=== PATIENT | female | born 1935 | race Caucasian/White ===

== ENCOUNTER 2023-05-08 11:46 | Outpatient (OUT) | payer MEDICARE, SELFPAY ==
[2023-05-08 11:59] LABS: Basophils Absolute Auto 0.1 10^3/uL (0.0-0.1); Basophils Percent Auto 0.9 % (0.2-2.0); Eosinophils Absolute Auto 0.1 10^3/uL (0.0-0.7); Eosinophils Percent Auto 1.2 % (0.9-7.0); Hematocrit 40.6 % (36.0-48.0); Hemoglobin 12.6 g/dL (12.0-16.0); Immature Granulocytes Abs Auto 0.03 10^3/uL (0.00-0.03); Immature Granulocytes Pct Auto 0.5 % (0.0-0.5); Lymphocytes Absolute Auto 2.1 10^3/uL (1.2-3.8); Mean Corpuscular Hemoglobin 29.9 pg (26.7-34.0); Mean Corpuscular Volume 96.2 fL (81.0-99.0); Mean Platelet Volume 11.1 fL (9.5-13.5); Monocytes Absolute Auto 0.7 10^3/uL (0.3-0.8); Monocytes Percent Auto 10.1 % (1.7-12.0); Neutrophils Absolute Auto 3.7 10^3/uL (1.4-6.5); Neutrophils Percent Auto 55.3 % (43.0-75.0); Platelet Count 192 10^3/uL (150-450); Red Blood Count 4.22 10^6/uL (4.20-5.40); White Blood Count 6.7 10^3/uL (4.0-11.0)
[2023-05-08 12:15] LABS: Erythrocyte Sedimentation Rate 17 mm/hr (<=30)
[2023-05-08 12:48] LABS: Alanine Aminotransferase 26 U/L (14-59); Albumin Level 3.6 g/dL (3.4-5.0); Alkaline Phosphatase 97 U/L (46-116); Anion Gap 7.5; Aspartate Amino Transferase 19 U/L (15-37); BUN Creatinine Ratio 15.6; Bilirubin Total 0.6 mg/dL (0.2-1.0); Calcium 9.7 mg/dL (8.5-10.1); Carbon Dioxide 33.4 mmol/L (21.0-32.0); Chloride 104 mmol/L (98-107); Estimated GFR (African America >60 (>=60); Estimated GFR (Non-African Ame >60 (>=60); Globulin 3.5 g/dL; Glucose 102 mg/dL (74-106); Potassium 3.9 mmol/L (3.5-5.1); Sodium 141 mmol/L (136-145); Thyroid Stimulating Hormone 2.893 uIU/mL (0.358-3.740); Total Protein 7.1 g/dL (6.4-8.2)
== END 2023-05-08 11:47 | disposition home or self-care (01) ==
LOC: LAB 11:47
PROVIDERS: PCP Internal Medicine; Visit Provider Internal Medicine
DX: M06.4 Inflammatory polyarthropathy (principal); R03.0 Elevated blood-pressure reading, without diagnosis of hypertension; I87.2 Venous insufficiency (chronic) (peripheral); R53.82 Chronic fatigue, unspecified; E55.9 Vitamin D deficiency, unspecified
CPT/HCPCS: 36415; 80053; 82306; 84443; 85025; 85652

== ENCOUNTER 2023-07-23 10:15 | Outpatient (OUT) | payer MEDICARE, OTHER, SELFPAY ==
--- NOTE | 2023-07-23 10:20 | MM_ITS ---
Patient: JAYLON CASH Exam Date: 07/23/2023 : 1935 Gender:F Ordering : DR Melvin Pereira D.O. Admission #: [id number] Family : Order #: [id number] CLICK HERE TO VIEW EXAM RADIOLOGY REPORT PROCEDURE: MM TOMOSYNTHESIS SCREENING BI COMPARISON: MG MAMM RT DIAG FU, 07/16/2022. MG MAMM SCREEN 3D KATERINA CAD, 07/04/2022. MG MAMM SCREEN 3D [place] CAD, 06/06/2021. MG MAMM KATERINA SCRN W CAD DIG, 09/06/2013. INDICATIONS: Screening Calculator Name NCI Breast Cancer Risk Assessment Tool 5 Year Breast Cancer Risk Not Applicable. Lifetime Breast Cancer Risk Not Applicable. Personal Breast Cancer No Personal Ovarian Cancer No Treatments None Family Cancers Aunt-maternal with breast cancer at age 60; Sister with bladder cancer at age 78. LOCATION: [facility] BREAST COMPOSITION: Heterogeneously dense,which may obscure small masses. FINDINGS: DIAGNOSTIC CATEGORY 2--BENIGN FINDING: RIGHT BREAST: No significant suspicious finding. Scattered benign-appearing calcifications are present. Stable chronic nodule within lower-outer quadrant. No significant change has occurred. LEFT BREAST: No significant suspicious finding. RECOMMENDATIONS: ROUTINE MAMMOGRAM AND CLINICAL EVALUATION IN 12 MONTHS. PLEASE NOTE: A NORMAL MAMMOGRAM DOES NOT EXCLUDE THE POSSIBILITY OF BREAST CANCER. A CLINICALLY SUSPICIOUS PALPABLE LUMP SHOULD BE BIOPSIED. Dictated by: Jamie Owen M.D. on 07/24/2023 at 11:10 Approved by: Jamie Owen M.D. on 07/24/2023 at 11:16
--- NOTE | 2023-07-23 10:20 | XR_ITS ---
[address] [address] Patient Name: JAYLON CASH MRN: [id number] date: 1935 Sex: F Assigned Patient Location: MAMMO Current Patient Location: LAB Accession/Order Number: [id number] Exam Date: 07/23/2023 10:56 Report Date: 07/23/2023 11:28 At the request of: DOLLY TORRES Procedure: XR DEXA axial skeleton EXAMINATION: XR DEXA axial skeleton HISTORY: Menopause Z78.0 COMPARISON: DEXA bone densitometry 06/10/2021 TECHNIQUE: Dual-energy X-ray absorptiometry (DXA) was performed. FINDINGS: SPINE ANALYSIS: Average bone mineral density is 1.208 g/cm2. T-score (standard deviation relative to young adult mean): 0.2 . -1.0% change since prior study. HIP ANALYSIS: Lowest bone mineral density is within the left femoral neck, 0.771 g/cm2. T-score (standard deviation relative to young adult mean): -1.9 . -0.2% change since prior study. XR/XR DEXA axial skeleton IMPRESSION: [employer] Classification: Osteopenia - Moderate Fracture Risk Electronically authenticated by: KEON ROBERTSON Date: 07/23/2023 11:28
== END 2023-07-23 10:16 | disposition home or self-care (01) ==
LOC: MAMMO 10:15
PROVIDERS: PCP Internal Medicine; Visit Provider Internal Medicine
DX: Z12.31 Encounter for screening mammogram for malignant neoplasm of breast (principal); Z78.0 Asymptomatic menopausal state; Z80.3 Family history of malignant neoplasm of breast; Z80.52 Family history of malignant neoplasm of bladder; M85.89 Other specified disorders of bone density and structure, multiple sites
CPT/HCPCS: 77063; 77067; 77080

== ENCOUNTER 2023-07-23 11:08 | Outpatient (OUT) | payer MEDICARE, OTHER, SELFPAY ==
[2023-07-23 11:44] LABS: Basophils Absolute Auto 0.1 10^3/uL (0.0-0.1); Basophils Percent Auto 0.9 % (0.2-2.0); Eosinophils Percent Auto 0.4 % (0.9-7.0); Hematocrit 41.8 % (36.0-48.0); Hemoglobin 12.8 g/dL (12.0-16.0); Immature Granulocytes Abs Auto 0.03 10^3/uL (0.00-0.03); Immature Granulocytes Pct Auto 0.4 % (0.0-0.5); Lymphocytes Absolute Auto 2.3 10^3/uL (1.2-3.8); Lymphocytes Percent Auto 33.8 % (20.5-60.0); Mean Corpuscular HGB Conc 30.6 g/dL (29.9-35.2); Mean Corpuscular Hemoglobin 30.1 pg (26.7-34.0); Mean Corpuscular Volume 98.4 fL (81.0-99.0); Mean Platelet Volume 11.7 fL (9.5-13.5); Monocytes Absolute Auto 0.6 10^3/uL (0.3-0.8); Monocytes Percent Auto 9.3 % (1.7-12.0); Neutrophils Absolute Auto 3.7 10^3/uL (1.4-6.5); Neutrophils Percent Auto 55.2 % (43.0-75.0); Platelet Count 214 10^3/uL (150-450); Red Blood Count 4.25 10^6/uL (4.20-5.40); Red Cell Distribution Width 15.1 % (11.0-15.0); White Blood Count 6.7 10^3/uL (4.0-11.0)
[2023-07-23 12:19] LABS: Erythrocyte Sedimentation Rate 26 mm/hr (<=30)
[2023-07-23 12:35] LABS: Alanine Aminotransferase 31 U/L (14-59); Albumin Globulin Ratio 1.1; Albumin Level 3.7 g/dL (3.4-5.0); Alkaline Phosphatase 97 U/L (46-116); Anion Gap 10.4; Aspartate Amino Transferase 22 U/L (15-37); BUN Creatinine Ratio 15.8; Bilirubin Total 0.5 mg/dL (0.2-1.0); Calcium 9.6 mg/dL (8.5-10.1); Carbon Dioxide 31.7 mmol/L (21.0-32.0); Chloride 104 mmol/L (98-107); Estimated GFR (African America >60 (>=60); Estimated GFR (Non-African Ame >60 (>=60); Globulin 3.5 g/dL; Glucose 92 mg/dL (74-106); Potassium 4.1 mmol/L (3.5-5.1); Sodium 142 mmol/L (136-145); Total Protein 7.2 g/dL (6.4-8.2)
== END 2023-07-23 11:09 | disposition home or self-care (01) ==
LOC: LAB 11:11
PROVIDERS: PCP Internal Medicine; Visit Provider Internal Medicine Rheumatology
DX: M05.79 Rheumatoid arthritis with rheumatoid factor of multiple sites without organ or systems involvement (principal); Z79.899 Other long term (current) drug therapy
CPT/HCPCS: 36415; 80053; 85025; 85652

== ENCOUNTER 2023-08-07 14:08 | Emergency (ER) | payer MEDICARE, OTHER, SELFPAY ==
[2023-08-07] VITALS (14 sets, daily range): BP systolic 135–161; BP diastolic 50–61; PULSE 79–101; RESP 15–33; TEMP 37.2; O2SAT 87–94; BMI 24.0
--- NOTE | 2023-08-07 14:15 | ECG_ITS ---
The [facility] Test Date: 2023-08-07 Pat Name: JAYLON CASH Department: Room: - Gender: Female Pediatric Urologist: : 1935 Requested By: Melvin Torres Order Number: [id number] Reading MD: MELVIN TORRES Measurements Intervals [place] Rate: 88 P: 4 AL: 156 QRS: 27 QRSD: 86 T: 15 QT: 314 QTc: 359 Interpretive Statements 1100 Sinus rhythm 1570 with occasional ventricular premature complexes 7300 Indeterminate axis 8305 Short QTc interval 9150 abnormal ECG No previous ECG available for comparison Electronically Signed On 08-09-2023 18:19:06 EDT by MELVIN TORRES
--- NOTE | 2023-08-07 14:15 | CT_ITS ---
The [address] [address] Patient Name: JAYLON CASH MRN: [id number] date: 1935 Sex: F Assigned Patient Location: ER Current Patient Location: ER Accession/Order Number: [id number] Exam Date: 08/07/2023 14:46 Report Date: 08/07/2023 15:13 At the request of: SHERRY SABILLON Procedure: CT head/brain wo con EXAM: CT head/brain wo con HISTORY: head injury history of fall COMPARISON: CT head 11/05/2021. TECHNIQUE: Axial soft tissue and bone windows through the calvarium with coronal and sagittal reformats. CT dose reduction technique was used including Automated Exposure Control. Findings: No depressed or calvarial fracture. The paranasal sinuses and mastoid air cells are well aerated. No air-fluid levels. No extra-axial fluid collection. No intra-axial or extra-axial bleed. No mass effect or midline shift. The frank-white matter differentiation is preserved. There are white matter low attenuation lesions which are nonspecific but commonly attributed to chronic small vessel ischemic disease. The brain parenchymal volume is reduced and there is mild ex vacuo dilatation of the ventricles. The basal cisterns are patent. The craniovertebral junction is unremarkable. CT/CT head/brain wo con IMPRESSION: 1. No depressed or calvarial fracture. 2. No acute intracranial bleed. 3. Senescent changes. No Electronically authenticated by: MANDY JANE Date: 08/07/2023 15:13
--- NOTE | 2023-08-07 14:17 | ED.GENADUL1 ---
HPI - General Adult General Chief complaint: Fall Stated complaint: FALL Time Seen by Provider: 08/07/23 14:10 Source: patient Mode of arrival: ambulance History of Present Illness HPI narrative: patient got dizzy while standing in the kitchen and making herself breakfast this morning. She said that she became nauseous and vomited. She then fell to the floor and hit her head but did not lose consciousness. She vomited again. She was unable to get herself up. A neighbor finally found her about 4 hours after the episode and called 911. She was brought to us by EMS. Her only complaint at this time is dizziness. She denies headache, neck pain, back pain, chest or torso pain. No hip or pelvis pain. No extremity injuries. She denied any recent illness and has been taking her meds as prescribed. She previously had episodes of vertigo/dizziness but it has been years and she had no meds to take at home for this. Related Data Previous Rx's Medication Instructions Recorded meclizine 25 mg tablet 25 mg PO TID PRN dizziness #30 tabs 08/07/23 ondansetron 4 mg disintegrating 4 mg PO Q6H PRN nausea and 08/07/23 tablet vomiting #20 tabs Allergies Allergy/AdvReac Type Severity Reaction Status Date / Time No Known Drug Allergies Allergy Verified 08/07/23 14:09 Exam Narrative Exam Narrative: Nurses note and vital signs reviewed and patient is not hypoxic. afebrile General: The patient appears well and in no apparent distress. Patient is resting comfortably on cart. GCS = 15. Skin: Warm, dry, no pallor noted. Head: Normocephalic, atraumatic Neck: Supple, trachea mid-line. Full ROM and no cervical spinal tenderness. Eyes: PERRLA, EOMI ENT: TMs clear, no hemotympanum detected, no blood in posterior oropharynx Cardiovascular: Regular Rate and Rhythm Respiratory: Patient is in no distress, no accessory muscle use, lungs are clear to auscultation, no wheezing, rales or rhonchi Chest Wall: no tenderness, no flail chest, contusion, abrasion, or signs of trauma. Back: No thoracic or lumbar tenderness to palpation. Negative straight leg raise bilaterally. Musculoskeletal: no sign of long bone fracture, no tenderness, no swelling. Pulses at femoral, DP, PT, and popliteal were 2+ bilaterally. Moves all four extremities in all modalities with 5/5 strength. GI: Normal bowel sounds, no tenderness to palpation, no masses appreciated. No rebound, guarding, or rigidity noted. 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 No truncal ataxia. No increase in dizziness when sitting up or moving her head. Psychiatric: Cooperative Constitutional Vital Signs, click to edit/add: Last Vital Signs Temp 98.9 F 08/07/23 14:09 Pulse 85 08/07/23 15:40 Resp 18 08/07/23 15:40 BP 135/50 08/07/23 15:30 Pulse Ox 94 L 08/07/23 14:18 O2 Del Method Room Air 08/07/23 14:09 Course Vital Signs Vital signs: Vital Signs Temperature 98.9 F 08/07/23 14:09 Pulse Rate 88 08/07/23 14:09 Respiratory Rate 18 08/07/23 14:09 Blood Pressure 161/61 H 08/07/23 14:09 Pulse Oximetry 94 L 08/07/23 14:09 Oxygen Delivery Method Room Air 08/07/23 14:09 Temperature 98.9 F 08/07/23 14:09 Pulse Rate 85 08/07/23 15:40 Respiratory Rate 18 08/07/23 15:40 Blood Pressure 135/50 08/07/23 15:30 Pulse Oximetry 94 L 08/07/23 14:18 Oxygen Delivery Method Room Air 08/07/23 14:09 Medical Decision Making MDM Narrative Medical decision making narrative: Patient was placed on metallurgical tester and EKG obtained. Blood drawn and sent for evaluation. Urine was sent for testing. She was given a liter of NS IVF, IV Zofran and oral Meclizine. Orthostatics were obtained and were negative. She was sent for head CT without contrast and no acute pathology was identified by the radiologist. UA negative for UTI. Blood testing was unremarkable. Daughter arrived and, although the patient denied any of these symptoms when I directly asked her, the daughter told the ED nurse that the patient had complained of sore throat and therefore requested a Covid swab. Covid was positive and this results was discussed with the patient and family On recheck at 1620 she was feeling less dizziness and nausea had subsided. ED nurse reported that the patient was able to stand and ambulate to the bathroom. The patient was discharged home with prescriptions for Meclizine and Zofran. Patient advised to rest, stay at home, practice social distancing, take Motrin and Tylenol for pain and fever if not allergic, stay well hydrated with Gatorade or similar drinks if vomiting or eat as tolerated if not and take any meds as prescribed. Reviewed reasons to return including rapid increase in respiratory rate, shortness of breath, confusion, inability to keep down sips of swallowed liquids for more than 24 hours. Asked patient to encourage any ill contacts to stay home and practice similar advice. Lab Data Lab results reviewed: Yes I reviewed the patient's lab results Labs: Lab Results 08/07/23 08/07/23 08/07/23 Range/Units 14:15 14:48 15:52 WBC 7.8 (4.0-11.0) 10^3/uL RBC 4.01 L (4.20-5.40) 10^6/uL Hgb 12.1 (12.0-16.0) g/dL Hct 38.2 (36.0-48.0) % MCV 95.3 (81.0-99.0) fL MCH 30.2 (26.7-34.0) pg MCHC 31.7 (29.9-35.2) g/dL RDW 15.1 H (11.0-15.0) % Plt Count 166 (150-450) 10^3/uL MPV 12.1 (9.5-13.5) fL Neut % (Auto) 81.3 H (43.0-75.0) % Lymph % (Auto) 7.3 L (20.5-60.0) % [place] % (Auto) 10.1 (1.7-12.0) % Eos % (Auto) 0.0 L (0.9-7.0) % Baso % (Auto) 0.5 (0.2-2.0) % Neut # (Auto) 6.4 (1.4-6.5) 10^3/uL Lymph # (Auto) 0.6 L (1.2-3.8) 10^3/uL [place] # (Auto) 0.8 (0.3-0.8) 10^3/uL Eos # (Auto) 0.0 (0.0-0.7) 10^3/uL Baso # (Auto) 0.0 (0.0-0.1) 10^3/uL Abs Immat Gran (auto) 0.06 H (0.00-0.03) 10^3/uL Imm/Tot Granulo (auto) 0.8 H (0.0-0.5) % Sodium 135 L (136-145) mmol/L Potassium 3.6 (3.5-5.1) mmol/L Chloride 101 (98-107) mmol/L Carbon Dioxide 31.4 (21.0-32.0) mmol/L Anion Gap 6.2 BUN 13.0 (7.0-18.0) mg/dL Creatinine 0.84 (0.55-1.02) mg/dL Est GFR ( Amer) >60 (>=60) Est GFR (Non-Af Amer) >60 (>=60) BUN/Creatinine Ratio 15.5 Glucose 129 H (74-106) mg/dL Calcium 9.2 (8.5-10.1) mg/dL Total Bilirubin 0.6 (0.2-1.0) mg/dL AST 24 (15-37) U/L ALT 12 L (14-59) U/L Alkaline Phosphatase 93 (46-116) U/L Troponin I High Sens 9.2 (4.0-51.3) pg/mL Total Protein 7.2 (6.4-8.2) g/dL Albumin 3.6 (3.4-5.0) g/dL Globulin 3.6 g/dL Albumin/Globulin Ratio 1.0 Urine Color Yellow (YELLOW) Urine Clarity Clear (CLEAR) Urine pH 7.0 (5.0-9.0) Ur Specific [place] 1.015 (1.005-1.025) Urine Protein 30 A (NEG/TRACE) mg/dL Urine Glucose (UA) Negative (NEGATIVE) mg/dL Urine Ketones Trace A (NEGATIVE) mg/dL Urine Occult Blood Negative (NEGATIVE) Urine Nitrite Negative (NEGATIVE) Urine Bilirubin Negative (NEGATIVE) Urine Urobilinogen 1.0 (0.2-1.0) EU/dL Ur Leukocyte Esterase Negative (NEGATIVE) Urine RBC 0-2 (0-2) #/HPF Urine WBC 0-2 A (NONE SEEN) #/HPF Ur Squamous Epith Cells Rare (NONE/RARE) #/LPF Urine Crystals None seen (None Seen) #/HPF Urine Bacteria None seen (NONE SEEN) #/HPF Urine Casts Seen A (NONE SEEN) #/LPF Hyaline Casts Few Urine Mucus Small A (NONE SEEN) Ur Culture Indicated? No SARS-CoV-2 (PCR) Positive A (NEGATIVE) Imaging Data CT scan - head: Radiologist's impression: Patient: JAYLON CASH MR#: [id number] : 1935 Acct:[id number] Age/Sex: 88 / F ADM Date: 08/07/23 Loc: ER Attending Dr: Ordering Physician: Sherry Sabillon D.O. Date of Service: 08/07/23 Procedure(s): CT head/brain wo con Accession Number(s): [id number] cc: Melvin Pereira D.O.~ [facility] [place] [id number] Patient Name: JAYLON CASH MRN: [id number] date: 1935 Sex: F Assigned Patient Location: ER Current Patient Location: ER Accession/Order Number: [id number] Exam Date: 08/07/2023 14:46 Report Date: 08/07/2023 15:13 At the request of: SHERRY SABILLON Procedure: CT head/brain wo con EXAM: CT head/brain wo con HISTORY: head injury history of fall COMPARISON: CT head 11/05/2021. TECHNIQUE: Axial soft tissue and bone windows through the calvarium with coronal and sagittal reformats. CT dose reduction technique was used including Automated Exposure Control. Findings: No depressed or calvarial fracture. The paranasal sinuses and mastoid air cells are well aerated. No air-fluid levels. No extra-axial fluid collection. No intra-axial or extra-axial bleed. No mass effect or midline shift. The frank-white matter differentiation is preserved. There are white matter low attenuation lesions which are nonspecific but commonly attributed to chronic small vessel ischemic disease. The brain parenchymal volume is reduced and there is mild ex vacuo dilatation of the ventricles. The basal cisterns are patent. The craniovertebral junction is unremarkable. CT/CT head/brain wo con IMPRESSION: 1. No depressed or calvarial fracture. 2. No acute intracranial bleed. 3. Senescent changes. No Electronically authenticated by: MANDY JANE Date: 08/07/2023 15:13 ECG Data Interpretation: EKG interpretation: Emergency Department physician interpretation. Normal sinus rhythm at 88bpm. Indeterminate axis, short QTc interval. No ST segment elevation or depression. Discharge Plan Discharge Chief Complaint: Fall Clinical Impression: COVID, Dizziness Patient Disposition: Home, Self-Care Time of Disposition Decision: 16:34 Prescriptions / Home Meds: New ondansetron 4 mg tablet,disintegrating 4 mg PO Q6H PRN (Reason: nausea and vomiting) Qty: 20 0RF meclizine 25 mg tablet 25 mg PO TID PRN (Reason: dizziness) Qty: 30 0RF Instructions: Dizziness (ED), COVID-19 (Coronavirus Disease 2019) (ED) Stand Alone Forms: Portal Instructions Referrals: Melvin Pereira DO [Primary Care Provider] - 1 week
[2023-08-07 14:29] LABS: Basophils Percent Auto 0.5 % (0.2-2.0); Hematocrit 38.2 % (36.0-48.0); Hemoglobin 12.1 g/dL (12.0-16.0); Immature Granulocytes Abs Auto 0.06 10^3/uL (0.00-0.03); Immature Granulocytes Pct Auto 0.8 % (0.0-0.5); Lymphocytes Absolute Auto 0.6 10^3/uL (1.2-3.8); Lymphocytes Percent Auto 7.3 % (20.5-60.0); Mean Corpuscular HGB Conc 31.7 g/dL (29.9-35.2); Mean Corpuscular Hemoglobin 30.2 pg (26.7-34.0); Mean Corpuscular Volume 95.3 fL (81.0-99.0); Mean Platelet Volume 12.1 fL (9.5-13.5); Monocytes Absolute Auto 0.8 10^3/uL (0.3-0.8); Monocytes Percent Auto 10.1 % (1.7-12.0); Neutrophils Absolute Auto 6.4 10^3/uL (1.4-6.5); Neutrophils Percent Auto 81.3 % (43.0-75.0); Platelet Count 166 10^3/uL (150-450); Red Blood Count 4.01 10^6/uL (4.20-5.40); Red Cell Distribution Width 15.1 % (11.0-15.0); White Blood Count 7.8 10^3/uL (4.0-11.0)
[2023-08-07] MEDS: 0.9 % SODIUM CHLORIDE 1,000 ML 999 ML IV (14:36)
[2023-08-07] MEDS: ONDANSETRON PF 4 MG/2 ML VIAL IV (14:36)
[2023-08-07] MEDS: MECLIZINE HCL 12.5 MG TABLET 25 MG PO (14:36)
[2023-08-07 14:51] LABS: Alanine Aminotransferase 12 U/L (14-59); Albumin Level 3.6 g/dL (3.4-5.0); Alkaline Phosphatase 93 U/L (46-116); Anion Gap 6.2; Aspartate Amino Transferase 24 U/L (15-37); BUN Creatinine Ratio 15.5; Bilirubin Total 0.6 mg/dL (0.2-1.0); Calcium 9.2 mg/dL (8.5-10.1); Carbon Dioxide 31.4 mmol/L (21.0-32.0); Chloride 101 mmol/L (98-107); Estimated GFR (African America >60 (>=60); Estimated GFR (Non-African Ame >60 (>=60); Globulin 3.6 g/dL; Glucose 129 mg/dL (74-106); Potassium 3.6 mmol/L (3.5-5.1); Sodium 135 mmol/L (136-145); Total Protein 7.2 g/dL (6.4-8.2); Troponin I High Sensitivity 9.2 pg/mL (4.0-51.3)
[2023-08-07 14:54] LABS: Bilirubin Urine NEGATIVE (NEGATIVE); Blood Urine NEGATIVE (NEGATIVE); Clarity Urine CLEAR (CLEAR); Color Urine YELLOW (YELLOW); Glucose Urine UA NEGATIVE (NEGATIVE); Ketones Urine TRACE mg/dL (NEGATIVE); Leukocyte Esterase Urine NEGATIVE (NEGATIVE); Nitrite Urine NEGATIVE (NEGATIVE); Protein Urine 30 mg/dL (NEG/TRACE); Specific Gravity Urine 1.015 (1.005-1.025)
[2023-08-07 14:56] LABS: Urine Microscopic Indicated YES
[2023-08-07 15:02] LABS: Bacteria Urine NONE SEEN #/HPF (NONE SEEN); Mucus Urine SMALL (NONE SEEN); RBC Urine 0-2 #/HPF (0-2); Squamous Epithelial Cell Urine RARE #/LPF (NONE/RARE); WBC Urine 0-2 #/HPF (NONE SEEN)
[2023-08-07 15:03] LABS: Cast Seen? SEEN #/LPF (NONE SEEN); Crystals Seen? None Seen #/HPF (None Seen); Hyaline Casts Urine FEW; Urine Culture Indicated NO
[2023-08-07 16:10] LABS: SARS-CoV-2 Ag POSITIVE (NEGATIVE)
== END 2023-08-07 17:01 | disposition home or self-care (01) ==
PROVIDERS: Emergency Provider Emergency Medicine; PCP Internal Medicine
DX: U07.1 COVID-19 (principal); R42 Dizziness and giddiness
CPT/HCPCS: 36415; 70450; 80053; 81001; 84484; 85025; 87811; 93005; 96361; 96374; 99285

== ENCOUNTER 2023-12-16 14:24 | Outpatient (OUT) | payer MEDICARE, OTHER, SELFPAY ==
[2023-12-16 15:23] LABS: Basophils Absolute Auto 0.1 10^3/uL (0.0-0.1); Basophils Percent Auto 0.9 % (0.2-2.0); Eosinophils Absolute Auto 0.1 10^3/uL (0.0-0.7); Hematocrit 39.1 % (36.0-48.0); Hemoglobin 11.9 g/dL (12.0-16.0); Immature Granulocytes Abs Auto 0.01 10^3/uL (0.00-0.03); Immature Granulocytes Pct Auto 0.1 % (0.0-0.5); Lymphocytes Absolute Auto 2.5 10^3/uL (1.2-3.8); Lymphocytes Percent Auto 35.6 % (20.5-60.0); Mean Corpuscular HGB Conc 30.4 g/dL (29.9-35.2); Mean Corpuscular Hemoglobin 29.5 pg (26.7-34.0); Mean Corpuscular Volume 96.8 fL (81.0-99.0); Mean Platelet Volume 11.6 fL (9.5-13.5); Monocytes Absolute Auto 0.6 10^3/uL (0.3-0.8); Neutrophils Absolute Auto 3.8 10^3/uL (1.4-6.5); Neutrophils Percent Auto 54.4 % (43.0-75.0); Platelet Count 212 10^3/uL (150-450); Red Blood Count 4.04 10^6/uL (4.20-5.40); Red Cell Distribution Width 14.8 % (11.0-15.0); White Blood Count 6.9 10^3/uL (4.0-11.0)
[2023-12-16 15:55] LABS: Alanine Aminotransferase 30 U/L (14-59); Albumin Globulin Ratio 0.9; Albumin Level 3.2 g/dL (3.4-5.0); Alkaline Phosphatase 91 U/L (46-116); Anion Gap 8.5; Aspartate Amino Transferase 22 U/L (15-37); BUN Creatinine Ratio 16.7; Bilirubin Total 0.5 mg/dL (0.2-1.0); Calcium 9.2 mg/dL (8.5-10.1); Carbon Dioxide 33.3 mmol/L (21.0-32.0); Chloride 104 mmol/L (98-107); Estimated GFR (African America >60 (>=60); Estimated GFR (Non-African Ame >60 (>=60); Globulin 3.4 g/dL; Glucose 141 mg/dL (74-106); Potassium 3.8 mmol/L (3.5-5.1); Sodium 142 mmol/L (136-145); Total Protein 6.6 g/dL (6.4-8.2)
[2023-12-16 16:00] LABS: Erythrocyte Sedimentation Rate 22 mm/hr (<=30)
== END 2023-12-16 14:25 | disposition home or self-care (01) ==
PROVIDERS: PCP Internal Medicine; Visit Provider Internal Medicine Rheumatology
DX: M05.79 Rheumatoid arthritis with rheumatoid factor of multiple sites without organ or systems involvement (principal); Z79.899 Other long term (current) drug therapy
CPT/HCPCS: 36415; 80053; 85025; 85652

== ENCOUNTER 2024-02-04 17:53 | Emergency (ER) | payer MEDICARE, OTHER, SELFPAY ==
[2024-02-04] VITALS (21 sets, daily range): BP systolic 151–196; BP diastolic 62–103; PULSE 66–100; TEMP 36.4; O2SAT 78–100; BMI 21.9
--- NOTE | 2024-02-04 18:06 | ED_ITS ---
HPI HPI - General Adult General Chief complaint: Weakness Stated complaint: weakness, vision changes Time Seen by Provider: 02/04/24 18:06 Source: patient Mode of arrival: ambulance History of Present Illness HPI narrative: Chief plaint here today is weakness. She says she does not have any energy and did not feel like doing anything today and that is not like her. She actually saw her primary care doctor today and felt fine but then she went home and started feeling bad. She called an ambulance. She lives by herself. She said that on Thursday she had a problem with her speech she said that words were coming out of her mouth that did not make any sense and that she was not intending to speak. She was not having slurring of her speech at that time. At that time she was with her daughter who noticed that as well. Her daughter took her home and stayed with her for a while and the symptoms passed. Today she is not having any shortness of breath, trouble breathing or chest discomfort. She does not have a headache. She said that she had been on blood pressure medicines previously but they were stopped because the pressure went low but now when she saw her doctor today, they want start her back on the blood pressure medicine because it was high again. She still is on methotrexate for arthritis and cyclosporine eyedrops. She does not have any change in urinary symptoms, no frequency urgency dysuria or odor to the urine. She says she always has a little bit of stress incontinence. She said that is not new. She does not have any skin lesions or sores that she is aware of. She has not had cough runny nose sore throat cold symptoms are all negative. No aches and pains or influenza type symptoms. Related Data Home Medications ?Medication ?Instructions ?Recorded ?Confirmed cyclosporine 0.05 % eye drops in a 1 drp ophthalmic (eye) Q12H 02/04/24 02/04/24 dropperette (Restasis) loteprednol etabonate 0.5 % eye 1 drp ophthalmic (eye) BID 02/04/24 02/04/24 drops,suspension methotrexate sodium 2.5 mg tablet 2.5 mg PO .weekly 02/04/24 02/04/24 olmesartan 5 mg tablet 5 mg PO DAILY 02/04/24 02/04/24 Allergies Allergy/AdvReac Type Severity Reaction Status Date / Time No Known Drug Allergies Allergy Verified 08/07/23 14:09 Opioid HPI Opioid Management Most Recent Opioid Data: No Data to Display Exam Narrative Exam Narrative: Awake alert [place] x 3 pretty good historian. Vital signs are stable and as noted. Pulse oximetry 98% on room air there is no respiratory distress. Skin integument showed no clamminess no diaphoresis no pallor. HEENT shows no focus of infection there is no scleral icterus or evidence of jaundice or anemia. Voice is normal. There is no slurring of her words content is appropriate. There is no nasal stuffiness or congestion there is no nuchal rigidity or neck pain. Her lungs are completely clear with no wheeze rales or rhonchi. Heart sounds are equally normal with no rub gallop or murmur. Examination her abdomen is soft and supple she has no pain with palpation and she has no abdominal symptomatology today. Her extremities do not show any evidence of edema swelling or phlebitis. She does have arthritic changes throughout her extremities. Neurologically there is no focal neurological findings or symptoms. Cognition is adequate for 89-year-old. She does not seem confused. She had total awareness of the event on the previous Thursday where she had problems with her speech. She has spontaneous movement of all the extremities with no weakness. Her cranial nerves are intact today. Constitutional Vital Signs, click to edit/add: Last Vital Signs Temp 97.6 F 02/04/24 17:57 Pulse 80 02/04/24 17:57 Resp 16 02/04/24 17:57 BP 196/103 H 02/04/24 18:01 Pulse Ox 98 02/04/24 17:57 O2 Del Method Room Air 02/04/24 17:57 Course Vital Signs Vital signs: Vital Signs Temperature 97.6 F 02/04/24 17:57 Pulse Rate 80 02/04/24 17:57 Respiratory Rate 16 02/04/24 17:57 Pulse Oximetry 98 02/04/24 17:57 Oxygen Delivery Method Room Air 02/04/24 17:57 Temperature 97.6 F 02/04/24 17:57 Pulse Rate 80 02/04/24 17:57 Respiratory Rate 16 02/04/24 17:57 Blood Pressure 196/103 H 02/04/24 18:01 Pulse Oximetry 98 02/04/24 17:57 Oxygen Delivery Method Room Air 02/04/24 17:57 Discharge Plan Discharge Chief Complaint: Weakness Clinical Impression: Acute weakness Prescriptions / Home Meds: No Action methotrexate sodium 2.5 mg tablet 2.5 mg PO .weekly loteprednol etabonate 0.5 % drops,suspension 1 drp OPHTHALMIC (EYE) BID olmesartan 5 mg tablet 5 mg PO DAILY cyclosporine [Restasis] 0.05 % dropperette 1 drp OPHTHALMIC (EYE) Q12H Print Language: Latvian Referrals: Melvin Pereira DO [Primary Care Provider] - 1 week
--- NOTE | 2024-02-04 18:10 | XR_ITS ---
The [address] [address] Patient Name: JAYLON CASH MRN: [id number] date: 1935 Sex: F Assigned Patient Location: ER Current Patient Location: ER Accession/Order Number: [id number] Exam Date: 02/04/2024 18:45 Report Date: 02/04/2024 19:10 At the request of: LETTY CORADO Procedure: XR chest 1V EXAM: XR chest 1V at 1850 hours HISTORY: Weakness COMPARISON: 11/05/2021 TECHNIQUE: AP upright portable chest x-ray FINDINGS: The heart is not enlarged and the vasculature is not distended. No acute infiltrate, effusion or pneumothorax is identified. The osseous structures are grossly intact. XR/XR chest 1V IMPRESSION: No acute infiltrate or evidence of cardiac decompensation. The overall appearance of the chest is essentially unchanged. Electronically authenticated by: BUSTER NUNES Date: 02/04/2024 19:10
--- NOTE | 2024-02-04 18:10 | ECG_ITS ---
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
--- NOTE | 2024-02-04 18:11 | CT_ITS ---
The [address] [address] Patient Name: JAYLON CASH MRN: [id number] date: 1935 Sex: F Assigned Patient Location: ER Current Patient Location: ED.MAIN Accession/Order Number: [id number] Exam Date: 02/04/2024 18:55 Report Date: 02/04/2024 19:23 At the request of: LETTY CORADO Procedure: CT head/brain wo con EXAM: CT scan of the head without contrast. Dose reduction technique used: Automated exposure control and/or adjustment of the mA and/or kV according to patient size and/or use of iterative reconstruction technique. REASON FOR EXAM: Speech problem COMPARISON: CT scan dated 08/07/2023 FINDINGS: No intracranial hemorrhage, mass effect, midline shift, fractures or evidence of acute ischemic infarct. No hydrocephalus. Moderate generalized cerebral and cerebellar volume loss. Moderate small vessel gliosis. Paranasal sinuses and mastoid air cells are clear. Remainder unremarkable. CT/CT head/brain wo con IMPRESSION: No acute intracranial abnormalities. Electronically authenticated by: ANNIE ROUSE Date: 02/04/2024 19:23
--- OUTSIDE RECORDS SUMMARY | 2024-02-04 18:15 | XMS_ITS | CCD ---
Author Organization [facility] Care Team Providers Care Medical Assistant Ob Gyn Name Role Phone TR, DR SANTACRUZ Admitting Unavailable ARMANDO, DR SANTACRUZ Attending Unavailable ARMANDO, DR SANTACRUZ Consulting Unavailable BALL, DR ALBERTO Primary Care Unavailable PRISCILLA, CARITO Attending Unavailable PRISCILLA, CARITO Admitting Unavailable ZIEBMARCO, DR JAMIE Cruz Consulting Unavailable BALL, DR ALBERTO Primary Care Unavailable PRISCILLA, CARITO Consulting Unavailable ARMANDO, DR SANTACRUZ Admitting Unavailable ARMANDO, DR SANTACRUZ Attending Unavailable ARMANDO, DR SANTACRUZ Consulting Unavailable BALL, DR ALBERTO Primary Care Unavailable BALL, DR ALBERTO Attending Unavailable BALL, DR ALBERTO Consulting Unavailable BALL, DR ALBERTO Primary Care Unavailable BALL, DR ALBERTO Admitting Unavailable WEST, DR MARIA E Briceno Consulting Unavailable BALL, DR ALBERTO Admitting Unavailable BALL, DR ALBERTO Attending Unavailable BALL, DR ALBERTO Consulting Unavailable BALL, DR ALBERTO Primary Care Unavailable AILYN, DR JAMIE Cruz Consulting Unavailable Randall, Melvin Unavailable DELROY TENA Attending Unavailable DELROY TENA Attending Unavailable Allergies Allergy Classification Reported Allergen(s) Allergy Type Date of Onset Reaction(s) Facility (20 sources) traMADol Drug Allergy Unknown Nimbus Data Other (1 source) patient allergy list reviewed by nurse or physicia Propensity to adverse reactions Comment:Done Nimbus Data Other Medications Current Medications Medication Drug Class(es) Dates Sig (Normalized) Sig (Original) ascorbic acid 113 mg / beta carotene 7160 mg / cuprous oxide 0.4 mg / dl-alpha tocopheryl acetate 100 unt / zinc oxide 17.4 mg oral tablet (2 sources) Vitamin C Start: 02-03-2024 Vitamins A,C,A-Jwnb-Zmrvxu (Preservision Areds) 2,148 mcg-113 mg-45 mg-17.4mg tablet Active TAB PO As Directed February 03, 2024 12:00am Preservision PreserVision ARE DS - as directed Orally Active calcium carbonate 1500 mg / cholecalciferol 800 unt chewable tablet (1 source) Vitamin D Start: 02-03-2024 Calcium Carbonate-Vitamin D3 (Calcium 600 With Vitamin D3) 600 mg-10 mcg (400 unit) tablet,chewable Active TAB PO February 03, 2024 12:00am calcium phosphate 200 mg / cholecalciferol 200 unt chewable tablet (1 source) Vitamin D Calcium/Vitamin D3 Gummies 200-5 MG-MCG as directed Orally Active Calcium/Vitamin D3 Gummies 200-5 MG-MCG (20 sources) Calcium/Vitamin D3 Gummies 200-5 MG-MCG as directed Orally Active cycloSPORINE 0.5 mg/ml ophthalmic suspension (20 sources) Calcineurin Inhibitor Immunosuppressant take 1 drop(s) into the eye(s) twice daily Restasis 0.05 % 1 drop into affected eye Ophthalmic Twice a day Active Cyclosporine (Restasis) 0.05 % dropperette (1 source) Start: 02-03-2024 take 1 drop(s) into the eye(s) every twelve hours Cyclosporine (Restasis) 0.05 % dropperette Active 1 DROPS EYE-BOTH Every 12 hours February 03, 2024 12:00am Dextran 70 / Glycerin / hypromellose (1 source) Plasma Volume Digital Operations Analyst, Non-Standardized Chemical Allergen GenTeal Tears 0.1-0.3 % as directed Ophthalmic Active dextran 70 1 mg/ml / hypromellose 3 mg/ml ophthalmic solution (1 source) Plasma Volume Digital Operations Analyst Start: 02-03-2024 take 0.1-0.3 drop(s) into the eye(s) once daily at bedtime Dextran 70-Hypromellose (Genteal Tears Mild) 0.1-0.3 % drops Active 1 DROPS EYE-BOTH Daily at bedtime February 03, 2024 12:00am folic acid 1 mg oral tablet (20 sources) Start: 02-03-2024 take 1 mg by mouth once daily Folic Acid Active 1 MG PO Daily February 03, 2024 12:00am take 1 tablet by fernanda th every twenty-four hours Folic Acid 1 MG 1 tablet Orally Once a day Active methotrexate 2.5 mg oral tablet (20 sources) Folate Analog Metabolic Inhibitor Start: 02-03-2024 take 6 tablets by mouth every week Methotrexate Sodium Active 0 PO every week February 03, 2024 12:00am 6 Tablets orally every week; Methotrexate 2.5 MG as directed Orally 6 weekly Active Multivitamin preparation (2 sources) Start: 02-03-2024 take 1 tablet by mouth once daily Multivitamin Active 1 TAB PO Daily February 03, 2024 12:00am take 1 tablet by mouth once joanie y Multivitamin - 1 tablet Orally Once a day Active olmesartan medoxomil 5 mg oral tablet (11 sources) Angiotensin 2 Receptor Norm Start: 02-04-2024 take 10 mg by mouth once daily Olmesartan Active 10 MG PO Daily 60 30 February 04, 2024 9:56am Start: 02-01-2024 End: 02-04-2024 take 5 mg by mouth once daily Olmesartan Discontinued 5 MG PO Daily 30 February 01, 2024 1:24pm February 04, 2024 9:57am Start: 07-17-2023 take 1 tablet by fernanda th every twenty-four hours Olmesartan Medoxomil 5 MG 1 tablet Orally Once a day for 30 days Jul, Active polyvinyl alcohol 0.014 ml/ml / povidone 6 mg/ml ophthalmic solution (20 sources) Start: 02-03-2024 Polyvinyl Alco hol-Povidon(Pf) Active 1 DROPS OPHTHALMIC As Directed February 03, 2024 12:00am Refresh 1.4-0.6 % as directed Ophthalmic Active {20 (nirmatrelvir 150 MG Oral Tablet) / 10 (ritonavir 100 MG Oral Tablet) } Pack [Paxlovid 5-Day] (4 sources) Start: 08-10-2023 take 3 tablets by mouth every twelve hours Paxlovid (300/100) 20 x 150 MG & 10 x 100MG 3 tablets Orally Twice a day for 5 days Aug, Active Completed/Discontinued Medications Medication Drug Class(es) Dates Sig (Normalized) Sig (Original) amLODIPine 5 mg oral tablet (10 sources) Dihydropyridine Calcium Channel Norm Start: 02-03-2024 End: 02-04-2024 take 5 mg by mouth once daily Amlodipine Discontinued 5 MG PO Daily February 03, 2024 12:00am February 04, 2024 9:56am Start: 05-08-2023 take 1 tablet by fernanda th every twenty-four hours amLODIPine Besylate 5 MG 1 tablet Orally Once a day for 30 days May, Active diclofenac sodium 75 mg delayed release oral tablet (20 sources) Nonsteroidal Anti-inflammatory Drug take 1 tablet by mouth every twelve hours Diclofenac Sodium 75 MG 1 tablet as needed Orally Twice a day Not-Taking/PRN paxlovid (300/100) 20 x 150 mg & 10 x 100mg tablet therapy pack (1 source) Start: 023 take 3 tablets by mouth every twelve hours Paxlovid (300/100) 20 x 150 MG & 10 x 100MG 3 tablets Orally Twice a day for 5 days Aug, Not-Taking/PRN Problems Active Problems Problem Classification Problem Date Documented Da te Episodic/Chronic Anxiety disorders (20 sources) Panic disorder; Translations: [Panic disorder [episodic paroxysmal anxiety]] 02-03-2024 Chronic Calculus of urinary tract (16 sources) H/O: urinary stone; Translations: [Personal history of urinary calculi] Episodic Esophageal disorders (13 sources) Gastro-esophageal reflux disease with esophagitis; Translations: [Gastro-esophageal reflux disease with esophagitis, without bleeding] 02-03-2024 Chronic Esophageal disorders (20 sources) Esophageal disorders; Translations: [Gastroesophageal reflux disease with esophagitis without hemorrhage] Essential hypertension (20 sources) Essential hypertension; Translations: [Essential (primary) hypertension] Chronic Immunizations and screening for infectious disease (16 sources) Vaccination given; Translations: [Encounter for immunization] Episodic Malaise and fatigue (20 sources) Fatigue; Translations: [Chronic fatigue, unspecified] Chronic Nonmalignant breast conditions (1 source) Unspecified lump in the right breast, upper outer quadrant; Translations: [UNS LUMP IN RT BREAST UP OUTR QUAD] Onset: 07-08-2022 Episodic Nutritional deficiencies (20 sources) Vitamin D deficiency, unspecified; Translations: [Vitamin D deficiency] Onset: 11-05-2021 Resolved: 03-16-2020 Chronic Open wounds of extremities (16 sources) Laceration of lower leg; Translations: [Laceration without foreign body, left lower leg, subsequent encounter] Episodic Osteoarthritis (6 sources) Unspecified osteoarthritis, unspecified site; Translations: [Osteoarthritis of right knee joint] Onset: 10-29-2021 Chronic Other bone disease and musculoskeletal deformities (20 sources) Other specified disorders of bone density and structure, other site; 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] Episodic Other bone disease and musculoskeletal deformities (16 sources) Disorder of bone; Translations: [Other specified disorders of bone density and structure, other site] Episodic Other bone disease and musculoskeletal deformities (1 source) Osteopenia; Translations: [Other specified disorders of bone density and structure, unspecified site] 02-03-2024 Episodic Other bone disease and musculoskeletal deformities (1 source) Other specified disorders of bone density and structure, unspecified site; Translations: [Disorder of bone and cartilage, unspecified] 02-04-2024 Episodic Other circulatory disease (20 sources) Elevated blood-pressure reading without diagnosis of hypertension; Translations: [Elevated blood-pressure reading, without diagnosis of hypertension] Episodic Other circulatory disease (1 source) Elevated blood-pressure reading, without diagnosis of hypertension Episodic Other congenital anomalies (1 source) Congenital spondylolysis of lumbosacral region; Translations: [Congenital spondylolysis, lumbosacral region] Onset: 01-28-2019 Chronic Other diseases of veins and lymphatics (20 sources) Peripheral venous insufficiency; Translations: [Venous insufficiency (chronic) (peripheral)] Episodic Other diseases of veins and lymphatics (4 sources) Venous insufficiency (chronic) (peripheral); Translations: [Venous (peripheral) insufficiency, unspecified] Episodic Other diseases of veins and lymphatics (1 source) Venous insufficiency of leg; Translations: [Venous insufficiency (chronic) (peripheral)] 02-03-2024 Episodic Other gastrointestinal disorders (2 sources) Slow transit constipation; Translations: [Slow transit constipation] 02-03-2024 Episodic Other gastrointestinal disorders (1 source) Slow transit constipation Episodic Other injuries and conditions due to external causes (16 sources) History of fall; Translations: [History of falling] Episodic Other nervous system disorders (16 sources) Carpal tunnel syndrome; Translations: [Carpal tunnel syndrome, right upper limb] Chronic Other nervous system disorders (1 source) Aphasia; Translations: [Aphasia] 02-04-2024 Chronic Other nutritional; endocrine; and metabolic disorders (1 source) Abnormal weight loss Episodic Other screening for suspected conditions (not mental disorders or infectious disease) (20 sources) Other abnormal and inconclusive findings on diagnostic imaging of breast; Translations: [Encounter for screening mammogram for malignant neoplasm of breast] Onset: 08-10-2017 Resolved: 03-16-2020 Episodic Other upper respiratory disease (16 sources) Unspecified voice and resonance disorder; Translations: [Unspecified voice and resonance disorder] Episodic Residual codes; unclassified (1 source) Family history of malignant neoplasm of breast; Translations: [FAMILY HX MALIG NEOPLASM OF BREAST] Onset: 07-08-2022 Episodic Residual codes; unclassified (1 source) Family history of malignant neoplasm of bladder; Translations: [FAM HX MALIGNANT NEOPLASM BLADDER] Onset: 07-08-2022 Episodic Residual codes; unclassified (2 sources) Asymptomatic menopausal state Episodic Rheumatoid arthritis and related disease (20 sources) Rheumatoid arthritis with rheumatoid factor of multiple sites without organ or systems involvement; Translations: [Rheumatoid arthritis] Onset: 03-14-2022 Chronic Skin and subcutaneous tissue infections (20 sources) Cellulitis of left lower limb; Translations: [Cellulitis of left lower limb] Episodic Spondylosis; intervertebral disc disorders; other back problems (20 sources) Spondylosis without myelopathy or radiculopathy, lumbar region; Translations: [Lumbar spondylosis] Onset: 07-08-2022 02-03-2024 Chronic Spondylosis; intervertebral disc disorders; other back problems (16 sources) Low back pain; Translations: [Low back pain, unspecified] Episodic Transient cerebral ischemia (1 source) Transient cerebral ischemia; Translations: [Transient cerebral ischemic attack, unspecified] 02-04-2024 Chronic Unclassified (1 source) CONTACT W/AND (SUSP) EXPOS COVID-19; Translations: [CONTACT W/AND (SUSP) EXPOS COVID-19] Onset: 11-09-2021 Past or Other Problems Problem Classification Problem Date Documented Da te Episodic/Chronic Conditions associated with dizziness or vertigo (4 sources) Dizziness and giddiness; Translations: [DIZZINESS AND GIDDINESS] Onset: 11-05-2021 Episodic Deficiency and other anemia (16 sources) Anemia; Translations: [Anemia, unspecified] Resolved: 06-03-2021 Episodic Malaise and fatigue (1 source) Malaise and fatigue; Translations: [Other malaise and fatigue] Onset: 08-10-2017 Episodic Other aftercare (1 source) Other intermediate accountant (current) drug therapy; Translations: [OTH ALF CURRENT DRUG THERAPY] Onset: 03-19-2022 Episodic Other aftercare (1 source) superintendent container terminal (current) use of aspirin; Translations: [LAUNDRY MACHINE TENDER CURRENT USE OF ASPIRIN] Onset: 11-09-2021 Episodic Other bone disease and musculoskeletal deformities (16 sources) Bone density finding; Translations: [Other specified disorders of bone density and structure, unspecified site] Onset: 08-10-2017 Episodic Other connective tissue disease (16 sources) Pain in left lower limb; Translations: [Pain in left leg] Onset: 01-28-2019 Episodic Other connective tissue disease (1 source) Swelling of limb; Translations: [Swelling of limb] Onset: 02-03-2017 Episodic Other injuries and conditions due to external causes (16 sources) Food in respiratory tract, part unspecified causing other injury, subsequent encounter; Translations: [Food in respiratory tract, part unspecified causing other injury, subsequent encounter] Resolved: 03-16-2020 Episodic Other injuries and conditions due to external causes (16 sources) Traumatic AND/OR non-traumatic injury; Translations: [Other injury of unspecified body region, initial encounter] Resolved: 06-03-2021 Episodic Other lower respiratory disease (16 sources) Pleuritic pain; Translations: [Pleurodynia] Resolved: 03-16-2020 Episodic Other non-traumatic joint disorders (1 source) Arthralgia of the pelvic region and thigh; Translations: [Pain in joint, pelvic region and thigh] Onset: 01-28-2019 Episodic Other skin disorders (16 sources) Localized swelling, mass and lump, left lower limb; Translations: [Localized swelling, mass and lump, left lower limb] Resolved: 05-15-2020 Episodic Other upper respiratory disease (16 sources) Dysphonia; Translations: [Dysphonia] Onset: 02-03-2017 Episodic Other upper respiratory infections (20 sources) Acute sinusitis; Translations: [Acute sinusitis, unspecified] Onset: 05-09-2014 Episodic Residual codes; unclassified (1 source) Acquired absence of other specified parts of digestive tract; Translations: [ACQ ABSENCE OTH PART DIGESTV TRACT] Onset: 11-09-2021 Episodic Residual codes; unclassified (16 sources) Localized edema; Translations: [Localized edema] Resolved: 03-16-2020 Episodic Residual codes; unclassified (1 source) Requires influenza virus vaccination; Translations: [Need for prophylactic vaccination and inoculation, Influenza] Onset: 07-21-2017 Episodic Sprains and strains (16 sources) Strain of other muscle(s) and tendon(s) at lower leg level, left leg, initial encounter; Translations: [Strain of other muscle(s) and tendon(s) at lower leg level, left leg, initial encounter] Resolved: 05-15-2020 Episodic Superficial injury; contusion (16 sources) Contusion of hip; Translations: [Contusion of left hip, initial encounter] Onset: 01-28-2019 Episodic Viral infection (1 source) COVID-19 Results Test Name Value Interpretation Reference Range Facility Basophils Auto (Bld) [#/Vol] on 12-16-2023 Basophils (Bld) [#/Vol] 0.1 10 3/uL 0.0-0.1 [facility] Basophils/100 WBC Auto (Bld) on 12-16-2023 Basophils/100 WBC (Bld) 0.9 % 0.2-2.0 [facility] Eosinophils/100 WBC Auto (Bl d)on 12-16-2023 Eosinophils/100 WBC (Bld) 1.0 % 0.9-7.0 [facility] Erythrocyte distribution wid th Auto (RBC) [Ratio]on 12-16-2023 Erythrocyte distribution width (RBC) [Ratio] 14.8 % 11.0-15.0 [facility] Estimated glomerular filtrat ion rate (GFR) non- Americanon 12-16-2023 GFR/1.73 sq M.predicted among non-blacks MDRD (S/P/Bld) [Vol rate/Area] mL/min/{1.73_m2} >=60 [facility] Globulin Calc (S) [Mass/Vol] on 12-16-2023 Globulin (S) [Mass/Vol] 3.4 g/dL [facility] Hematocrit Auto (Bld) [Volum e fraction]on 12-16-2023 Hematocrit (Bld) [Volume fraction] 39.1 % 36.0-48.0 [facility] Hemoglobin [Mass/volume] in Bloodon 12-16-2023 Hemoglobin (Bld) [Mass/Vol] 11.9 g/dL 12.0-16.0 [facility] Laboratory - Chemistry and C hemistry - challengeon 12-16-2023 Albumin [Mass/Vol] 3.2 g/dL 3.4-5.0 [facility] ALP [Catalytic activity/Vol] 91 U/L 46-116 [facility] ALT [Catalytic activity/Vol] 30 U/L 14-59 [facility] AST [Catalytic activity/Vol] 22 U/L 15-37 [facility] Bilirubin [Mass/Vol] 0.5 mg/dL 0.2-1.0 [facility] Calcium [Mass/Vol] 9.2 mg/dL 8.5-10.1 [facility] Chloride [Moles/Vol] 104 mmol/L 98-107 [facility] CO2 [Moles/Vol] 33.3 mmol/L 21.0-32.0 [facility] Creatinine [Mass/Vol] 0.66 mg/dL 0.55-1.02 [facility] GFR/1.73 sq M.predicted MDRD (S/P/Bld) [Vol rate/Area] mL/min/{1.73_m2} >=60 [facility] Glucose [Mass/Vol] 141 mg/dL 74-106 [facility] Potassium [Moles/Vol] 3.8 mmol/L 3.5-5.1 [facility] Protein [Mass/Vol] 6.6 g/dL 6.4-8.2 [facility] Sodium [Moles/Vol] 142 mmol/L 136-145 [facility] Urea nitrogen [Mass/Vol] 11.0 mg/dL 7.0-18.0 [facility] Urea nitrogen/Creatinine [Mass ratio] 16.7 mg/mg [facility] Laboratory - Hematology and Cell countson 12-16-2023 ESR (Bld) [Velocity] 22 mm/h <=30 [facility] Immature granulocytes/100 WBC (Bld) 0.1 % 0.0-0.5 [facility] Leukocytes [#/volume] correc shahid for nucleated erythrocytes in Blood by Automated counon 12-16-2023 WBC corrected for nucl RBC Auto (Bld) [#/Vol] 6.9 10 3/uL 4.0-11.0 [facility] Lymphocytes Auto (Bld) [#/Vo l]on 12-16-2023 Lymphocytes (Bld) [#/Vol] 2.5 10 3/uL 1.2-3.8 [facility] Lymphocytes/100 WBC Auto (Bl d)on 12-16-2023 Lymphocytes/100 WBC (Bld) 35.6 % 20.5-60.0 [facility] MCH Auto (RBC) [Entitic mass ]on 12-16-2023 MCH (RBC) [Entitic mass] 29.5 pg 26.7-34.0 [facility] MCHC Auto (RBC) [Mass/Vol]on 12-16-2023 MCHC (RBC) [Mass/Vol] 30.4 g/dL 29.9-35.2 [facility] MCV Auto (RBC) [Entitic vol] on 12-16-2023 MCV (RBC) [Entitic vol] 96.8 fL 81.0-99.0 [facility] Monocytes Auto (Bld) [#/Vol] on 12-16-2023 Monocytes (Bld) [#/Vol] 0.6 10 3/uL 0.3-0.8 [facility] Monocytes/100 WBC Auto (Bld) on 12-16-2023 Monocytes/100 WBC (Bld) 8.0 % 1.7-12.0 [facility] Neutrophils Auto (Bld) [#/Vo l]on 12-16-2023 Neutrophils (Bld) [#/Vol] 3.8 10 3/uL 1.4-6.5 [facility] Neutrophils/100 WBC Auto (Bl d)on 12-16-2023 Neutrophils/100 WBC (Bld) 54.4 % 43.0-75.0 [facility] No Panel Informationon 12-16 Eosinophils # (Auto) 0.1 10 3/uL 0.0-0.7 [facility] Immature Granulocyte # (Auto) 0.01 10 3/uL 0.00-0.03 [facility] Platelet mean volume Auto (B ld) [Entitic vol]on 12-16-2023 Platelet mean volume (Bld) [Entitic vol] 11.6 fL 9.5-13.5 [facility] Platelets Auto (Bld) [#/Vol] on 12-16-2023 Platelets (Bld) [#/Vol] 212 10 3/uL 150-450 [facility] RBC Auto (Bld) [#/Vol]on RBC (Bld) [#/Vol] 4.04 10 6/uL 4.20-5.40 [facility] Serum or plasma albumin/glob ulin mass ratioon 12-16-2023 Albumin/Globulin [Mass ratio] 0.9 {ratio} [facility] Serum or plasma anion gap de terminationon 12-16-2023 Anion gap [Moles/Vol] 8.5 mmol/L [facility] MG MAMM RT DIAG FUon 022 MG MAMM RT DIAG FU Patient: RUBIA CASH Exam Date: 07/16/2022 : 1935 Gender:F Ordering : DR MELVIN PEREIRA D.O. Admission #: [id number] Family : Order #: [id number] CLICK HERE TO VIEW EXAM RADIOLOGY REPORT PROCEDURE: MAMMOGRAM RIGHT DIAGNOSTIC DIGITAL FOLLOW UP, 07/16/2022, 12:49 ULTRASOUND BREAST RIGHT LIMITED, 07/16/2022, 13:16 COMPARISON: MG MAMM SCREEN 3D KATERINA CAD, 07/04/2022. INDICATIONS: Abnormal findings on diagnostic imaging of breast Calculator Name NCI Breast Cancer Risk Assessment Tool 5 Year Breast Cancer Risk Not Applicable. Lifetime Breast Cancer Risk Not Applicable. Personal Breast Cancer No Personal Ovarian Cancer No Treatments None Family Cancers Aunt-maternal with breast cancer at age 60; Sister with bladder cancer at age 78. LOCATION: [facility] BREAST COMPOSITION: Heterogeneously dense,which may obscure small masses. FINDINGS: DIAGNOSTIC CATEGORY 2--BENIGN FINDING: RIGHT BREAST: Spot magnification views demonstrate persistence of a 7 x 6 mm partially circumscribed mass within the lower-outer quadrant suggestive of a lymph node. Ultrasound evaluation demonstrates a benign appearing lymph node at the 9 o'clock position corresponding to the mammographic findings. RECOMMENDATIONS: ROUTINE MAMMOGRAM AND CLINICAL EVALUATION IN 12 MONTHS. PLEASE NOTE: A NORMAL MAMMOGRAM DOES NOT EXCLUDE THE POSSIBILITY OF BREAST CANCER. A CLINICALLY SUSPICIOUS PALPABLE LUMP SHOULD BE BIOPSIED. Dictated by: Jamie Owen M.D. on 07/16/2022 at 13:43 Approved by: Jamie Owen M.D. on 07/16/2022 at 13:45 [facility] US BREAST RIGHT LIMITEDon US BREAST RIGHT LIMITED Patient: RUBIA CASH Exam Date: 07/16/2022 : 1935 Gender:F Ordering : DR MELVIN PEREIRA D.O. Admission #: [id number] Family : Order #: [id number] CLICK HERE TO VIEW EXAM RADIOLOGY REPORT PROCEDURE: MAMMOGRAM RIGHT DIAGNOSTIC DIGITAL FOLLOW UP, 07/16/2022, 12:49 ULTRASOUND BREAST RIGHT LIMITED, 07/16/2022, 13:16 COMPARISON: MG MAMM SCREEN 3D KATERINA CAD, 07/04/2022. INDICATIONS: Abnormal findings on diagnostic imaging of breast Calculator Name NCI Breast Cancer Risk Assessment Tool 5 Year Breast Cancer Risk Not Applicable. Lifetime Breast Cancer Risk Not Applicable. Personal Breast Cancer No Personal Ovarian Cancer No Treatments None Family Cancers Aunt-maternal with breast cancer at age 60; Sister with bladder cancer at age 78. LOCATION: [facility] BREAST COMPOSITION: Heterogeneously dense,which may obscure small masses. FINDINGS: DIAGNOSTIC CATEGORY 2--BENIGN FINDING: RIGHT BREAST: Spot magnification views demonstrate persistence of a 7 x 6 mm partially circumscribed mass within the lower-outer quadrant suggestive of a lymph node. Ultrasound evaluation demonstrates a benign appearing lymph node at the 9 o'clock position corresponding to the mammographic findings. RECOMMENDATIONS: ROUTINE MAMMOGRAM AND CLINICAL EVALUATION IN 12 MONTHS. PLEASE NOTE: A NORMAL MAMMOGRAM DOES NOT EXCLUDE THE POSSIBILITY OF BREAST CANCER. A CLINICALLY SUSPICIOUS PALPABLE LUMP SHOULD BE BIOPSIED. Dictated by: Jamie wOen M.D. on 07/16/2022 at 13:43 Approved by: Jamie Owen M.D. on 07/16/2022 at 13:45 [facility] MG MAMM SCREEN 3D KATERINA CADon 07-04-2022 MG MAMM SCREEN 3D KATERINA CAD Patient: RUBIA CASH Exam Date: 07/04/2022 : 1935 Gender:F Ordering : DR MELVIN PEREIRA D.O. Admission #: [id number] Family : Order #: [id number] CLICK HERE TO VIEW EXAM RADIOLOGY REPORT PROCEDURE: MAMMOGRAM SCREENING 3D BILATERAL CAD COMPARISON: MG MAMM SCREEN 3D KATERINA CAD, 06/06/2021. MG MAMM SCREEN KATERINA W CAD, 05/31/2020. INDICATIONS: Spondylosis without myelopathy Calculator Name NCI Breast Cancer Risk Assessment Tool 5 Year Breast Cancer Risk Not Applicable. Lifetime Breast Cancer Risk Not Applicable. Personal Breast Cancer No Personal Ovarian Cancer No Treatments None Family Cancers Aunt-maternal with breast cancer at age 60; Sister with bladder cancer at age 78. LOCATION: [facility] BREAST COMPOSITION: Heterogeneously dense,which may obscure small masses. FINDINGS: DIAGNOSTIC CATEGORY 0--INCOMPLETE: NEED ADDITIONAL IMAGING EVALUATION. Scattered benign-appearing calcifications are present. Scattered benign-appearing lymph nodes are present. RIGHT BREAST: New well-circumscribed 6.9 x 5.9 mm nodule identified in the upper-outer quadrant, mid breast. Spot imaging and ultrasound follow-up is recommended for further evaluation. LEFT BREAST: No significant suspicious finding. RECOMMENDATIONS: ADDITIONAL MAMMOGRAPHIC VIEWS REQUIRED: RIGHT BREAST - spot compression ULTRASOUND: RIGHT BREAST PLEASE NOTE: A NORMAL MAMMOGRAM DOES NOT EXCLUDE THE POSSIBILITY OF BREAST CANCER. A CLINICALLY SUSPICIOUS PALPABLE LUMP SHOULD BE BIOPSIED. 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 No paraspinous abnormality is seen. OTHER: Vascular calcifications. Right upper quadrant surgical clips. IMPRESSION: Moderate degenerative changes Electronically authenticated by: MARIA E CANTU Date: 2022-07-04 17:35 Normal [facility] CBC AUTO DIFFon 03-14-2022 BASO # 0.1 103/ul Normal 0.0-0.1 [facility] Comment on above: Performed By: #### H STROPN #### [facility] [address] [place] [address] Dr. Rigoberto Ivy Basophils/100 WBC (Bld) 1.1 % Normal 0.2-2.0 [facility] Comment on above: Performed By: #### H STROPN #### [facility] [address] [place] [address] Dr. Rigoberto Ivy EO # 0.1 103/ul Normal 0.0-0.7 [facility] Comment on above: Performed By: #### H STROPN #### [facility] [address] [place] [address] Dr. Rigoberto Ivy Eosinophils/100 WBC (Bld) 1.7 % Normal 0.9-7.0 [facility] Comment on above: Performed By: #### H STROPN #### [facility] [address] [place] [address] Dr. Rigoberto Ivy Erythrocyte distribution width (RBC) [Ratio] 15.8 % Critically high 11.0-15.0 [facility] Comment on above: Performed By: #### H STROPN #### [facility] [address] [place] [address] Dr. Rigoberto Ivy Hematocrit (Bld) [Volume fraction] 39.7 % Normal 36.0-48.0 [facility] Comment on above: Performed By: #### H STROPN #### [facility] [address] [place] [address] Dr. Rigoberto Ivy Hemoglobin (Bld) [Mass/Vol] 12.3 g/dL Normal 12.0-16.0 [facility] Comment on above: Performed By: #### H STROPN #### [facility] [address] [place] [address] Dr. Rigoberto Ivy IG # 0.03 10e3/ul Normal 0.00-0.03 [facility] Comment on above: Performed By: #### H STROPN #### [facility] [address] [place] [address] Dr. Rigoberto Ivy IG % 0.4 % Normal 0.0-0.5 [facility] Comment on above: Performed By: #### H STROPN #### [facility] [address] [place] [address] Dr. Rigoberto Ivy LYMPH # 2.5 103/ul Normal 1.2-3.8 [facility] Comment on above: Performed By: #### H STROPN #### [facility] [address] [place] [address] Dr. Rigoberto Ivy Lymphocytes/100 WBC (Bld) 35.0 % Normal 20.5-60.0 [facility] Comment on above: Performed By: #### H STROPN #### [facility] [address] [place] [address] Dr. Rigoberto Ivy MANUAL DIFF REQ NO Normal [facility] Comment on above: Performed By: #### H STROPN #### [facility] [address] [place] [address] Dr. Rigoberto Ivy MCH (RBC) [Entitic mass] 29.9 pg Normal 26.7-34.0 [facility] Comment on above: Performed By: #### H STROPN #### [facility] [address] [place] [address] Dr. Rigoberto vIy MCHC (RBC) [Mass/Vol] 31.0 g/dL Normal 29.9-35.2 [facility] Comment on above: Performed By: #### H STROPN #### [facility] [address] [place] [address] Dr. Rigoberto Ivy MCV (RBC) [Entitic vol] 96.6 fL Normal 81.0-99.0 [facility] Comment on above: Performed By: #### H STROPN #### [facility] [address] [place] [address] Dr. Rigoberto Ivy MONO # 0.7 103/ul Normal 0.3-0.8 [facility] Comment on above: Performed By: #### H STROPN #### [facility] [address] [place] [address] Dr. Rigoberto Ivy Monocytes/100 WBC (Bld) 9.4 % Normal 1.7-12.0 [facility] Comment on above: Performed By: #### H STROPN #### [facility] [address] [place] [address] Dr. Rigoberto Ivy NEUT # 3.8 103/ul Normal 1.4-6.5 [facility] Comment on above: Performed By: #### H STROPN #### [facility] [address] [address] [address] Rigoberto Ivy Neutrophils/100 WBC (Bld) 52.4 % Normal 43.0-75.0 [facility] Comment on above: Performed By: #### H STROPN #### [facility] [address] [place] [address] Dr. Rigoberto Ivy Platelet mean volume (Bld) [Entitic vol] 10.9 fL Normal 9.5-13.5 [facility] Comment on above: Performed By: #### H STROPN #### [facility] [address] [place] [address] Dr. Rigoberto Ivy PLT 225 103/ul Normal 150-450 [facility] Comment on above: Performed By: #### H STROPN #### [facility] [address] [place] [address] Dr. Rigoberto Ivy RBC 4.11 106/ul Critically low 4.20-5.40 [facility] Comment on above: Performed By: #### H STROPN #### [facility] [address] [place] [address] Dr. Rigoberto Ivy WBC 7.2 103/ul Normal 4.0-11.0 [facility] Comment on above: Performed By: #### H STROPN #### [facility] [address] [place] [address] Dr. Rigoberto Ivy PROF 14(COMP METB)on 022 Albumin [Mass/Vol] 3.6 g/dL Normal 3.4-5.0 [facility] Comment on above: Performed By: #### H STROPN #### [facility] [address] [place] [address] Dr. Rigoberto Ivy Albumin/Globulin [Mass ratio] 1.0 {ratio} Normal [facility] Comment on above: Performed By: #### H STROPN #### [facility] [address] [place] [address] Dr. Rigoberto Ivy ALP [Catalytic activity/Vol] 89 U/L Normal 46-116 [facility] Comment on above: Performed By: #### H STROPN #### [facility] [address] [place] [address] Dr. Rigoberto Ivy ALT [Catalytic activity/Vol] 29 U/L Normal 14-59 [facility] Comment on above: Performed By: #### H STROPN #### [facility] [address] [address] [address] Rigoberto Ivy Anion gap [Moles/Vol] 7.7 mmol/L Normal [facility] Comment on above: Performed By: #### H STROPN #### [facility] [address] [address] [address] Rigoberto Ivy AST [Catalytic activity/Vol] 22 U/L Normal 15-37 [facility] Comment on above: Performed By: #### H STROPN #### [facility] [address] [place] [address] Dr. Rigoberto Ivy Bilirubin [Mass/Vol] 0.5 mg/dL Normal 0.2-1.0 [facility] Comment on above: Performed By: #### H STROPN #### [facility] [address] [address] [address] Rigoberto Ivy Calcium [Mass/Vol] 9.5 mg/dL Normal 8.5-10.1 [facility] Comment on above: Performed By: #### H STROPN #### [facility] [address] [address] [address] Rigoberto Ivy Chloride [Moles/Vol] 103 mmol/L Normal 98-107 [facility] Comment on above: Performed By: #### H STROPN #### [facility] [address] [address] [address] Riogberto Ivy CO2 [Moles/Vol] 33.5 mmol/L Critically high 21.0-32.0 [facility] Comment on above: Performed By: #### H STROPN #### [facility] [address] [address] [address] Rigoberto Ivy Creatinine [Mass/Vol] 0.60 mg/dL Normal 0.55-1.02 [facility] Comment on above: Performed By: #### H STROPN #### [facility] [address] [address] [address] Rigoberto Ivy EGFR-AF MALAWIAN >60 Normal >=60 [facility] Comment on above: Performed By: #### H STROPN #### [facility] [address] [address] [address] Rigoberto Ivy EGFR-NON AF MALAWIAN >60 Normal >=60 [facility] Comment on above: Performed By: #### H STROPN #### [facility] [address] [address] [address] Rigoberto Ivy Globulin (S) [Mass/Vol] 3.5 g/dL Normal [facility] Comment on above: Performed By: #### H STROPN #### [facility] [address] [place] [address] Dr. Rigoberto Ivy Glucose [Mass/Vol] 90 mg/dL Normal 74-106 [facility] Comment on above: Performed By: #### H STROPN #### [facility] [address] [address] [address] Rigoberto Ivy Potassium [Moles/Vol] 4.2 mmol/L Normal 3.5-5.1 [facility] Comment on above: Performed By: #### H STROPN #### [facility] [address] [address] [address] Rigoberto Ivy Protein [Mass/Vol] 7.1 g/dL Normal 6.4-8.2 [facility] Comment on above: Performed By: #### H STROPN #### [facility] [address] [address] [address] Rigoberto Ivy Sodium [Moles/Vol] 140 mmol/L Normal 136-145 [facility] Comment on above: Performed By: #### H STROPN #### [facility] [address] [address] [address] Rigoberto Ivy Urea nitrogen [Mass/Vol] 11.0 mg/dL Normal 7.0-18.0 [facility] Comment on above: Performed By: #### H STROPN #### [facility] [address] [place] [address] Dr. Rigoberto Ivy Urea nitrogen/Creatinine [Mass ratio] 18.3 mg/mg Normal [facility] Comment on above: Performed By: #### H STROPN #### [facility] [address] [place] [address] Dr. Rigoberto Ivy SED RATE WESTERGRENon 2021 SED RATE 10 mm/hr Normal <=30 [facility] Comment on above: Performed By: #### S EDR #### [facility] [address] [place] [address] Dr. Rigoberto Ivy CULTURE URINEon 11-07-2021 CULTURE URINE Culture Observations : GREATER THAN TWO ORGANISMS PRESENT. PLEASE RESUBMIT CLEAN CATCH MID-STREAM URINE IF CLINICALLY INDICATED. Normal [facility] Comment on above: Performed By: #### H STROPN #### [facility] [address] [place] [address] Dr. Rigoberto Ivy BNPon 11-05-2021 Natriuretic peptide B (Bld) [Mass/Vol] 273.0 pg/mL Normal <=1,800.0 [facility] Comment on above: Performed By: #### C MP, BNP, HSTROPN #### [facility] [address] [place] [address] Dr. Rigoberto Ivy CBC AUTO DIFFon 11-05-2021 BASO # 0.1 103/ul Normal 0.0-0.1 [facility] Comment on above: Performed By: #### C BC #### [facility] [address] [place] [address] Dr. Rigoberto Ivy Basophils/100 WBC (Bld) 0.8 % Normal 0.2-2.0 [facility] Comment on above: Performed By: #### C BC #### [facility] [address] [place] [address] Dr. Rigoberto Ivy EO # 0.1 103/ul Normal 0.0-0.7 [facility] Comment on above: Performed By: #### C BC #### [facility] [address] [place] [address] Dr. Rigoberto Ivy Eosinophils/100 WBC (Bld) 0.7 % Critically low 0.9-7.0 [facility] Comment on above: Performed By: #### C BC #### [facility] [address] [place] [address] Dr. Rigoberto Ivy Erythrocyte distribution width (RBC) [Ratio] 15.5 % Critically high 11.0-15.0 [facility] Comment on above: Performed By: #### C BC #### [facility] [address] [place] [address] Dr. Rigoberto Ivy Hematocrit (Bld) [Volume fraction] 41.5 % Normal 36.0-48.0 [facility] Comment on above: Performed By: #### C BC #### [facility] [address] [place] [address] Dr. Rigoberto Ivy Hemoglobin (Bld) [Mass/Vol] 12.8 g/dL Normal 12.0-16.0 [facility] Comment on above: Performed By: #### C BC #### [facility] [address] [place] [address] Dr. Rigoberto Ivy IG # 0.03 10e3/ul Normal 0.00-0.03 [facility] Comment on above: Performed By: #### C BC #### [facility] [address] [place] [address] Dr. Rigoberto Ivy IG % 0.4 % Normal 0.0-0.5 [facility] Comment on above: Performed By: #### C BC #### [facility] [address] [place] [address] Dr. Rigoberto Ivy LYMPH # 2.6 103/ul Normal 1.2-3.8 [facility] Comment on above: Performed By: #### C BC #### [facility] [address] [place] [address] Dr. Rigoberto Ivy Lymphocytes/100 WBC (Bld) 34.6 % Normal 20.5-60.0 [facility] Comment on above: Performed By: #### C BC #### [facility] [address] [place] [address] Dr. Rigoberto Ivy MANUAL DIFF REQ NO Normal [facility] Comment on above: Performed By: #### C BC #### [facility] [address] [place] [address] Dr. Rigoberto Ivy MCH (RBC) [Entitic mass] 29.8 pg Normal 26.7-34.0 [facility] Comment on above: Performed By: #### C BC #### [facility] [address] [place] [address] Dr. Rigoberto Ivy MCHC (RBC) [Mass/Vol] 30.8 g/dL Normal 29.9-35.2 [facility] Comment on above: Performed By: #### C BC #### [facility] [address] [place] [address] Dr. Rigoberto Ivy MCV (RBC) [Entitic vol] 96.7 fL Normal 81.0-99.0 [facility] Comment on above: Performed By: #### C BC #### [facility] [address] [place] [address] Dr. Rigoberto Ivy MONO # 0.7 103/ul Normal 0.3-0.8 [facility] Comment on above: Performed By: #### C BC #### [facility] [address] [place] [address] Dr. Rigoberto Ivy Monocytes/100 WBC (Bld) 8.5 % Normal 1.7-12.0 [facility] Comment on above: Performed By: #### C BC #### [facility] [address] [place] [address] Dr. Rigoberto Ivy NEUT # 4.2 103/ul Normal 1.4-6.5 [facility] Comment on above: Performed By: #### C BC #### [facility] [address] [place] [address] Dr. Rigoberto Ivy Neutrophils/100 WBC (Bld) 55.0 % Normal 43.0-75.0 [facility] Comment on above: Performed By: #### C BC #### [facility] [address] [place] [address] Dr. Rigoberto Ivy Platelet mean volume (Bld) [Entitic vol] 10.6 fL Normal 9.5-13.5 [facility] Comment on above: Performed By: #### C BC #### [facility] [address] [place] [address] Dr. Rigoberto Ivy PLT 234 103/ul Normal 150-450 [facility] Comment on above: Performed By: #### C BC #### [facility] [address] [place] [address] Dr. Rigoberto Ivy RBC 4.29 106/ul Normal 4.20-5.40 [facility] Comment on above: Performed By: #### C BC #### [facility] [address] [place] [address] Dr. Rigoberto Ivy WBC 7.6 103/ul Normal 4.0-11.0 [facility] Comment on above: Performed By: #### C BC #### [facility] [address] [place] [address] HEAD WO CONon 11-05-2021 CT HEAD WO CON EXAMINATION: CT HEAD WO CON, 11/05/2021 12:00 PM EST HISTORY: Dizziness , tingling in hands, anxious COMPARISON: CT head 03/26/2019 TECHNIQUE: CT scan of the head was performed without IV contrast. CT dose reduction technique was used, including Automated Exposure Control. FINDINGS: BRAIN: No edema, hemorrhage, mass, acute infarction, or inappropriate atrophy. CSF SPACES: No hydrocephalus, subarachnoid hemorrhage, or mass. Appropriate for age. SKULL: No fracture, mass, or other significant visible lesion. SINUSES: No significant mucosal thickening or fluid on the limited views. ORBITS: No appreciable abnormality on the limited views. OTHER: Negative IMPRESSION: 1. No intracranial hemorrhage or appreciable acute abnormality. 2. Age consistent atrophy and chronic small vessel ischemic changes; grossly stable. Electronically authenticated by: JAMIE OWEN Date: 2021-11-05 13:08 Normal [facility] Covid-19 PCR (CVDTB)on SARS-CoV-2 (COVID-19) RNA LATHA+probe Ql (Unsp spec) Not detected Normal NOT DETECTED [facility] Comment on above: Result Comment: When diagnostic testing is negative, the possibility of a false negative should be considered in the context of a patient's recent exposures and the presence of clinical signs and symptoms consistent with SARS-CoV-2. This test is not yet approved or cleared by the [place] FDA. When there are no FDA-approved or cleared tests available, and other criteria are met, FDA can make tests available under an emergency access mechanism called an Emergency Use Authorization (EUA). The EUA for this test is supported by the [place] of Health and Human Service's declaration that circumstances exist to justify the emergency use of in vitro diagnostics for the detection and/or diagnosis of the virus that causes COVID-19. This EUA will remain in effect for the duration of the COVID-19 declaration justifying emergency of IVDs, unless it is terminated or revoked by the FDA (after which the test may no longer be used). Performed By: #### C RP, CMP #### [facility] [address] [place] [address] Dr. Rigoberto Ivy ER URINE PROFILEon 2 Bilirubin Ql (U) Negative Normal NEGATIVE [facility] Comment on above: Performed By: #### H STROPN #### [facility] [address] [place] [address] Dr. Rigoberto Ivy Clarity (U) CLEAR Normal CLEAR [facility] Comment on above: Performed By: #### H STROPN #### [facility] [address] [place] [address] Dr. Rigoberto Ivy Color (U) LT. YELLOW Normal YELLOW [facility] Comment on above: Performed By: #### H STROPN #### [facility] [address] [place] [address] Dr. Rigoberto Ivy ERUAHD A micrscopic examination will be performed if indicated. Normal [facility] Comment on above: Performed By: #### H STROPN #### [facility] [address] [place] [address] Dr. Rigoberto Ivy Glucose Ql (U) Negative Normal NEGATIVE [facility] Comment on above: Performed By: #### H STROPN #### [facility] [address] [place] [address] Dr. Rigoberto Ivy Hemoglobin Ql (U) Negative Normal NEGATIVE [facility] Comment on above: Performed By: #### H STROPN #### [facility] [address] [place] [address] Dr. Rigoberto Iyv Ketones Ql (U) Negative Normal NEGATIVE [facility] Comment on above: Performed By: #### H STROPN #### [facility] [address] [place] [address] Dr. Rigoberto Ivy LEUKOCYTES TRACE Abnormal NEGATIVE [facility] Comment on above: Performed By: #### H STROPN #### [facility] [address] [place] [address] Dr. Rigoberto Ivy Nitrite Ql (U) Negative Normal NEGATIVE [facility] Comment on above: Performed By: #### H STROPN #### [facility] [address] [place] [address] Dr. Rigoberto Ivy pH (U) 7.0 [pH] Normal 5-9 [facility] Comment on above: Performed By: #### H STROPN #### [facility] [address] [place] [address] Dr. Rigoberto Ivy SPEC GRAVITY 1.015 Normal 1.005-<=1.025 [facility] Comment on above: Performed By: #### H STROPN #### [facility] [address] [place] [address] Dr. Rigoberto Ivy UA PROTEIN Negative Normal NEGATIVE/ TRACE [facility] Comment on above: Performed By: #### H STROPN #### [facility] [address] [place] [address] Dr. Rigoberto Ivy UR MICRO IND INDICATED Normal [facility] Comment on above: Performed By: #### H STROPN #### [facility] [address] [place] [address] Dr. Rigoberto Ivy Urobilinogen Qn (U) 0.2 {Gideon'U}/dL Normal 0.2 - 1. 0 [facility] Comment on above: Performed By: #### H STROPN #### [facility] [address] [place] [address] Dr. Rigoberto Ivy LAB TESTINGon 11-05-2021 RECV HEADER SEE SCANNED REPORT I N HPF Normal [facility] Comment on above: Performed By: #### M ISC #### [facility] [address] [place] [address] Dr. Rigoberto Ivy REV FROM REF LAB 11/05/2021 [facility] Comment on above: Performed By: #### M ISC #### [facility] [address] [place] [address] Dr. Rigoberto Ivy SENT TO REF LAB 11/05/2020 [facility] Comment on above: Performed By: #### M ISC #### [facility] [address] [place] [address] Dr. Rigoberto Ivy LACTATE/LACTIC ACIDon 2021 Lactate [Moles/Vol] 0.8 mmol/L Normal 0.7-2.0 [facility] Comment on above: Performed By: #### H STROPN #### [facility] [address] [place] [address] Dr. Rigoberto Ivy PROF 14(COMP METB)on 022 Albumin [Mass/Vol] 3.7 g/dL Normal 3.5-5.0 [facility] Comment on above: Performed By: #### C MP, BNP, HSTROPN #### [facility] [address] [place] [address] Dr. Rigoberto Ivy Albumin/Globulin [Mass ratio] 0.9 {ratio} [facility] Comment on above: Performed By: #### C MP, BNP, HSTROPN #### [facility] [address] [place] [address] Dr. Rigoberto Ivy ALP [Catalytic activity/Vol] 105 U/L Normal 38-126 [facility] Comment on above: Performed By: #### C MP, BNP, HSTROPN #### [facility] [address] [place] [address] Dr. Rigoberto Ivy ALT [Catalytic activity/Vol] 51 U/L Normal 9-52 [facility] Comment on above: Performed By: #### C MP, BNP, HSTROPN #### [facility] [address] [place] [address] Dr. Rigoberto Ivy Anion gap [Moles/Vol] 11.4 mmol/L Normal [facility] Comment on above: Performed By: #### C MP, BNP, HSTROPN #### [facility] [address] [place] [address] Dr. Rigoberto Ivy AST [Catalytic activity/Vol] 33 U/L Normal 14-36 [facility] Comment on above: Performed By: #### C MP, BNP, HSTROPN #### [facility] [address] [place] [address] Dr. Rigoberto Ivy Bilirubin [Mass/Vol] 0.7 mg/dL Normal 0.2-1.3 [facility] Comment on above: Performed By: #### C MP, BNP, HSTROPN #### [facility] [address] [place] [address] Dr. Rigoberto Ivy Calcium [Mass/Vol] 9.6 mg/dL Normal 8.4-10.2 [facility] Comment on above: Performed By: #### C MP, BNP, HSTROPN #### [facility] [address] [place] [address] Dr. Rigoberto Ivy Chloride [Moles/Vol] 107 mmol/L Normal 98-107 [facility] Comment on above: Performed By: #### C MP, BNP, HSTROPN #### [facility] [address] [place] [address] Dr. Rigoberto Ivy CO2 [Moles/Vol] 30.8 mmol/L Critically high 22.0-30.0 [facility] Comment on above: Performed By: #### C MP, BNP, HSTROPN #### [facility] [address] [place] [address] Dr. Rigoberto Ivy Creatinine [Mass/Vol] 0.65 mg/dL Normal 0.52-1.04 [facility] Comment on above: Performed By: #### C MP, BNP, HSTROPN #### [facility] [address] [place] [address] Dr. Rigoberto Ivy EGFR-AF MALAWIAN >60 Normal >=60 [facility] Comment on above: Performed By: #### C MP, BNP, HSTROPN #### [facility] [address] [place] [address] Dr. Rigoberto Ivy EGFR-NON AF MALAWIAN >60 Normal >=60 [facility] Comment on above: Performed By: #### C MP, BNP, HSTROPN #### [facility] [address] [address] [address] Rigoberto Ivy Globulin (S) [Mass/Vol] 3.9 g/dL Normal [facility] Comment on above: Performed By: #### C MP, BNP, HSTROPN #### [facility] [address] [place] [address] Dr. Rigoberto Ivy Glucose [Mass/Vol] 98 mg/dL Normal 74-106 [facility] Comment on above: Performed By: #### C MP, BNP, HSTROPN #### [facility] [address] [place] [address] Dr. Rigoberto Ivy Potassium [Moles/Vol] 4.2 mmol/L Normal 3.4-5.0 [facility] Comment on above: Performed By: #### C MP, BNP, HSTROPN #### [facility] [address] [place] [address] Dr. Rigoberto Ivy Protein [Mass/Vol] 7.6 g/dL Normal 6.1-8.2 [facility] Comment on above: Performed By: #### C MP, BNP, HSTROPN #### [facility] [address] [place] [address] Dr. Rigoberto Ivy Sodium [Moles/Vol] 145 mmol/L Normal 137-145 [facility] Comment on above: Performed By: #### C MP, BNP, HSTROPN #### [facility] [address] [place] [address] Dr. Rigoberto Ivy Urea nitrogen [Mass/Vol] 12.0 mg/dL Normal 7.0-17.0 [facility] Comment on above: Performed By: #### C MP, BNP, HSTROPN #### [facility] [address] [place], [place] [address] Dr. Rigoberto Ivy Urea nitrogen/Creatinine [Mass ratio] 18.5 mg/mg Normal [facility] Comment on above: Performed By: #### C MP, BNP, HSTROPN #### [facility] [address] [place], [place] [address] Dr. Rigoberto Ivy Partial Thromboplastin Timeo n 11-05-2021 aPTT Coag (Bld) [Time] 32.9 s Normal 25.1-36.5 [facility] Comment on above: Order Comment: Sampl e recieved as a pour off from [facility]. Unable to verify patient's HCT to correct for HCT > 55%. Results may be falsely increased if the HCT is greater than 55%. Result Comment: PERF ORMED BY: [place] [address] PATHOLOGIST [employer] GARRETT SELLERS M.D. Performed By: #### P T, PTT #### [facility] [id number] [facility] Prothrombin Time INRon 11-05 INR Coag (PPP) [Relative time] 1.0 {INR} Normal [facility] Comment on above: Order Comment: Sampl e recieved as a pour off from [facility]. Unable to verify patient's HCT to correct for HCT > 55%. Results may be falsely increased if the HCT is greater than 55%. Result Comment: INR Therapeutic Range A) Pre- and Peroperative OAT started two weeks before surgery. NOT HIP SURGERY: 1.5 - 2.5 HIP SURGERY: 2 - 3 B) Primary and secondary prevention of venous THROMBOSIS: 2 - 3 C) Active venous thrombosis, pulmonary embolism and prevention of recurrent venous thrombosis: 2 - 3 D) Prevention of arterial thromboembolism including patients with mechanical heart valves: 3 - 4.5 Performed By: #### P T, PTT #### [facility] [address] [id number] [facility] PT Coag (PPP) [Time] 11.1 s Normal 9.0-12.9 [facility] Comment on above: Order Comment: Sampl e recieved as a pour off from [facility]. Unable to verify patient's HCT to correct for HCT > 55%. Results may be falsely increased if the HCT is greater than 55%. Performed By: #### P T, PTT #### [facility] [address] TROPONIN, HIGH SENSITIVITYon 11-05-2021 HSTROP 14.1 pg/mL Normal 4.0-35.5 [facility] Comment on above: Result Comment: CUT- OFF POINTS HAVE BEEN ESTABLISHED BASED ON THE FOURTH UNIVERSAL DEFINITIONS OF MYOCARDIAL INFARCTION. THE UPPER REFERENCE LIMIT (URL) OF TROPONIN, DEFINED THE 99TH PERCENTILE OF cTnI DISTRIBUTION IN A REFERENCE POPULATION, HAS BEEN CONFIRMED THE DECISION THRESHOLD FOR [place] DIAGNOSIS. Performed By: #### H STROPN #### [facility] [address] [place] [address] Dr. Rigoberto Ivy HSTROP 10.3 pg/mL Normal 4.0-35.5 [facility] Comment on above: Result Comment: CUT- OFF POINTS HAVE BEEN ESTABLISHED BASED ON THE FOURTH UNIVERSAL DEFINITIONS OF MYOCARDIAL INFARCTION. THE UPPER REFERENCE LIMIT (URL) OF TROPONIN, DEFINED THE 99TH PERCENTILE OF cTnI DISTRIBUTION IN A REFERENCE POPULATION, HAS BEEN CONFIRMED THE DECISION THRESHOLD FOR [place] DIAGNOSIS. Performed By: #### C MP, BNP, HSTROPN #### [facility] [address] [place] [address] Dr. Rigoberto Ivy URINE MICROSCOPIC ONLYon BACTERIA TRACE Abnormal NONE SEEN [facility] Comment on above: Performed By: #### H STROPN #### [facility] [address] [address] [address] Rigoberto Ivy Bacteria identified Cx Nom (U) INDICATED Normal [facility] Comment on above: Performed By: #### H STROPN #### [facility] [address] [place] [address] Dr. Rigoberto Ivy CAST NONE SEEN Normal NONE SEEN [facility] Comment on above: Performed By: #### H STROPN #### [facility] [address] [address] [address] Rigoberto Ivy Crystals LM Nom (Urine sed) NONE SEEN Normal NONE SEEN [facility] Comment on above: Performed By: #### H STROPN #### [facility] [address] [address] [address] Rigoberto Ivy Epithelial cells LM Ql (Urine sed) RARE Normal NONE SEEN /RARE [facility] Comment on above: Performed By: #### H STROPN #### [facility] [address] [address] [address] Rigoberto Ivy MUCOUS TRACE Abnormal NONE SEEN [facility] Comment on above: Performed By: #### H STROPN #### [facility] [address] [address] [address] Rigoberto Ivy RBC NONE SEEN Abnormal 0-2 [facility] Comment on above: Performed By: #### H STROPN #### [facility] [address] [place] [address] Dr. Rigoberto Ivy WBC 0-2 Abnormal NONE SEEN [facility] Comment on above: Performed By: #### H STROPN #### [facility] [address] [place] [address] Dr. Rigoberto Ivy XR CHEST 1 Von 11-05-2021 XR CHEST 1 V EXAMINATION: XR CHES T 1 V HISTORY: Dizziness , tingling in hands, anxious COMPARISON: XR chest 07/02/2020 FINDINGS: LUNGS: No significant pulmonary parenchymal abnormalities. VASCULATURE: No increased pulmonary vasculature. PLEURA: No pneumothorax, effusion, or pleural thickening. CARDIAC: No cardiomegaly or cardiac silhouette abnormality. MEDIASTINUM: No visible mass or adenopathy. BONES: No fracture or visible bone lesion. OTHER: Negative. IMPRESSION: 1. No acute cardiopulmonary process. Electronically authenticated by: JAMIE OWEN Date: 2021-11-05 13:01 Normal [facility] VIT D 25-OH [facility] 2020 Vitamin D, 25-Hydroxy 44.1 ng/mL Normal 30.0-100.0 [facility] Comment on above: Result Comment: Shabnam min D deficiency has been defined by the [place] [employer] and an Endocrine Society practice guideline as a level of serum 25-OH vitamin D less than 20 ng/mL (1,2). The Endocrine Society went on to further define vitamin D insufficiency as a level between 21 and 29 ng/mL (2). 1. IOM ([place] [employer]). 2010. Dietary reference intakes for calcium and D. [place]: The National Academies Press. 2. Chiara MF, Cesilia COLLADO, Evans CALLAHAN, et al. Evaluation, treatment, and prevention of vitamin D deficiency: an Endocrine Society clinical practice guideline. JCEM. 2010; 96(7):1911-30. Performed By: #### C RP, CMP #### [facility] [address] [place] [address] Dr. Rigoberto Ivy CBC AUTO DIFFon 10-29-2021 BASO # 0.1 103/ul Normal 0.0-0.1 [facility] Comment on above: Performed By: #### C BC #### [facility] [address] [place] [address] Dr. Rigoberto Ivy Basophils/100 WBC (Bld) 0.8 % Normal 0.2-2.0 [facility] Comment on above: Performed By: #### C BC #### [facility] [address] [address] [address] Rigoberto Ivy EO # 0.1 103/ul Normal 0.0-0.7 [facility] Comment on above: Performed By: #### C BC #### [facility] [address] [place] [address] Dr. Rigoberto Ivy Eosinophils/100 WBC (Bld) 1.2 % Normal 0.9-7.0 [facility] Comment on above: Performed By: #### C BC #### [facility] [address] [place] [address] Dr. Rigoberto Ivy Erythrocyte distribution width (RBC) [Ratio] 15.2 % Critically high 11.0-15.0 [facility] Comment on above: Performed By: #### C BC #### [facility] [address] [place] [address] Dr. Rigoberto Ivy Hematocrit (Bld) [Volume fraction] 39.1 % Normal 36.0-48.0 [facility] Comment on above: Performed By: #### C BC #### [facility] [address] [place] [address] Dr. Rigoberto Ivy Hemoglobin (Bld) [Mass/Vol] 12.1 g/dL Normal 12.0-16.0 [facility] Comment on above: Performed By: #### C BC #### [facility] [address] [place] [address] Dr. Rigoberto Ivy IG # 0.03 10e3/ul Normal 0.00-0.03 [facility] Comment on above: Performed By: #### C BC #### [facility] [address] [place] [address] Dr. Rigoberto Ivy IG % 0.4 % Normal 0.0-0.5 [facility] Comment on above: Performed By: #### C BC #### [facility] [address] [place] [address] Dr. Rigoberto Ivy LYMPH # 2.7 103/ul Normal 1.2-3.8 [facility] Comment on above: Performed By: #### C BC #### [facility] [address] [place] [address] Dr. Rigoberto Ivy Lymphocytes/100 WBC (Bld) 35.1 % Normal 20.5-60.0 [facility] Comment on above: Performed By: #### C BC #### [facility] [address] [place] [address] Dr. Rigoberto Ivy MANUAL DIFF REQ NO Normal [facility] Comment on above: Performed By: #### C BC #### [facility] [address] [place] [address] Dr. Rigoberto Ivy MCH (RBC) [Entitic mass] 30.0 pg Normal 26.7-34.0 [facility] Comment on above: Performed By: #### C BC #### [facility] [address] [place] [address] Dr. Rigoberto Ivy MCHC (RBC) [Mass/Vol] 30.9 g/dL Normal 29.9-35.2 [facility] Comment on above: Performed By: #### C BC #### [facility] [address] [place] [address] Dr. Rigoberto Ivy MCV (RBC) [Entitic vol] 96.8 fL Normal 81.0-99.0 [facility] Comment on above: Performed By: #### C BC #### [facility] [address] [place] [address] Dr. Rigoberto Ivy MONO # 0.7 103/ul Normal 0.3-0.8 [facility] Comment on above: Performed By: #### C BC #### [facility] [address] [place] [address] Dr. Rigoberto Ivy Monocytes/100 WBC (Bld) 9.8 % Normal 1.7-12.0 [facility] Comment on above: Performed By: #### C BC #### [facility] [address] [place] [address] Dr. Rigoberto Ivy NEUT # 4.0 103/ul Normal 1.4-6.5 [facility] Comment on above: Performed By: #### C BC #### [facility] [address] [place] [address] Dr. Rigoberto Ivy Neutrophils/100 WBC (Bld) 52.7 % Normal 43.0-75.0 [facility] Comment on above: Performed By: #### C BC #### [facility] [address] [place] [address] Dr. Rigoberto Ivy Platelet mean volume (Bld) [Entitic vol] 11.1 fL Normal 9.5-13.5 [facility] Comment on above: Performed By: #### C BC #### [facility] [address] [place] [address] Dr. Rigoberto Ivy PLT 217 103/ul Normal 150-450 [facility] Comment on above: Performed By: #### C BC #### [facility] [address] [place] [address] Dr. Rigoberto Ivy RBC 4.04 106/ul Critically low 4.20-5.40 [facility] Comment on above: Performed By: #### C BC #### [facility] [address] [place] [address] Dr. Rigoberto Ivy WBC 7.6 103/ul Normal 4.0-11.0 [facility] Comment on above: Performed By: #### C BC #### [facility] [address] [place] [address] Dr. Rigoberto Ivy CRPon 10-29-2021 CRP [Mass/Vol] mg/L Normal <=1.0 [facility] Comment on above: Performed By: #### C RP, CMP #### [facility] [address] [place] [address] Dr. Rigoberto Ivy PROF 14(COMP METB)on 021 Albumin [Mass/Vol] 3.3 g/dL Critically low 3.5-5.0 [facility] Comment on above: Performed By: #### C RP, CMP #### [facility] [address] [place] [address] Dr. Rigoberto Ivy Albumin/Globulin [Mass ratio] 1.0 {ratio} Normal [facility] Comment on above: Performed By: #### C RP, CMP #### [facility] [address] [place] [address] Dr. Rigoberto Ivy ALP [Catalytic activity/Vol] 95 U/L Normal 38-126 [facility] Comment on above: Performed By: #### C RP, CMP #### [facility] [address] [place] [address] Dr. Rigoberto Ivy ALT [Catalytic activity/Vol] 31 U/L Normal 9-52 [facility] Comment on above: Performed By: #### C RP, CMP #### [facility] [address] [place] [address] Dr. Rigoberto Ivy Anion gap [Moles/Vol] 8.7 mmol/L Normal [facility] Comment on above: Performed By: #### C RP, CMP #### [facility] [address] [place] [address] Dr. Rigoberto Ivy AST [Catalytic activity/Vol] 23 U/L Normal 14-36 [facility] Comment on above: Performed By: #### C RP, CMP #### [facility] [address] [place] [address] Dr. Rigoberto Ivy Bilirubin [Mass/Vol] 0.5 mg/dL Normal 0.2-1.3 [facility] Comment on above: Performed By: #### C RP, CMP #### [facility] [address] [place] [address] Dr. Rigoberto Ivy Calcium [Mass/Vol] 9.5 mg/dL Normal 8.4-10.2 [facility] Comment on above: Performed By: #### C RP, CMP #### [facility] [address] [place] [address] Dr. Rigoberto Ivy Chloride [Moles/Vol] 103 mmol/L Normal 98-107 [facility] Comment on above: Performed By: #### C RP, CMP #### [facility] [address] [place] [address] Dr. Rigoberto Ivy CO2 [Moles/Vol] 33.6 mmol/L Critically high 22.0-30.0 [facility] Comment on above: Performed By: #### C RP, CMP #### [facility] [address] [place] [address] Dr. Rigoberto Ivy Creatinine [Mass/Vol] 0.58 mg/dL Normal 0.52-1.04 [facility] Comment on above: Performed By: #### C RP, CMP #### [facility] [address] [place] [address] Dr. Rigoberto Ivy EGFR-AF MALAWIAN >60 Normal >=60 [facility] Comment on above: Performed By: #### C RP, CMP #### [facility] [address] [place] [address] Dr. Rigoberto Ivy EGFR-NON AF MALAWIAN >60 Normal >=60 [facility] Comment on above: Performed By: #### C RP, CMP #### [facility] [address] [place] [address] Dr. Rigoberto Ivy Globulin (S) [Mass/Vol] 3.3 g/dL Normal [facility] Comment on above: Performed By: #### C RP, CMP #### [facility] [address] [place] [address] Dr. Rigoberto Ivy Glucose [Mass/Vol] 98 mg/dL Normal 74-106 [facility] Comment on above: Performed By: #### C RP, CMP #### [facility] [address] [address] [address] Rigoberto Ivy Potassium [Moles/Vol] 4.3 mmol/L Normal 3.4-5.0 [facility] Comment on above: Performed By: #### C RP, CMP #### [facility] [address] [address] [address] Rigoberto Ivy Protein [Mass/Vol] 6.6 g/dL Normal 6.1-8.2 [facility] Comment on above: Performed By: #### C RP, CMP #### [facility] [address] [place] [address] Dr. Rigoberto Ivy Sodium [Moles/Vol] 141 mmol/L Normal 137-145 [facility] Comment on above: Performed By: #### C RP, CMP #### [facility] [address] [address] [address] Rigoberto Ivy Urea nitrogen [Mass/Vol] 10.0 mg/dL Normal 7.0-17.0 [facility] Comment on above: Performed By: #### C RP, CMP #### [facility] [address] [place] [address] Dr. Rigoberto Ivy Urea nitrogen/Creatinine [Mass ratio] 17.2 mg/mg Normal [facility] Comment on above: Performed By: #### C RP, CMP #### [facility] [address] [place] [address] Dr. Rigoberto Ivy SED RATE [facility] 2020 SED RATE 27 mm/hr Normal <=30 [facility] Comment on above: Performed By: #### H STROPN #### [facility] [address] [place] [address] Dr. Rigoberto Ivy Coding Summary.on 04-21-2019 Coding Summary. CODING DATE: 04/21/2019 [facility] STATUS: Home (Routine DC) PAYOR: Medicare ADMIT DX: REASON FOR VISIT DX: N60.11 Diffuse cystic mastopathy of right breast FINAL DX: PRINCIPAL: N60.11 Diffuse cystic mastopathy of right breast SECONDARY: PROCEDURES DOCTOR NAME DATE NOTE: The code number assigned matches the documented diagnosis and / or procedure in the patient's chart. However, the narrative phrase printed from the coding software may appear abbreviated, or result in slightly different terminology. Coded By: Anastasiya Ramírez CphT Date Saved: 04/21/2019 12:54 pm Normal [facility] [place] Mamm Diag w/CAD if perf a nd 3D [place] 04-18-2019 Bilirubin.direct mass conc Exam Date/Time: 04/18/2019 13:03 EDT Reason for Exam: N60.11 Diffuse cystic mastopathy of right breast Report IMPRESSION: BIRADS 1 NEGATIVE, NORMAL INTERVAL FOLLOW-UP.12 MONTH RECALL. CLINICAL HISTORY: N60.11 Diffuse cystic mastopathy of right breast. COMPARISON: 10/08/2018 and 04/05/2018. COMMENT: Routine views and tomosynthesis views of both breasts were obtained. There are scattered areas of fibroglandular density. There is some asymmetry in fibroglandular tissue in the upper-outer quadrants of the breasts, stable in appearance. There are a few benign calcifications. No dominant breast mass nor neoplastic calcifications are identified in either breast. There has been no significant change from the previous exams. The examination was reviewed with Computer Aided Detection. Breast Density: No Mammography is very important to your health. The current [employer] and National Comprehensive Cancer Network guidelines recommends annual mammography beginning at age 40. This facility utilizes a reminder system to ensure all patients receive reminder notifications at the appropriate time based on the recommendations of this exam. Board Certified Radiologists. Accredited by the ACR and FDA. FINAL REPORT Dictated: 04/18/2019 2:14 pm Dale Wellington M.D. Signed (Electronic Signature): 04/18/2019 2:14 pm Signed by: Dale Wellington M.D. Transcribed by: SKYLAR Technologist: JENIFFER Assessment: BI-RADS Category 1-Negative Recommendation: Normal interval follow-up Normal [facility] Coding Summary.on 10-11-2018 Coding Summary. CODING DATE: 10/11/[address] [facility] STATUS: Home (Routine DC) PAYOR: Medicare ADMIT DX: REASON FOR VISIT DX: R92.8 Other abnormal and inconclusive findings on diagnostic imaging of breast FINAL DX: PRINCIPAL: R92.8 Other abnormal and inconclusive findings on diagnostic imaging of breast SECONDARY: N63.11 Unspecified lump in the right breast, upper outer quadrant PROCEDURES DOCTOR NAME DATE NOTE: The code number assigned matches the documented diagnosis and / or procedure in the patient's chart. However, the narrative phrase printed from the coding software may appear abbreviated, or result in slightly different terminology. Coded By: Anastasiya Ramírez CphT Date Saved: 10/11/2018 10:33 am [facility] Vital Signs Date Time Vital Sign Value Performing Clinician Facility 02-04-2024 09:39-0400 Body height 162.56 cm [facility] 02-04-2024 09:39-0400 Body mass index (BMI) [Ratio] 20.7 kg/m2 [facility] 02-04-2024 09:39-0400 Body weight 54.88 kg [facility] 02-04-2024 09:39-0400 Diastolic blood pressure 65 mm[Hg] [facility] 02-04-2024 09:39-0400 Heart rate 73 /min [facility] 02-04-2024 09:39-0400 Respiratory rate 12 /min [facility] 02-04-2024 09:39-0400 Systolic blood pressure 153 mm[Hg] [facility] 10-13-2023 10:30-0500 Body height 162.56 cm Melvin Ball Other [facility] [employer] Other 10-13-2023 10:30-0500 Body mass index (BMI) [Ratio] 21.45 kg/m2 Melvin Ball Other [employer] [facility] [employer] Other 10-13-2023 10:30-0500 Body weight 56.7 kg Melvin Ball Other [employer] Other 10-13-2023 10:30-0500 Diastolic blood pressure 80 mm[Hg] Melvin Ball Other [employer] [facility] [employer] Other 10-13-2023 10:30-0500 Respiratory rate 12 /min Melvin Ball Other [employer] Other 10-13-2023 10:30-0500 Systolic blood pressure 133 mm[Hg] Melvin Ball Other [employer] Other 08-27-2023 13:40-0400 Body height 162.56 cm Melvin Ball Other [employer] Other 08-27-2023 13:40-0400 Diastolic blood pressure 66 mm[Hg] Melvin Ball Other [employer] Other 08-27-2023 13:40-0400 Systolic blood pressure 147 mm[Hg] Melvin Ball Other [employer] Other 06-18-2023 16:20-0400 Diastolic blood pressure 57 mm[Hg] Melvin Ball Other [employer] Other 06-18-2023 16:20-0400 Systolic blood pressure 123 mm[Hg] Melvin Ball Other [employer] Other 06-16-2023 14:24-0400 Diastolic blood pressure 54 mm[Hg] Melvin Ball Other [employer] Other 06-16-2023 14:24-0400 Systolic blood pressure 147 mm[Hg] Melvin Ball Other [employer] Other 06-11-2023 14:25-0400 Diastolic blood pressure 62 mm[Hg] Melvin Ball Other [employer] Other 06-11-2023 14:25-0400 Systolic blood pressure 130 mm[Hg] Melvin Ball Other [employer] Other 06-11-2023 14:20-0400 Diastolic blood pressure 62 mm[Hg] Melvin Ball Other [employer] Other 06-11-2023 14:20-0400 Systolic blood pressure 125 mm[Hg] Melvin Ball Other [employer] Other 06-08-2023 11:30-0400 Body height 162.56 cm Melvin Ball Other [employer] Other 06-08-2023 11:30-0400 Body mass index (BMI) [Ratio] 22.76 kg/m2 Melvin Ball Other [employer] Other 06-08-2023 11:30-0400 Body weight 60.15 kg Melvin Ball Other [employer] Other 06-08-2023 11:30-0400 Diastolic blood pressure 67 mm[Hg] Melvin Ball Other [employer] Other 06-08-2023 11:30-0400 Respiratory rate 12 /min Melvin Ball Other [employer] Other 06-08-2023 11:30-0400 Systolic blood pressure 155 mm[Hg] Melvin Ball Other [employer] Other 05-06-2023 10:45-0400 Body height 162.56 cm Melvin Ball Other [employer] Other 05-06-2023 10:45-0400 Body mass index (BMI) [Ratio] 22.76 kg/m2 Melvin Ball Other [employer] Other 05-06-2023 10:45-0400 Body weight 60.15 kg Melvin Ball Other [employer] Other 05-06-2023 10:45-0400 Diastolic blood pressure 76 mm[Hg] Melvin Pereira Other [employer] Other 05-06-2023 10:45-0400 Respiratory rate 12 /min Melvin Pereira Other [employer] Other 05-06-2023 10:45-0400 Systolic blood pressure 160 mm[Hg] Melvin Pereira Other [employer] Other Encounters Encounter Date Encounter Type Care Provider Facility Start: 02-04-2024 End: 02-04-2024 ambulatory [facility] Work Phone: Start: 02-04-2024 End: 02-04-2024 Patient encounter procedure Formerly [facility], Later [facility] Work Phone: Start: 12-16-2023 Non-patient / Non-visit [facility] Work Phone: Start: 11-16-2023 End: 11-16-2023 ambulatory DELROY TENA Not Available Start: 10-13-2023 End: 10-13-2023 ambulatory Melvin Pereira Other [employer] Other Start: 10-13-2023 Office outpatient vi sit 25 minutes Melvin Ball [facility] Start: 09-29-2023 End: 09-29-2023 ambulatory DELROY TENA Not Available Start: 08-27-2023 End: 08-27-2023 ambulatory Melvin Ball Other [employer] Other Start: 08-27-2023 Telephone encounter Melvin Ball [facility] Start: 08-21-2023 End: 08-21-2023 ambulatory Melvin Ball Other [employer] Other Start: 08-21-2023 Telephone encounter Melvin Ball [facility] Start: 08-14-2023 End: 08-14-2023 ambulatory Melvin Pereira Other [employer] Other Start: 08-14-2023 Telephone encounter Melvin Pereira [facility] Start: 08-10-2023 End: 08-10-2023 ambulatory Melvin Ball Other [employer] Other Start: 08-10-2023 Telephone encounter Melvin Ball [facility] Start: 07-24-2023 End: 07-24-2023 ambulatory Melvin Ball Other [employer] Other Start: 07-24-2023 Telephone encounter Melvin Pereira [facility] Start: 07-23-2023 End: 07-23-2023 ambulatory Melvin Ball Other [employer] Other Start: 07-23-2023 Nursing evaluation o f patient and report Melvin Pereira [facility] Start: 07-17-2023 End: 07-17-2023 ambulatory Melvin Pereira Other [employer] Other Start: 07-17-2023 Telephone encounter Melvin Pereira [facility] Start: 06-29-2023 End: 06-29-2023 ambulatory Melvin Ball Other [employer] Other Start: 06-29-2023 Telephone encounter Melvin Ball [facility] Start: 06-18-2023 End: 06-18-2023 ambulatory Melvin Ball Other [employer] Other Start: 06-18-2023 Telephone encounter Melvin Ball [facility] Start: 06-16-2023 End: 06-16-2023 ambulatory Melvin Ball Other [employer] Other Start: 06-16-2023 Telephone encounter Melvin Ball [facility] Start: 06-11-2023 End: 06-11-2023 ambulatory Melvin Ball Other [employer] Other Start: 06-11-2023 Telephone encounter Melvin Ball [facility] Start: 06-08-2023 End: 06-08-2023 ambulatory Melvin Ball Other [employer] Other Start: 06-08-2023 Patient encounter procedure Melvin Randall [facility] Start: 06-05-2023 End: 06-05-2023 ambulatory Melvin Ball Other [employer] Other Start: 06-05-2023 Telephone encounter Melvin Ball [facility] Start: 05-29-2023 End: 05-29-2023 ambulatory Melvin Pereira Other [employer] Other Start: 05-29-2023 Telephone encounter Melvin Ball [facility] Start: 05-18-2023 End: 05-18-2023 ambulatory Melvin Randall Other [employer] Other Start: 05-18-2023 Telephone encounter Melvin Ball [facility] Start: 05-14-2023 End: 05-14-2023 ambulatory Melvin Pereira Other [employer] Other Start: 05-14-2023 Telephone encounter Melvin Ball [facility] Start: 05-11-2023 End: 05-11-2023 ambulatory Melvin Ball Other [employer] Other Start: 05-11-2023 Telephone encounter Melvin Ball [facility] Start: 05-08-2023 End: 05-08-2023 ambulatory Melvin Ball Other [employer] Other Start: 05-08-2023 Telephone encounter Melvin Ball [facility] Start: 05-06-2023 End: 05-06-2023 ambulatory Melvin Ball Other [employer] Other Start: 05-06-2023 Office outpatient vi sit 25 minutes Melvin [facility] Start: 07-16-2022 End: 07-17-[address] MELVIN PEREIRA Facility:[facility] Start: 07-04-2022 End: 07-05-[address] MELVIN PEREIRA Facility:[facility] Start: 06-30-2022 Adult health examination Melvin Randall Other [employer] Other Start: 03-14-2022 End: 03-15-[address] NOAM ARMANDO Facility:[facility] Start: 11-05-2021 End: 11-05-2021 ambulatory CARITO WELLS Facility:[facility] Start: 10-29-2021 End: 10-30-[address] NOAM ARMANDO Facility:[facility] Procedures Date Procedure Procedure Detail Performing Clinician Start: 08-10-2017 Diabetes mellitus screening Melvin Pereira Other Start: 09-07-2015 Screening for malign ant neoplasm of colon Melvin Pereira Other Depression screening Valreie Pereira Other Screening for malign ant neoplasm of breast Melvin Pereira Other Immunizations Immunization Date Immunization Notes Care Provider Fa david 07-23-2023 influenza virus vaccine, unspecified formulation [facility] 07-23-2023 influenza, high dose seasonal, preservative-free Melvin Pereira Other [employer] Other 07-18-2022 influenza virus vaccine, split virus (incl. purified surface antigen) Melvin Pereira Other [employer] Other 07-18-2022 influenza virus vaccine, unspecified formulation [facility] 07-18-2022 influenza, high dose seasonal, preservative-free Melvin Pereira Other [employer] Other 07-18-2021 influenza virus vaccine, split virus (incl. purified surface antigen) Melvin Pereira Other [employer] Other 07-18-2021 influenza virus vaccine, unspecified formulation [facility] 04-08-2021 diphtheria, tetanus toxoids and acellular pertussis vaccine, unspecified formulation Melvin Pereira Other [facility] 07-27-2020 influenza virus vaccine, split virus (incl. purified surface antigen) Melivn Randall Other [employer] Other 07-27-2020 influenza virus vaccine, unspecified formulation [facility] 07-26-2019 influenza virus vaccine, split virus (incl. purified surface antigen) Melvin Randall Other [employer] Other 07-26-2019 influenza virus vaccine, unspecified formulation [facility] 09-07-2018 pneumococcal polysaccharide vaccine, 23 valent Melvin Pereira Other [facility] 08-16-2018 influenza virus vaccine, split virus (incl. purified surface antigen) Melvin Randall Other [employer] [facility] [employer] Other 08-16-2018 influenza virus vaccine, unspecified formulation [facility] 08-10-2017 pneumococcal conjuga te vaccine, 13 valent Melvin Pereira Other [facility] 07-21-2017 influenza virus vaccine, split virus (incl. purified surface antigen) Melvin Randall Other [employer] Other 07-21-2017 influenza virus vaccine, unspecified formulation [facility] Payers Date Payer Category Payer Medicare [id number] 1959 Unknown [id number] 1935 Unknown [id number] 2.16.84 [id number] 1935 Unknown [id number] 2.16.84 [id number] 1935 Unknown [id number] 2.16.84 [id number] 1935 Unknown [id number] 2.16.84 [id number] 1935 Unknown [id number] 2.16.84 [id number] 1935 Unknown [id number] 2.16.84 [id number] 1935 Unknown [id number] Self-pay Self Pay [id number] Unknown Other1 (STD) [id number] Social History Date Type Detail Facility Sex Assigned At [employer] Other Start: 1935 Sex Assigned At Female F [facility] Evaluation note 10-13-2023 Note Date & Type Note Facility 10-13-2023 Evaluation note Encounter Date Diagnosis Assessment Notes Oct, Primary hypertension (ICD-10 - I10) This patient is instructed to consume a healthy, low-fat, low-salt diet. They are also encouraged to continue exercise to achieve/mainta in a normal BMI. Patient is instructed on home BP measurements: - rest for 5 minutes w/o talking- positioned w/ feet on floor and arm supported- average best 2/3 readings w/ goal < 135/85 Oct, Chronic venous insufficiency (ICD-10 - I87.2) Avoid salt and elevate lower extremities, support stockings, inspect legs and feet daily for blisters and ulcerations. 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 ROM intact and she remains functional. Continue MTX and instructed to continue on FA. She has called for f/u appt w/ Rheumatology Oct, Primary osteoarthritis of right knee (ICD-10 - M17.11) Full ROM w/ mild crepitus. No obvious swelling, erythema or warmth. Instructed on quad exercises, ice/heat and Tylenol. Fall precautions Oct, Weight loss, unintentional (ICD-10 - R63.4) She has cut out sweets and ice cream. She is instructed to follow a healthy diet, may require Ensure supplements if continues to lose weight. She maintains good appetite w/o abdominal pain, N/V, heartburn, dysphagia, melena or hematochezia Some constipation: instructed on fluids and fiber Oct, Slow transit constipation (ICD-10 - K59.01) Instructed on increasing fluids, fiber and use of Metamucil. She is instructed to increase activity and exercise daily. She is to monitor for pain, distention, melena or hematochezia. [employer] Other Evaluation note 08-10-2023 Note Date & Type Note Facility 08-10-2023 Evaluation note Encounter Date Diagnosis Assessment Notes Aug, COVID (ICD-10 - U07.1) [employer] Other Evaluation note 06-11-2023 Note Date & Type Note Facility 06-11-2023 Evaluation note Encounter Date Diagnosis Assessment Notes Jun, Primary hypertension (ICD-10 - I10) [employer] Other Evaluation note 06-08-2023 Note Date & Type Note Facility 06-08-2023 Evaluation note Encounter Date Diagnosis Assessment Notes Jun, Medicare annual wellness visit, subsequent (ICD-10 - Z00.00) Personalized health advice was given to the beneficiary including a written plan for screenings discussed and provided. Advanced care planning reviewed and/or information given as requested. Additional counseling was provided here today in regards to, [ ]. The above visit was performed by [ ], under direct supervision of [ ]. Document reviewed and amended by provider signed below. Healthy diet and exercise. Reviewed age-appropriat e preventive testing recommended. Jun, Primary hypertension (ICD-10 - I10) This patient is instructed to consume a healthy, low-fat, low-salt diet. They are also encouraged to continue exercise to achieve/mainta in a normal BMI. Patient is instructed on home BP measurements: - rest for 5 minutes w/o talking- positioned w/ feet on floor and arm supported- average best 2/3 readings w/ goal < 135-85 Jun, Chronic venous insufficiency (ICD-10 - I87.2) Avoid salt and elevate lower extremities, support stockings, inspect legs and feet daily for blisters and ulcerations. 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 Continue MTX and FA Checked: BMP, CBC, ESR and are normal Jun, Screening mammogram for breast cancer (ICD-10 - Z12.31) Instructed on monthly SBE and yearly mammogram Jun, Menopause (ICD-10 - Z78.0) Calcium and Vit D supplements. Weight bearing exercises [employer] Other Evaluation note 05-08-2023 Note Date & Type Note Facility 05-08-2023 Evaluation note Encounter Date Diagnosis Assessment Notes May, Primary hypertension (ICD-10 - I10) [employer] Other Evaluation note 05-06-2023 Note Date & Type Note Facility 05-06-2023 Evaluation note Encounter Date Diagnosis Assessment Notes May, Elevated BP without diagnosis of hypertension (ICD-10 - R03.0) This patient is instructed to consume a healthy, low-fat, low-salt diet. They are also encouraged to continue exercise to achieve/mainta in a normal BMI. 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 May, Chronic fatigue (ICD-10 - R53.82) r/o metabolic etiology Discussed diabetes, thyroid disease, anemia, CKD and hepatitis Stressed importance of Healthy diet and Exercise May, Vitamin D deficiency (ICD-10 - E55.9) Sun exposure limited. Vitamin D supplement 1000u daily. Stressed importance in maintaining bone strength May, Menopause (ICD-10 - Z78.0) May, Screening mammogram for breast cancer (ICD-10 - Z12.31) [employer] Other Evaluation note Note Date & Type Note Facility Evaluation note No Information [employer] Other Evaluation note Note Date & Type Note Facility Evaluation note Diagnosis Onset Date Chronic venous insufficiency of lower extremity acute GERD (gastroesophageal reflux disease) acute Hypertension acute Lumbar spondylosis acute Osteopenia acute Rheumatoid arthritis acute [facility] Work Phone: History general Narrative - Reported Note Date & Type Note Facility History general Narrative - Reported Type Medical History Lumbar spondylosis Medical History Elevated blood press ure (not hypertension) Medical History Severe anxiety with panic Medical History Cellulitis of left leg Medical History 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 Medical History Rheumatoid arthritis involving left hand with positive rheumatoid factor Medical History Inflammatory polyarthropathy Medical History Osteopenia of lumbar spine Medical History Chronic venous insufficiency Medical History Gastroesophageal ref lux disease with esophagitis without hemorrhage Surgical History CHOLECYSTECTOMY 2002 Surgical History URETHRAL POLYP EXCISED 2003 Hospitalization History SEE SURGICAL HX [employer] Other Summary Purpose Family History Relationship Condition Age at Onset Recorded Date/T kamla father Unknown Not Specified Unknown Advance Directives Advance Directive Response Recorded Date/ Time Advance Directives No June 27, 2020 11:46am Chief Complaint and Reason for Visit Chief Complaint 4 month follow up Reason for Visit Chronic venous insuf ficiency of lower extremity GERD (gastroesophageal reflux disease) Hypertension Lumbar spondylosis Osteopenia Rheumatoid arthritis Additional Source Comments INFORMATION SOURCE (unrecogn ized section and content) DATE CREATED AUTHOR 04/21/2019 [facility] DATE CREATED AUTHOR AUTHOR'S ORGANIZ ATION 12/23/2021 [facility] DATE CREATED AUTHOR AUTHOR'S ORGANIZ ATION 07/30/2022 [facility] DATE CREATED AUTHOR AUTHOR'S ORGANIZ ATION 11/17/[address] [facility] EPIC REASON FOR VISIT (unrecogniz ed section and content) SOBBP ReadingsLab ResultsBP ReadingsBP readingsBP ReadingsBP ReadingsBP/HR ReadingsMWENo InformationBP readingBP readingBP/ HR ReadingsBP readingBP ReadingsBP readingsFLU ShotDEXA resultsCOVID +RefillBP readingsBP check4 month Follow up Care Teams (unrecognized sec tion and content) Team Status: Active Member Role Status Dates Melvin Pereira , DO Primary Care Provider Active Team Status: Active Member Role Status Dates Melvin Pereira , DO Primary Care Provide r, Attending Provider Active Start: December 16, 2023 Team Status: Inactive Member Role Status Dates Melvin Pereira , DO Primary Care Provide r, Attending Provider Active Start: February 04, 2024 End: February 04, 2024 Goals (unrecognized section and content) Goals may be documented in a n alternate section FOR RECORDS PERTAINING TO PATIENTS WHO ARE OR HAVE BEEN ENROLLED IN A CHEMICAL DEPENDENCY/SUBSTANCEABUSE PROGRAM, SOME INFORMATION MAY BE OMITTED. This clinical summary was aggregated from multiple sources. Caution should be exercised in using it in the provision of clinical care. This summary normalizes information from multiple sources, and as a consequence, information in this document may materially change the coding, format and clinical context of patient data. In addition, data may be omitted in some cases. CLINICAL DECISIONS SHOULD BE BASED ON THE PRIMARY CLINICAL RECORDS. [facility] [email or web address] [facility]. provides no warranty or guarantee of the accuracy or completeness of information in this document.
[2024-02-04] MEDS: 0.9 % SODIUM CHLORIDE 1,000 ML 100 ML IV (18:24)
[2024-02-04 18:36] LABS: Basophils Absolute Auto 0.1 10^3/uL (0.0-0.1); Basophils Percent Auto 0.7 % (0.2-2.0); Eosinophils Absolute Auto 0.1 10^3/uL (0.0-0.7); Eosinophils Percent Auto 0.7 % (0.9-7.0); Hematocrit 39.6 % (36.0-48.0); Hemoglobin 12.2 g/dL (12.0-16.0); Immature Granulocytes Abs Auto 0.03 10^3/uL (0.00-0.03); Immature Granulocytes Pct Auto 0.4 % (0.0-0.5); Lymphocytes Absolute Auto 2.9 10^3/uL (1.2-3.8); Lymphocytes Percent Auto 35.7 % (20.5-60.0); Mean Corpuscular HGB Conc 30.8 g/dL (29.9-35.2); Mean Corpuscular Hemoglobin 29.8 pg (26.7-34.0); Mean Corpuscular Volume 96.6 fL (81.0-99.0); Mean Platelet Volume 11.5 fL (9.5-13.5); Monocytes Absolute Auto 0.6 10^3/uL (0.3-0.8); Monocytes Percent Auto 7.2 % (1.7-12.0); Neutrophils Absolute Auto 4.5 10^3/uL (1.4-6.5); Neutrophils Percent Auto 55.3 % (43.0-75.0); PCO2 VBG 55.9 mmHg (40.0-52.0); Platelet Count 202 10^3/uL (150-450); Red Cell Distribution Width 15.4 % (11.0-15.0); White Blood Count 8.2 10^3/uL (4.0-11.0); pH VBG 7.369 (7.330-7.430)
[2024-02-04 18:55] LABS: Lactate/Lactic Acid 0.9 mmol/L (0.4-2.0)
[2024-02-04 19:01] LABS: Alanine Aminotransferase 27 U/L (14-59); Albumin Globulin Ratio 1.1; Albumin Level 3.7 g/dL (3.4-5.0); Alkaline Phosphatase 103 U/L (46-116); Anion Gap 10.4; Aspartate Amino Transferase 24 U/L (15-37); BUN Creatinine Ratio 21.9; Bilirubin Total 0.5 mg/dL (0.2-1.0); Calcium 9.5 mg/dL (8.5-10.1); Carbon Dioxide 30.4 mmol/L (21.0-32.0); Chloride 105 mmol/L (98-107); Estimated GFR (African America >60 (>=60); Estimated GFR (Non-African Ame >60 (>=60); Globulin 3.4 g/dL; Glucose 96 mg/dL (74-106); Potassium 3.8 mmol/L (3.5-5.1); Sodium 142 mmol/L (136-145); Thyroid Stimulating Hormone 4.178 uIU/mL (0.358-3.740); Total Protein 7.1 g/dL (6.4-8.2); Troponin I High Sensitivity 8.1 pg/mL (4.0-51.3)
[2024-02-04] MEDS: LABETALOL HCL 20 MG/4 ML SYRINGE IVP (19:39)
[2024-02-04 19:52] LABS: Bilirubin Urine NEGATIVE (NEGATIVE); Blood Urine NEGATIVE (NEGATIVE); Clarity Urine CLEAR (CLEAR); Color Urine LT. YELLOW (YELLOW); Glucose Urine UA NEGATIVE (NEGATIVE); Ketones Urine NEGATIVE (NEGATIVE); Leukocyte Esterase Urine NEGATIVE (NEGATIVE); Nitrite Urine NEGATIVE (NEGATIVE); Protein Urine NEGATIVE (NEG/TRACE); Specific Gravity Urine <=1.005 (1.005-1.025); Urobilinogen Urine 0.2 EU/dL (0.2-1.0); pH Urine 6.5 (5.0-9.0)
[2024-02-04 19:53] LABS: Urine Microscopic Indicated NO
[2024-02-04 20:07] LABS: Free T4 1.07 ng/dL (0.76-1.46)
[2024-02-04 20:13] LABS: Free T3 2.35 pg/mL (2.18-3.98)
== END 2024-02-04 20:32 | disposition home or self-care (01) ==
PROVIDERS: Emergency Medicine Emergency Medical Services; Emergency Provider Emergency Medicine; PCP Internal Medicine
DX: I10 Essential (primary) hypertension (principal); R53.1 Weakness
CPT/HCPCS: 36415; 70450; 71045; 80053; 81003; 82800; 83605; 83880; 84439; 84443; 84481; 84484; 85025; 93005; 96374; 99285

== ENCOUNTER 2024-02-15 12:42 | Outpatient (OUT) | payer MEDICARE, OTHER, SELFPAY ==
--- NOTE | 2024-02-15 12:51 | MR_ITS ---
The [address] [address] Patient Name: JAYLON CASH MRN: [id number] date: 1935 Sex: F Assigned Patient Location: MRI Current Patient Location: MRI Accession/Order Number: [id number] Exam Date: 02/15/2024 13:00 Report Date: 02/15/2024 16:24 At the request of: DOLLY TORRES Procedure: MR angio head wo con Procedure: MRA brain without contrast. INDICATION: Stroke. FINDINGS: The MCAs are patent and without evidence of thrombus, flow-limiting stenosis or aneurysm. The ACAs are patent and without evidence of thrombus, flow-limiting stenosis or aneurysm. The parcel carrier are patent and without evidence of thrombus or flow-limiting stenosis. The basilar artery is patent and without evidence of thrombus, flow-limiting stenosis or aneurysm. The superior cerebellar arteries are patent. The intradural vertebral arteries are patent without flow-limiting stenosis. The dominant AICAs and PICAs are normal The intracranial ICAs are patent and without flow limiting stenosis or aneurysm. MR/MR angio head wo con IMPRESSION: 1. No evidence of intracranial thrombus (large vessel occlusion), flow-limiting stenosis or aneurysm. Electronically authenticated by: FINESSE WORLEY Date: 02/15/2024 16:24
--- NOTE | 2024-02-15 12:58 | MR_ITS ---
[address] [address] Patient Name: JAYLON CASH MRN: [id number] date: 1935 Sex: F Assigned Patient Location: MRI Current Patient Location: MRI Accession/Order Number: [id number] Exam Date: 02/15/2024 13:00 Report Date: 02/15/2024 19:41 At the request of: DOLLY TORRES Procedure: MR head/brain wo con MR head/brain wo con HISTORY: Transient ischemic attack G45.9, Aphasia R47.01 COMPARISON: None. TECHNIQUE: Multi-planar, multi-sequence brain MRI was performed without IV contrast. FINDINGS: Brain volume: Moderate diffuse cerebral atrophy Sagittal midline structures: Normal. Ventricles: Normal. Acute ischemic changes: None. Chronic ischemic changes: Small area of chronic ischemia in the left temporal lobe. Hemorrhage: None. Masses/edema: None. Zapien-white: Negative. White matter: Severe chronic microangiopathy throughout the subcortical and deep white matter and central [place]. Vessels: Normal. Extra-axial: None. Calvarium/scalp: Negative. Skull base: Negative. Visualized sinuses/orbits: Negative. Visualized upper neck: Negative. MR/MR head/brain wo con IMPRESSION: 1. No acute ischemia. 2. Severe chronic microangiopathy. Electronically authenticated by: FINESSE WORLEY Date: 02/15/2024 19:41
--- NOTE | 2024-02-15 12:58 | US_ITS ---
[address] [address] Patient Name: JAYLON CASH MRN: [id number] date: 1935 Sex: F Assigned Patient Location: MRI Current Patient Location: MRI Accession/Order Number: [id number] Exam Date: 02/15/2024 13:00 Report Date: 02/15/2024 15:20 At the request of: DOLLY TORRES Procedure: US carotid duplex BI EXAMINATION: US carotid duplex BI HISTORY: Transient ischemic attack G45.9, Aphasia R47.01 COMPARISON: No relevant comparison available. TECHNIQUE: Duplex Doppler ultrasound analysis of carotid and vertebral arteries. . Bilateral carotid arterial duplex examination was performed using B-mode, color flow and spectral analysis. Carotid stenosis is reported according to validated velocity parameters, similar to NASCET criteria. FINDINGS: RIGHT CAROTID ARTERY No atherosclerotic plaque Subclavian: PSV: 91.9 cm/s cm/s EDV: 0.0 cm/s cm/s CCA: Prox: PSV: 58.1 cm/s cm/s EDV: 0.0 cm/s cm/s Mid: PSV: 69.1 cm/s cm/s EDV: 0.0 cm/s cm/s Distal: PSV: 35.0 cm/s cm/s EDV: 5.4 cm/s cm/s BULB: PSV: 24.8 cm/s cm/s EDV: 4.9 cm/s cm/s ICA: Prox: PSV: 31.2 cm/s cm/s EDV: 7.8 cm/s cm/s Mid: PSV: 55.4 cm/s cm/s EDV: 12.0 cm/s cm/s Distal: PSV: 63.1 cm/s cm/s EDV: 14.0 cm/s cm/s ECA: PSV: 58.1 cm/s cm/s EDV: 0.0 cm/s cm/s VERTEBRAL: PSV: 38.2 cm/s cm/s EDV: 6.1 cm/s cm/s, antegrade ICA/CCA ratio: PSV: 1.8 EDV: 2.6 LEFT CAROTID ARTERY no atherosclerotic plaque Subclavian: PSV: 149.6 cm/s cm/s EDV: 0.0 cm/s CCA: Prox: PSV: 67.2 cm/s cm/s EDV: 0.0 cm/s Mid: PSV: 52.9 cm/s cm/s EDV: 7.6 cm/s Distal: PSV: 40.6 cm/s cm/s EDV: 0.0 cm/s BULB: PSV: 24.8 cm/s cm/s EDV: 4.2 cm/s ICA: Prox: PSV: 44.1 cm/s cm/s EDV: 10.6 cm/s Mid: PSV: 70.2 cm/s cm/s EDV: 14.2 cm/s Distal: PSV: 46.0 cm/s cm/s EDV: 9.8 cm/s ECA: PSV: 69.1 cm/s cm/s EDV: 0.0 cm/s VERTEBRAL: PSV: 42.7 cm/s cm/s EDV: 0.0 cm/s, antegrade ICA/CCA ratio: PSV: 1.7 EDV: US/US carotid duplex BI IMPRESSION: 0-49% flow stenosis bilateral internal carotid arteries. Spectral Doppler US Thresholds (Reference: Asif EG, et al. Radiology 2000; 214:247-252) Stenosis (%) PSV (cm/sec) VICA/VCCA 0-49 <150 <2.5 50-69 150-225 2.5-4.0 >70 >225 >4.0 Electronically authenticated by: MARIA E CANTU Date: 02/15/2024 15:20
--- OUTSIDE RECORDS SUMMARY | 2024-02-15 13:00 | XMS_ITS | CCD ---
Author Organization [facility] Care Team Providers Care Liquor Inspector Name Role Phone TR, DR SANTACRUZ Admitting [...] Facility (20 sources) [facility] Drug Allergy Unknown [facility] Other (1 source) patient allergy list reviewed by nurse or physicia Propensity to adverse reactions Comment:Done [facility] Other Medications Current Medications Medication Drug Class(es) Dates Sig (Normalized) Sig (Original) ascorbic acid 113 mg / beta carotene 7160 mg / cuprous oxide 0.4 mg / dl-alpha tocopheryl acetate 100 unt / zinc oxide 17.4 mg oral tablet (2 sources) Vitamin C Start: 02-03-2024 Vitamins A,C,M-Eqyy-Rdkjgj (Preservision Areds) 2,148 mcg-113 mg-45 mg-17.4mg tablet [...] Glycerin / hypromellose (1 source) Plasma Volume Cook'S Assistant, Non-Standardized Chemical Allergen GenTeal Tears 0.1-0.3 % as directed Ophthalmic Active dextran 70 1 mg/ml / hypromellose 3 mg/ml ophthalmic solution (1 source) Plasma Volume Cook'S Assistant Start: 02-03-2024 take 0.1-0.3 drop(s) into the [...] 08-10-2017 Episodic Other aftercare (1 source) Other jail (current) drug therapy; Translations: [OTH HUMAN FACTORS ADVISOR LEAD CURRENT DRUG THERAPY] Onset: 03-19-2022 Episodic Other aftercare (1 source) 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; Translations: [HUMAN FACTORS ADVISOR LEAD CURRENT USE OF ASPIRIN] Onset: 11-09-2021 Episodic [...] Basophils (Bld) [#/Vol] 0.1 10 3/uL 0.0-0.1 [facility] Basophils/100 WBC Auto (Bld) on 12-16-2023 Basophils/100 WBC (Bld) 0.9 % 0.2-2.0 [facility] Eosinophils/100 WBC Auto (Bl d)on 12-16-2023 Eosinophils/100 WBC (Bld) 1.0 % 0.9-7.0 [facility] Erythrocyte distribution wid th Auto (RBC) [Ratio]on 12-16-2023 Erythrocyte distribution width (RBC) [Ratio] 14.8 % 11.0-15.0 [facility] Estimated glomerular filtrat ion rate (GFR) non- Americanon 12-16-2023 GFR/1.73 sq M.predicted among non-blacks MDRD (S/P/Bld) [Vol rate/Area] mL/min/{1.73_m2} >=60 [facility] Globulin Calc (S) [Mass/Vol] on 12-16-2023 Globulin (S) [Mass/Vol] 3.4 g/dL [facility] Hematocrit Auto (Bld) [Volum e fraction]on 12-16-2023 Hematocrit (Bld) [Volume fraction] 39.1 % 36.0-48.0 [facility] Hemoglobin [Mass/volume] in Bloodon 12-16-2023 Hemoglobin (Bld) [Mass/Vol] 11.9 g/dL 12.0-16.0 [facility] Laboratory - Chemistry and C hemistry - challengeon 12-16-2023 Albumin [Mass/Vol] 3.2 g/dL 3.4-5.0 [place] ALP [Catalytic activity/Vol] 91 U/L 46-116 [facility] ALT [Catalytic activity/Vol] 30 U/L 14-59 [facility] AST [Catalytic activity/Vol] 22 U/L 15-37 [facility] Bilirubin [Mass/Vol] 0.5 mg/dL 0.2-1.0 [facility] Calcium [Mass/Vol] 9.2 mg/dL 8.5-10.1 [place] Chloride [Moles/Vol] 104 mmol/L 98-107 [facility] CO2 [Moles/Vol] 33.3 mmol/L 21.0-32.0 [facility] Creatinine [Mass/Vol] 0.66 mg/dL 0.55-1.02 [facility] GFR/1.73 sq M.predicted MDRD (S/P/Bld) [Vol rate/Area] mL/min/{1.73_m2} >=60 [facility] Glucose [Mass/Vol] 141 mg/dL 74-106 [place] Potassium [Moles/Vol] 3.8 mmol/L 3.5-5.1 [facility] Protein [Mass/Vol] 6.6 g/dL 6.4-8.2 [place] Sodium [Moles/Vol] 142 mmol/L 136-145 [place] Urea nitrogen [Mass/Vol] 11.0 mg/dL 7.0-18.0 [facility] Urea nitrogen/Creatinine [Mass ratio] 16.7 mg/mg [facility] Laboratory - Hematology and Cell countson 12-16-2023 ESR (Bld) [Velocity] 22 mm/h <=30 [facility] Immature granulocytes/100 WBC (Bld) 0.1 % 0.0-0.5 [facility] Leukocytes [#/volume] correc shahid for nucleated erythrocytes in Blood by Automated counon 12-16-2023 WBC corrected for nucl RBC Auto (Bld) [#/Vol] 6.9 10 3/uL 4.0-11.0 [facility] Lymphocytes Auto (Bld) [#/Vo l]on 12-16-2023 Lymphocytes (Bld) [#/Vol] 2.5 10 3/uL 1.2-3.8 [facility] Lymphocytes/100 WBC Auto (Bl d)on 12-16-2023 Lymphocytes/100 WBC (Bld) 35.6 % 20.5-60.0 [facility] MCH Auto (RBC) [Entitic mass ]on 12-16-2023 MCH (RBC) [Entitic mass] 29.5 pg 26.7-34.0 [facility] MCHC Auto (RBC) [Mass/Vol]on 12-16-2023 MCHC (RBC) [Mass/Vol] 30.4 g/dL 29.9-35.2 [facility] MCV Auto (RBC) [Entitic vol] on 12-16-2023 MCV (RBC) [Entitic vol] 96.8 fL 81.0-99.0 [facility] Monocytes Auto (Bld) [#/Vol] on 12-16-2023 Monocytes (Bld) [#/Vol] 0.6 10 3/uL 0.3-0.8 [facility] Monocytes/100 WBC Auto (Bld) on 12-16-2023 Monocytes/100 WBC (Bld) 8.0 % 1.7-12.0 [facility] Neutrophils Auto (Bld) [#/Vo l]on 12-16-2023 Neutrophils (Bld) [#/Vol] 3.8 10 3/uL 1.4-6.5 [facility] Neutrophils/100 WBC Auto (Bl d)on 12-16-2023 Neutrophils/100 WBC (Bld) 54.4 % 43.0-75.0 [facility] No Panel Informationon 12-16 Eosinophils # (Auto) 0.1 10 3/uL 0.0-0.7 [facility] Immature Granulocyte # (Auto) 0.01 10 3/uL 0.00-0.03 [facility] Platelet mean volume Auto (B ld) [Entitic vol]on 12-16-2023 Platelet mean volume (Bld) [Entitic vol] 11.6 fL 9.5-13.5 [facility] Platelets Auto (Bld) [#/Vol] on 12-16-2023 Platelets (Bld) [#/Vol] 212 10 3/uL 150-450 [facility] RBC Auto (Bld) [#/Vol]on RBC (Bld) [#/Vol] 4.04 10 6/uL 4.20-5.40 [facility] Serum or plasma albumin/glob ulin mass ratioon 12-16-2023 Albumin/Globulin [Mass ratio] 0.9 {ratio} [facility] Serum or plasma anion gap de terminationon 12-16-2023 Anion gap [Moles/Vol] 8.5 mmol/L [facility] MG MAMM RT DIAG FUon 022 MG MAMM RT DIAG FU Patient: RUBIA CASH Exam Date: 07/16/2022 : 1935 Gender:F Ordering : DR MELVIN PEREIRA D.O. Admission #: [id number] Family : Order #: [id number] CLICK HERE TO VIEW EXAM RADIOLOGY REPORT [...] bladder cancer at age 78. LOCATION: [facility] BREAST COMPOSITION: Heterogeneously dense,which may obscure small [...] Owen M.D. on 07/16/2022 at 13:45 Normal [facility] US BREAST RIGHT LIMITEDon US BREAST RIGHT LIMITED Patient: RUBIA CASH Exam Date: 07/16/2022 : 1935 Gender:F Ordering : DR MELVIN PEREIRA D.O. Admission #: [id number] Family : Order #: [id number] CLICK HERE TO VIEW EXAM RADIOLOGY REPORT [...] bladder cancer at age 78. LOCATION: [facility] BREAST COMPOSITION: Heterogeneously dense,which may obscure small [...] Owen M.D. on 07/16/2022 at 13:45 Normal [facility] MG MAMM SCREEN 3D KATERINA CADon 07-04-2022 MG MAMM SCREEN 3D KATERINA CAD Patient: RUIBA CASH Exam Date: 07/04/2022 : 1935 Gender:F Ordering : DR MELVIN PEREIRA D.O. Admission #: [id number] Family : Order #: [id number] CLICK HERE TO VIEW EXAM RADIOLOGY REPORT [...] bladder cancer at age 78. LOCATION: [facility] BREAST COMPOSITION: Heterogeneously dense,which may obscure small [...] 07/04/2022 at 13:46 Approved by: Maria E Cantu MD on 07/04/2022 at 13:49 Normal [facility] XR LSPINE 2_3 VIEWSon 2021 XR LSPINE [...] E CANTU Date: 2022-07-04 17:35 Normal [facility] CBC AUTO DIFFon 03-14-2022 BASO # 0.1 103/ul Normal 0.0-0.1 [facility] Comment on above: Performed By: #### H STROPN #### [facility] [address] [place] [address] Dr. Rigoberto Ivy Basophils/100 WBC (Bld) 1.1 % Normal 0.2-2.0 [facility] Comment on above: Performed By: #### H STROPN #### [facility] [address] [place] [address] Dr. Rigoberto Ivy EO # 0.1 103/ul Normal 0.0-0.7 [facility] Comment on above: Performed By: #### H STROPN #### [facility] [address] [place] [address] Dr. Rigoberto Ivy Eosinophils/100 WBC (Bld) 1.7 % Normal 0.9-7.0 [facility] Comment on above: Performed By: #### H STROPN #### [facility] [address] [place] [address] Dr. Rigoberto Ivy Erythrocyte distribution width (RBC) [Ratio] 15.8 % Critically high 11.0-15.0 [facility] Comment on above: Performed By: #### H STROPN #### [facility] [address] [place] [address] Dr. Rigoberto Ivy Hematocrit (Bld) [Volume fraction] 39.7 % Normal 36.0-48.0 [facility] Comment on above: Performed By: #### H STROPN #### [facility] [address] [place] [address] Dr. Rigoberto Ivy Hemoglobin (Bld) [Mass/Vol] 12.3 g/dL Normal 12.0-16.0 [facility] Comment on above: Performed By: #### H STROPN #### [facility] [address] [place] [address] Dr. Rigoberto Ivy IG # 0.03 10e3/ul Normal 0.00-0.03 [facility] Comment on above: Performed By: #### H STROPN #### [facility] [address] [place] [address] Dr. Rigoberto Ivy IG % 0.4 % Normal 0.0-0.5 [facility] Comment on above: Performed By: #### H STROPN #### [facility] [address] [place] [address] Dr. Rigoberto Ivy LYMPH # 2.5 103/ul Normal 1.2-3.8 [facility] Comment on above: Performed By: #### H STROPN #### [facility] [address] [place] [address] Dr. Rigoberto Ivy Lymphocytes/100 WBC (Bld) 35.0 % Normal 20.5-60.0 [facility] Comment on above: Performed By: #### H STROPN #### [facility] [address] [place] [address] Dr. Rigoberto Ivy MANUAL DIFF REQ NO Normal [facility] Comment on above: Performed By: #### H STROPN #### [facility] [address] [place] [address] Dr. Rigoberto Ivy MCH (RBC) [Entitic mass] 29.9 pg Normal 26.7-34.0 [facility] Comment on above: Performed By: #### H STROPN #### [facility] [address] [place] [address] Dr. Rigoberto Ivy MCHC (RBC) [Mass/Vol] 31.0 g/dL Normal 29.9-35.2 [facility] Comment on above: Performed By: #### H STROPN #### [facility] [address] [place] [address] Dr. Rigoberto Ivy MCV (RBC) [Entitic vol] 96.6 fL Normal 81.0-99.0 [facility] Comment on above: Performed By: #### H STROPN #### [facility] [address] [place] [address] Dr. Rigoberto Ivy MONO # 0.7 103/ul Normal 0.3-0.8 [facility] Comment on above: Performed By: #### H STROPN #### [facility] [address] [place] [address] Dr. Rigoberto Ivy Monocytes/100 WBC (Bld) 9.4 % Normal 1.7-12.0 [facility] Comment on above: Performed By: #### H STROPN #### [facility] [address] [place] [address] Dr. Rigoberto Ivy NEUT # 3.8 103/ul Normal 1.4-6.5 [facility] Comment on above: Performed By: #### H STROPN #### [facility] [address] [address] [address] Rigoberto Ivy Neutrophils/100 WBC (Bld) 52.4 % Normal 43.0-75.0 [facility] Comment on above: Performed By: #### H STROPN #### [facility] [address] [place] [address] Dr. Rigoberto Ivy Platelet mean volume (Bld) [Entitic vol] 10.9 fL Normal 9.5-13.5 [facility] Comment on above: Performed By: #### H STROPN #### [facility] [address] [place] [address] Dr. Rigoberto Ivy PLT 225 103/ul Normal 150-450 [facility] Comment on above: Performed By: #### H STROPN #### [facility] [address] [place] [address] Dr. Rigoberto Ivy RBC 4.11 106/ul Critically low 4.20-5.40 [facility] Comment on above: Performed By: #### H STROPN #### [facility] [address] [place] [address] Dr. Rigoberto Ivy WBC 7.2 103/ul Normal 4.0-11.0 [facility] Comment on above: Performed By: #### H STROPN #### [facility] [address] [place] [address] Dr. Rigoberto Ivy PROF 14(COMP METB)on 022 Albumin [Mass/Vol] 3.6 g/dL Normal 3.4-5.0 [facility] Comment on above: Performed By: #### H STROPN #### [facility] [address] [place] [address] Dr. Rigoberto Ivy Albumin/Globulin [Mass ratio] 1.0 {ratio} Normal [facility] Comment on above: Performed By: #### H STROPN #### [facility] [address] [place] [address] Dr. Rigoberto Ivy ALP [Catalytic activity/Vol] 89 U/L Normal 46-116 [facility] Comment on above: Performed By: #### H STROPN #### [facility] [address] [place] [address] Dr. Rigoberto Ivy ALT [Catalytic activity/Vol] 29 U/L Normal 14-59 [facility] Comment on above: Performed By: #### H STROPN #### [facility] [address] [address] [address] Rigoberto Ivy Anion gap [Moles/Vol] 7.7 mmol/L Normal [facility] Comment on above: Performed By: #### H STROPN #### [facility] [address] [address] [address] Rigoberto Ivy AST [Catalytic activity/Vol] 22 U/L Normal 15-37 [facility] Comment on above: Performed By: #### H STROPN #### [facility] [address] [place] [address] Dr. Rigoberto Ivy Bilirubin [Mass/Vol] 0.5 mg/dL Normal 0.2-1.0 [facility] Comment on above: Performed By: #### H STROPN #### [facility] [address] [address] [address] Rigoberto Ivy Calcium [Mass/Vol] 9.5 mg/dL Normal 8.5-10.1 [facility] Comment on above: Performed By: #### H STROPN #### [facility] [address] [address] [address] Rigoberto Ivy Chloride [Moles/Vol] 103 mmol/L Normal 98-107 [facility] Comment on above: Performed By: #### H STROPN #### [facility] [address] [address] [address] Rigoberto Ivy CO2 [Moles/Vol] 33.5 mmol/L Critically high 21.0-32.0 [facility] Comment on above: Performed By: #### H STROPN #### [facility] [address] [address] [address] Rigoberto Ivy Creatinine [Mass/Vol] 0.60 mg/dL Normal 0.55-1.02 [facility] Comment on above: Performed By: #### H STROPN #### [facility] [address] [address] [address] Rigoberto Ivy EGFR-AF GUINEAN >60 Normal >=60 [facility] Comment on above: Performed By: #### H STROPN #### [facility] [address] [address] [address] Rigoberto Ivy EGFR-NON AF GUINEAN >60 Normal >=60 [facility] Comment on above: Performed By: #### H STROPN #### [facility] [address] [address] [address] Rigoberto Ivy Globulin (S) [Mass/Vol] 3.5 g/dL Normal [facility] Comment on above: Performed By: #### H STROPN #### [facility] [address] [place] [address] Dr. Rigoberto Ivy Glucose [Mass/Vol] 90 mg/dL Normal 74-106 [facility] Comment on above: Performed By: #### H STROPN #### [facility] [address] [address] [address] Rigoberto Ivy Potassium [Moles/Vol] 4.2 mmol/L Normal 3.5-5.1 [facility] Comment on above: Performed By: #### H STROPN #### [facility] [address] [address] [address] Rigoberto Ivy Protein [Mass/Vol] 7.1 g/dL Normal 6.4-8.2 [facility] Comment on above: Performed By: #### H STROPN #### [facility] [address] [address] [address] Rigoberto Ivy Sodium [Moles/Vol] 140 mmol/L Normal 136-145 [facility] Comment on above: Performed By: #### H STROPN #### [facility] [address] [address] [address] Rigoberto Ivy Urea nitrogen [Mass/Vol] 11.0 mg/dL Normal 7.0-18.0 [facility] Comment on above: Performed By: #### H STROPN #### [facility] [address] [place] [address] Dr. Rigoberto Ivy Urea nitrogen/Creatinine [Mass ratio] 18.3 mg/mg Normal [facility] Comment on above: Performed By: #### H STROPN #### [facility] [address] [place] [address] Dr. Rigoberto Ivy SED RATE WESTERGRENon 2021 SED RATE 10 mm/hr Normal <=30 [facility] Comment on above: Performed By: #### S EDR #### [facility] [address] [place] [address] Dr. Rigoberto Ivy CULTURE URINEon 11-07-2021 CULTURE URINE Culture Observations : GREATER THAN TWO ORGANISMS PRESENT. PLEASE RESUBMIT CLEAN CATCH MID-STREAM URINE IF CLINICALLY INDICATED. Normal [facility] Comment on above: Performed By: #### H STROPN #### [facility] [address] [place] [address] Dr. Rigoberto Ivy BNPon 11-05-2021 Natriuretic peptide B (Bld) [Mass/Vol] 273.0 pg/mL Normal <=1,800.0 [facility] Comment on above: Performed By: #### C MP, BNP, HSTROPN #### [facility] [address] [place] [address] Dr. Rigoberto Ivy CBC AUTO DIFFon 11-05-2021 BASO # 0.1 103/ul Normal 0.0-0.1 [facility] Comment on above: Performed By: #### C BC #### [facility] [address] [place] [address] Dr. Rigoberto Ivy Basophils/100 WBC (Bld) 0.8 % Normal 0.2-2.0 [facility] Comment on above: Performed By: #### C BC #### [facility] [address] [place] [address] Dr. Rigoberto Ivy EO # 0.1 103/ul Normal 0.0-0.7 [facility] Comment on above: Performed By: #### C BC #### [facility] [address] [place] [address] Dr. Rigoberto Ivy Eosinophils/100 WBC (Bld) 0.7 % Critically low 0.9-7.0 [facility] Comment on above: Performed By: #### C BC #### [facility] [address] [place] [address] Dr. Rigoberto Ivy Erythrocyte distribution width (RBC) [Ratio] 15.5 % Critically high 11.0-15.0 [facility] Comment on above: Performed By: #### C BC #### [facility] [address] [place] [address] Dr. Rigoberto Ivy Hematocrit (Bld) [Volume fraction] 41.5 % Normal 36.0-48.0 [facility] Comment on above: Performed By: #### C BC #### [facility] [address] [place] [address] Dr. Rigoberto Ivy Hemoglobin (Bld) [Mass/Vol] 12.8 g/dL Normal 12.0-16.0 [facility] Comment on above: Performed By: #### C BC #### [facility] [address] [place] [address] Dr. Rigoberto Ivy IG # 0.03 10e3/ul Normal 0.00-0.03 [facility] Comment on above: Performed By: #### C BC #### [facility] [address] [place] [address] Dr. Rigoberto Ivy IG % 0.4 % Normal 0.0-0.5 [facility] Comment on above: Performed By: #### C BC #### [facility] [address] [place] [address] Dr. Rigoberto Ivy LYMPH # 2.6 103/ul Normal 1.2-3.8 [facility] Comment on above: Performed By: #### C BC #### [facility] [address] [place] [address] Dr. Rigoberto Ivy Lymphocytes/100 WBC (Bld) 34.6 % Normal 20.5-60.0 [facility] Comment on above: Performed By: #### C BC #### [facility] [address] [place] [address] Dr. Rigoberto Ivy MANUAL DIFF REQ NO Normal [facility] Comment on above: Performed By: #### C BC #### [facility] [address] [place] [address] Dr. Rigoberto Ivy MCH (RBC) [Entitic mass] 29.8 pg Normal 26.7-34.0 [facility] Comment on above: Performed By: #### C BC #### [facility] [address] [place] [address] Dr. Rigoberto Ivy MCHC (RBC) [Mass/Vol] 30.8 g/dL Normal 29.9-35.2 [facility] Comment on above: Performed By: #### C BC #### [facility] [address] [place] [address] Dr. Rigoberto Ivy MCV (RBC) [Entitic vol] 96.7 fL Normal 81.0-99.0 [facility] Comment on above: Performed By: #### C BC #### [facility] [address] [place] [address] Dr. Rigoberto Ivy MONO # 0.7 103/ul Normal 0.3-0.8 [facility] Comment on above: Performed By: #### C BC #### [facility] [address] [place] [address] Dr. Rigoberto Ivy Monocytes/100 WBC (Bld) 8.5 % Normal 1.7-12.0 [facility] Comment on above: Performed By: #### C BC #### [facility] [address] [place] [address] Dr. Rigoberto Ivy NEUT # 4.2 103/ul Normal 1.4-6.5 [facility] Comment on above: Performed By: #### C BC #### [facility] [address] [place] [address] Dr. Rigoberto Ivy Neutrophils/100 WBC (Bld) 55.0 % Normal 43.0-75.0 [facility] Comment on above: Performed By: #### C BC #### [facility] [address] [place] [address] Dr. Rigoberto Ivy Platelet mean volume (Bld) [Entitic vol] 10.6 fL Normal 9.5-13.5 [facility] Comment on above: Performed By: #### C BC #### [facility] [address] [place] [address] Dr. Rigoberto Ivy PLT 234 103/ul Normal 150-450 [facility] Comment on above: Performed By: #### C BC #### [facility] [address] [place] [address] Dr. Rigoberto Ivy RBC 4.29 106/ul Normal 4.20-5.40 [facility] Comment on above: Performed By: #### C BC #### [facility] [address] [place] [address] Dr. Rigoberto Ivy WBC 7.6 103/ul Normal 4.0-11.0 [facility] Comment on above: Performed By: #### C BC #### [facility] [address] [place] [address] HEAD WO CONon [...] JAMIE OWEN Date: 2021-11-05 13:08 Normal [facility] Covid-19 PCR (CVDTB)on SARS-CoV-2 (COVID-19) RNA LATHA+probe Ql (Unsp spec) Not detected Normal NOT DETECTED [facility] Comment on above: Result Comment: When diagnostic [...] for this test is supported by the Lining Machine Tender of Health and Human Service's declaration that [...] Performed By: #### C RP, CMP #### [facility] [address] [place] [address] Dr. Rigoberto Ivy ER URINE PROFILEon 2 Bilirubin Ql (U) Negative Normal NEGATIVE [facility] Comment on above: Performed By: #### H STROPN #### [facility] [address] [place] [address] Dr. Rigoberto Ivy Clarity (U) CLEAR Normal CLEAR [facility] Comment on above: Performed By: #### H STROPN #### [facility] [address] [place] [address] Dr. Rigoberto Ivy Color (U) LT. YELLOW Normal YELLOW [facility] Comment on above: Performed By: #### H STROPN #### [facility] [address] [place] [address] Dr. Rigoberto Ivy ERUAHD A micrscopic examination will be performed if indicated. Normal [facility] Comment on above: Performed By: #### H STROPN #### [facility] [address] [place] [address] Dr. Rigoberto Ivy Glucose Ql (U) Negative Normal NEGATIVE [facility] Comment on above: Performed By: #### H STROPN #### [facility] [address] [place] [address] Dr. Rigoberto Ivy Hemoglobin Ql (U) Negative Normal NEGATIVE [facility] Comment on above: Performed By: #### H STROPN #### [facility] [address] [place] [address] Dr. Rigoberto Ivy Ketones Ql (U) Negative Normal NEGATIVE [facility] Comment on above: Performed By: #### H STROPN #### [facility] [address] [place] [address] Dr. Rigoberto Ivy LEUKOCYTES TRACE Abnormal NEGATIVE [facility] Comment on above: Performed By: #### H STROPN #### [facility] [address] [place] [address] Dr. Rigoberto Ivy Nitrite Ql (U) Negative Normal NEGATIVE [facility] Comment on above: Performed By: #### H STROPN #### [facility] [address] [place] [address] Dr. Rigoberto Ivy pH (U) 7.0 [pH] Normal 5-9 [facility] Comment on above: Performed By: #### H STROPN #### [facility] [address] [place] [address] Dr. Rigoberto Ivy SPEC GRAVITY 1.015 Normal 1.005-<=1.025 [facility] Comment on above: Performed By: #### H STROPN #### [facility] [address] [place] [address] Dr. Rigoberto Ivy UA PROTEIN Negative Normal NEGATIVE/ TRACE [facility] Comment on above: Performed By: #### H STROPN #### [facility] [address] [place] [address] Dr. Rigoberto vIy UR MICRO IND INDICATED Normal [facility] Comment on above: Performed By: #### H STROPN #### [facility] [address] [place] [address] Dr. Rigoberto Ivy Urobilinogen Qn (U) 0.2 {Gideon'U}/dL Normal 0.2 - 1. 0 [facility] Comment on above: Performed By: #### H STROPN #### [facility] [address] [place] [address] Dr. Rigoberto Ivy LAB TESTINGon 11-05-2021 RECV HEADER SEE SCANNED REPORT I N HPF Normal [facility] Comment on above: Performed By: #### M ISC #### [facility] [address] [place] [address] Dr. Rigoberto Ivy REV FROM REF LAB 11/05/2021 [facility] Comment on above: Performed By: #### M ISC #### [facility] [address] [place] [address] Dr. Rigoberto Ivy SENT TO REF LAB 11/05/2020 [facility] Comment on above: Performed By: #### M ISC #### [facility] [address] [place] [address] Dr. Rigoberto Ivy LACTATE/LACTIC ACIDon 2021 Lactate [Moles/Vol] 0.8 mmol/L Normal 0.7-2.0 [facility] Comment on above: Performed By: #### H STROPN #### [facility] [address] [place] [address] Dr. Rigoberto Ivy PROF 14(COMP METB)on 022 Albumin [Mass/Vol] 3.7 g/dL Normal 3.5-5.0 [facility] Comment on above: Performed By: #### C MP, BNP, HSTROPN #### [facility] [address] [place] [address] Dr. Rigoberto Ivy Albumin/Globulin [Mass ratio] 0.9 {ratio} [facility] Comment on above: Performed By: #### C MP, BNP, HSTROPN #### [facility] [address] [place] [address] Dr. Rigoberto Ivy ALP [Catalytic activity/Vol] 105 U/L Normal 38-126 [facility] Comment on above: Performed By: #### C MP, BNP, HSTROPN #### [facility] [address] [place] [address] Dr. Rigoberto Ivy ALT [Catalytic activity/Vol] 51 U/L Normal 9-52 [facility] Comment on above: Performed By: #### C MP, BNP, HSTROPN #### [facility] [address] [place] [address] Dr. Rigoberto Ivy Anion gap [Moles/Vol] 11.4 mmol/L Normal [facility] Comment on above: Performed By: #### C MP, BNP, HSTROPN #### [facility] [address] [place] [address] Dr. Rigoberto Ivy AST [Catalytic activity/Vol] 33 U/L Normal 14-36 [facility] Comment on above: Performed By: #### C MP, BNP, HSTROPN #### [facility] [address] [place] [address] Dr. Rigoberto Ivy Bilirubin [Mass/Vol] 0.7 mg/dL Normal 0.2-1.3 [facility] Comment on above: Performed By: #### C MP, BNP, HSTROPN #### [facility] [address] [place] [address] Dr. Rigoberto Ivy Calcium [Mass/Vol] 9.6 mg/dL Normal 8.4-10.2 [facility] Comment on above: Performed By: #### C MP, BNP, HSTROPN #### [facility] [address] [place] [address] Dr. Rigoberto Ivy Chloride [Moles/Vol] 107 mmol/L Normal 98-107 [facility] Comment on above: Performed By: #### C MP, BNP, HSTROPN #### [facility] [address] [place] [address] Dr. Rigoberto Ivy CO2 [Moles/Vol] 30.8 mmol/L Critically high 22.0-30.0 [facility] Comment on above: Performed By: #### C MP, BNP, HSTROPN #### [facility] [address] [place] [address] Dr. Rigoberto Ivy Creatinine [Mass/Vol] 0.65 mg/dL Normal 0.52-1.04 [facility] Comment on above: Performed By: #### C MP, BNP, HSTROPN #### [facility] [address] [place] [address] Dr. Rigoberto Ivy EGFR-AF GUINEAN >60 Normal >=60 [facility] Comment on above: Performed By: #### C MP, BNP, HSTROPN #### [facility] [address] [place] [address] Dr. Rigoberto Ivy EGFR-NON AF GUINEAN >60 Normal >=60 [facility] Comment on above: Performed By: #### C MP, BNP, HSTROPN #### [facility] [address] [address] [address] Rigoberto Ivy Globulin (S) [Mass/Vol] 3.9 g/dL Normal [facility] Comment on above: Performed By: #### C MP, BNP, HSTROPN #### [facility] [address] [place] [address] Dr. Rigoberto Ivy Glucose [Mass/Vol] 98 mg/dL Normal 74-106 [facility] Comment on above: Performed By: #### C MP, BNP, HSTROPN #### [facility] [address] [place] [address] Dr. Rigoberto Ivy Potassium [Moles/Vol] 4.2 mmol/L Normal 3.4-5.0 [facility] Comment on above: Performed By: #### C MP, BNP, HSTROPN #### [facility] [address] [place] [address] Dr. Rigoberto Ivy Protein [Mass/Vol] 7.6 g/dL Normal 6.1-8.2 [facility] Comment on above: Performed By: #### C MP, BNP, HSTROPN #### [facility] [address] [place] [address] Dr. Rigoberto Ivy Sodium [Moles/Vol] 145 mmol/L Normal 137-145 [facility] Comment on above: Performed By: #### C MP, BNP, HSTROPN #### [facility] [address] [place] [address] Dr. Rigoberto Ivy Urea nitrogen [Mass/Vol] 12.0 mg/dL Normal 7.0-17.0 [facility] Comment on above: Performed By: #### C MP, BNP, HSTROPN #### [facility] [address] [place], [place] [address] Dr. Rigoberto Ivy Urea nitrogen/Creatinine [Mass ratio] 18.5 mg/mg Normal [facility] Comment on above: Performed By: #### C MP, BNP, HSTROPN #### [facility] [address] [place], [place] [address] Dr. Rigoberto Ivy Partial Thromboplastin Timeo n 11-05-2021 aPTT Coag (Bld) [Time] 32.9 s Normal 25.1-36.5 [facility] Comment on above: Order Comment: Sampl e recieved as a pour off from The [facility]. Unable to verify patient's HCT to correct for HCT > 55%. Results may be falsely increased if the HCT is greater than 55%. Result Comment: PERF ORMED BY: [place] [address] PATHOLOGIST WRONG ADDRESS CLERK GARRETT SELLERS M.D. Performed By: #### P T, PTT #### [facility] [address] [id number] [facility] Prothrombin Time INRon 11-05 INR Coag (PPP) [Relative time] 1.0 {INR} Normal [facility] Comment on above: Order Comment: Sampl e recieved as a pour off from The [facility]. Unable to verify patient's HCT to correct [...] Performed By: #### P T, PTT #### [facility] [address] [id number] [facility] PT Coag (PPP) [Time] 11.1 s Normal 9.0-12.9 [facility] Comment on above: Order Comment: Sampl e recieved as a pour off from The [facility]. Unable to verify patient's HCT to correct for HCT > 55%. Results may be falsely increased if the HCT is greater than 55%. Performed By: #### P T, PTT #### [facility] [address] TROPONIN, HIGH SENSITIVITYon 11-05-2021 HSTROP 14.1 pg/mL Normal 4.0-35.5 [facility] Comment on above: Result Comment: CUT- OFF POINTS HAVE BEEN ESTABLISHED BASED ON THE FOURTH UNIVERSAL DEFINITIONS OF MYOCARDIAL INFARCTION. THE UPPER REFERENCE LIMIT (URL) OF TROPONIN, DEFINED THE 99TH PERCENTILE OF cTnI DISTRIBUTION IN A REFERENCE POPULATION, HAS BEEN CONFIRMED THE DECISION THRESHOLD FOR ND DIAGNOSIS. Performed By: #### H STROPN #### [facility] [address] [place] [address] Dr. Rigoberto Ivy HSTROP 10.3 pg/mL Normal 4.0-35.5 [facility] Comment on above: Result Comment: CUT- OFF POINTS HAVE BEEN ESTABLISHED BASED ON THE FOURTH UNIVERSAL DEFINITIONS OF MYOCARDIAL INFARCTION. THE UPPER REFERENCE LIMIT (URL) OF TROPONIN, DEFINED THE 99TH PERCENTILE OF cTnI DISTRIBUTION IN A REFERENCE POPULATION, HAS BEEN CONFIRMED THE DECISION THRESHOLD FOR ND DIAGNOSIS. Performed By: #### C MP, BNP, HSTROPN #### [facility] [address] [place] [address] Dr. Rigoberto Ivy URINE MICROSCOPIC ONLYon BACTERIA TRACE Abnormal NONE SEEN [facility] Comment on above: Performed By: #### H STROPN #### [facility] [address] [address] [address] Rigoberto Ivy Bacteria identified Cx Nom (U) INDICATED Normal [facility] Comment on above: Performed By: #### H STROPN #### [facility] [address] [place] [address] Dr. Rigoberto Ivy CAST NONE SEEN Normal NONE SEEN [facility] Comment on above: Performed By: #### H STROPN #### [facility] [address] [address] [address] Rigoberto Ivy Crystals LM Nom (Urine sed) NONE SEEN Normal NONE SEEN [facility] Comment on above: Performed By: #### H STROPN #### [facility] [address] [address] [address] Rigoberto Ivy Epithelial cells LM Ql (Urine sed) RARE Normal NONE SEEN /RARE [facility] Comment on above: Performed By: #### H STROPN #### [facility] [address] [address] [address] Rigoberto Ivy MUCOUS TRACE Abnormal NONE SEEN [facility] Comment on above: Performed By: #### H STROPN #### [facility] [address] [address] [address] Rigoberto Ivy RBC NONE SEEN Abnormal 0-2 [facility] Comment on above: Performed By: #### H STROPN #### [facility] [address] [place] [address] Dr. Rigoberto Ivy WBC 0-2 Abnormal NONE SEEN [facility] Comment on above: Performed By: #### H STROPN #### [facility] [address] [place] [address] Dr. Rigoberto Ivy XR CHEST 1 Von [...] JAMIE OWEN Date: 2021-11-05 13:01 Normal [facility] VIT D 25-OH [facility] 2020 Vitamin D, 25-Hydroxy 44.1 ng/mL Normal 30.0-100.0 [facility] Comment on above: Result Comment: Shabnam min D deficiency has been defined by the [employer] and an Endocrine Society practice guideline as a level of serum 25-OH vitamin D less than 20 ng/mL (1,2). The Endocrine Society went on to further define vitamin D insufficiency as a level between 21 and 29 ng/mL (2). 1. IOM ([place] [employer]). 2010. Dietary reference intakes for calcium and D. [place]: The National Academies Press. 2. Chiara MF, Cesilia COLLADO, Evans CALLAHAN, et al. Evaluation, treatment, and prevention of vitamin D deficiency: an Endocrine Society clinical practice guideline. JCEM. 2010; 96(7):1911-30. Performed By: #### C RP, CMP #### [facility] [address] [place] [address] Dr. Rigoberto Ivy CBC AUTO DIFFon 10-29-2021 BASO # 0.1 103/ul Normal 0.0-0.1 [facility] Comment on above: Performed By: #### C BC #### [facility] [address] [place] [address] Dr. Rigoberto Ivy Basophils/100 WBC (Bld) 0.8 % Normal 0.2-2.0 [facility] Comment on above: Performed By: #### C BC #### [facility] [address] [address] [address] Rigoberto Ivy EO # 0.1 103/ul Normal 0.0-0.7 [facility] Comment on above: Performed By: #### C BC #### [facility] [address] [place] [address] Dr. Rigoberto Ivy Eosinophils/100 WBC (Bld) 1.2 % Normal 0.9-7.0 [facility] Comment on above: Performed By: #### C BC #### [facility] [address] [place] [address] Dr. Rigoberto Ivy Erythrocyte distribution width (RBC) [Ratio] 15.2 % Critically high 11.0-15.0 [facility] Comment on above: Performed By: #### C BC #### [facility] [address] [place] [address] Dr. Rigoberto Ivy Hematocrit (Bld) [Volume fraction] 39.1 % Normal 36.0-48.0 [facility] Comment on above: Performed By: #### C BC #### [facility] [address] [place] [address] Dr. Rigoberto Ivy Hemoglobin (Bld) [Mass/Vol] 12.1 g/dL Normal 12.0-16.0 [facility] Comment on above: Performed By: #### C BC #### [facility] [address] [place] [address] Dr. Rigoberto Ivy IG # 0.03 10e3/ul Normal 0.00-0.03 [facility] Comment on above: Performed By: #### C BC #### [facility] [address] [place] [address] Dr. Rigoberto Ivy IG % 0.4 % Normal 0.0-0.5 [facility] Comment on above: Performed By: #### C BC #### [facility] [address] [place] [address] Dr. Rigoberto Ivy LYMPH # 2.7 103/ul Normal 1.2-3.8 [facility] Comment on above: Performed By: #### C BC #### [facility] [address] [place] [address] Dr. Rigoberto Ivy Lymphocytes/100 WBC (Bld) 35.1 % Normal 20.5-60.0 [facility] Comment on above: Performed By: #### C BC #### [facility] [address] [place] [address] Dr. Rigoberto Ivy MANUAL DIFF REQ NO Normal [facility] Comment on above: Performed By: #### C BC #### [facility] [address] [place] [address] Dr. Rigoberto Ivy MCH (RBC) [Entitic mass] 30.0 pg Normal 26.7-34.0 [facility] Comment on above: Performed By: #### C BC #### [facility] [address] [place] [address] Dr. Rigoberto Ivy MCHC (RBC) [Mass/Vol] 30.9 g/dL Normal 29.9-35.2 [facility] Comment on above: Performed By: #### C BC #### [facility] [address] [place] [address] Dr. Rigoberto Ivy MCV (RBC) [Entitic vol] 96.8 fL Normal 81.0-99.0 [facility] Comment on above: Performed By: #### C BC #### [facility] [address] [place] [address] Dr. Rigoberto Ivy MONO # 0.7 103/ul Normal 0.3-0.8 [facility] Comment on above: Performed By: #### C BC #### [facility] [address] [place] [address] Dr. Rigoberto Ivy Monocytes/100 WBC (Bld) 9.8 % Normal 1.7-12.0 [facility] Comment on above: Performed By: #### C BC #### [facility] [address] [place] [address] Dr. Rigoberto Ivy NEUT # 4.0 103/ul Normal 1.4-6.5 [facility] Comment on above: Performed By: #### C BC #### [facility] [address] [place] [address] Dr. Rigoberto Ivy Neutrophils/100 WBC (Bld) 52.7 % Normal 43.0-75.0 [facility] Comment on above: Performed By: #### C BC #### [facility] [address] [place] [address] Dr. Rigoberto Ivy Platelet mean volume (Bld) [Entitic vol] 11.1 fL Normal 9.5-13.5 [facility] Comment on above: Performed By: #### C BC #### [facility] [address] [place] [address] Dr. Rigoberto Ivy PLT 217 103/ul Normal 150-450 [facility] Comment on above: Performed By: #### C BC #### [facility] [address] [place] [address] Dr. Rigoberto Ivy RBC 4.04 106/ul Critically low 4.20-5.40 [facility] Comment on above: Performed By: #### C BC #### [facility] [address] [place] [address] Dr. Rigoberto Ivy WBC 7.6 103/ul Normal 4.0-11.0 [facility] Comment on above: Performed By: #### C BC #### [facility] [address] [place] [address] Dr. Rigoberto Ivy CRPon 10-29-2021 CRP [Mass/Vol] mg/L Normal <=1.[address] [facility] Comment on above: Performed By: #### C RP, CMP #### [facility] [address] [place] [address] Dr. Rigoberto Ivy PROF 14(COMP METB)on 021 Albumin [Mass/Vol] 3.3 g/dL Critically low 3.5-5.0 [facility] Comment on above: Performed By: #### C RP, CMP #### [facility] [address] [place] [address] Dr. Rigoberto Ivy Albumin/Globulin [Mass ratio] 1.0 {ratio} Normal [facility] Comment on above: Performed By: #### C RP, CMP #### [facility] [address] [place] [address] Dr. Rigoberto Ivy ALP [Catalytic activity/Vol] 95 U/L Normal 38-126 [facility] Comment on above: Performed By: #### C RP, CMP #### [facility] [address] [place] [address] Dr. Rigoberto Ivy ALT [Catalytic activity/Vol] 31 U/L Normal 9-52 [facility] Comment on above: Performed By: #### C RP, CMP #### [facility] [address] [place] [address] Dr. Rigoberto Ivy Anion gap [Moles/Vol] 8.7 mmol/L Normal [facility] Comment on above: Performed By: #### C RP, CMP #### [facility] [address] [place] [address] Dr. Rigoberto Ivy AST [Catalytic activity/Vol] 23 U/L Normal 14-36 [facility] Comment on above: Performed By: #### C RP, CMP #### [facility] [address] [place] [address] Dr. Rigoberto Ivy Bilirubin [Mass/Vol] 0.5 mg/dL Normal 0.2-1.3 [facility] Comment on above: Performed By: #### C RP, CMP #### [facility] [facility] [address] [place] [address] Dr. Rigoberto Ivy Calcium [Mass/Vol] 9.5 mg/dL Normal 8.4-10.2 [facility] Comment on above: Performed By: #### C RP, CMP #### [facility] [address] [place] [address] Dr. Rigoberto Ivy Chloride [Moles/Vol] 103 mmol/L Normal 98-107 [facility] Comment on above: Performed By: #### C RP, CMP #### [facility] [address] [place] [address] Dr. Rigoberto Ivy CO2 [Moles/Vol] 33.6 mmol/L Critically high 22.0-30.0 [facility] Comment on above: Performed By: #### C RP, CMP #### [facility] [address] [place] [address] Dr. Rigoberto Ivy Creatinine [Mass/Vol] 0.58 mg/dL Normal 0.52-1.04 [facility] Comment on above: Performed By: #### C RP, CMP #### [facility] [address] [place] [address] Dr. Rigoberto Ivy EGFR-AF GUINEAN >60 Normal >=60 [facility] Comment on above: Performed By: #### C RP, CMP #### [facility] [address] [place] [address] Dr. Rigoberto Ivy EGFR-NON AF GUINEAN >60 Normal >=60 [facility] Comment on above: Performed By: #### C RP, CMP #### [facility] [address] [place] [address] Dr. Rigoberto Ivy Globulin (S) [Mass/Vol] 3.3 g/dL Normal [facility] Comment on above: Performed By: #### C RP, CMP #### [facility] [address] [place] [address] Dr. Rigoberto Ivy Glucose [Mass/Vol] 98 mg/dL Normal 74-106 [facility] Comment on above: Performed By: #### C RP, CMP #### [facility] [address] [address] [address] Rigoberto Ivy Potassium [Moles/Vol] 4.3 mmol/L Normal 3.4-5.0 [facility] Comment on above: Performed By: #### C RP, CMP #### [facility] [address] [address] [address] Rigoberto Ivy Protein [Mass/Vol] 6.6 g/dL Normal 6.1-8.2 [facility] Comment on above: Performed By: #### C RP, CMP #### [facility] [address] [place] [address] Dr. Rigoberto Ivy Sodium [Moles/Vol] 141 mmol/L Normal 137-145 [facility] Comment on above: Performed By: #### C RP, CMP #### [facility] [address] [address] [address] Rigoberto Ivy Urea nitrogen [Mass/Vol] 10.0 mg/dL Normal 7.0-17.0 [facility] Comment on above: Performed By: #### C RP, CMP #### [facility] [address] [place] [address] Dr. Rigoberto Ivy Urea nitrogen/Creatinine [Mass ratio] 17.2 mg/mg Normal [facility] Comment on above: Performed By: #### C RP, CMP #### [facility] [address] [place] [address] Dr. Rigoberto Ivy SED RATE [facility] 2020 SED RATE 27 mm/hr Normal <=30 [facility] Comment on above: Performed By: #### H STROPN #### [facility] [address] [place] [address] Dr. Rigoberto Ivy Coding Summary.on 04-21-2019 Coding Summary. CODING DATE: 04/21/2019 [facility] STATUS: Home (Routine DC) PAYOR: Medicare ADMIT [...] CphT Date Saved: 04/21/2019 12:54 pm Normal [facility] [place] Mamm Diag w/CAD if perf a [...] very important to your health. The current [employer] and National Comprehensive Cancer [...] Category 1-Negative Recommendation: Normal interval follow-up Normal [facility] Coding Summary.on 10-11-2018 Coding Summary. CODING DATE: 10/11/2018 FINAL [facility] STATUS: Home (Routine DC) PAYOR: Medicare ADMIT [...] Ramírez CphT Date Saved: 10/11/2018 10:33 am [facility] Vital Signs Date Time Vital Sign Value Performing Clinician Facility 02-04-2024 09:39-0400 Body height 162.[address] [facility] 02-04-2024 09:39-0400 Body mass index (BMI) [Ratio] 20.7 kg/m2 [facility] 02-04-2024 09:39-0400 Body weight 54.[address] [facility] 02-04-2024 09:39-0400 Diastolic blood pressure 65 mm[Hg] [facility] 02-04-2024 09:39-0400 Heart rate 73 /min [facility] 02-04-2024 09:39-0400 Respiratory rate 12 /min [facility] 02-04-2024 09:39-0400 Systolic blood pressure 153 mm[Hg] [facility] 10-13-2023 10:30-0500 Body height 162.56 cm Melvin Ball Other [facility] Other 10-13-2023 10:30-0500 Body mass index (BMI) [Ratio] 21.45 kg/m2 Melvin Ball Other [facility] Other 10-13-2023 10:30-0500 Body weight 56.7 kg Melvin Ball Other [facility] Other 10-13-2023 10:30-0500 Diastolic blood pressure 80 mm[Hg] Melvin Ball Other [facility] Other 10-13-2023 10:30-0500 Respiratory rate 12 /min Melvin Ball Other [facility] Other 10-13-2023 10:30-0500 Systolic blood pressure 133 mm[Hg] Melvin Ball Other [facility] Other 08-27-2023 13:40-0400 Body height 162.56 cm Melvin Ball Other [facility] Other 08-27-2023 13:40-0400 Diastolic blood pressure 66 mm[Hg] Melvin Ball Other [facility] Other 08-27-2023 13:40-0400 Systolic blood pressure 147 mm[Hg] Melvin Ball Other [facility] Other 06-18-2023 16:20-0400 Diastolic blood pressure 57 mm[Hg] Melvin Ball Other [facility] Other 06-18-2023 16:20-0400 Systolic blood pressure 123 mm[Hg] Melvin Ball Other [facility] Other 06-16-2023 14:24-0400 Diastolic blood pressure 54 mm[Hg] Melvin Ball Other [facility] Other 06-16-2023 14:24-0400 Systolic blood pressure 147 mm[Hg] Melvin Ball Other [facility] Other 06-11-2023 14:25-0400 Diastolic blood pressure 62 mm[Hg] Melvin Ball Other [facility] Other 06-11-2023 14:25-0400 Systolic blood pressure 130 mm[Hg] Melvin Ball Other [facility] Other 06-11-2023 14:20-0400 Diastolic blood pressure 62 mm[Hg] Melvin Ball Other [facility] Other 06-11-2023 14:20-0400 Systolic blood pressure 125 mm[Hg] Melvin Ball Other [facility] Other 06-08-2023 11:30-0400 Body height 162.56 cm Melvin Ball Other [facility] Other 06-08-2023 11:30-0400 Body mass index (BMI) [Ratio] 22.76 kg/m2 Melvin Ball Other [facility] Other 06-08-2023 11:30-0400 Body weight 60.15 kg Melvin Ball Other [facility] Other 06-08-2023 11:30-0400 Diastolic blood pressure 67 mm[Hg] Melvin Ball Other [facility] Other 06-08-2023 11:30-0400 Respiratory rate 12 /min Melvin Ball Other [facility] Other 06-08-2023 11:30-0400 Systolic blood pressure 155 mm[Hg] Melvin Ball Other [facility] Other 05-06-2023 10:45-0400 Body height 162.56 cm Melvin Ball Other [facility] Other 05-06-2023 10:45-0400 Body mass index (BMI) [Ratio] 22.76 kg/m2 Melvin Ball Other [facility] Other 05-06-2023 10:45-0400 Body weight 60.15 kg Melvin Ball Other [facility] Other 05-06-2023 10:45-0400 Diastolic blood pressure 76 mm[Hg] Melvin Pereira Other [facility] Other 05-06-2023 10:45-0400 Respiratory rate 12 /min Melvin Pereira Other [facility] Other 05-06-2023 10:45-0400 Systolic blood pressure 160 mm[Hg] Melvin Pereira Other [facility] Other Encounters Encounter Date Encounter Type Care Provider Facility Start: 02-04-2024 End: 02-04-2024 ambulatory [facility] Work Phone: Start: 02-04-2024 End: 02-04-2024 Patient encounter procedure [facility] Work Phone: Start: 12-16-2023 Non-patient / Non-visit [facility] Work Phone: Start: 11-16-2023 End: 11-16-2023 ambulatory DELROY TENA Not Available Start: 10-13-2023 End: 10-13-2023 ambulatory Melvin Pereira Other [facility] Other Start: 10-13-2023 Office outpatient vi sit 25 minutes Melvin Ball [facility] Start: 09-29-2023 End: 09-29-2023 ambulatory DELROY TENA Not Available Start: 08-27-2023 End: 08-27-2023 ambulatory Melvin Ball Other [facility] Other Start: 08-27-2023 Telephone encounter Mel[facility] Start: 08-21-2023 End: 08-21-2023 ambulatory Melvin Ball Other [facility] Other Start: 08-21-2023 Telephone encounter Melvin Ball [facility] Start: 08-14-2023 End: 08-14-2023 ambulatory Melvin Pereira Other [facility] Other Start: 08-14-2023 Telephone encounter Melvin Pereira [facility] Start: 08-10-2023 End: 08-10-2023 ambulatory Melvin Ball Other [facility] Other Start: 08-10-2023 Telephone encounter Melvin Ball [facility] Start: 07-24-2023 End: 07-24-2023 ambulatory Melvin Ball Other [facility] Other Start: 07-24-2023 Telephone encounter Melvin Pereira [facility] Start: 07-23-2023 End: 07-23-2023 ambulatory Melvin Ball Other [facility] Other Start: 07-23-2023 Nursing evaluation o f patient and report Melvin Pereira [facility] Start: 07-17-2023 End: 07-17-2023 ambulatory Melvin Pereira Other [facility] Other Start: 07-17-2023 Telephone encounter Melvin Pereira [facility] Start: 06-29-2023 End: 06-29-2023 ambulatory Melvin Ball Other [facility] Other Start: 06-29-2023 Telephone encounter Melvin Ball [facility] Start: 06-18-2023 End: 06-18-2023 ambulatory Melvin Ball Other [facility] Other Start: 06-18-2023 Telephone encounter Melvin Ball [facility] Start: 06-16-2023 End: 06-16-2023 ambulatory Melvin Ball Other [facility] Other Start: 06-16-2023 Telephone encounter Melvin Ball [facility] Start: 06-11-2023 End: 06-11-2023 ambulatory Melvin Ball Other [facility] Other Start: 06-11-2023 Telephone encounter Melvin Ball [facility] Start: 06-08-2023 End: 06-08-2023 ambulatory Melvin Ball Other [facility] Other Start: 06-08-2023 Patient encounter procedure Melvin Randall [facility] Start: 06-05-2023 End: 06-05-2023 ambulatory Melvin Ball Other [facility] Other Start: 06-05-2023 Telephone encounter Melvin Ball [facility] Start: 05-29-2023 End: 05-29-2023 ambulatory Melvin Pereira Other [facility] Other Start: 05-29-2023 Telephone encounter Melvin Ball [facility] Start: 05-18-2023 End: 05-18-2023 ambulatory Melvin Randall Other [facility] Other Start: 05-18-2023 Telephone encounter Melvin Ball [facility] Start: 05-14-2023 End: 05-14-2023 ambulatory Melvin Pereira Other [facility] Other Start: 05-14-2023 Telephone encounter Melvin Ball [facility] Start: 05-11-2023 End: 05-11-2023 ambulatory Melvin Ball Other [facility] Other Start: 05-11-2023 Telephone encounter Melvin Ball [facility] Start: 05-08-2023 End: 05-08-2023 ambulatory Melvin Ball Other [facility] Other Start: 05-08-2023 Telephone encounter Melvin Ball [facility] Start: 05-06-2023 End: 05-06-2023 ambulatory Melvin Ball Other [facility] Other Start: 05-06-2023 Office outpatient vi sit 25 minutes [facility] Start: 07-16-2022 End: 07-17-[address] MELVIN PEREIRA Facility:[facility] Start: 07-04-2022 End: 07-05-[address] MELVIN PEREIRA Facility:[facility] Start: 06-30-2022 Adult health examination Melvin Randall Other [facility] Other Start: 03-14-2022 End: 03-15-[address] NOAM ARMANDO Facility:[facility] Start: 11-05-2021 End: 11-05-2021 ambulatory CARITO WELLS Facility:[facility] Start: 10-29-2021 End: 10-30-[address] NOAM ARMANDO Facility:[facility] Procedures Date Procedure Procedure Detail Performing Clinician Start: 08-10-2017 Diabetes mellitus screening Melvin Pereira Other Start: 09-07-2015 Screening for malign ant neoplasm of colon Melvin Pereira Other Depression screening Valerie Pereira Other Screening for malign ant neoplasm of breast Melvin Pereira Other Immunizations Immunization Date Immunization Notes Care Provider Fa david 07-23-2023 influenza virus vaccine, unspecified formulation [facility] 07-23-2023 influenza, high dose seasonal, preservative-free Melvin Pereira Other [facility] Other 07-18-2022 influenza virus vaccine, split virus (incl. purified surface antigen) Melvin Pereira Other [facility] Other 07-18-2022 influenza virus vaccine, unspecified formulation [facility] 07-18-2022 influenza, high dose seasonal, preservative-free Melvin Pereira Other [facility] Other 07-18-2021 influenza virus vaccine, split virus (incl. purified surface antigen) Melvin Pereira Other [facility] Other 07-18-2021 influenza virus vaccine, unspecified formulation [facility] 04-08-2021 diphtheria, tetanus toxoids and acellular pertussis vaccine, unspecified formulation Melvin Pereira Other [facility] 07-27-2020 influenza virus vaccine, split virus (incl. purified surface antigen) Melvin Randall Other [facility] Other 07-27-2020 influenza virus vaccine, unspecified formulation [facility] 07-26-2019 influenza virus vaccine, split virus (incl. purified surface antigen) Melvin Randall Other [facility] Other 07-26-2019 influenza virus vaccine, unspecified formulation [facility] 09-07-2018 pneumococcal polysaccharide vaccine, 23 valent Melvin Pereira Other [facility] 08-16-2018 influenza virus vaccine, split virus (incl. purified surface antigen) Melvin Randall Other [facility] Other 08-16-2018 influenza virus vaccine, unspecified formulation [facility] 08-10-2017 pneumococcal conjuga te vaccine, 13 valent Melvin Pereira Other [facility] 07-21-2017 influenza virus vaccine, split virus (incl. purified surface antigen) Melvin Randall Other [facility] Other 07-21-2017 influenza virus vaccine, unspecified formulation [facility] Payers Date Payer Category Payer Medicare [id number] 1959 Unknown [id number] 1935 Unknown [id number] 2.16.84 [id number] 1935 Unknown [id number] 2.16.84 [id number] 1935 Unknown [id number] 2.16.84 [id number] 1935 Unknown [id number] 2.16.84 [id number] 1935 Unknown [id number] 2.16.84 [id number] 1935 Unknown [id number] 2.16.84 [id number] 1935 Unknown [id number] Self-pay Self Pay [id number] Unknown [id number] (STD) [id number] Social History Date Type Detail Facility Sex Assigned At [facility] Other Start: 1935 Sex Assigned At Female F [facility] Evaluation note 10-13-2023 Note Date & [...] monitor for pain, distention, melena or hematochezia. [facility] Other Evaluation note 08-10-2023 Note Date & Type Note Facility 08-10-2023 Evaluation note Encounter Date Diagnosis Assessment Notes Aug, COVID (ICD-10 - U07.1) [facility] Other Evaluation note 06-11-2023 Note Date & Type Note Facility 06-11-2023 Evaluation note Encounter Date Diagnosis Assessment Notes Jun, Primary hypertension (ICD-10 - I10) [facility] Other Evaluation note 06-08-2023 Note Date & [...] and Vit D supplements. Weight bearing exercises [facility] Other Evaluation note 05-08-2023 Note Date & Type Note Facility 05-08-2023 Evaluation note Encounter Date Diagnosis Assessment Notes May, Primary hypertension (ICD-10 - I10) [facility] Other Evaluation note 05-06-2023 Note Date & [...] mammogram for breast cancer (ICD-10 - Z12.31) [facility] [employer] [facility] Other Evaluation note Note Date & Type Note Facility Evaluation note No Information [facility] Other Evaluation note Note Date & Type Note Facility Evaluation note Diagnosis Onset Date Chronic venous insufficiency of lower extremity acute GERD (gastroesophageal reflux disease) acute Hypertension acute Lumbar spondylosis acute Osteopenia acute Rheumatoid arthritis acute [facility] Work Phone: History general Narrative - [...] EXCISED 2003 Hospitalization History SEE SURGICAL HX [facility] Other Summary Purpose Family History Relationship Condition [...] section and content) DATE CREATED AUTHOR 04/21/2019 [facility] DATE CREATED AUTHOR AUTHOR'S ORGANIZ ATION 12/23/[address] [facility] DATE CREATED AUTHOR AUTHOR'S ORGANIZ ATION 07/30/2022 [facility] DATE CREATED AUTHOR AUTHOR'S ORGANIZ ATION 11/17/2023 [facility] EPIC REASON FOR VISIT [...] BE BASED ON THE PRIMARY CLINICAL RECORDS. [facility] [employer] [facility]. provides no warranty or guarantee of the accuracy or completeness of information in this document.
== END 2024-02-15 12:43 | disposition home or self-care (01) ==
LOC: MRI 12:43
PROVIDERS: PCP Internal Medicine; Visit Provider Internal Medicine
DX: G45.9 Transient cerebral ischemic attack, unspecified (principal); R47.01 Aphasia; I10 Essential (primary) hypertension; I73.9 Peripheral vascular disease, unspecified
CPT/HCPCS: 70544; 70551; 93880

== ENCOUNTER 2024-02-22 12:35 | Outpatient (OUT) | payer MEDICARE, OTHER, SELFPAY ==
--- NOTE | 2024-02-22 13:00 | CA_ITS ---
Patient Name: JAYLON CASH MR#: [id number] : 1935 Exam Date: 02/22/2024 Ordering Doctor: DR Melvin Pereira D.O. ECHOCARDIOGRAM REPORT PROCEDURE: CA ECHO DOPPLER COMPLETE INDICATIONS: Transient ischemic attack, aphasia, hypertension COMPARISON: None. DESCRIPTION: COMPLETE ECHOCARDIOGRAM Real-time transthoracic echocardiography with 2D, M-mode, spectral and color flow Doppler performed. QUALITY: Technical quality was good. 62 , 125#, BSA 1.57 m2, BP 132/80 LEFT VENTRICLE: Normal chamber size. Normal left ventricular wall thickness. Normal systolic function. LV EF: Normal left ventricular ejection fraction, (55-60%). DIASTOLIC: Grade I diastolic dysfunction. ATRIAL SEPTUM: Visually appears intact. LEFT ATRIUM: Moderate dilatation. RIGHT ATRIUM: Moderate dilatation. RIGHT VENTRICLE: Normal chamber size. Normal right ventricular systolic function. TRICUSPID VALVE: Normal mobility and thickness. No stenosis with mild regurgitation. Doppler studies reveal moderately (45-60) elevated right sided pressures. RVSP 46 mmHg MITRAL VALVE: Mildly thickened with normal mobility. No evidence of mitral valve stenosis. There is no mitral annular calcification. Mild mitral regurgitation. AORTIC VALVE: Normal trileaflet appearance. Thickened aortic valve. Normal leaflet mobility. No evidence of aortic valve stenosis. Mild aortic regurgitation. AORTIC ROOT: Normal diameter and appearance. Ascending aorta is normal size. PULMONIC VALVE: Normal thickness and mobility. No stenosis. Trivial regurgitation. PERICARDIUM: No evidence of pericardial effusion. IVC: Collapses with inspirations. IVC is normal in size. PLEURA: CONCLUSION: 1. Normal left ventricular size and systolic function. LVEF is 55 to 60%. 2. Normal right ventricular size and systolic function. 3. Moderate biatrial dilatation. 4. Mild mitral and aortic regurgitation. 5. Grade 1 diastolic dysfunction. 6. Moderately elevated right-sided pressures. Adult Echocardiography Procedure Report Left Ventricle LVEDD (3.7 - 5.6 cm): 4.35 cm LVESD (2.2 - 4.0 cm): 3.05 cm LVIVS thickness (0.6 - 1.2 cm): 0.98 cm LVPW thickness (0.5 - 1.0 cm): 0.89 cm e': 0.07 m/s E - e': 8.52 LVOT Max Gradient: 2.23 mm[Hg] LVOT Area (cm2): 0.75 m/s Peak Velocity (LVOT): 0.75 m/s Mean Velocity (LVOT): 0.46 m/s LVOT Diameter 2.23 cm Left Atrium LA Volume Index (2D A2C): 38.19 ml/m2 Left Atrium Systolic Dimension: 4.00 cm Mitral Valve MV E to A Ratio: 0.69, 0.66 Right Ventricle Aorta AO Root Diam: 3.22 cm Ascending Ao Diam: 3.37 cm Aortic Valve AoV Area (Peak Bry): 2.26 cm2, 2.26 cm2 AoV Area (VTI): 2.61 cm2, 2.61 cm2 Deceleration Randolph: 2.37 m/s2 Pressure Half-Time: 594.75 ms Peak Velocity(Antegrade Flow): 1.29 m/s Peak Gradient(Antegrade Flow): 6.64 mm[Hg] Mean Velocity(Antegrade Flow): 0.89 m/s Mean Gradient(Antegrade Flow): 3.63 mm[Hg] Velocity Time Integral: 29.07 cm Tricuspid Valve Peak Velocity (Regurgitant Flow): 2.78 m/s, 3.26 m/s Pulmonic Valve Peak Gradient: 1.94 mm[Hg], 2.87 mm[Hg] Right Atrium Right Atrium Systolic Pressure: 42.91 ml, 42.91 ml Dictated by: Davie Fraire M.D. on 02/23/2024 at 16:52 Approved by: Davie Fraire M.D. on 02/23/2024 at 16:56
== END 2024-02-22 12:36 | disposition home or self-care (01) ==
LOC: CARD 12:35
PROVIDERS: PCP Internal Medicine; Visit Provider Internal Medicine
DX: G45.9 Transient cerebral ischemic attack, unspecified (principal); R47.01 Aphasia; I10 Essential (primary) hypertension
CPT/HCPCS: 93306

== ENCOUNTER 2024-03-11 10:04 | Outpatient (OUT) | payer MEDICARE, OTHER, SELFPAY | END 2024-03-11 10:05 | disposition home or self-care (01) | PROVIDERS: PCP Internal Medicine; Visit Provider Internal Medicine | DX: G45.9 Transient cerebral ischemic attack, unspecified (principal); R47.01 Aphasia | CPT/HCPCS: 93246 ==

== ENCOUNTER 2024-04-18 07:39 | Outpatient (OUT) | payer MEDICARE, OTHER, SELFPAY ==
--- OUTSIDE RECORDS SUMMARY | 2024-04-18 07:43 | XMS_ITS | CCD ---
Author Organization [facility] Care Team Providers Care Claims Administrator Name Role Phone TR, DR SANTACRUZ Admitting Unavailable ARMANDO, DR SANTACRUZ Attending Unavailable ARMANDO, DR SANTACRUZ Consulting Unavailable BALL, DR ALBERTO Primary Care Unavailable PRISCILLA, CARITO Attending Unavailable PRISCILLA, CARITO Admitting Unavailable ZILEEANN, DR JAMIE Cruz Consulting Unavailable BALL, DR ALBERTO Primary Care Unavailable PRISCILLA, CARITO Consulting Unavailable TR, DR SANTACRUZ Admitting Unavailable ARMANDO, DR [...] Unavailable BALL, DR ALBERTO Primary Care Unavailable ZIEBER, DR JAMIE Cruz Consulting Unavailable Ball, Melvin Unavailable DELROY TENA Attending Unavailable DELROY TENA Attending Unavailable Allergies Allergy Classification Reported Allergen(s) Allergy Type Date of Onset Reaction(s) Facility (20 sources) [facility] Drug Allergy Unknown [employer] Other (1 source) patient allergy list reviewed by nurse or physicia Propensity to adverse reactions Comment:Done [employer] Other Medications Current Medications Medication Drug Class(es) Dates Sig (Normalized) Sig (Original) ascorbic acid 113 mg / beta carotene 7160 mg / cuprous oxide 0.4 mg / dl-alpha tocopheryl acetate 100 unt / zinc oxide 17.4 mg oral tablet (3 sources) Vitamin C Start: 02-03-2024 Vitamins A,C,D-Idcm-Hwlyso (Preservision Areds) 2,148 mcg-113 mg-45 mg-17.4mg tablet Active TAB PO As Directed February 03, 2024 12:00am Preservision PreserVision ARE DS - as directed Orally Active atorvastatin 80 mg oral tablet (1 source) HMG-CoA Reductase Inhibitor Start: 02-05-2024 take 80 mg by mouth once daily Atorvastatin Active 80 MG PO Daily 30 30 February 05, 2024 12:00am calcium carbonate 1500 mg / cholecalciferol 800 unt chewable tablet (2 sources) Vitamin D Start: 02-03-2024 Calcium Carbonate-Vitami n D3 (Calcium 600 With Vitamin D3) 600 [...] day Active Cyclosporine (Restasis) 0.05 % dropperette (2 sources) Start: 02-03-2024 take 1 drop(s) into the eye(s) every twelve hours Cyclosporine (Restasis) 0.05 % dropperette Active 1 DROPS EYE-BOTH Every 12 hours February 03, 2024 12:00am Dextran 70 / Glycerin / hypromellose (1 source) Plasma Volume [employer], Non-Standardized Chemical Allergen GenTeal Tears 0.1-0.3 % as directed Ophthalmic Active dextran 70 1 mg/ml / hypromellose 3 mg/ml ophthalmic solution (2 sources) Plasma Volume [employer] Start: 02-03-2024 take 0.1-0.3 drop(s) into the [...] directed Orally 6 weekly Active Multivitamin preparation (3 sources) Start: 02-03-2024 take 1 tablet by mouth once daily Multivitamin Active 1 TAB PO Daily February 03, 2024 12:00am take 1 tablet by mouth once joanie y Multivitamin - 1 tablet Orally Once a day Active olmesartan medoxomil 5 mg oral tablet (15 sources) Angiotensin 2 Receptor Norm Start: 04-01-2024 take 5 mg by mouth twice daily Olmesartan Active 5 MG PO Twice daily 60 April 01, 2024 11:57am Start: 02-04-2024 End: 04-01-2024 take 10 mg by mouth once daily Olmesartan Discontinued 10 MG PO Daily 60 February 04, 2024 9:56am April 01, 2024 11:58am Start: 02-01-2024 End: 02-04-2024 take 5 mg [...] Sig (Original) amLODIPine 5 mg oral tablet (11 sources) Dihydropyridine Calcium Channel Norm Start: 02-03-2024 [...] history of urinary calculi] Episodic Esophageal disorders (15 sources) Gastro-esophageal reflux disease with esophagitis; Translations: [...] right knee joint] Onset: 10-29-2021 Chronic Other and ill-defined cerebrovascular disease (1 source) Cerebral atherosclerosis; Translations: [Cerebral atherosclerosis] 03-30-2024 Chronic Other and ill-defined cerebrovascular disease (1 source) Cerebral atherosclerosis; Translations: [Cerebral atherosclerosis] 04-01-2024 Chronic Other bone disease and musculoskeletal deformities (20 sources) Other specified disorders of bone density and structure, other site; 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] Episodic Other bone disease and musculoskeletal deformities (16 sources) Disorder of bone; Translations: [Other specified disorders of bone density and structure, other site] Episodic Other bone disease and musculoskeletal deformities (2 sources) Osteopenia; Translations: [Other specified disorders of bone density and structure, unspecified site] 02-03-2024 Episodic Other bone disease and musculoskeletal deformities (2 sources) Other specified disorders of bone density [...] Episodic Other diseases of veins and lymphatics (6 sources) Venous insufficiency (chronic) (peripheral); Translations: [Venous (peripheral) insufficiency, unspecified] Episodic Other diseases of veins and lymphatics (2 sources) Venous insufficiency of leg; Translations: [Venous insufficiency (chronic) (peripheral)] 02-03-2024 Episodic Other gastrointestinal disorders (3 sources) Slow transit constipation; Translations: [Slow transit constipation] 02-03-2024 Episodic Other gastrointestinal disorders (1 source) Slow transit constipation Episodic Other injuries and conditions due to external causes (16 sources) History of fall; Translations: [History of falling] Episodic Other nervous system disorders (16 sources) Carpal tunnel syndrome; Translations: [Carpal tunnel syndrome, right upper limb] Chronic Other nervous system disorders (2 sources) Aphasia; Translations: [Aphasia] 02-04-2024 Chronic Other nervous system disorders (1 source) [...] back pain, unspecified] Episodic Transient cerebral ischemia (3 sources) Transient cerebral ischemia; Translations: [Transient cerebral ischemic [...] 08-10-2017 Episodic Other aftercare (1 source) Other fdc (current) drug therapy; Translations: [OTH SHELTER CURRENT DRUG THERAPY] Onset: 03-19-2022 Episodic Other aftercare (1 source) snf (current) use of aspirin; Translations: [SHELTER CURRENT USE OF ASPIRIN] Onset: 11-09-2021 Episodic [...] Test Name Value Interpretation Reference Range Facility Automated urine specific gra vity by refractometryon 02-04-2024 Specific gravity Refractometry automated (U) [Rel density] <=1.005 1.005-1.025 [facility] Basophils Auto (Bld) [#/Vol] on 02-04-2024 Basophils (Bld) [#/Vol] 0.1 10 3/uL 0.0-0.1 [facility] Basophils/100 WBC Auto (Bld) on 02-04-2024 Basophils/100 WBC (Bld) 0.7 % 0.2-2.0 [facility] Bilirubin Auto test strip (U ) [Mass/Vol]on 02-04-2024 Bilirubin (U) [Mass/Vol] Negative NEGATIVE [facility] Color Auto (U)on 02-04-2024 Color (U) LT. YELLOW YELLOW [facility] Eosinophils/100 WBC Auto (Bl d)on 02-04-2024 Eosinophils/100 WBC (Bld) 0.7 % 0.9-7.0 [facility] Erythrocyte distribution wid th Auto (RBC) [Ratio]on 02-04-2024 Erythrocyte distribution width (RBC) [Ratio] 15.4 % 11.0-15.0 [facility] Estimated glomerular filtrat ion rate (GFR) non- Americanon 02-04-2024 GFR/1.73 sq M.predicted among non-blacks MDRD (S/P/Bld) [Vol rate/Area] mL/min/{1.73_m2} >=60 [facility] Globulin Calc (S) [Mass/Vol] on 02-04-2024 Globulin (S) [Mass/Vol] 3.4 g/dL [facility] Glucose [Mass/volume] in Uri ne by Test stripon 02-04-2024 Glucose Test strip (U) [Mass/Vol] Negative NEGATIVE [facility] Hematocrit Auto (Bld) [Volum e fraction]on 02-04-2024 Hematocrit (Bld) [Volume fraction] 39.6 % 36.0-48.0 [facility] Hemoglobin [Mass/volume] in Bloodon 02-04-2024 Hemoglobin (Bld) [Mass/Vol] 12.2 g/dL 12.0-16.0 [facility] Ketones Auto test strip (U) [Mass/Vol]on 02-04-2024 Ketones (U) [Mass/Vol] Negative NEGATIVE [facility] Laboratory - Chemistry and C hemistry - challengeon 02-04-2024 Albumin [Mass/Vol] 3.7 g/dL 3.4-5.0 [facility] ALP [Catalytic activity/Vol] 103 U/L 46-116 [facility] ALT [Catalytic activity/Vol] 27 U/L 14-59 [facility] AST [Catalytic activity/Vol] 24 U/L 15-37 [facility] Bilirubin [Mass/Vol] 0.5 mg/dL 0.2-1.0 [facility] Calcium [Mass/Vol] 9.5 mg/dL 8.5-10.1 [facility] Chloride [Moles/Vol] 105 mmol/L 98-107 [facility] CO2 [Moles/Vol] 30.4 mmol/L 21.0-32.0 [facility] Creatinine [Mass/Vol] 0.64 mg/dL 0.55-1.02 [facility] Free T4 [Mass/Vol] 1.07 ng/dL 0.76-1.46 [facility] GFR/1.73 sq M.predicted MDRD (S/P/Bld) [Vol rate/Area] mL/min/{1.73_m2} >=60 [facility] Glucose [Mass/Vol] 96 mg/dL 74-106 [facility] Lactate [Moles/Vol] 0.9 mmol/L 0.4-2.0 [facility] Natriuretic peptide B (Bld) [Mass/Vol] 374.0 pg/mL <=1800.0 [facility] Potassium [Moles/Vol] 3.8 mmol/L 3.5-5.1 [facility] Protein [Mass/Vol] 7.1 g/dL 6.4-8.2 [facility] Sodium [Moles/Vol] 142 mmol/L 136-145 [facility] TSH Qn 4.178 m[IU]/L 0.358-3.740 [facility] Urea nitrogen [Mass/Vol] 14.0 mg/dL 7.0-18.0 [facility] Urea nitrogen/Creatinine [Mass ratio] 21.9 mg/mg [facility] Laboratory - Hematology and Cell countson 02-04-2024 Immature granulocytes/100 WBC (Bld) 0.4 % 0.0-0.5 [facility] Leukocytes [#/volume] correc shaihd for nucleated erythrocytes in Blood by Automated counon 02-04-2024 WBC corrected for nucl RBC Auto (Bld) [#/Vol] 8.2 10 3/uL 4.0-11.0 [facility] Lymphocytes Auto (Bld) [#/Vo l]on 02-04-2024 Lymphocytes (Bld) [#/Vol] 2.9 10 3/uL 1.2-3.8 [facility] Lymphocytes/100 WBC Auto (Bl d)on 02-04-2024 Lymphocytes/100 WBC (Bld) 35.7 % 20.5-60.0 [facility] MCH Auto (RBC) [Entitic mass ]on 02-04-2024 MCH (RBC) [Entitic mass] 29.8 pg 26.7-34.0 [facility] MCHC Auto (RBC) [Mass/Vol]on 02-04-2024 MCHC (RBC) [Mass/Vol] 30.8 g/dL 29.9-35.2 [facility] MCV Auto (RBC) [Entitic vol] on 02-04-2024 MCV (RBC) [Entitic vol] 96.6 fL 81.0-99.0 [facility] Monocytes Auto (Bld) [#/Vol] on 02-04-2024 Monocytes (Bld) [#/Vol] 0.6 10 3/uL 0.3-0.8 [facility] Monocytes/100 WBC Auto (Bld) on 02-04-2024 Monocytes/100 WBC (Bld) 7.2 % 1.7-12.0 [facility] Neutrophils Auto (Bld) [#/Vo l]on 02-04-2024 Neutrophils (Bld) [#/Vol] 4.5 10 3/uL 1.4-6.5 [facility] Neutrophils/100 WBC Auto (Bl d)on 02-04-2024 Neutrophils/100 WBC (Bld) 55.3 % 43.0-75.0 [facility] No Panel Informationon 02-03 Urine Microscopic Review NO [facility] Eosinophils # (Auto) 0.1 10 3/uL 0.0-0.7 [facility] Free Triiodothyronine 2.35 pg/mL 2.18-3.98 [facility] Immature Granulocyte # (Auto) 0.03 10 3/uL 0.00-0.03 [facility] Troponin I High Sensitivity 8.1 pg/mL 4.0-51.3 [facility] Comment on above: CUT-OFF POINTS HAVE BEEN ESTABLISHED BASED ON THE FOURTHUNIVERSAL DEFINITION OF MYOCARDIAL INFARCTION. THE UPPERREFERENCE LIMIT (URL) OF TROPONIN, DEFINED THE 99THPERCENTILE OF cTnI DISTRIBUTION IN A REFERENCE POPULATION,HAS BEEN CONFIRMED THE DECISION THRESHOLD FOR MIDIAGNOSIS.99TH PERCENTILE = 51.4 PG/MLNOTE: HIGH-SENSITIVITY TROPONIN ASSAY IS NOT INTENDED TO BEUSED IN ISOLATION BUT SHOULD BE INTERPRETED IN CONJUNCTIONWITH OTHER DIAGNOSTIC AND CLINICAL INFORMATION. Venous Blood Partial Pressure CO2 55.9 mm[Hg] 40.0-52.0 [facility] Venous Blood pH 7.369 7.330-7.430 [facility] Platelet mean volume Auto (B ld) [Entitic vol]on 02-04-2024 Platelet mean volume (Bld) [Entitic vol] 11.5 fL 9.5-13.5 [facility] Platelets Auto (Bld) [#/Vol] on 02-04-2024 Platelets (Bld) [#/Vol] 202 10 3/uL 150-450 [facility] Protein Auto test strip (U) [Mass/Vol]on 02-04-2024 Protein (U) [Mass/Vol] Negative NEG/TRACE [facility] RBC Auto (Bld) [#/Vol]on RBC (Bld) [#/Vol] 4.10 10 6/uL 4.20-5.40 [facility] Serum or plasma albumin/glob ulin mass ratioon 02-04-2024 Albumin/Globulin [Mass ratio] 1.1 {ratio} [facility] Serum or plasma anion gap de terminationon 02-04-2024 Anion gap [Moles/Vol] 10.4 mmol/L Fi relaCount includes the [facility] Specific gravity Auto test s trip (U) [Rel density]on 02-04-2024 Specific gravity (U) [Rel density] CLEAR CLEAR [facility] Urine hemoglobin detection b y automated test stripon 02-04-2024 Hemoglobin Auto test strip Ql (U) Negative NEGATIVE [facility] Urine nitrite detection by a utomated test stripon 02-04-2024 Nitrite Auto test strip Ql (U) Negative NEGATIVE [facility] Urobilinogen Auto test strip (U) [Mass/Vol]on 02-04-2024 Urobilinogen Qn (U) 0.2 {Gideon'U}/dL 0.2-1.0 [facility] pH Auto test strip (U)on pH (U) 6.5 [pH] 5.0-9.0 [facility] Basophils Auto (Bld) [#/Vol] on 12-16-2023 Basophils (Bld) [#/Vol] 0.1 10 3/uL 0.0-0.1 [facility] Basophils/100 WBC Auto (Bld) on 12-16-2023 Basophils/100 WBC (Bld) 0.9 % 0.2-2.0 [facility] Eosinophils/100 WBC Auto (Bl d)on 12-16-2023 Eosinophils/100 WBC (Bld) 1.0 % 0.9-7.0 [facility] Erythrocyte distribution wid th Auto (RBC) [Ratio]on 12-16-2023 Erythrocyte distribution width (RBC) [Ratio] 14.8 % 11.0-15.0 [facility] Estimated glomerular filtrat ion rate (GFR) non- Americanon 12-16-2023 GFR/1.73 sq M.predicted among non-blacks MDRD (S/P/Bld) [Vol rate/Area] mL/min/{1.73_m2} >=60 [facility] Globulin Calc (S) [Mass/Vol] on 12-16-2023 Globulin (S) [Mass/Vol] 3.4 g/dL [facility] Hematocrit Auto (Bld) [Volum e fraction]on 12-16-2023 Hematocrit (Bld) [Volume fraction] 39.1 % 36.0-48.0 [facility] Hemoglobin [Mass/volume] in Bloodon 12-16-2023 Hemoglobin (Bld) [Mass/Vol] 11.9 g/dL 12.0-16.0 [facility] Laboratory - Chemistry and C hemistry - challengeon 12-16-2023 Albumin [Mass/Vol] 3.2 g/dL 3.4-5.0 [facility] ALP [Catalytic activity/Vol] 91 U/L 46-116 [facility] ALT [Catalytic activity/Vol] 30 U/L 14-59 [facility] AST [Catalytic activity/Vol] 22 U/L 15-37 [facility] Bilirubin [Mass/Vol] 0.5 mg/dL 0.2-1.0 [facility] Calcium [Mass/Vol] 9.2 mg/dL 8.5-10.1 [facility] Chloride [Moles/Vol] 104 mmol/L 98-107 [facility] CO2 [Moles/Vol] 33.3 mmol/L 21.0-32.0 [facility] Creatinine [Mass/Vol] 0.66 mg/dL 0.55-1.02 [facility] GFR/1.73 sq M.predicted MDRD (S/P/Bld) [Vol rate/Area] mL/min/{1.73_m2} >=60 [facility] Glucose [Mass/Vol] 141 mg/dL 74-106 [facility] Potassium [Moles/Vol] 3.8 mmol/L 3.5-5.1 [facility] Protein [Mass/Vol] 6.6 g/dL 6.4-8.2 [facility] Sodium [Moles/Vol] 142 mmol/L 136-145 [facility] Urea nitrogen [Mass/Vol] 11.0 mg/dL 7.0-18.0 [facility] Urea nitrogen/Creatinine [Mass ratio] 16.7 mg/mg [facility] Laboratory - Hematology and Cell countson 12-16-2023 ESR (Bld) [Velocity] 22 mm/h <=30 [facility] Immature granulocytes/100 WBC (Bld) 0.1 % 0.0-0.5 [facility] Leukocytes [#/volume] correc shahid for nucleated erythrocytes in Blood by Automated counon 12-16-2023 WBC corrected for nucl RBC Auto (Bld) [#/Vol] 6.9 10 3/uL 4.0-11.0 [facility] Lymphocytes Auto (Bld) [#/Vo l]on 12-16-2023 Lymphocytes (Bld) [#/Vol] 2.5 10 3/uL 1.2-3.8 [facility] Lymphocytes/100 WBC Auto (Bl d)on 12-16-2023 Lymphocytes/100 WBC (Bld) 35.6 % 20.5-60.0 [facility] MCH Auto (RBC) [Entitic mass ]on 12-16-2023 MCH (RBC) [Entitic mass] 29.5 pg 26.7-34.0 [facility] MCHC Auto (RBC) [Mass/Vol]on 12-16-2023 MCHC (RBC) [Mass/Vol] 30.4 g/dL 29.9-35.2 [facility] MCV Auto (RBC) [Entitic vol] on 12-16-2023 MCV (RBC) [Entitic vol] 96.8 fL 81.0-99.0 [facility] Monocytes Auto (Bld) [#/Vol] on 12-16-2023 Monocytes (Bld) [#/Vol] 0.6 10 3/uL 0.3-0.8 [facility] Monocytes/100 WBC Auto (Bld) on 12-16-2023 Monocytes/100 WBC (Bld) 8.0 % 1.7-12.0 [facility] Neutrophils Auto (Bld) [#/Vo l]on 12-16-2023 Neutrophils (Bld) [#/Vol] 3.8 10 3/uL 1.4-6.5 [facility] Neutrophils/100 WBC Auto (Bl d)on 12-16-2023 Neutrophils/100 WBC (Bld) 54.4 % 43.0-75.0 [facility] No Panel Informationon 12-16 Eosinophils # (Auto) 0.1 10 3/uL 0.0-0.7 [facility] Immature Granulocyte # (Auto) 0.01 10 3/uL 0.00-0.03 [facility] Platelet mean volume Auto (B ld) [Entitic vol]on 12-16-2023 Platelet mean volume (Bld) [Entitic vol] 11.6 fL 9.5-13.5 [facility] Platelets Auto (Bld) [#/Vol] on 12-16-2023 Platelets (Bld) [#/Vol] 212 10 3/uL 150-450 [facility] RBC Auto (Bld) [#/Vol]on RBC (Bld) [#/Vol] 4.04 10 6/uL 4.20-5.40 [facility] Serum or plasma albumin/glob ulin mass ratioon 12-16-2023 Albumin/Globulin [Mass ratio] 0.9 {ratio} [facility] Serum or plasma anion gap de terminationon 12-16-2023 Anion gap [Moles/Vol] 8.5 mmol/L Fir [facility] MG MAMM RT DIAG FUon 022 MG MAMM RT DIAG FU Patient: RUBIA CASH Exam Date: 07/16/2022 : 1935 Gender:F Ordering : DR MELVIN PEREIRA D.O. Admission #: [id number] Family : Order #: [id number] CLICK HERE TO VIEW EXAM RADIOLOGY REPORT [...] bladder cancer at age 78. LOCATION: [facility] BREAST COMPOSITION: Heterogeneously dense,which may obscure small [...] Owen M.D. on 07/16/2022 at 13:45 Normal [facility] US BREAST RIGHT LIMITEDon US BREAST RIGHT LIMITED Patient: RUBIA CASH Exam Date: 07/16/2022 : 1935 Gender:F Ordering : DR MELVIN PEREIRA D.O. Admission #: [id number] Family : Order #: [id number] CLICK HERE TO VIEW EXAM RADIOLOGY REPORT [...] bladder cancer at age 78. LOCATION: [facility] BREAST COMPOSITION: Heterogeneously dense,which may obscure small [...] Owen M.D. on 07/16/2022 at 13:45 Normal [facility] MG MAMM SCREEN 3D KATERINA CADon 07-04-2022 MG MAMM SCREEN 3D KATERINA CAD Patient: RUBIA CASH Exam Date: 07/04/2022 : 1935 Gender:F Ordering : DR MELVIN PEREIRA D.O. Admission #: [id number] Family : Order #: [id number] CLICK HERE TO VIEW EXAM RADIOLOGY REPORT [...] bladder cancer at age 78. LOCATION: [facility] BREAST COMPOSITION: Heterogeneously dense,which may obscure small [...] MD on 07/04/2022 at 13:49 Normal [facility] XR LSPINE 2_3 VIEWSon 2021 XR LSPINE [...] E CANTU Date: 2022-07-04 17:35 Normal [facility] CBC AUTO DIFFon 03-14-2022 BASO # 0.1 103/ul Normal 0.0-0.1 [facility] Comment on above: Performed By: #### H STROPN #### [facility] [address] [address] [address] Rigoberto Ivy Basophils/100 WBC (Bld) 1.1 % Normal 0.2-2.0 [facility] Comment on above: Performed By: #### H STROPN #### [facility] [address] [address] [address] Rigoberto Ivy EO # 0.1 103/ul Normal 0.0-0.7 [facility] Comment on above: Performed By: #### H STROPN #### [facility] [address] [place] [address] Dr. Rigoberto Ivy Eosinophils/100 WBC (Bld) 1.7 % Normal 0.9-7.0 [facility] Comment on above: Performed By: #### H STROPN #### [facility] [address] [place] [address] Dr. Rigoberto Ivy Erythrocyte distribution width (RBC) [Ratio] 15.8 % Critically high 11.0-15.0 [facility] Comment on above: Performed By: #### H STROPN #### [facility] [address] [place] [address] Dr. Rigoberto Ivy Hematocrit (Bld) [Volume fraction] 39.7 % Normal 36.0-48.0 [facility] Comment on above: Performed By: #### H STROPN #### [facility] [address] [place] [address] Dr. Rigoberto Ivy Hemoglobin (Bld) [Mass/Vol] 12.3 g/dL Normal 12.0-16.0 [facility] Comment on above: Performed By: #### H STROPN #### [facility] [address] [place] [address] Dr. Rigoberto Ivy IG # 0.03 10e3/ul Normal 0.00-0.03 [facility] Comment on above: Performed By: #### H STROPN #### [facility] [address] [place] [address] Dr. Rigoberto Ivy IG % 0.4 % Normal 0.0-0.5 [facility] Comment on above: Performed By: #### H STROPN #### [facility] [address] [place] [address] Dr. Rigoberto Ivy LYMPH # 2.5 103/ul Normal 1.2-3.8 [facility] Comment on above: Performed By: #### H STROPN #### [facility] [address] [place] [address] Dr. Rigoberto Ivy Lymphocytes/100 WBC (Bld) 35.0 % Normal 20.5-60.0 [facility] Comment on above: Performed By: #### H STROPN #### [facility] [address] [place] [address] Dr. Rigoberto Ivy MANUAL DIFF REQ NO Normal [facility] Comment on above: Performed By: #### H STROPN #### [facility] [address] [place] [address] Dr. Rigoberto Ivy MCH (RBC) [Entitic mass] 29.9 pg Normal 26.7-34.0 [facility] Comment on above: Performed By: #### H STROPN #### [facility] [address] [place] [address] Dr. Rigoberto Ivy MCHC (RBC) [Mass/Vol] 31.0 g/dL Normal 29.9-35.2 [facility] Comment on above: Performed By: #### H STROPN #### [facility] [address] [place] [address] Dr. Rigoberto Ivy MCV (RBC) [Entitic vol] 96.6 fL Normal 81.0-99.0 [facility] Comment on above: Performed By: #### H STROPN #### [facility] [address] [place] [address] Dr. Rigoberto Ivy MONO # 0.7 103/ul Normal 0.3-0.8 [facility] Comment on above: Performed By: #### H STROPN #### [facility] [address] [place] [address] Dr. Rigoberto Ivy Monocytes/100 WBC (Bld) 9.4 % Normal 1.7-12.0 [facility] Comment on above: Performed By: #### H STROPN #### [facility] [address] [place] [address] Dr. Rigoberto Ivy NEUT # 3.8 103/ul Normal 1.4-6.5 [facility] Comment on above: Performed By: #### H STROPN #### [facility] [address] [place] [address] Dr. Rigoberto Ivy Neutrophils/100 WBC (Bld) 52.4 % Normal 43.0-75.0 [facility] Comment on above: Performed By: #### H STROPN #### [facility] [address] [place] [address] Dr. Rigoberto Ivy Platelet mean volume (Bld) [Entitic vol] 10.9 fL Normal 9.5-13.5 [facility] Comment on above: Performed By: #### H STROPN #### [facility] [address] [place] [address] Dr. Rigoberto Ivy PLT 225 103/ul Normal 150-450 [facility] Comment on above: Performed By: #### H STROPN #### [facility] [address] [place] [address] Dr. Rigoberto Ivy RBC 4.11 106/ul Critically low 4.20-5.40 [facility] Comment on above: Performed By: #### H STROPN #### [facility] [address] [place] [address] Dr. Rigoberto Ivy WBC 7.2 103/ul Normal 4.0-11.0 [facility] Comment on above: Performed By: #### H STROPN #### [facility] [address] [place] [address] Dr. Rigoberto Ivy PROF 14(COMP METB)on 022 Albumin [Mass/Vol] 3.6 g/dL Normal 3.4-5.0 [facility] Comment on above: Performed By: #### H STROPN #### [facility] [address] [place] [address] Dr. Rigoberto Ivy Albumin/Globulin [Mass ratio] 1.0 {ratio} Normal [facility] Comment on above: Performed By: #### H STROPN #### [facility] [address] [place] [address] Dr. Rigoberto Ivy ALP [Catalytic activity/Vol] 89 U/L Normal 46-116 [facility] Comment on above: Performed By: #### H STROPN #### [facility] [address] [place] [address] Dr. Rigoberto Ivy ALT [Catalytic activity/Vol] 29 U/L Normal 14-59 [facility] Comment on above: Performed By: #### H STROPN #### [facility] [address] [address] [address] Rigoberto Ivy Anion gap [Moles/Vol] 7.7 mmol/L Normal [facility] Comment on above: Performed By: #### H STROPN #### [facility] [address] [address] [address] Rigoberto Ivy AST [Catalytic activity/Vol] 22 U/L Normal 15-37 [facility] Comment on above: Performed By: #### H STROPN #### [facility] [address] [address] [address] Rigoberto Ivy Bilirubin [Mass/Vol] 0.5 mg/dL Normal 0.2-1.0 [facility] Comment on above: Performed By: #### H STROPN #### [facility] [address] [address] [address] Rigoberto Ivy Calcium [Mass/Vol] 9.5 mg/dL Normal 8.5-10.1 [facility] Comment on above: Performed By: #### H STROPN #### [facility] [address] [place] [address] Dr. Rigoberto Ivy Chloride [Moles/Vol] 103 mmol/L Normal 98-107 [facility] Comment on above: Performed By: #### H STROPN #### [facility] [address] [address] [address] Rigoberto Ivy CO2 [Moles/Vol] 33.5 mmol/L Critically high 21.0-32.0 [facility] Comment on above: Performed By: #### H STROPN #### [facility] [address] [address] [address] Rigoberto Ivy Creatinine [Mass/Vol] 0.60 mg/dL Normal 0.55-1.02 [facility] Comment on above: Performed By: #### H STROPN #### [facility] [address] [address] [address] Rigoberto Ivy EGFR-AF CAMBODIAN >60 Normal >=60 [facility] Comment on above: Performed By: #### H STROPN #### [facility] [address] [address] [address] Rigoberto Ivy EGFR-NON AF CAMBODIAN >60 Normal >=60 [facility] Comment on above: Performed By: #### H STROPN #### [facility] [address] [address] [address] Rigoberto Ivy Globulin (S) [Mass/Vol] 3.5 g/dL Normal [facility] Comment on above: Performed By: #### H STROPN #### [facility] [address] [address] [address] Rigoberto Ivy Glucose [Mass/Vol] 90 mg/dL Normal 74-106 [facility] Comment on above: Performed By: #### H STROPN #### [facility] [address] [address] [address] Rigoberto Ivy Potassium [Moles/Vol] 4.2 mmol/L Normal 3.5-5.1 [facility] Comment on above: Performed By: #### H STROPN #### [facility] [address] [address] [address] Rigoberto Ivy Protein [Mass/Vol] 7.1 g/dL Normal 6.4-8.2 [facility] Comment on above: Performed By: #### H STROPN #### [facility] [address] [address] [address] Rigoberto Ivy Sodium [Moles/Vol] 140 mmol/L Normal 136-145 [facility] Comment on above: Performed By: #### H STROPN #### [facility] [address] [address] [address] Rigoberto Ivy Urea nitrogen [Mass/Vol] 11.0 mg/dL Normal 7.0-18.0 [facility] Comment on above: Performed By: #### H STROPN #### [facility] [address] [address] [address] Rigoberto Ivy Urea nitrogen/Creatinine [Mass ratio] 18.3 mg/mg Normal [facility] Comment on above: Performed By: #### H STROPN #### [facility] [address] [place] [address] Dr. Rigoberto Ivy SED RATE WESTERGRENon 2021 SED RATE 10 mm/hr Normal <=30 [facility] Comment on above: Performed By: #### S EDR #### [facility] [address] [place] [address] Dr. Rigoberto Ivy CULTURE URINEon 11-07-2021 CULTURE URINE Culture Observations : GREATER THAN TWO ORGANISMS PRESENT. PLEASE RESUBMIT CLEAN CATCH MID-STREAM URINE IF CLINICALLY INDICATED. Normal [facility] Comment on above: Performed By: #### H STROPN #### [facility] [address] [place] [address] Dr. Rigoberto Ivy BNPon 11-05-2021 Natriuretic peptide B (Bld) [Mass/Vol] 273.0 pg/mL Normal <=1,800.0 [facility] Comment on above: Performed By: #### C MP, BNP, HSTROPN #### [facility] [address] [place] [address] Dr. Rigoberto Ivy CBC AUTO DIFFon 11-05-2021 BASO # 0.1 103/ul Normal 0.0-0.1 [facility] Comment on above: Performed By: #### C BC #### [facility] [address] [place] [address] Dr. Rigoberto Ivy Basophils/100 WBC (Bld) 0.8 % Normal 0.2-2.0 [facility] Comment on above: Performed By: #### C BC #### [facility] [address] [place] [address] Dr. Rigoberto Ivy EO # 0.1 103/ul Normal 0.0-0.7 [facility] Comment on above: Performed By: #### C BC #### [facility] [address] [place] [address] Dr. Rigoberto Ivy Eosinophils/100 WBC (Bld) 0.7 % Critically low 0.9-7.0 [facility] Comment on above: Performed By: #### C BC #### [facility] [address] [place] [address] Dr. Rigoberto Ivy Erythrocyte distribution width (RBC) [Ratio] 15.5 % Critically high 11.0-15.0 [facility] Comment on above: Performed By: #### C BC #### [facility] [address] [place] [address] Dr. Rigoberto Ivy Hematocrit (Bld) [Volume fraction] 41.5 % Normal 36.0-48.0 [facility] Comment on above: Performed By: #### C BC #### [facility] [address] [place] [address] Dr. Rigoberto Ivy Hemoglobin (Bld) [Mass/Vol] 12.8 g/dL Normal 12.0-16.0 [facility] Comment on above: Performed By: #### C BC #### [facility] [address] [place] [address] Dr. Rigoberto Ivy IG # 0.03 10e3/ul Normal 0.00-0.03 [facility] Comment on above: Performed By: #### C BC #### [facility] [address] [place] [address] Dr. Rigoberto Ivy IG % 0.4 % Normal 0.0-0.5 [facility] Comment on above: Performed By: #### C BC #### [facility] [address] [place] [address] Dr. Rigoberto Ivy LYMPH # 2.6 103/ul Normal 1.2-3.8 [facility] Comment on above: Performed By: #### C BC #### [facility] [address] [place] [address] Dr. Rigoberto Ivy Lymphocytes/100 WBC (Bld) 34.6 % Normal 20.5-60.0 [facility] Comment on above: Performed By: #### C BC #### [facility] [address] [place] [address] Dr. Rigoberto Ivy MANUAL DIFF REQ NO Normal [facility] Comment on above: Performed By: #### C BC #### [facility] [address] [place] [address] Dr. Rigoberto Ivy MCH (RBC) [Entitic mass] 29.8 pg Normal 26.7-34.0 [facility] Comment on above: Performed By: #### C BC #### [facility] [address] [place] [address] Dr. Rigoberto Ivy MCHC (RBC) [Mass/Vol] 30.8 g/dL Normal 29.9-35.2 [facility] Comment on above: Performed By: #### C BC #### [facility] [address] [place] [address] Dr. Rigoberto Ivy MCV (RBC) [Entitic vol] 96.7 fL Normal 81.0-99.0 [facility] Comment on above: Performed By: #### C BC #### [facility] [address] [place] [address] Dr. Rigoberto Ivy MONO # 0.7 103/ul Normal 0.3-0.8 [facility] Comment on above: Performed By: #### C BC #### [facility] [address] [place] [address] Dr. Rigoberto Ivy Monocytes/100 WBC (Bld) 8.5 % Normal 1.7-12.0 [facility] Comment on above: Performed By: #### C BC #### [facility] [address] [place] [address] Dr. Rigoberto Ivy NEUT # 4.2 103/ul Normal 1.4-6.5 [facility] Comment on above: Performed By: #### C BC #### [facility] [address] [place] [address] Dr. Rigoberto Ivy Neutrophils/100 WBC (Bld) 55.0 % Normal 43.0-75.0 [facility] Comment on above: Performed By: #### C BC #### [facility] [address] [place] [address] Dr. Rigoberto Ivy Platelet mean volume (Bld) [Entitic vol] 10.6 fL Normal 9.5-13.5 [facility] Comment on above: Performed By: #### C BC #### [facility] [address] [place] [address] Dr. Rigoberto Ivy PLT 234 103/ul Normal 150-450 [facility] Comment on above: Performed By: #### C BC #### [facility] [address] [address] [address] Rigoberto Ivy RBC 4.29 106/ul Normal 4.20-5.40 [facility] Comment on above: Performed By: #### C BC #### [facility] [address] [address] [address] Rigoberto Ivy WBC 7.6 103/ul Normal 4.0-11.0 [facility] Comment on above: Performed By: #### C BC #### [facility] [address] [address] [address] HEAD WO CONon [...] JAMIE OWEN Date: 2021-11-05 13:08 Normal [facility] Covid-19 PCR (CVDTBH)on SARS-CoV-2 (COVID-19) RNA LATHA+probe Ql (Unsp spec) Not detected Normal NOT DETECTED [facility] Comment on above: Result Comment: When diagnostic [...] for this test is supported by the Costumed Character Entertainer of Health and Human Service's declaration that [...] Performed By: #### C RP, CMP #### [facility] [address] [place] [address] Dr. Rigoberto Ivy ER URINE PROFILEon 2 Bilirubin Ql (U) Negative Normal NEGATIVE [facility] Comment on above: Performed By: #### H STROPN #### [facility] [address] [place] [address] Dr. Rigoberto Ivy Clarity (U) CLEAR Normal CLEAR [facility] Comment on above: Performed By: #### H STROPN #### [facility] [address] [place] [address] Dr. Rigoberto Ivy Color (U) LT. YELLOW Normal YELLOW [facility] Comment on above: Performed By: #### H STROPN #### [facility] [address] [place] [address] Dr. Rigoberto CUEVA A micrscopic examination will be performed if indicated. Normal [facility] Comment on above: Performed By: #### H STROPN #### [facility] [address] [place] [address] Dr. Rigoberto Ivy Glucose Ql (U) Negative Normal NEGATIVE [facility] Comment on above: Performed By: #### H STROPN #### [facility] [address] [place] [address] Dr. Rigoberto Ivy Hemoglobin Ql (U) Negative Normal NEGATIVE [facility] Comment on above: Performed By: #### H STROPN #### [facility] [address] [place] [address] Dr. Rigoberto Ivy Ketones Ql (U) Negative Normal NEGATIVE [facility] Comment on above: Performed By: #### H STROPN #### [facility] [address] [place] [address] Dr. Rigoberto Ivy LEUKOCYTES TRACE Abnormal NEGATIVE [facility] Comment on above: Performed By: #### H STROPN #### [facility] [address] [place] [address] Dr. Rigoberto Ivy Nitrite Ql (U) Negative Normal NEGATIVE [facility] Comment on above: Performed By: #### H STROPN #### [facility] [address] [place] [address] Dr. Rigoberto Ivy pH (U) 7.0 [pH] Normal 5-9 [facility] Comment on above: Performed By: #### H STROPN #### [facility] [address] [place] [address] Dr. Rigoberto Ivy SPEC GRAVITY 1.015 Normal 1.005-<=1.025 [facility] Comment on above: Performed By: #### H STROPN #### [facility] [address] [place] [address] Dr. Rigoberto Ivy UA PROTEIN Negative Normal NEGATIVE/ TRACE [facility] Comment on above: Performed By: #### H STROPN #### [facility] [address] [place] [address] Dr. Rigoberto Ivy UR MICRO IND INDICATED Normal [facility] Comment on above: Performed By: #### H STROPN #### [facility] [address] [place] [address] Dr. Rigoberto Ivy Urobilinogen Qn (U) 0.2 {Gideon'U}/dL Normal 0.2 - 1. 0 [facility] Comment on above: Performed By: #### H STROPN #### [facility] [address] [place] [address] Dr. Rigoberto Ivy LAB TESTINGon 11-05-2021 RECV HEADER SEE SCANNED REPORT I N HPF Normal [facility] Comment on above: Performed By: #### M ISC #### [facility] [address] [place] [address] Dr. Rigoberto Ivy REV FROM REF LAB 11/05/2021 Normal [facility] Comment on above: Performed By: #### M ISC #### [facility] [address] [place] [address] Dr. Rigoberto Ivy SENT TO REF LAB 11/05/2020 [facility] Comment on above: Performed By: #### M ISC #### [facility] [address] [place] [address] Dr. Rigoberto Ivy LACTATE/LACTIC ACIDon 2021 Lactate [Moles/Vol] 0.8 mmol/L Normal 0.7-2.0 [facility] Comment on above: Performed By: #### H STROPN #### [facility] [address] [place] [address] Dr. Rigoberto Ivy PROF 14(COMP METB)on 022 Albumin [Mass/Vol] 3.7 g/dL Normal 3.5-5.0 [facility] Comment on above: Performed By: #### C MP, BNP, HSTROPN #### [facility] [address] [place] [address] Dr. Rigoberto Ivy Albumin/Globulin [Mass ratio] 0.9 {ratio} [facility] Comment on above: Performed By: #### C MP, BNP, HSTROPN #### [facility] [address] [place] [address] Dr. Rigoberto Ivy ALP [Catalytic activity/Vol] 105 U/L Normal 38-126 [facility] Comment on above: Performed By: #### C MP, BNP, HSTROPN #### [facility] [address] [place] [address] Dr. Rigoberto Ivy ALT [Catalytic activity/Vol] 51 U/L Normal 9-52 [facility] Comment on above: Performed By: #### C MP, BNP, HSTROPN #### [facility] [address] [place] [address] Dr. Rigoberto Ivy Anion gap [Moles/Vol] 11.4 mmol/L Normal [facility] Comment on above: Performed By: #### C MP, BNP, HSTROPN #### [facility] [address] [place] [address] Dr. Rigoberto Ivy AST [Catalytic activity/Vol] 33 U/L Normal 14-36 [facility] Comment on above: Performed By: #### C MP, BNP, HSTROPN #### [facility] [address] [place] [address] Dr. Rigoberto Ivy Bilirubin [Mass/Vol] 0.7 mg/dL Normal 0.2-1.3 [facility] Comment on above: Performed By: #### C MP, BNP, HSTROPN #### [facility] [address] [place] [address] Dr. Rigoberto Ivy Calcium [Mass/Vol] 9.6 mg/dL Normal 8.4-10.2 [facility] Comment on above: Performed By: #### C MP, BNP, HSTROPN #### [facility] [address] [place] [address] Dr. Rigoberto Ivy Chloride [Moles/Vol] 107 mmol/L Normal 98-107 [facility] Comment on above: Performed By: #### C MP, BNP, HSTROPN #### [facility] [address] [place] [address] Dr. Rigoberto Ivy CO2 [Moles/Vol] 30.8 mmol/L Critically high 22.0-30.0 [facility] Comment on above: Performed By: #### C MP, BNP, HSTROPN #### [facility] [address] [place] [address] Dr. Rigoberto Ivy Creatinine [Mass/Vol] 0.65 mg/dL Normal 0.52-1.04 [facility] Comment on above: Performed By: #### C MP, BNP, HSTROPN #### [facility] [address] [place] [address] Dr. Rigoberto Ivy EGFR-AF CAMBODIAN >60 Normal >=60 [facility] Comment on above: Performed By: #### C MP, BNP, HSTROPN #### [facility] [address] [place] [address] Dr. Rigoberto Ivy EGFR-NON AF CAMBODIAN >60 Normal >=60 [facility] Comment on above: Performed By: #### C MP, BNP, HSTROPN #### [facility] [address] [address] [address] Rigoberto Ivy Globulin (S) [Mass/Vol] 3.9 g/dL Normal [facility] Comment on above: Performed By: #### C MP, BNP, HSTROPN #### [facility] [address] [address] [address] Rigoberto Ivy Glucose [Mass/Vol] 98 mg/dL Normal 74-106 [facility] Comment on above: Performed By: #### C MP, BNP, HSTROPN #### [facility] [address] [place] [address] Dr. Rigoberto Ivy Potassium [Moles/Vol] 4.2 mmol/L Normal 3.4-5.0 [facility] Comment on above: Performed By: #### C MP, BNP, HSTROPN #### [facility] [address] [place] [address] Dr. Rigoberto Ivy Protein [Mass/Vol] 7.6 g/dL Normal 6.1-8.2 [facility] Comment on above: Performed By: #### C MP, BNP, HSTROPN #### [facility] [address] [place] [address] Dr. Rigoberto Ivy Sodium [Moles/Vol] 145 mmol/L Normal 137-145 [facility] Comment on above: Performed By: #### C MP, BNP, HSTROPN #### [facility] [address] [place] [address] Dr. Rigoberto Ivy Urea nitrogen [Mass/Vol] 12.0 mg/dL Normal 7.0-17.0 [facility] Comment on above: Performed By: #### C MP, BNP, HSTROPN #### [facility] [address] [place] [address] Dr. Rigoberto Ivy Urea nitrogen/Creatinine [Mass ratio] 18.5 mg/mg Normal [facility] Comment on above: Performed By: #### C MP, BNP, HSTROPN #### [facility] [address] [address] [address] Rigoberto Ivy Partial Thromboplastin Timeo n 11-05-2021 aPTT Coag (Bld) [Time] 32.9 s Normal 25.1-36.5 [facility] Comment on above: Order Comment: Sampl e recieved as a pour off from [facility]. Unable to verify patient's HCT to correct for HCT > 55%. Results may be falsely increased if the HCT is greater than 55%. Result Comment: PERF ORMED BY: [place] [address] PATHOLOGIST [employer]OCIATE GARRETT SELLERS M.D. Performed By: #### P T, PTT #### [facility] [address] Prothrombin Time INRon 11-05 INR Coag (PPP) [Relative time] 1.0 {INR} Normal [facility] Comment on above: Order Comment: Sampl e recieved as a pour off from [facility]. Unable to verify patient's HCT to correct [...] Performed By: #### P T, PTT #### [facility] [address] PT Coag (PPP) [Time] 11.1 s Normal 9.0-12.9 [facility] Comment on above: Order Comment: Sampl e recieved as a pour off from [facility]. Unable to verify patient's HCT to correct for HCT > 55%. Results may be falsely increased if the HCT is greater than 55%. Performed By: #### P T, PTT #### [facility] [address] TROPONIN, HIGH SENSITIVITYon 11-05-2021 HSTROP 14.1 pg/mL Normal 4.0-35.5 [facility] Comment on above: Result Comment: CUT- OFF POINTS HAVE BEEN ESTABLISHED BASED ON THE FOURTH UNIVERSAL DEFINITIONS OF MYOCARDIAL INFARCTION. THE UPPER REFERENCE LIMIT (URL) OF TROPONIN, DEFINED THE 99TH PERCENTILE OF cTnI DISTRIBUTION IN A REFERENCE POPULATION, HAS BEEN CONFIRMED THE DECISION THRESHOLD FOR [place] DIAGNOSIS. Performed By: #### H STROPN #### [facility] [address] [place] [address] Dr. Rigoberto Ivy HSTROP 10.3 pg/mL Normal 4.0-35.5 [facility] Comment on above: Result Comment: CUT- OFF POINTS HAVE BEEN ESTABLISHED BASED ON THE FOURTH UNIVERSAL DEFINITIONS OF MYOCARDIAL INFARCTION. THE UPPER REFERENCE LIMIT (URL) OF TROPONIN, DEFINED THE 99TH PERCENTILE OF cTnI DISTRIBUTION IN A REFERENCE POPULATION, HAS BEEN CONFIRMED THE DECISION THRESHOLD FOR [place] DIAGNOSIS. Performed By: #### C MP, BNP, HSTROPN #### [facility] [address] [place] [address] Dr. Rigoberto Ivy URINE MICROSCOPIC ONLYon BACTERIA TRACE Abnormal NONE SEEN [facility] Comment on above: Performed By: #### H STROPN #### [facility] [address] [place] [address] Dr. Rigoberto Ivy Bacteria identified Cx Nom (U) INDICATED Normal [facility] Comment on above: Performed By: #### H STROPN #### [facility] [address] [place] [address] Dr. Rigoberto Ivy CAST NONE SEEN Normal NONE SEEN [facility] Comment on above: Performed By: #### H STROPN #### [facility] [address] [place] [address] Dr. Rigoberto Ivy Crystals LM Nom (Urine sed) NONE SEEN Normal NONE SEEN [facility] Comment on above: Performed By: #### H STROPN #### [facility] [address] [place] [address] Dr. Rigoberto Ivy Epithelial cells LM Ql (Urine sed) RARE Normal NONE SEEN /RARE [facility] Comment on above: Performed By: #### H STROPN #### [facility] [address] [address] [address] Rigoberto Ivy MUCOUS TRACE Abnormal NONE SEEN [facility] Comment on above: Performed By: #### H STROPN #### [facility] [address] [address] [address] Rigoberto Ivy RBC NONE SEEN Abnormal 0-2 [facility] Comment on above: Performed By: #### H STROPN #### [facility] [address] [address] [address] Rigoberto Ivy WBC 0-2 Abnormal NONE SEEN [facility] Comment on above: Performed By: #### H STROPN #### [facility] [address] [address] [address] Rigoberto Ivy XR CHEST 1 Von [...] JAMIE OWEN Date: 2021-11-05 13:01 Normal [facility] VIT D 25-OH [facility] 2020 Vitamin D, 25-Hydroxy 44.1 ng/mL Normal 30.0-100.0 [facility] Comment on above: Result Comment: Shabnam min D deficiency has been defined by the [place] of Medicine and an Endocrine Society practice guideline as a level of serum 25-OH vitamin D less than 20 ng/mL (1,2). The Endocrine Society went on to further define vitamin D insufficiency as a level between 21 and 29 ng/mL (2). 1. IOM ([place] of Medicine). 2010. Dietary reference intakes for calcium and D. [place]: The National Academies Press. 2. Chiara HUMMEL, Cesilia COLLADO, Evans CALLAHAN, et al. Evaluation, treatment, and prevention of vitamin D deficiency: an Endocrine Society clinical practice guideline. JCEM. 2010; 96(7):1911-30. Performed By: #### C RP, CMP #### [facility] [address] [address] [address] Rigoberto Ivy CBC AUTO DIFFon 10-29-2021 BASO # 0.1 103/ul Normal 0.0-0.1 [facility] Comment on above: Performed By: #### C BC #### [facility] [address] [address] [address] Rigoberto Ivy Basophils/100 WBC (Bld) 0.8 % Normal 0.2-2.0 [facility] Comment on above: Performed By: #### C BC #### [facility] [address] [place] [address] Dr. Rigoberto Ivy EO # 0.1 103/ul Normal 0.0-0.7 [facility] Comment on above: Performed By: #### C BC #### [facility] [address] [address] [address] Rigoberto Ivy Eosinophils/100 WBC (Bld) 1.2 % Normal 0.9-7.0 [facility] Comment on above: Performed By: #### C BC #### [facility] [address] [place] [address] Dr. Rigoberto Ivy Erythrocyte distribution width (RBC) [Ratio] 15.2 % Critically high 11.0-15.0 [facility] Comment on above: Performed By: #### C BC #### [facility] [address] [place] [address] Dr. Rigoberto Ivy Hematocrit (Bld) [Volume fraction] 39.1 % Normal 36.0-48.0 [facility] Comment on above: Performed By: #### C BC #### [facility] [address] [place] [address] Dr. Rigoberto Ivy Hemoglobin (Bld) [Mass/Vol] 12.1 g/dL Normal 12.0-16.0 [facility] Comment on above: Performed By: #### C BC #### [facility] [address] [place] [address] Dr. Rigoberto Ivy IG # 0.03 10e3/ul Normal 0.00-0.03 [facility] Comment on above: Performed By: #### C BC #### [facility] [address] [place] [address] Dr. Rigoberto Ivy IG % 0.4 % Normal 0.0-0.5 [facility] Comment on above: Performed By: #### C BC #### [facility] [address] [place] [address] Dr. Rigoberto Ivy LYMPH # 2.7 103/ul Normal 1.2-3.8 [facility] Comment on above: Performed By: #### C BC #### [facility] [address] [place] [address] Dr. Rigoberto Ivy Lymphocytes/100 WBC (Bld) 35.1 % Normal 20.5-60.0 [facility] Comment on above: Performed By: #### C BC #### [facility] [address] [place] [address] Dr. Rigoberto Ivy MANUAL DIFF REQ NO Normal [facility] Comment on above: Performed By: #### C BC #### [facility] [address] [place] [address] Dr. Rigoberto Ivy MCH (RBC) [Entitic mass] 30.0 pg Normal 26.7-34.0 [facility] Comment on above: Performed By: #### C BC #### [facility] [address] [place] [address] Dr. Rigoberto Ivy MCHC (RBC) [Mass/Vol] 30.9 g/dL Normal 29.9-35.2 [facility] Comment on above: Performed By: #### C BC #### [facility] [address] [place] [address] Dr. Rigoberto Ivy MCV (RBC) [Entitic vol] 96.8 fL Normal 81.0-99.0 [facility] Comment on above: Performed By: #### C BC #### [facility] [address] [place] [address] Dr. Rigoberto Ivy MONO # 0.7 103/ul Normal 0.3-0.8 [facility] Comment on above: Performed By: #### C BC #### [facility] [address] [place] [address] Dr. Rigoberto Ivy Monocytes/100 WBC (Bld) 9.8 % Normal 1.7-12.0 [facility] Comment on above: Performed By: #### C BC #### [facility] [address] [place] [address] Dr. Rigoberto Ivy NEUT # 4.0 103/ul Normal 1.4-6.5 [facility] Comment on above: Performed By: #### C BC #### [facility] [address] [place] [address] Dr. Rigoberto Ivy Neutrophils/100 WBC (Bld) 52.7 % Normal 43.0-75.0 [facility] Comment on above: Performed By: #### C BC #### [facility] [address] [place] [address] Dr. Rigoberto Ivy Platelet mean volume (Bld) [Entitic vol] 11.1 fL Normal 9.5-13.5 [facility] Comment on above: Performed By: #### C BC #### [facility] [address] [place] [address] Dr. Rigoberto Ivy PLT 217 103/ul Normal 150-450 [facility] Comment on above: Performed By: #### C BC #### [facility] [address] [place] [address] Dr. Rigoberto Ivy RBC 4.04 106/ul Critically low 4.20-5.40 [facility] Comment on above: Performed By: #### C BC #### [facility] [address] [place] [address] Dr. Rigoberto Ivy WBC 7.6 103/ul Normal 4.0-11.0 [facility] Comment on above: Performed By: #### C BC #### [facility] [address] [place] [address] Dr. Rigoberto Ivy CRPon 10-29-2021 CRP [Mass/Vol] mg/L Normal <=1.0 [facility] Comment on above: Performed By: #### C RP, CMP #### [facility] [address] [place] [address] Dr. Rigoberto Ivy PROF 14(COMP METB)on 021 Albumin [Mass/Vol] 3.3 g/dL Critically low 3.5-5.0 [facility] Comment on above: Performed By: #### C RP, CMP #### [facility] [address] [place] [address] Dr. Rigoberto Ivy Albumin/Globulin [Mass ratio] 1.0 {ratio} Normal [facility] Comment on above: Performed By: #### C RP, CMP #### [facility] [address] [place] [address] Dr. Rigoberto Ivy ALP [Catalytic activity/Vol] 95 U/L Normal 38-126 [facility] Comment on above: Performed By: #### C RP, CMP #### [facility] [address] [place] [address] Dr. Rigoberto Ivy ALT [Catalytic activity/Vol] 31 U/L Normal 9-52 [facility] Comment on above: Performed By: #### C RP, CMP #### [facility] [address] [place] [address] Dr. Rigoberto Ivy Anion gap [Moles/Vol] 8.7 mmol/L Normal [facility] Comment on above: Performed By: #### C RP, CMP #### [facility] [address] [place] [address] Dr. Rigoberto Ivy AST [Catalytic activity/Vol] 23 U/L Normal 14-36 [facility] Comment on above: Performed By: #### C RP, CMP #### [facility] [address] [place] [address] Dr. Rigoberto Ivy Bilirubin [Mass/Vol] 0.5 mg/dL Normal 0.2-1.3 [facility] Comment on above: Performed By: #### C RP, CMP #### [facility] [address] [address] [address] Rigoberto Ivy Calcium [Mass/Vol] 9.5 mg/dL Normal 8.4-10.2 [facility] Comment on above: Performed By: #### C RP, CMP #### [facility] [address] [place] [address] Dr. Rigoberto Ivy Chloride [Moles/Vol] 103 mmol/L Normal 98-107 [facility] Comment on above: Performed By: #### C RP, CMP #### [facility] [address] [place] [address] Dr. Rigoberto Ivy CO2 [Moles/Vol] 33.6 mmol/L Critically high 22.0-30.0 [facility] Comment on above: Performed By: #### C RP, CMP #### [facility] [address] [place] [address] Dr. Rigoberto Ivy Creatinine [Mass/Vol] 0.58 mg/dL Normal 0.52-1.04 [facility] Comment on above: Performed By: #### C RP, CMP #### [facility] [address] [place] [address] Dr. Rigoberto Ivy EGFR-AF CAMBODIAN >60 Normal >=60 [facility] Comment on above: Performed By: #### C RP, CMP #### [facility] [address] [place] [address] Dr. Rigoberto Ivy EGFR-NON AF CAMBODIAN >60 Normal >=60 [facility] Comment on above: Performed By: #### C RP, CMP #### [facility] [address] [place] [address] Dr. Rigoberto Ivy Globulin (S) [Mass/Vol] 3.3 g/dL Normal [facility] Comment on above: Performed By: #### C RP, CMP #### [facility] [address] [place] [address] Dr. Rigoberto Ivy Glucose [Mass/Vol] 98 mg/dL Normal 74-106 [facility] Comment on above: Performed By: #### C RP, CMP #### [facility] [address] [place] [address] Dr. Rigoberto Ivy Potassium [Moles/Vol] 4.3 mmol/L Normal 3.4-5.0 [facility] Comment on above: Performed By: #### C RP, CMP #### [facility] [address] [place] [address] Dr. Rigoberto Ivy Protein [Mass/Vol] 6.6 g/dL Normal 6.1-8.2 [facility] Comment on above: Performed By: #### C RP, CMP #### [facility] [address] [address] [address] Rigoberto Ivy Sodium [Moles/Vol] 141 mmol/L Normal 137-145 [facility] Comment on above: Performed By: #### C RP, CMP #### [facility] [address] [place] [address] Dr. Rigoberto Ivy Urea nitrogen [Mass/Vol] 10.0 mg/dL Normal 7.0-17.0 [facility] Comment on above: Performed By: #### C RP, CMP #### [facility] [address] [place] [address] Dr. Rigoberto Ivy Urea nitrogen/Creatinine [Mass ratio] 17.2 mg/mg Normal [facility] Comment on above: Performed By: #### C RP, CMP #### [facility] [address] [place] [address] Dr. Rigoberto Ivy SED RATE [facility] 2020 SED RATE 27 mm/hr Normal <=30 [facility] Comment on above: Performed By: #### H STROPN #### [facility] [address] [place] [address] Dr. Rigoberto Ivy Coding Summary.on 04-21-2019 Coding Summary. CODING DATE: 04/21/2019 [facility] STATUS: Home (Routine DC) PAYOR: Medicare [...] result in slightly different terminology. Coded By: Monserrat Ramírez CphTdy Date Saved: 04/21/2019 12:54 pm Normal [facility] [place] Mamm Diag w/CAD if perf a [...] very important to your health. The current [employer] and National Comprehensive Cancer [...] Dale Wellington M.D. Transcribed by: SKYLAR Technologist: [facility] Assessment: BI-RADS Category 1-Negative Recommendation: Normal interval follow-up Normal [facility] Coding Summary.on 10-11-2018 Coding Summary. CODING DATE: 10/11/2018 FINAL [facility] STATUS: Home (Routine DC) PAYOR: Medicare [...] Ramírez CphT Date Saved: 10/11/2018 10:33 am [facility] Vital Signs Date Time Vital Sign Value Performing Clinician Facility 04-01-2024 11:23-0400 Body height 162.56 cm [facility] 04-01-2024 11:23-0400 Body mass index (BMI) [Ratio] 20.5 kg/m2 [facility] 04-01-2024 11:23-0400 Body weight 54.2 kg [facility] 04-01-2024 11:23-0400 Diastolic blood pressure 80 mm[Hg] [facility] 04-01-2024 11:23-0400 Heart rate 69 /min [facility] 04-01-2024 11:23-0400 Respiratory rate 12 /min [facility] 04-01-2024 11:23-0400 Systolic blood pressure 130 mm[Hg] [facility] 02-04-2024 09:39-0400 Body height 162.56 cm [facility] 02-04-2024 09:39-0400 Body mass index (BMI) [Ratio] 20.7 kg/m2 [facility] 02-04-2024 09:39-0400 Body weight 54.88 kg [facility] 02-04-2024 09:39-0400 Diastolic blood pressure 65 mm[Hg] [facility] 02-04-2024 09:39-0400 Heart rate 73 /min [facility] 02-04-2024 09:39-0400 Respiratory rate 12 /min [facility] 02-04-2024 09:39-0400 Systolic blood pressure 153 mm[Hg] [facility] 10-13-2023 10:30-0500 Body height 162.56 cm Melvin Ball Other [employer] Other 10-13-2023 10:30-0500 Body mass index (BMI) [Ratio] 21.45 kg/m2 Melvin Ball Other [employer] Other 10-13-2023 10:30-0500 Body weight 56.7 kg Melvin Ball Other [employer] Other 10-13-2023 10:30-0500 Diastolic blood pressure 80 mm[Hg] Melvin Ball Other [employer] Other 10-13-2023 10:30-0500 Respiratory rate 12 /min Melvin Ball Other [employer] Other 10-13-2023 10:30-0500 Systolic blood pressure 133 mm[Hg] Melvin Ball Other [employer] Other 08-27-2023 13:40-0400 Body height 162.56 cm Melvin Ball Other [employer] Other 08-27-2023 13:40-0400 Diastolic blood pressure 66 mm[Hg] Melvin Ball Other [employer] Other 08-27-2023 13:40-0400 Systolic blood pressure 147 mm[Hg] Melvin Ball Other [employer] Other 06-18-2023 16:20-0400 Diastolic blood pressure 57 mm[Hg] Melvin Ball Other [employer] Other 06-18-2023 16:20-0400 Systolic blood pressure 123 mm[Hg] Melvin Ball Other [employer] Other 06-16-2023 14:24-0400 Diastolic blood pressure 54 mm[Hg] Melvin Ball Other [employer] Other 06-16-2023 14:24-0400 Systolic blood pressure 147 mm[Hg] Melvin Ball Other [employer] Other 06-11-2023 14:25-0400 Diastolic blood pressure 62 mm[Hg] Melvin Ball Other [employer] Other 06-11-2023 14:25-0400 Systolic blood pressure 130 mm[Hg] Melvin Ball Other [employer] Other 06-11-2023 14:20-0400 Diastolic blood pressure 62 mm[Hg] Melvin Ball Other [employer] Other 06-11-2023 14:20-0400 Systolic blood pressure 125 mm[Hg] Melvin Ball Other [employer] Other 06-08-2023 11:30-0400 Body height 162.56 cm Melvin Ball Other [employer] Other 06-08-2023 11:30-0400 Body mass index (BMI) [Ratio] 22.76 kg/m2 Melvin Ball Other [employer] Other 06-08-2023 11:30-0400 Body weight 60.15 kg Melvin Ball Other [employer] Other 06-08-2023 11:30-0400 Diastolic blood pressure 67 mm[Hg] Mevlin Ball Other [employer] Other 06-08-2023 11:30-0400 Respiratory rate 12 /min Melvin Ball Other [employer] Other 06-08-2023 11:30-0400 Systolic blood pressure 155 mm[Hg] Melvin Ball Other [employer] Other 05-06-2023 10:45-0400 Body height 162.56 cm Melvin Ball Other [employer] Other 05-06-2023 10:45-0400 Body mass index (BMI) [Ratio] 22.76 kg/m2 Melvin Ball Other [employer] Other 05-06-2023 10:45-0400 Body weight 60.15 kg Melvin Ball Other [employer] Other 05-06-2023 10:45-0400 Diastolic blood pressure 76 mm[Hg] Melvin Ball Other [employer] Other 05-06-2023 10:45-0400 Respiratory rate 12 /min Melvin Ball Other [employer] Other 05-06-2023 10:45-0400 Systolic blood pressure 160 mm[Hg] Melvin Ball Other [employer] Other Encounters Encounter Date Encounter Type Care Provider Facility Start: 04-01-2024 End: 04-01-2024 ambulatory [facility] Work Phone: Start: 04-01-2024 End: 04-01-2024 Patient encounter procedure [facility] Work Phone: Start: 02-04-2024 End: 02-04-2024 ambulatory [facility] Work Phone: Start: 02-04-2024 End: 02-04-2024 Patient encounter procedure [facility] Work Phone: Start: 12-16-2023 Non-patient / Non-visit [facility] [employer] Work Phone: Start: 11-16-2023 End: 11-16-2023 ambulatory DELROY TENA Not Available Start: 10-13-2023 End: 10-13-2023 ambulatory Melvin Ball Other [employer] Other Start: 10-13-2023 Office outpatient vi sit 25 minutes Melvin Randall [facility] Start: 09-29-2023 End: 09-29-2023 ambulatory DELROY TENA Not Available Start: 08-27-2023 End: 08-27-2023 ambulatory Melvin Ball Other [employer] Other Start: 08-27-2023 Telephone encounter Melvin Ball [facility] Start: 08-21-2023 End: 08-21-2023 ambulatory Melvin Ball Other [employer] Other Start: 08-21-2023 Telephone encounter Melvin Ball [facility] Start: 08-14-2023 End: 08-14-2023 ambulatory Melvin Ball Other [employer] Other Start: 08-14-2023 Telephone encounter Melvin Ball [facility] Start: 08-10-2023 End: 08-10-2023 ambulatory Melvin Ball Other [employer] Other Start: 08-10-2023 Telephone encounter Melvin Ball [facility] Start: 07-24-2023 End: 07-24-2023 ambulatory Melvin Ball Other [employer] Other Start: 07-24-2023 Telephone encounter Melvin Ball [facility] Start: 07-23-2023 End: 07-23-2023 ambulatory Melvin Ball Other [employer] Other Start: 07-23-2023 Nursing evaluation o f patient and report Melvin Ball [facility] Start: 07-17-2023 End: 07-17-2023 ambulatory Melvin Ball Other [employer] Other Start: 07-17-2023 Telephone encounter Melvin Ball [facility] Start: 06-29-2023 End: 06-29-2023 ambulatory Melvin Ball Other [employer] Other Start: 06-29-2023 Telephone encounter Melvin Ball [facility] Start: 06-18-2023 End: 06-18-2023 ambulatory Melvin Ball Other [employer] Other Start: 06-18-2023 Telephone encounter Melvin Ball [facility] Start: 06-16-2023 End: 06-16-2023 ambulatory Emlvin Ball Other [employer] Other Start: 06-16-2023 Telephone encounter Melvin Ball [facility] Start: 06-11-2023 End: 06-11-2023 ambulatory Melvin Ball Other [employer] Other Start: 06-11-2023 Telephone encounter Melvin Ball [facility] Start: 06-08-2023 End: 06-08-2023 ambulatory Melvin Ball Other [employer] Other Start: 06-08-2023 Patient encounter procedure Melvin Randall [facility] Start: 06-05-2023 End: 06-05-2023 ambulatory Melvin Ball Other [employer] Other Start: 06-05-2023 Telephone encounter Melvin Ball [facility] Start: 05-29-2023 End: 05-29-2023 ambulatory Melvin Ball Other [employer] Other Start: 05-29-2023 Telephone encounter Melvin Ball [facility] Start: 05-18-2023 End: 05-18-2023 ambulatory Melvin Ball Other [employer] Other Start: 05-18-2023 Telephone encounter Melvin Ball [facility] Start: 05-14-2023 End: 05-14-2023 ambulatory Melvin Ball Other [employer] Other Start: 05-14-2023 Telephone encounter Melvin Pereira [facility] Start: 05-11-2023 End: 05-11-2023 ambulatory Melvin Pereira Other [employer] Other Start: 05-11-2023 Telephone encounter [facility]vin JACOBSON [facility] Start: 05-08-2023 End: 05-08-2023 ambulatory Melvin Pereira Other [employer] Other Start: 05-08-2023 Telephone encounter Melvin Pereira [facility] Start: 05-06-2023 End: 05-06-2023 ambulatory Melvin Pereira Other [employer] Other Start: 05-06-2023 Office outpatient vi sit 25 minutes Melvin Pereira [facility] Start: 07-16-2022 End: 07-17-[address] MELVIN PEREIRA Facility:[facility] Start: 07-04-2022 End: 07-05-[address] MELVIN PEREIRA Facility:[facility] Start: 06-30-2022 Adult health examination Melvin Randall Other [employer] Other Start: 03-14-2022 End: 03-15-[address] NOAM ARMANDO Facility:[facility] Start: 11-05-2021 End: 11-05-2021 ambulatory CARITO WELLS Facility:[facility] Start: 10-29-2021 End: 10-30-[address] NOAM ARMANDO Facility:[facility] Procedures Date Procedure Procedure Detail Performing Clinician Start: 08-10-2017 Diabetes mellitus screening Melvin Randall Other Start: 09-07-2015 Screening for malign ant neoplasm of colon Melvin Pereira Other Depression screening Celiabarrett Pereira Other Screening for malign ant neoplasm of breast Melvin Randall Other Plan of Treatment Date Care Activity Detail Author MRA Head vessels WO contrast [facility] US Heart Transthoracic [facility] US.doppler Carotid arteries - bilateral [facility] Immunizations Immunization Date Immunization Notes Care Provider Fa david 07-23-2023 influenza virus vaccine, unspecified formulation [facility] 07-23-2023 influenza, high dose seasonal, preservative-free Melvin Pereira Other [employer] Other 07-18-2022 influenza virus vaccine, split virus (incl. purified surface antigen) Melvin Pereira Other [employer] Other 07-18-2022 influenza virus vaccine, unspecified formulation [facility] 07-18-2022 influenza, high dose seasonal, preservative-free Melvin Pereira Other [employer] Other 07-18-2021 influenza virus vaccine, split virus (incl. purified surface antigen) Melvin Pereira Other [employer] Other 07-18-2021 influenza virus vaccine, unspecified formulation [facility] 04-08-2021 diphtheria, tetanus toxoids and acellular pertussis vaccine, unspecified formulation Melvin Pereira Other [facility] 07-27-2020 influenza virus vaccine, split virus (incl. purified surface antigen) Melvin Pereira Other [employer] Other 07-27-2020 influenza virus vaccine, unspecified formulation [facility] 07-26-2019 influenza virus vaccine, split virus (incl. purified surface antigen) Melvin Pereira Other [employer] Other 07-26-2019 influenza virus vaccine, unspecified formulation [facility] 09-07-2018 pneumococcal polysaccharide vaccine, 23 valent Melvin Pereira Other [facility] 08-16-2018 influenza virus vaccine, split virus (incl. purified surface antigen) Melvin Pereira Other [employer] Other 08-16-2018 influenza virus vaccine, unspecified formulation [facility] 08-10-2017 pneumococcal conjuga te vaccine, 13 valent Melvin Pereira Other [facility] 07-21-2017 influenza virus vaccine, split virus (incl. purified surface antigen) Melvin Pereira Other [employer] Other 07-21-2017 influenza virus vaccine, unspecified formulation [facility] Payers Date Payer Category Payer Medicare [id number] 1959 Unknown [id number] 1935 Unknown [id number] 2.16.84 [id number] 1935 Unknown [id number] 2.16.84 [id number] 1935 Unknown [id number] 2.16.84 [id number] 1935 Unknown [id number] 2.16.84 [id number] 1935 Unknown [id number] 2.16.84 [id number] 1935 Unknown [id number] 2.16.84 [id number] 1935 Unknown [id number] Self-pay Self Pay [id number] Unknown Other1 (STD) [id number] Social History Date Type Detail Facility Sex Assigned At [facility] [employer] Other Start: 1935 Sex Assigned At Female F [facility] Evaluation note 10-13-2023 Note Date & [...] monitor for pain, distention, melena or hematochezia. [employer] Other Evaluation note 08-10-2023 Note Date & Type Note Facility 08-10-2023 Evaluation note Encounter Date Diagnosis Assessment Notes Aug, COVID (ICD-10 - U07.1) [employer] Other Evaluation note 06-11-2023 Note Date & Type Note Facility 06-11-2023 Evaluation note Encounter Date Diagnosis Assessment Notes Jun, Primary hypertension (ICD-10 - I10) [employer] Other Evaluation note 06-08-2023 Note Date & [...] and Vit D supplements. Weight bearing exercises [employer] Other Evaluation note 05-08-2023 Note Date & Type Note Facility 05-08-2023 Evaluation note Encounter Date Diagnosis Assessment Notes May, Primary hypertension (ICD-10 - I10) [employer] Other Evaluation note 05-06-2023 Note Date & [...] mammogram for breast cancer (ICD-10 - Z12.31) [employer] Other Evaluation note Note Date & Type Note Facility Evaluation note No Information [employer] Other Evaluation note Note Date & Type Note Facility Evaluation note Diagnosis Onset Date Chronic venous insufficiency of lower extremity acute GERD (gastroesophageal reflux disease) acute Hypertension acute Lumbar spondylosis acute Osteopenia acute Rheumatoid arthritis [facility] Work Phone: Evaluation note Note Date & Type Note Facility Evaluation note Diagnosis Onset Date Aphasia acute Chronic venous insufficiency of lower extremity acute GERD (gastroesophageal reflux disease) acute Hypertension acute Lumbar spondylosis acute Osteopenia acute Rheumatoid arthritis acute TIA (transient ischemic attack) acute Cerebral atherosclerosis acu te Chronic venous insufficiency of lower extremity acute Hypertension acute [facility] Work Phone: History general Narrative - [...] with esophagitis without hemorrhage Surgical History CHOLECYSTECTOMY 2003 Surgical History URETHRAL POLYP EXCISED 2004 Hospitalization History SEE SURGICAL HX [employer] Other Summary Purpose Family History Relationship Condition [...] disease) Hypertension Lumbar spondylosis Osteopenia Rheumatoid arthritis Chief Complaint 4 month follow up 1 month follow up Reason for Visit Aphasia Chronic venous insufficiency of lower extremity GERD (gastroesophageal reflux disease) Hypertension Lumbar spondylosis Osteopenia Rheumatoid arthritis TIA (transient ischemic attack) Cerebral atherosclerosis Chronic venous insufficiency of lower extremity Hypertension Additional Source Comments INFORMATION SOURCE (unrecogn ized section and content) DATE CREATED AUTHOR 04/21/[address] [facility] DATE CREATED AUTHOR AUTHOR'S ORGANIZ ATION 12/23/2021 [facility] DATE CREATED AUTHOR AUTHOR'S ORGANIZ ATION 07/30/2022 [facility] DATE CREATED AUTHOR AUTHOR'S ORGANIZ ATION 11/17/2023 [facility] EPIC REASON FOR VISIT (unrecogniz ed section and content) SOBBP ReadingsLab ResultsBP ReadingsBP readingsBP ReadingsBP ReadingsBP/HR ReadingsMWENo InformationBP readingBP readingBP/ HR ReadingsBP readingBP ReadingsBP readingsFLU ShotDEXA resultsCOVID +RefillBP readingsBP check4 month Follow up Care Teams (unrecognized sec tion and content) Team Status: Active Member Role Status Dates Melvin Pereira DO Primary Care Provider Active Team Status: Inactive Member Role Status Dates Melvin Pereira DO Primary Care Provide r, Attending Provider Active Start: February 04, 2024 End: February 04, 2024 Team Status: Inactive Member Role Status Dates Melvin Pereira DO Primary Care Provide r, Attending Provider Active Start: April 01, 2024 End: April 01, 2024 Team Status: Active Member Role Status Dates Melvin Pereira DO Primary Care Provider Active Team Status: Active Member Role Status Dates Melvin Pereira DO Primary Care Provide r, Attending Provider Active Start: December 16, 2023 Team Status: Inactive Member Role Status Dates Melvin Pereira DO Primary Care Provide r, Attending Provider Active Start: February 04, 2024 End: February 04, 2024 Team Status: Inactive Member Role Status Dates Melvin Pereira , DO Primary Care Provide r, Attending Provider Active Start: April 01, 2024 End: April 01, 2024 Goals (unrecognized section and content) Goals [...] CLINICAL RECORDS. [facility] [employer] [facility]. provides no warranty or guarantee of the accuracy or completeness of information in this document.
[2024-04-18 08:00] LABS: Basophils Absolute Auto 0.1 10^3/uL (0.0-0.1); Basophils Percent Auto 0.9 % (0.2-2.0); Eosinophils Absolute Auto 0.7 10^3/uL (0.0-0.7); Hematocrit 36.6 % (36.0-48.0); Hemoglobin 11.2 g/dL (12.0-16.0); Immature Granulocytes Abs Auto 0.01 10^3/uL (0.00-0.03); Immature Granulocytes Pct Auto 0.1 % (0.0-0.5); Lymphocytes Absolute Auto 2.3 10^3/uL (1.2-3.8); Mean Corpuscular HGB Conc 30.6 g/dL (29.9-35.2); Mean Corpuscular Hemoglobin 29.9 pg (26.7-34.0); Mean Corpuscular Volume 97.9 fL (81.0-99.0); Mean Platelet Volume 12.6 fL (9.5-13.5); Monocytes Absolute Auto 0.9 10^3/uL (0.3-0.8); Monocytes Percent Auto 9.7 % (1.7-12.0); Neutrophils Absolute Auto 5.1 10^3/uL (1.4-6.5); Neutrophils Percent Auto 56.3 % (43.0-75.0); Platelet Count 165 10^3/uL (150-450); Red Blood Count 3.74 10^6/uL (4.20-5.40); Red Cell Distribution Width 15.6 % (11.0-15.0)
[2024-04-18 08:17] LABS: Erythrocyte Sedimentation Rate 66 mm/hr (<=30)
[2024-04-18 08:20] LABS: Alanine Aminotransferase 174 U/L (14-59); Albumin Globulin Ratio 0.8; Alkaline Phosphatase 983 U/L (46-116); Aspartate Amino Transferase 149 U/L (15-37); Bilirubin Total 1.6 mg/dL (0.2-1.0); Calcium 9.2 mg/dL (8.5-10.1); Carbon Dioxide 31.5 mmol/L (21.0-32.0); Chloride 105 mmol/L (98-107); Estimated GFR (African America >60 (>=60); Estimated GFR (Non-African Ame >60 (>=60); Globulin 3.9 g/dL; Glucose 154 mg/dL (74-106); Potassium 3.5 mmol/L (3.5-5.1); Sodium 143 mmol/L (136-145); Total Protein 6.9 g/dL (6.4-8.2)
== END 2024-04-18 07:40 | disposition home or self-care (01) ==
LOC: LAB 07:40
PROVIDERS: PCP Internal Medicine; Visit Provider Internal Medicine Rheumatology
DX: M05.79 Rheumatoid arthritis with rheumatoid factor of multiple sites without organ or systems involvement (principal); Z79.899 Other long term (current) drug therapy
CPT/HCPCS: 36415; 80053; 85025; 85652

== ENCOUNTER 2024-05-02 07:14 | Outpatient (OUT) | payer MEDICARE, OTHER, SELFPAY ==
--- OUTSIDE RECORDS SUMMARY | 2024-05-02 07:18 | XMS_ITS ---
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 Name Role Phone TR, DR SANTACRUZ Admitting Unavailable ARMANDO, DR SANTACRUZ Attending Unavailable ARMANDO, DR SANTACRUZ Consulting Unavailable BALL, DR ALBERTO Primary Care Unavailable PRISCILLA, CARITO Attending Unavailable PRISCILLA, CARITO Admitting Unavailable ZIEBER, DR JAMIE Cruz Consulting Unavailable BALL, DR ALBERTO Primary Care Unavailable PRISCILLA, CARITO Consulting Unavailable ARMANDO, DR SANTACRUZ Admitting Unavailable ARMANDO, DR SANTACRUZ Attending Unavailable ARMANDO, DR SANTACRUZ Consulting Unavailable BALL, DR ALBETRO Primary Care Unavailable RANDALL, DR ALBERTO Attending Unavailable BALL, DR ALBERTO Consulting Unavailable RANDALL, DR ALBERTO Primary Care Unavailable RANDALL, DR ALBERTO Admitting Unavailable WEST, DR MARIA E Briceno Consulting Unavailable RANDALL, DR ALBERTO Admitting Unavailable RANDALL, DR ALBERTO Attending Unavailable BALL, DR ALBERTO Consulting Unavailable RANDALL, DR ALBERTO Primary Care Unavailable AILYN, DR JAMIE Cruz Consulting Unavailable Melvin Pereira Unavailable DELROY TENA Attending Unavailable DELROY TENA Attending Unavailable DO Melvin Pereira Primary Care Provider MD Bryan Briggs Attending Provider Melvin Pereira Primary Care Unavailable Bryan Briggs Attending Unavailable Bryan Briggs Admitting Unavailable Allergies Allergy Classification Reported Allergen(s) Allergy Type Date of Onset Reaction(s) Facility (20 sources) [facility] Drug Allergy Unknown Appifier Other (1 source) patient allergy list reviewed by nurse or physicia Propensity to adverse reactions 9 Comment:Done Appifier Other (1 source) tra[facility] Drug Allergy 4 [facility] Repository Encounters Encounter Date Encounter Type Care Provider Facility Start: 04-28-2024 End: 04-28-2024 ambulatory DO Melvin Pereira Work Phone: [facility] Work Phone: Start: 04-28-2024 End: 04-28-2024 Patient encounter procedure DO Melvin Pereira Work Phone: [facility] [place] Work Phone: Start: 04-18-2024 Non-patient / Non-visit DO Tom Pereira Work Phone: [facility] Physician [facility] Work Phone: Start: 04-01-2024 End: 04-01-2024 ambulatory [facility] Work Phone: Start: 04-01-2024 End: 04-01-2024 Patient encounter procedure [facility] Phys[facility] Work Phone: Start: 02-04-2024 End: 02-04-2024 ambulatory [facility] Work Phone: Start: 02-04-2024 End: 02-04-2024 Patient encounter procedure [facility] Physician [facility] Work Phone: Start: 12-16-2023 Non-patient / Non-visit [facility] Physician [facility] Work Phone: Start: 11-16-2023 End: 11-16-2023 ambulatory DELROY TENA Not Available Start: 10-13-2023 End: 10-13-2023 ambulatory Melvin Pereira Other Appifier Other Start: 10-13-2023 Office outpatient vi sit 25 minutes Melvin Pereira [facility] Start: 09-29-2023 End: 09-29-2023 ambulatory DELROYDESTINEY TENA Not Available Start: 08-27-2023 End: 08-27-2023 ambulatory Melvin Pereira Other Appifier Other Start: 08-27-2023 Telephone encounter Melvin Pereira [facility] Start: 08-21-2023 End: 08-21-2023 ambulatory Melvin Ball Other Appifier Other Start: 08-21-2023 Telephone encounter Melvin Pereira [facility] Start: 08-14-2023 End: 08-14-2023 ambulatory Melvin Ball Other Appifier Other Start: 08-14-2023 Telephone encounter Melvin Ball [facility] Start: 08-10-2023 End: 08-10-2023 ambulatory Melvin Ball Other Appifier Other Start: 08-10-2023 Telephone encounter Melvin Ball [facility] Start: 07-24-2023 End: 07-24-2023 ambulatory Melvin Ball Other Appifier Other Start: 07-24-2023 Telephone encounter Melvin Ball [facility] Start: 07-23-2023 End: 07-23-2023 ambulatory Melvin Ball Other Appifier Other Start: 07-23-2023 Nursing evaluation o f patient and report Melvin Pereira [facility] Start: 07-17-2023 End: 07-17-2023 ambulatory Melvin Randall Other Appifier Other Start: 07-17-2023 Telephone encounter Melvin Ball [facility] Start: 06-29-2023 End: 06-29-2023 ambulatory Melvin Ball Other Appifier Other Start: 06-29-2023 Telephone encounter Melvin Ball [facility] Start: 06-18-2023 End: 06-18-2023 ambulatory Melvin Ball Other Appifier Other Start: 06-18-2023 Telephone encounter Melvin Ball [facility] Start: 06-16-2023 End: 06-16-2023 ambulatory Melvin Ball Other Appifier Other Start: 06-16-2023 Telephone encounter Melvin Ball [facility] Start: 06-11-2023 End: 06-11-2023 ambulatory Melvin Ball Other Appifier Other Start: 06-11-2023 Telephone encounter Melvin Ball [facility] Start: 06-08-2023 End: 06-08-2023 ambulatory Melvin Ball Other Appifier Other Start: 06-08-2023 Patient encounter procedure Melvin Ball [facility] Start: 06-05-2023 End: 06-05-2023 ambulatory Melvin Ball Other Appifier Other Start: 06-05-2023 Telephone encounter Melvin Ball [facility] Start: 05-29-2023 End: 05-29-2023 ambulatory Melvin Ball Other Appifier Other Start: 05-29-2023 Telephone encounter Melvin Ball [facility] Start: 05-18-2023 End: 05-18-2023 ambulatory Melvin Ball Other Appifier Other Start: 05-18-2023 Telephone encounter Melvin Ball [facility] Start: 05-14-2023 End: 05-14-2023 ambulatory Melvin Ball Other Appifier Other Start: 05-14-2023 Telephone encounter Melvin Ball [facility] Start: 05-11-2023 End: 05-11-2023 ambulatory Melvin Ball Other Appifier Other Start: 05-11-2023 Telephone encounter Melvin Ball [facility] Start: 05-08-2023 End: 05-08-2023 ambulatory Melvin Ball Other Appifier Other Start: 05-08-2023 Telephone encounter Melvin Pereira [facility] Start: 05-06-2023 End: 05-06-2023 ambulatory Melvin Pereira Other Appifier Other Start: 05-06-2023 Office outpatient vi sit 25 minutes [facility] Start: 07-16-2022 End: 07-17-[address] MELVIN PEREIRA Facility:[facility] Start: 07-04-2022 End: 07-05-[address] MELVIN PEREIRA Facility:[facility] Start: 06-30-2022 Adult health examination Melvin Pereira Other Appifier Other Start: 03-14-2022 End: 03-15-[address] NOAM ARMANDO Facility:[facility] Start: 11-05-2021 End: 11-05-2021 ambulatory CARITO WELLS Facility:[facility] Start: 10-29-2021 End: 10-30-[address] NOAM ARMANDO Facility:[facility] Immunizations Immunization Date Immunization Notes Care Provider Fa cility 07-23-2023 influenza virus vaccine, unspecified formulation [facility] 07-23-2023 influenza, high dose seasonal, preservative-free Melvin Pereira Other Appifier Other 07-18-2022 influenza virus vaccine, split virus (incl. purified surface antigen) Melvin Pereira Other App[employer] Other 07-18-2022 influenza virus vaccine, unspecified formulation [facility] 07-18-2022 influenza, high dose seasonal, preservative-free Melvin Pereira Other [employer] Other 07-18-2021 influenza virus vaccine, split virus (incl. purified surface antigen) Melvin Pereira Other [employer] Other 07-18-2021 influenza virus vaccine, unspecified formulation [facility] 04-08-2021 diphtheria, tetanus toxoids and acellular pertussis vaccine, unspecified formulation Melvin Pereira Other [facility] 07-27-2020 influenza virus vaccine, split virus (incl. purified surface antigen) Melvin Pereira Other [employer] Other 07-27-2020 influenza virus vaccine, unspecified formulation [facility] 07-26-2019 influenza virus vaccine, split virus (incl. purified surface antigen) Melvin Pereira Other [employer] Other 07-26-2019 influenza virus vaccine, unspecified formulation [facility] 09-07-2018 pneumococcal polysaccharide vaccine, 23 valent Melvin Pereira Other [facility] 08-16-2018 influenza virus vaccine, split virus (incl. purified surface antigen) Melvin Pereira Other [facility] [employer] Other 08-16-2018 influenza virus vaccine, unspecified formulation [facility] 08-10-2017 pneumococcal conjuga te vaccine, 13 valent Melvin Pereira Other [facility] 07-21-2017 influenza virus vaccine, split virus (incl. purified surface antigen) Melvin Pereira Other [facility] [employer] Other 07-21-2017 influenza virus vaccine, unspecified formulation [facility] Medications Current Medications Medication Drug Class(es) Dates Sig (Normalized) Sig (Original) ascorbic acid 113 mg / beta carotene 7160 mg / cuprous oxide 0.4 mg / dl-alpha tocopheryl acetate 100 unt / zinc oxide 17.4 mg oral tablet (4 sources) Vitamin C Start: 02-03-2024 Vitamins A,C,T-Uxhi-Vbeimc (Preservision Areds) 2,148 mcg-113 mg-45 mg-17.4mg tablet Active TAB PO As Directed February 03, 2024 12:00am Preservision PreserVision ARE DS - as directed Orally Active atorvastatin 80 mg oral tablet (2 sources) HMG-CoA Reductase Inhibitor Start: 02-05-2024 take 80 mg by mouth once daily Atorvastatin Active 80 MG PO Daily February 05, 2024 12:00am calcium carbonate 1500 mg / cholecalciferol 800 unt chewable tablet (3 sources) Vitamin D Start: 02-03-2024 Calcium Carbonate-Vitami [...] day Active Cyclosporine (Restasis) 0.05 % dropperette (3 sources) Start: 02-03-2024 take 1 drop(s) into the eye(s) every twelve hours Cyclosporine (Restasis) 0.05 % dropperette Active 1 DROPS EYE-BOTH Every 12 hours February 03, 2024 12:00am Dextran 70 / Glycerin / hypromellose (1 source) Plasma Volume Blanket Winder Operator, Non-Standardized Chemical Allergen GenTeal Tears 0.1-0.3 % as directed Ophthalmic Active dextran 70 1 mg/ml / hypromellose 3 mg/ml ophthalmic solution (3 sources) Plasma Volume Blanket Winder Operator Start: 02-03-2024 take 0.1-0.3 drop(s) into the [...] 1 tablet Orally Once a day Active Multivitamin preparation (4 sources) Start: 02-03-2024 take 1 tablet by mouth once daily Multivitamin Active 1 TAB PO Daily February 03, 2024 12:00am take 1 tablet by mouth once joanie y Multivitamin - 1 tablet Orally Once a day Active olmesartan medoxomil 5 mg oral tablet (20 sources) Angiotensin 2 Receptor Norm Start: 04-01-2024 End: 04-06-2024 Olmesartan Active 5 MG PO Twice daily 60 April 06, 2024 6:21pm 5mg q am and extra 5mg at evening meal if BP > 140/90 Start: 02-04-2024 End: 04-01-2024 take 10 mg [...] Sig (Original) amLODIPine 5 mg oral tablet (12 sources) Dihydropyridine Calcium Channel Norm Start: 02-03-2024 [...] as needed Orally Twice a day Not-Taking/PRN methotrexate 2.5 mg oral tablet (20 sources) Folate Analog Metabolic Inhibitor Start: End: take 6 tablets by mouth every week Methotrexate Sodium Discontinued 0 PO every week February 03, 2024 12:00am April 28, 2024 11:13am 6 Tablets orally every week; Methotrexate 2.5 MG as directed Orally 6 weekly Active paxlovid (300/100) 20 x 150 mg & 10 x 100mg tablet therapy pack (1 source) Start: 08-10-2023 take 3 tablets by mouth every twelve hours Paxlovid (300/100) 20 x 150 MG & 10 x 100MG 3 tablets Orally Twice a day for 5 days Aug, Not-Taking/PRN Payers Date Payer Category Payer Self-pay [id number] 1959 Medicare [id number] 1959 Unknown [id number] 1935 Unknown [id number] 2.16.84 [id number] 1935 Unknown [id number] 2.16.84 [id number] 1935 Unknown [id number] 2.16.84 [id number] 1935 Unknown [id number] 2.16.84 [id number] 1935 Unknown [id number] 2.16.84 [id number] 1935 Unknown [id number] 2.16.84 [id number] 1935 Unknown [id number] Unknown Other1 (STD) [id number] Unknown [id number] [id number] Plan of Treatment Date Care Activity Detail Author Start: 04-28-2024 [facility] Endomysial antibody IgA level [facility] Gliadin peptide IgA Ab [Units/volume] in Serum [facility] Gliadin peptide IgG Ab [Units/volume] in Serum [facility] IgA [Mass/volume] in Serum or Plasma [facility] MRA Head vessels WO contrast [facility] Tissue transglutamin ase IgA Ab [Units/volume] in Serum [facility] Tissue transglutamin ase IgG Ab [Units/volume] in Serum [facility] US Heart Transthoracic [facility] Liver [facility] US.doppler Carotid a rteries - bilateral [facility] Problems Active Problems Problem Classification Problem Date Documented Da te Episodic/Chronic Anxiety disorders (20 sources) Panic disorder; Translations: [Panic disorder [episodic paroxysmal anxiety]] 02-03-2024 Chronic Calculus of urinary tract (16 sources) H/O: urinary stone; Translations: [Personal history of urinary calculi] Episodic Esophageal disorders (17 sources) Gastro-esophageal reflux disease with esophagitis; Translations: [...] 10-29-2021 Chronic Other and ill-defined cerebrovascular disease (2 sources) Cerebral atherosclerosis; Translations: [Cerebral atherosclerosis] 03-30-2024 Chronic Other and ill-defined cerebrovascular disease (2 sources) Cerebral atherosclerosis; Translations: [Cerebral atherosclerosis] 04-01-2024 Chronic Other bone disease and musculoskeletal deformities (20 sources) Other specified disorders of bone density and structure, other site; 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] Episodic Other bone disease and musculoskeletal deformities (16 sources) Disorder of bone; Translations: [Other specified disorders of bone density and structure, other site] Episodic Other bone disease and musculoskeletal deformities (3 sources) Osteopenia; Translations: [Other specified disorders of bone density and structure, unspecified site] 02-03-2024 Episodic Other bone disease and musculoskeletal deformities (3 sources) Other specified disorders of bone density [...] Episodic Other diseases of veins and lymphatics (8 sources) Venous insufficiency (chronic) (peripheral); Translations: [Venous (peripheral) insufficiency, unspecified] Episodic Other diseases of veins and lymphatics (3 sources) Venous insufficiency of leg; Translations: [Venous insufficiency (chronic) (peripheral)] 02-03-2024 Episodic Other gastrointestinal disorders (4 sources) Slow transit constipation; Translations: [Slow transit constipation] 02-03-2024 Episodic Other gastrointestinal disorders (1 source) Slow transit constipation Episodic Other injuries and conditions due to external causes (16 sources) History of fall; Translations: [History of falling] Episodic Other liver diseases (1 source) Elevated liver enzymes level; Translations: [Abnormal levels of other serum enzymes] 04-28-2024 Episodic Other liver diseases (2 sources) Abnormal levels of other serum enzymes; Translations: [Other nonspecific abnormal serum enzyme levels] Onset: 04-28-2024 04-28-2024 Episodic Other nervous system disorders (16 sources) Carpal tunnel syndrome; Translations: [Carpal tunnel syndrome, right upper limb] Chronic Other nervous system disorders (3 sources) Aphasia; Translations: [Aphasia] 02-04-2024 Chronic Other nervous system disorders (2 sources) Aphasia; Translations: [Aphasia] 02-04-2024 Chronic Other nutritional; [...] back pain, unspecified] Episodic Transient cerebral ischemia (6 sources) Transient cerebral ischemia; Translations: [Transient cerebral [...] 08-10-2017 Episodic Other aftercare (1 source) Other [facility] (current) drug therapy; Translations: [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 DRUG THERAPY] Onset: 03-19-2022 Episodic Other aftercare (1 source) senior living (current) use of aspirin; Translations: [HALFWAY CURRENT USE OF ASPIRIN] Onset: 11-09-2021 Episodic [...] 01-28-2019 Episodic Viral infection (1 source) COVID-19 Procedures Date Procedure Procedure Detail Performing Clinician Start: 08-10-2017 Diabetes mellitus screening Melvin Pereira Other Start: 09-07-2015 Screening for malign ant neoplasm of colon Melvin Pereira Other Depression screening Valerie Pereira Other Screening for malign ant neoplasm of breast Melvin Pereira Other Results Test Name Value Interpretation Reference Range Facility Alanine aminotransferase [En zymatic activity/volume] in Serum or PlasmaOrdered By: Bryan Briggs on 04-28-2024 ALT [Catalytic activity/Vol] 82 U/L High 7-52 [facility] Comment on above: Performed By: #### H EPATIC, DIFF CBC #### [facility] [address] [place] [address] [place] #### CELIAC #### [facility] , Albumin [Mass/volume] in Ser um or Plasma by Bromocresol green (BCG) dye binding methoOrdered By: Imad Asaad on 04-28-2024 Albumin BCG dye [Mass/Vol] 4.0 g/dL 3.5-5.7 [facility] Alkaline phosphatase [Enzyma tic activity/volume] in Serum or PlasmaOrdered By: Imad Asaad on 04-28-2024 ALP [Catalytic activity/Vol] 890 U/L High 34-104 [facility] Comment on above: Result Comment: PERF ORMED BY: [place] [address] PATHOLOGIST NOCTURNIST PHYSICIAN GARRETT SELLERS M.D. Performed By: #### H EPATIC, DIFF CBC #### [address] #### CELIAC #### [facility] , Anisocytosis [Presence] in B lood by Light microscopyOrdered By: Imad Asaad on 04-28-2024 Anisocytosis Ql (Bld) Slight [facility] Comment on above: Performed By: #### H EPATIC, DIFF CBC #### [address] #### CELIAC #### [facility] , Aspartate aminotransferase [ Enzymatic activity/volume] in Serum or PlasmaOrdered By: Imad Asaad on 04-28-2024 AST [Catalytic activity/Vol] 82 U/L High 13-39 [facility] Comment on above: Performed By: #### H EPATIC, DIFF CBC #### [facility] [address] [place] [address] [place] #### CELIAC #### [facility] , Basophils Auto (Bld) [#/Vol] Ordered By: Imad Asaad on 04-28-2024 Basophils (Bld) [#/Vol] N/A [facility] Basophils/100 WBC Auto (Bld) Ordered By: Imad Asaad on 04-28-2024 Basophils/100 WBC (Bld) N/A [facility] Basophils/100 leukocytes in Blood by Manual countOrdered By: Imad Asaad on 04-28-2024 Basophils/100 WBC (Bld) 2 % Normal 0-2 [facility] Comment on above: Performed By: #### H EPATIC, DIFF CBC #### [facility] [address] [place] [address] [place] #### CELIAC #### [facility] , Bilirubin.direct [Mass/volum e] in Serum or PlasmaOrdered By: Imad Asaad on 04-28-2024 Bilirubin.direct [Mass/Vol] 0.30 mg/dL High 0.03-0.18 [facility] Bilirubin.total [Mass/volume ] in Serum or PlasmaOrdered By: Imad Asaad on 04-28-2024 Bilirubin [Mass/Vol] 1.1 mg/dL High 0.3-1.0 [facility] Comment on above: Performed By: #### H EPATIC, DIFF CBC #### [facility] [address] [place] [address] [place] #### CELIAC #### [facility] , [place] cells [Presence] in Blo od by Light microscopyOrdered By: Imad Asaad on 04-28-2024 [place] cells LM Ql (Bld) S[facility] Celiacon 04-28-2024 Deamidated Gliadin Abs, IgA 3 Normal 0-19 [facility] Comment on above: Result Comment: Nega tive 0 - 19 Weak Positive 20 - 30 Moderate to Strong Positive >30 Performed By: #### H EPATIC, DIFF CBC #### [facility] [address] [place] [address] [place] #### CELIAC #### [facility] , Deamidated Gliadin Abs, IgG 2 Normal 0-19 [facility] Comment on above: Result Comment: Nega tive 0 - 19 Weak Positive 20 - 30 Moderate to Strong Positive >30 Performed By: #### H EPATIC, DIFF CBC #### [place] [address] [place] #### CELIAC #### [facility] , Endomysial Antibody IgA Negative Normal Negative [facility] Comment on above: Performed By: #### H EPATIC, DIFF CBC #### [place] [address] [place] #### CELIAC #### [facility] , Immunoglobulin A, Qn, Serum 252 mg/dL Normal 64-422 [facility] Comment on above: Result Comment: Perf ormed at: - [facility] [address] [id number] Warp Spooler: Jung Cottrell PhD, Phone: [phone] PERFORMED BY: [place] [address] PATHOLOGIST NOCTURNIST PHYSICIAN GARRETT SELLERS M.D. Performed By: #### H EPATIC, DIFF CBC #### [place] [address] [place] #### CELIAC #### [facility] , T-Transglutaminase (tTG) IgA <2 Normal 0-3 [facility] Comment on above: Result Comment: Nega tive 0 - 3 Weak Positive 4 - 10 Positive >10 Tissue Transglutaminase (tTG) has been identified as the endomysial antigen. Studies have demonstr- ated that endomysial IgA antibodies have over 99% specificity for gluten sensitive enteropathy. Performed By: #### H EPATIC, DIFF CBC #### [place] [address] [place] #### CELIAC #### [facility] , T-Transglutaminase (tTG) IgG 4 Normal 0-5 [facility] Comment on above: Result Comment: Nega tive 0 - 5 Weak Positive 6 - 9 Positive >9 Performed By: #### H EPATIC, DIFF CBC #### [place] [address] [place] #### CELIAC #### [facility] , Diff and CBCon 04-28-2024 Crenated RBC Slight Normal [facility] Comment on above: Performed By: #### H EPATIC, DIFF CBC #### [address] #### CELIAC #### [facility] , Giant Platelet Tally 1 /100{WBC} Normal [facility] Comment on above: Performed By: #### H EPATIC, DIFF CBC #### [address] #### CELIAC #### [facility] , Mean Corpuscular HGB Conc 32.7 g/dL Normal 32.0-35.0 [facility] Comment on above: Performed By: #### H EPATIC, DIFF CBC #### [address] #### CELIAC #### [facility] , Ovalocytes Slight Normal [facility] Comment on above: Performed By: #### H EPATIC, DIFF CBC #### [address] #### CELIAC #### [facility] , Platelet Estimate Normal Normal Normal [facility] Comment on above: Performed By: #### H EPATIC, DIFF CBC #### [place] [address] [place] #### CELIAC #### [facility] , Platelet Morphology Normal Normal Normal [facility] Comment on above: Result Comment: PERF ORMED BY: [place] [address] PATHOLOGIST NOCTURNIST PHYSICIAN GARRETT SELLERS M.D. Performed By: #### H EPATIC, DIFF CBC #### [place] [address] [place] #### CELIAC #### [facility] , Poikilocytosis Slight Normal [facility] Comment on above: Performed By: #### H EPATIC, DIFF CBC #### [facility] [address] [place] [address] [place] #### CELIAC #### [facility] , Eosinophils Auto (Bld) [#/Vo l]Ordered By: Imad Asaad on 04-28-2024 Eosinophils (Bld) [#/Vol] N/A [facility] Eosinophils/100 WBC Auto (Bl d)Ordered By: Imad Asaad on 04-28-2024 Eosinophils/100 WBC (Bld) N/A [facility] Eosinophils/100 leukocytes i n Blood by Manual countOrdered By: Imad Asaad on 04-28-2024 Eosinophils/100 WBC (Bld) 1 % Normal 1-3 [facility] Comment on above: Performed By: #### H EPATIC, DIFF CBC #### [place] [address] [place] #### CELIAC #### [facility] , Erythrocyte distribution wid th [Ratio] by Automated countOrdered By: Imad Asaad on 04-28-2024 Erythrocyte distribution width (RBC) [Ratio] 16.0 % High 11.9-15.3 [facility] Comment on above: Performed By: #### H EPATIC, DIFF CBC #### [place] [address] [place] #### CELIAC #### [facility] , Erythrocytes [#/volume] in B lood by Automated countOrdered By: Imad Asaad on 04-28-2024 RBC (Bld) [#/Vol] 4.25 10*6/uL Normal 3.60-5.00 [facility] Comment on above: Performed By: #### H EPATIC, DIFF CBC #### [place] [address] [place] #### CELIAC #### [facility] , Giant platelets/100 leukocyt es [Ratio] in Blood by Manual countOrdered By: Imad Asaad on 04-28-2024 Giant platelets/100 WBC Manual cnt (Bld) [Ratio] 1 /100{WBC} [facility] Hematocrit [Volume Fraction] of Blood by Automated countOrdered By: Imad Asaad on 04-28-2024 Hematocrit (Bld) [Volume fraction] 39.1 % Normal 34.0-46.4 [facility] Comment on above: Performed By: #### H EPATIC, DIFF CBC #### [place] [address] [place] #### CELIAC #### [facility] , Hemoglobin [Mass/volume] in BloodOrdered By: Imad Asaad on 04-28-2024 Hemoglobin (Bld) [Mass/Vol] 12.8 g/dL Normal 11.8-15.4 [facility] Comment on above: Performed By: #### H EPATIC, DIFF CBC #### [place] [address] [place] #### CELIAC #### [facility] , Hepatic Panelon 04-28-2024 Albumin [Mass/Vol] 4.0 g/dL Normal 3.5-5.7 [facility] Comment on above: Performed By: #### H EPATIC, DIFF CBC #### [place] [address] [place] #### CELIAC #### [facility] , Bilirubin,Indirect 0.8 mg/dL Normal [facility] Comment on above: Performed By: #### H EPATIC, DIFF CBC #### [place] [address] [place] #### CELIAC #### [facility] , Bilirubin.indirect [Mass/Vol] 0.30 mg/dL High 0.03-0.18 [facility] Comment on above: Performed By: #### H EPATIC, DIFF CBC #### [place] [address] [place] #### CELIAC #### [facility] , Leukocytes [#/volume] correc shahid for nucleated erythrocytes in Blood by Automated counOrdered By: Imad Asaad on 04-28-2024 WBC corrected for nucl RBC Auto (Bld) [#/Vol] 6.8 10*3/uL 3.8-11.6 [facility] Leukocytes [#/volume] in Blo od by Automated countOrdered By: Imad Asaad on 04-28-2024 WBC (Bld) [#/Vol] 6.8 10*3/uL Normal 3.8-11.6 [facility] Comment on above: Performed By: #### H EPATIC, DIFF CBC #### [facility] [address] [place] [address] [place] #### CELIAC #### [facility] , Lymphocytes Auto (Bld) [#/Vo l]Ordered By: Imad Asaad on 04-28-2024 Lymphocytes (Bld) [#/Vol] N/A [facility] Lymphocytes/100 WBC Auto (Bl d)Ordered By: Imad Asaad on 04-28-2024 Lymphocytes/100 WBC (Bld) N/A [facility] Lymphocytes/100 leukocytes i n Blood by Manual countOrdered By: Imad Asaad on 04-28-2024 Lymphocytes/100 WBC (Bld) 25 % Normal 18-42 [facility] Comment on above: Performed By: #### H EPATIC, DIFF CBC #### [facility] [address] [place] [address] [place] #### CELIAC #### [facility] , MCH [Entitic mass] by Automa shahid countOrdered By: Imad Asaad on 04-28-2024 MCH (RBC) [Entitic mass] 30.1 pg Normal 24.7-34.3 [facility] Comment on above: Performed By: #### H EPATIC, DIFF CBC #### [facility] [address] [place] [address] [place] #### CELIAC #### [facility] , MCHC Auto (RBC) [Mass/Vol]Or dered By: Imad Asaad on 04-28-2024 MCHC (RBC) [Mass/Vol] 32.7 g/dL 32.0-35.0 [facility] MCV [Entitic volume] by Auto mated countOrdered By: Imad Asaad on 04-28-2024 MCV (RBC) [Entitic vol] 92.1 fL Normal 80-100 [facility] Comment on above: Performed By: #### H EPATIC, DIFF CBC #### [facility] [address] [place] [address] [place] #### CELIAC #### [facility] , Manual blood segmented neutr ophils/100 leukocytesOrdered By: Imad Asaad on 04-28-2024 Segmented neutrophils/100 WBC (Bld) 60 % Normal 50-70 [facility] Comment on above: Performed By: #### H EPATIC, DIFF CBC #### [facility] [address] [place] [address] [place] #### CELIAC #### [facility] , Monocytes Auto (Bld) [#/Vol] Ordered By: Imad Asaad on 04-28-2024 Monocytes (Bld) [#/Vol] N/A [facility] Monocytes/100 WBC Auto (Bld) Ordered By: Imad Asaad on 04-28-2024 Monocytes/100 WBC (Bld) N/A [facility] Monocytes/100 leukocytes in Blood by Manual countOrdered By: Imad Asaad on 04-28-2024 Monocytes/100 WBC (Bld) 12 % High 2-11 [facility] Comment on above: Performed By: #### H EPATIC, DIFF CBC #### [facility] [address] [place] [address] [place] #### CELIAC #### [facility] , Neutrophils Auto (Bld) [#/Vo l]Ordered By: Imad Asaad on 04-28-2024 Neutrophils (Bld) [#/Vol] N/A [facility] Neutrophils/100 WBC Auto (Bl d)Ordered By: Imad Asaad on 04-28-2024 Neutrophils/100 WBC (Bld) N/A [facility] Nucleated erythrocytes [Pres ence] in Blood by Automated countOrdered By: Imad Asaad on 04-28-2024 Nucleated RBC Auto Ql (Bld) N/A [facility] Ovalocyte detectionOrdered B y: Imad Asaad on 04-28-2024 Ovalocytes LM Ql (Bld) Slight Fi [facility] Platelet adequacy [Presence] in Blood by Light microscopyOrdered By: Imad Asaad on 04-28-2024 Platelets LM Ql (Bld) Normal Normal [facility] Platelet mean volume [Entiti c volume] in Blood by Automated countOrdered By: Imad Asaad on 04-28-2024 Platelet mean volume (Bld) [Entitic vol] 11.6 fL High 6.3-10.7 [facility] Comment on above: Result Comment: PERF ORMED BY: [place] [address] PATHOLOGIST NOCTURNIST PHYSICIAN GARRETT SELLERS M.D. Performed By: #### H EPATIC, DIFF CBC #### [facility] [address] [place] [address] [place] #### CELIAC #### [facility] , Platelet morphology finding [Identifier] in BloodOrdered By: Imad Asaad on 04-28-2024 Platelet morphology finding Nom (Bld) Normal Normal [facility] Platelets [#/volume] in Bloo d by Automated countOrdered By: Imad Asaad on 04-28-2024 Platelets (Bld) [#/Vol] 170 10*3/uL Normal 150-450 [facility] Comment on above: Performed By: #### H EPATIC, DIFF CBC #### [facility] [address] [place] [address] [place] #### CELIAC #### [facility] , Poikilocytosis [Presence] in Blood by Light microscopyOrdered By: Imad Asaad on 04-28-2024 Poikilocytosis LM Ql (Bld) Slight [facility] Protein [Mass/volume] in Ser um or PlasmaOrdered By: Imad Asaad on 04-28-2024 Protein [Mass/Vol] 6.7 g/dL Normal 6.4-8.9 [facility] Comment on above: Performed By: #### H EPATIC, DIFF CBC #### [facility] [address] [place] [address] [place] #### CELIAC #### [facility] , RBC morphologyOrdered By: Im ad Asaad on 04-28-2024 RBC morphology finding Nom (Bld) N/A [facility] Serum globulin measurement b y calculation (mass/volume)Ordered By: Imad Asaad on 04-28-2024 Globulin (S) [Mass/Vol] 2.7 g/dL Normal [facility] Comment on above: Performed By: #### H EPATIC, DIFF CBC #### [facility] [address] [place] [address] [place] #### CELIAC #### [facility] , Serum or plasma albumin/glob ulin mass ratioOrdered By: Imad Asaad on 04-28-2024 Albumin/Globulin [Mass ratio] 1.5 {ratio} Normal [facility] Comment on above: Performed By: #### H EPATIC, DIFF CBC #### [facility] [address] [place] [address] [place] #### CELIAC #### [facility] , Serum or plasma non-glucuron idated bilirubin measurement (mass/volume)Ordered By: Imad Asaad on 04-28-2024 Bilirubin.indirect [Mass/Vol] 0.8 mg/dL [facility] Basophils Auto (Bld) [#/Vol] on 04-18-2024 Basophils (Bld) [#/Vol] 0.1 10 3/uL 0.0-0.1 [facility] Basophils/100 WBC Auto (Bld) on 04-18-2024 Basophils/100 WBC (Bld) 0.9 % 0.2-2.0 [facility] Eosinophils/100 WBC Auto (Bl d)on 04-18-2024 Eosinophils/100 WBC (Bld) 8.0 % High 0.9-7.0 [facility] Erythrocyte distribution wid th Auto (RBC) [Ratio]on 04-18-2024 Erythrocyte distribution width (RBC) [Ratio] 15.6 % High 11.0-15.0 [facility] Estimated glomerular filtrat ion rate (GFR) non- Americanon 04-18-2024 GFR/1.73 sq M.predicted among non-blacks MDRD (S/P/Bld) [Vol rate/Area] mL/min/{1.73_m2} >=60 [facility] Globulin Calc (S) [Mass/Vol] on 04-18-2024 Globulin (S) [Mass/Vol] 3.9 g/dL [facility] Hematocrit Auto (Bld) [Volum e fraction]on 04-18-2024 Hematocrit (Bld) [Volume fraction] 36.6 % 36.0-48.0 [facility] Hemoglobin [Mass/volume] in Bloodon 04-18-2024 Hemoglobin (Bld) [Mass/Vol] 11.2 g/dL Low 12.0-16.0 [facility] Laboratory - Chemistry and C hemistry - challengeon 04-18-2024 Albumin [Mass/Vol] 3.0 g/dL Low 3.4-5.0 [facility] ALP [Catalytic activity/Vol] 983 U/L High 46-116 [facility] ALT [Catalytic activity/Vol] 174 U/L High 14-59 [facility] AST [Catalytic activity/Vol] 149 U/L High 15-37 [facility] Bilirubin [Mass/Vol] 1.6 mg/dL High 0.2-1.0 [facility] Calcium [Mass/Vol] 9.2 mg/dL 8.5-10.1 [facility] Chloride [Moles/Vol] 105 mmol/L 98-107 [facility] CO2 [Moles/Vol] 31.5 mmol/L 21.0-32.0 [facility] Creatinine [Mass/Vol] 0.82 mg/dL 0.55-1.02 [facility] GFR/1.73 sq M.predicted MDRD (S/P/Bld) [Vol rate/Area] mL/min/{1.73_m2} >=60 [facility] Glucose [Mass/Vol] 154 mg/dL High 74-106 [facility] Potassium [Moles/Vol] 3.5 mmol/L 3.5-5.1 [facility] Protein [Mass/Vol] 6.9 g/dL 6.4-8.2 [facility] Sodium [Moles/Vol] 143 mmol/L 136-145 [facility] Urea nitrogen [Mass/Vol] 9.0 mg/dL 7.0-18.0 [facility] Urea nitrogen/Creatinine [Mass ratio] 11.0 mg/mg [facility] Laboratory - Hematology and Cell countson 04-18-2024 ESR (Bld) [Velocity] 66 mm/h High <=30 [facility] Immature granulocytes/100 WBC (Bld) 0.1 % 0.0-0.5 [facility] Leukocytes [#/volume] correc shahid for nucleated erythrocytes in Blood by Automated counon 04-18-2024 WBC corrected for nucl RBC Auto (Bld) [#/Vol] 9.0 10 3/uL 4.0-11.0 [facility] Lymphocytes Auto (Bld) [#/Vo l]on 04-18-2024 Lymphocytes (Bld) [#/Vol] 2.3 10 3/uL 1.2-3.8 [facility] Lymphocytes/100 WBC Auto (Bl d)on 04-18-2024 Lymphocytes/100 WBC (Bld) 25.0 % 20.5-60.0 [facility] MCH Auto (RBC) [Entitic mass ]on 04-18-2024 MCH (RBC) [Entitic mass] 29.9 pg 26.7-34.0 [facility] MCHC Auto (RBC) [Mass/Vol]on 04-18-2024 MCHC (RBC) [Mass/Vol] 30.6 g/dL 29.9-35.2 [facility] MCV Auto (RBC) [Entitic vol] on 04-18-2024 MCV (RBC) [Entitic vol] 97.9 fL 81.0-99.0 [facility] Monocytes Auto (Bld) [#/Vol] on 04-18-2024 Monocytes (Bld) [#/Vol] 0.9 10 3/uL High 0.3-0.8 [facility] Monocytes/100 WBC Auto (Bld) on 04-18-2024 Monocytes/100 WBC (Bld) 9.7 % 1.7-12.0 [facility] Neutrophils Auto (Bld) [#/Vo l]on 04-18-2024 Neutrophils (Bld) [#/Vol] 5.1 10 3/uL 1.4-6.5 [facility] Neutrophils/100 WBC Auto (Bl d)on 04-18-2024 Neutrophils/100 WBC (Bld) 56.3 % 43.0-75.0 [facility] No Panel Informationon 04-18 Eosinophils # (Auto) 0.7 10 3/uL 0.0-0.7 [facility] Immature Granulocyte # (Auto) 0.01 10 3/uL 0.00-0.03 [facility] Platelet mean volume Auto (B ld) [Entitic vol]on 04-18-2024 Platelet mean volume (Bld) [Entitic vol] 12.6 fL 9.5-13.5 [facility] Platelets Auto (Bld) [#/Vol] on 04-18-2024 Platelets (Bld) [#/Vol] 165 10 3/uL 150-450 [facility] RBC Auto (Bld) [#/Vol]on RBC (Bld) [#/Vol] 3.74 10 6/uL Low 4.20-5.40 [facility] Serum or plasma albumin/glob ulin mass ratioon 04-18-2024 Albumin/Globulin [Mass ratio] 0.8 {ratio} [facility] Serum or plasma anion gap de terminationon 04-18-2024 Anion gap [Moles/Vol] 10.0 mmol/L [facility] Automated urine specific gra vity by refractometryon 02-04-2024 Specific gravity Refractometry automated (U) [Rel density] <=1.005 Abnormal 1.005-1.025 [facility] Basophils Auto (Bld) [#/Vol] on 02-04-2024 Basophils (Bld) [#/Vol] 0.1 10 3/uL 0.0-0.1 [facility] Basophils/100 WBC Auto (Bld) on 02-04-2024 Basophils/100 WBC (Bld) 0.7 % 0.2-2.0 [facility] Bilirubin Auto test strip (U ) [Mass/Vol]on 02-04-2024 Bilirubin (U) [Mass/Vol] Negative NEGATIVE [facility] Color Auto (U)on 02-04-2024 Color (U) LT. YELLOW YELLOW [facility] Eosinophils/100 WBC Auto (Bl d)on 02-04-2024 Eosinophils/100 WBC (Bld) 0.7 % Low 0.9-7.0 [facility] Erythrocyte distribution wid th Auto (RBC) [Ratio]on 02-04-2024 Erythrocyte distribution width (RBC) [Ratio] 15.4 % High 11.0-15.0 [facility] Estimated glomerular filtrat ion rate (GFR) non- Americanon 02-04-2024 GFR/1.73 sq M.predicted among non-blacks MDRD (S/P/Bld) [Vol rate/Area] mL/min/{1.73_m2} >=60 [facility] Globulin Calc (S) [Mass/Vol] on 02-04-2024 Globulin (S) [Mass/Vol] 3.4 g/dL [facility] Glucose [Mass/volume] in Uri ne by Test stripon 02-04-2024 Glucose Test strip (U) [Mass/Vol] Negative NEGATIVE [facility] Hematocrit Auto (Bld) [Volum e fraction]on 02-04-2024 Hematocrit (Bld) [Volume fraction] 39.6 % 36.0-48.0 [facility] Hemoglobin [Mass/volume] in Bloodon 02-04-2024 Hemoglobin (Bld) [Mass/Vol] 12.2 g/dL 12.0-16.0 [facility] Ketones Auto test strip (U) [Mass/Vol]on 02-04-2024 Ketones (U) [Mass/Vol] Negative NEGATIVE Fi [facility] Laboratory - Chemistry and C hemistry - challengeon 02-04-2024 Albumin [Mass/Vol] 3.7 g/dL 3.4-5.0 [facility] ALP [Catalytic activity/Vol] 103 U/L 46-116 [facility] ALT [Catalytic activity/Vol] 27 U/L 14-59 [facility] AST [Catalytic activity/Vol] 24 U/L 15-37 [facility] Bilirubin [Mass/Vol] 0.5 mg/dL 0.2-1.0 [facility] Calcium [Mass/Vol] 9.5 mg/dL 8.5-10.1 [facility] Chloride [Moles/Vol] 105 mmol/L 98-107 [facility] CO2 [Moles/Vol] 30.4 mmol/L 21.0-32.0 [facility] Creatinine [Mass/Vol] 0.64 mg/dL 0.55-1.02 [facility] Free T4 [Mass/Vol] 1.07 ng/dL 0.76-1.46 [facility] GFR/1.73 sq M.predicted MDRD (S/P/Bld) [Vol rate/Area] mL/min/{1.73_m2} >=60 [facility] Glucose [Mass/Vol] 96 mg/dL 74-106 [facility] Lactate [Moles/Vol] 0.9 mmol/L 0.4-2.0 [facility] Natriuretic peptide B (Bld) [Mass/Vol] 374.0 pg/mL <=1800.0 [facility] Potassium [Moles/Vol] 3.8 mmol/L 3.5-5.1 [facility] Protein [Mass/Vol] 7.1 g/dL 6.4-8.2 [facility] Sodium [Moles/Vol] 142 mmol/L 136-145 [facility] TSH Qn 4.178 m[IU]/L High 0.358-3.740 [facility] Urea nitrogen [Mass/Vol] 14.0 mg/dL 7.0-18.0 [facility] Urea nitrogen/Creatinine [Mass ratio] 21.9 mg/mg [facility] Laboratory - Hematology and Cell countson 04-04-2024 Immature granulocytes/100 WBC (Bld) 0.4 % 0.0-0.5 [facility] Leukocytes [#/volume] correc shahid for nucleated erythrocytes in Blood by Automated counon 02-04-2024 WBC corrected for nucl RBC Auto (Bld) [#/Vol] 8.2 10 3/uL 4.0-11.0 [facility] Lymphocytes Auto (Bld) [#/Vo l]on 02-04-2024 Lymphocytes (Bld) [#/Vol] 2.9 10 3/uL 1.2-3.8 [facility] Lymphocytes/100 WBC Auto (Bl d)on 02-04-2024 Lymphocytes/100 WBC (Bld) 35.7 % 20.5-60.0 [facility] MCH Auto (RBC) [Entitic mass ]on 02-04-2024 MCH (RBC) [Entitic mass] 29.8 pg 26.7-34.0 [facility] MCHC Auto (RBC) [Mass/Vol]on 02-04-2024 MCHC (RBC) [Mass/Vol] 30.8 g/dL 29.9-35.2 [facility] MCV Auto (RBC) [Entitic vol] on 02-04-2024 MCV (RBC) [Entitic vol] 96.6 fL 81.0-99.0 [facility] Monocytes Auto (Bld) [#/Vol] on 02-04-2024 Monocytes (Bld) [#/Vol] 0.6 10 3/uL 0.3-0.8 [facility] Monocytes/100 WBC Auto (Bld) on 02-04-2024 Monocytes/100 WBC (Bld) 7.2 % 1.7-12.0 [facility] Neutrophils Auto (Bld) [#/Vo l]on 02-04-2024 Neutrophils (Bld) [#/Vol] 4.5 10 3/uL 1.4-6.5 [facility] Neutrophils/100 WBC Auto (Bl d)on 02-04-2024 Neutrophils/100 WBC (Bld) 55.3 % 43.0-75.0 [facility] No Panel Informationon 02-03 Eosinophils # (Auto) 0.1 10 3/uL 0.0-0.7 [facility] Free Triiodothyronine 2.35 pg/mL 2.18-3.98 [facility] Immature Granulocyte # (Auto) 0.03 10 3/uL 0.00-0.03 [facility] Troponin I High Sensitivity 8.1 pg/mL 4.0-51.3 [facility] Comment on above: CUT-OFF POINTS HAVE BEEN [...] IN CONJUNCTIONWITH OTHER DIAGNOSTIC AND CLINICAL INFORMATION. Urine Microscopic Review NO [facility] Venous Blood Partial Pressure CO2 55.9 mm[Hg] High 40.0-52.0 [facility] Venous Blood pH 7.369 7.330-7.430 [facility] Platelet mean volume Auto (B ld) [Entitic vol]on 02-04-2024 Platelet mean volume (Bld) [Entitic vol] 11.5 fL 9.5-13.5 [facility] Platelets Auto (Bld) [#/Vol] on 02-04-2024 Platelets (Bld) [#/Vol] 202 10 3/uL 150-450 [facility] Protein Auto test strip (U) [Mass/Vol]on 02-04-2024 Protein (U) [Mass/Vol] Negative NEG/TRACE [facility] RBC Auto (Bld) [#/Vol]on RBC (Bld) [#/Vol] 4.10 10 6/uL Low 4.20-5.40 [facility] Serum or plasma albumin/glob ulin mass ratioon 02-04-2024 Albumin/Globulin [Mass ratio] 1.1 {ratio} [facility] Serum or plasma anion gap de terminationon 02-04-2024 Anion gap [Moles/Vol] 10.4 mmol/L [facility] Specific gravity Auto test s trip (U) [Rel density]on 02-04-2024 Specific gravity (U) [Rel density] CLEAR CLEAR [facility] Urine hemoglobin detection b y automated test stripon 02-04-2024 Hemoglobin Auto test strip Ql (U) Negative NEGATIVE [facility] Urine nitrite detection by a utomated test stripon 02-04-2024 Nitrite Auto test strip Ql (U) Negative NEGATIVE [facility] Urobilinogen Auto test strip (U) [Mass/Vol]on 02-04-2024 Urobilinogen Qn (U) 0.2 {Gideon'U}/dL 0.2-1.0 [facility] pH Auto test strip (U)on pH (U) 6.5 [pH] 5.0-9.0 [facility] Basophils Auto (Bld) [#/Vol] on 12-16-2023 Basophils (Bld) [#/Vol] 0.1 10 3/uL 0.0-0.1 [facility] Basophils/100 WBC Auto (Bld) on 12-16-2023 Basophils/100 WBC (Bld) 0.9 % 0.2-2.0 [facility] Eosinophils/100 WBC Auto (Bl d)on 12-16-2023 Eosinophils/100 WBC (Bld) 1.0 % 0.9-7.0 [facility] Erythrocyte distribution wid th Auto (RBC) [Ratio]on 12-16-2023 Erythrocyte distribution width (RBC) [Ratio] 14.8 % 11.0-15.0 [facility] Estimated glomerular filtrat ion rate (GFR) non- Americanon 12-16-2023 GFR/1.73 sq M.predicted among non-blacks MDRD (S/P/Bld) [Vol rate/Area] mL/min/{1.73_m2} >=60 [facility] Globulin Calc (S) [Mass/Vol] on 12-16-2023 Globulin (S) [Mass/Vol] 3.4 g/dL [facility] Hematocrit Auto (Bld) [Volum e fraction]on 12-16-2023 Hematocrit (Bld) [Volume fraction] 39.1 % 36.0-48.0 [facility] Hemoglobin [Mass/volume] in Bloodon 12-16-2023 Hemoglobin (Bld) [Mass/Vol] 11.9 g/dL 12.0-16.0 [facility] Laboratory - Chemistry and C hemistry - challengeon 12-16-2023 Albumin [Mass/Vol] 3.2 g/dL 3.4-5.0 [facility] ALP [Catalytic activity/Vol] 91 U/L 46-116 [facility] ALT [Catalytic activity/Vol] 30 U/L 14-59 [facility] AST [Catalytic activity/Vol] 22 U/L 15-37 [facility] Bilirubin [Mass/Vol] 0.5 mg/dL 0.2-1.0 [facility] Calcium [Mass/Vol] 9.2 mg/dL 8.5-10.1 [facility] Chloride [Moles/Vol] 104 mmol/L 98-107 [facility] CO2 [Moles/Vol] 33.3 mmol/L 21.0-32.0 [facility] Creatinine [Mass/Vol] 0.66 mg/dL 0.55-1.02 [facility] GFR/1.73 sq M.predicted MDRD (S/P/Bld) [Vol rate/Area] mL/min/{1.73_m2} >=60 [facility] Glucose [Mass/Vol] 141 mg/dL 74-106 [facility] Potassium [Moles/Vol] 3.8 mmol/L 3.5-5.1 [facility] Protein [Mass/Vol] 6.6 g/dL 6.4-8.2 [facility] Sodium [Moles/Vol] 142 mmol/L 136-145 [facility] Urea nitrogen [Mass/Vol] 11.0 mg/dL 7.0-18.0 [facility] Urea nitrogen/Creatinine [Mass ratio] 16.7 mg/mg [facility] Laboratory - Hematology and Cell countson 12-16-2023 ESR (Bld) [Velocity] 22 mm/h <=30 [facility] Immature granulocytes/100 WBC (Bld) 0.1 % 0.0-0.5 [facility] Leukocytes [#/volume] correc shahid for nucleated erythrocytes in Blood by Automated counon 12-16-2023 WBC corrected for nucl RBC Auto (Bld) [#/Vol] 6.9 10 3/uL 4.0-11.0 [facility] Lymphocytes Auto (Bld) [#/Vo l]on 12-16-2023 Lymphocytes (Bld) [#/Vol] 2.5 10 3/uL 1.2-3.8 [facility] Lymphocytes/100 WBC Auto (Bl d)on 12-16-2023 Lymphocytes/100 WBC (Bld) 35.6 % 20.5-60.0 [facility] MCH Auto (RBC) [Entitic mass ]on 12-16-2023 MCH (RBC) [Entitic mass] 29.5 pg 26.7-34.0 [facility] MCHC Auto (RBC) [Mass/Vol]on 12-16-2023 MCHC (RBC) [Mass/Vol] 30.4 g/dL 29.9-35.2 [facility] MCV Auto (RBC) [Entitic vol] on 12-16-2023 MCV (RBC) [Entitic vol] 96.8 fL 81.0-99.0 [facility] Monocytes Auto (Bld) [#/Vol] on 12-16-2023 Monocytes (Bld) [#/Vol] 0.6 10 3/uL 0.3-0.8 [facility] Monocytes/100 WBC Auto (Bld) on 12-16-2023 Monocytes/100 WBC (Bld) 8.0 % 1.7-12.0 [facility] Neutrophils Auto (Bld) [#/Vo l]on 12-16-2023 Neutrophils (Bld) [#/Vol] 3.8 10 3/uL 1.4-6.5 [facility] Neutrophils/100 WBC Auto (Bl d)on 12-16-2023 Neutrophils/100 WBC (Bld) 54.4 % 43.0-75.0 [facility] No Panel Informationon 12-16 Eosinophils # (Auto) 0.1 10 3/uL 0.0-0.7 [facility] Immature Granulocyte # (Auto) 0.01 10 3/uL 0.00-0.03 [facility] Platelet mean volume Auto (B ld) [Entitic vol]on 12-16-2023 Platelet mean volume (Bld) [Entitic vol] 11.6 fL 9.5-13.5 [facility] Platelets Auto (Bld) [#/Vol] on 12-16-2023 Platelets (Bld) [#/Vol] 212 10 3/uL 150-450 [facility] RBC Auto (Bld) [#/Vol]on RBC (Bld) [#/Vol] 4.04 10 6/uL 4.20-5.40 [facility] Serum or plasma albumin/glob ulin mass ratioon 12-16-2023 Albumin/Globulin [Mass ratio] 0.9 {ratio} [facility] Serum or plasma anion gap de terminationon 12-16-2023 Anion gap [Moles/Vol] 8.5 mmol/L [facility] MG MAMM RT DIAG FUon 022 MG MAMM RT DIAG FU Patient: RUBIA CASH Exam Date: 07/16/2022 : 1935 Gender:F Ordering : DR MELVIN PEREIRA DSantosh Admission #: [id number] Family : Order #: [id number] CLICK HERE TO VIEW EXAM RADIOLOGY REPORT [...] bladder cancer at age 78. LOCATION: [facility] BREAST COMPOSITION: Heterogeneously dense,which may obscure [...] Owen M.D. on 07/16/2022 at 13:45 Normal [facility] US BREAST RIGHT LIMITEDon US BREAST RIGHT LIMITED Patient: RUBIA CASHSanya Exam Date: 07/16/2022 : 1935 Gender:F Ordering : DR MELVIN PEREIRA D.O. Admission #: [id number] Family : Order #: [id number] CLICK HERE TO VIEW EXAM RADIOLOGY REPORT [...] bladder cancer at age 78. LOCATION: [facility] BREAST COMPOSITION: Heterogeneously dense,which may obscure [...] Owen M.D. on 07/16/2022 at 13:45 Normal [facility] MG MAMM SCREEN 3D KATERINA CADon 07-04-2022 MG MAMM SCREEN 3D KATERINA CAD Patient: RUBIA CASHSanya Exam Date: 07/04/2022 : 1935 Gender:F Ordering : DR MELVIN PEREIRA D.O. Admission #: [id number] Family : Order #: [id number] CLICK HERE TO VIEW EXAM RADIOLOGY REPORT [...] bladder cancer at age 78. LOCATION: [facility] BREAST COMPOSITION: Heterogeneously dense,which may obscure [...] MD on 07/04/2022 at 13:49 Normal [facility] XR LSPINE 2_3 VIEWSon 2021 XR [...] E CANTU Date: 2022-07-04 17:35 Normal [facility] CBC AUTO DIFFon 03-14-2022 BASO # 0.1 103/ul Normal 0.0-0.1 [facility] Comment on above: Performed By: #### H STROPN #### [facility] [address] [address] [address] Rigoberto Ivy Basophils/100 WBC (Bld) 1.1 % Normal 0.2-2.0 [facility] Comment on above: Performed By: #### H STROPN #### [facility] [address] [address] [address] Rigoberto Ivy EO # 0.1 103/ul Normal 0.0-0.7 [facility] Comment on above: Performed By: #### H STROPN #### [facility] [address] [address] [address] Rigoberto Ivy Eosinophils/100 WBC (Bld) 1.7 % Normal 0.9-7.0 [facility] Comment on above: Performed By: #### H STROPN #### [facility] [address] [place] [address] Dr. Rigoberto Ivy Erythrocyte distribution width (RBC) [Ratio] 15.8 % Critically high 11.0-15.0 [facility] Comment on above: Performed By: #### H STROPN #### [facility] [address] [place] [address] Dr. Rigoberto Ivy Hematocrit (Bld) [Volume fraction] 39.7 % Normal 36.0-48.0 [facility] Comment on above: Performed By: #### H STROPN #### [facility] [address] [place] [address] Dr. Rigoberto Ivy Hemoglobin (Bld) [Mass/Vol] 12.3 g/dL Normal 12.0-16.0 [facility] Comment on above: Performed By: #### H STROPN #### [facility] [address] [place] [address] Dr. Rigoberto Ivy IG # 0.03 10e3/ul Normal 0.00-0.03 [facility] Comment on above: Performed By: #### H STROPN #### [facility] [address] [address] [address] Rigoberto Ivy IG % 0.4 % Normal 0.0-0.5 [facility] Comment on above: Performed By: #### H STROPN #### [facility] [address] [address] [address] Rigoberto Ivy LYMPH # 2.5 103/ul Normal 1.2-3.8 [facility] Comment on above: Performed By: #### H STROPN #### [facility] [address] [address] [address] Rigoberto Ivy Lymphocytes/100 WBC (Bld) 35.0 % Normal 20.5-60.0 [facility] Comment on above: Performed By: #### H STROPN #### [facility] [address] [address] [address] Rigoberto Ivy MANUAL DIFF REQ NO Normal [facility] Comment on above: Performed By: #### H STROPN #### [facility] [address] [place] [address] Dr. Rigoberto Ivy MCH (RBC) [Entitic mass] 29.9 pg Normal 26.7-34.0 [facility] Comment on above: Performed By: #### H STROPN #### [facility] [address] [address] [address] Rigoberto Ivy MCHC (RBC) [Mass/Vol] 31.0 g/dL Normal 29.9-35.2 [facility] Comment on above: Performed By: #### H STROPN #### [facility] [address] [place] [address] Dr. Rigoberto Ivy MCV (RBC) [Entitic vol] 96.6 fL Normal 81.0-99.0 [facility] Comment on above: Performed By: #### H STROPN #### [facility] [address] [address] [address] Rigoberto Ivy MONO # 0.7 103/ul Normal 0.3-0.8 [facility] Comment on above: Performed By: #### H STROPN #### [facility] [address] [address] [address] Rigoberto Ivy Monocytes/100 WBC (Bld) 9.4 % Normal 1.7-12.0 [facility] Comment on above: Performed By: #### H STROPN #### [facility] [address] [address] [address] Rigoberto Ivy NEUT # 3.8 103/ul Normal 1.4-6.5 [facility] Comment on above: Performed By: #### H STROPN #### [facility] [address] [address] [address] Rigoberto Ivy Neutrophils/100 WBC (Bld) 52.4 % Normal 43.0-75.0 [facility] Comment on above: Performed By: #### H STROPN #### [facility] [address] [address] [address] Rigoberto Ivy Platelet mean volume (Bld) [Entitic vol] 10.9 fL Normal 9.5-13.5 [facility] Comment on above: Performed By: #### H STROPN #### [facility] [address] [address] [address] Rigoberto Ivy PLT 225 103/ul Normal 150-450 [facility] Comment on above: Performed By: #### H STROPN #### [facility] [address] [address] [address] Rigoberto Ivy RBC 4.11 106/ul Critically low 4.20-5.40 [facility] Comment on above: Performed By: #### H STROPN #### [facility] [address] [address] [address] Rigoberto Ivy WBC 7.2 103/ul Normal 4.0-11.0 [facility] Comment on above: Performed By: #### H STROPN #### [facility] [address] [address] [address] Rigoberto Ivy PROF 14(COMP METB)on 022 Albumin [Mass/Vol] 3.6 g/dL Normal 3.4-5.0 [facility] Comment on above: Performed By: #### H STROPN #### [facility] [address] [address] [address] Rigoberto Ivy Albumin/Globulin [Mass ratio] 1.0 {ratio} Normal [facility] Comment on above: Performed By: #### H STROPN #### [facility] [address] [address] [address] Rigoberto Ivy ALP [Catalytic activity/Vol] 89 U/L Normal 46-116 [facility] Comment on above: Performed By: #### H STROPN #### [facility] [address] [address] [address] Rigoberto Ivy ALT [Catalytic activity/Vol] 29 U/L Normal 14-59 [facility] Comment on above: Performed By: #### H STROPN #### [facility] [address] [address] [address] Rigoberto Ivy Anion gap [Moles/Vol] 7.7 mmol/L Normal [facility] Comment on above: Performed By: #### H STROPN #### [facility] [address] [address] [address] Rigoberto Ivy AST [Catalytic activity/Vol] 22 U/L Normal 15-37 [facility] Comment on above: Performed By: #### H STROPN #### [facility] [address] [address] [address] Rigoberto Ivy Bilirubin [Mass/Vol] 0.5 mg/dL Normal 0.2-1.0 [facility] Comment on above: Performed By: #### H STROPN #### [facility] [address] [address] [address] Rigoberto Ivy Calcium [Mass/Vol] 9.5 mg/dL Normal 8.5-10.1 [facility] Comment on above: Performed By: #### H STROPN #### [facility] [address] [address] [address] Rigoberto Ivy Chloride [Moles/Vol] 103 mmol/L Normal 98-107 [facility] Comment on above: Performed By: #### H STROPN #### [facility] [address] [address] [address] Rigoberto Ivy CO2 [Moles/Vol] 33.5 mmol/L Critically high 21.0-32.0 [facility] Comment on above: Performed By: #### H STROPN #### [facility] [address] [address] [address] Rigoberto Ivy Creatinine [Mass/Vol] 0.60 mg/dL Normal 0.55-1.02 [facility] Comment on above: Performed By: #### H STROPN #### [facility] [address] [address] [address] Rigoberto Ivy EGFR-AF BOLIVIAN >60 Normal >=60 [facility] Comment on above: Performed By: #### H STROPN #### [facility] [address] [address] [address] Rigoberto Ivy EGFR-NON AF BOLIVIAN >60 Normal >=60 [facility] Comment on above: Performed By: #### H STROPN #### [facility] [address] [address] [address] Rigoberto Ivy Globulin (S) [Mass/Vol] 3.5 g/dL Normal [facility] Comment on above: Performed By: #### H STROPN #### [facility] [address] [address] [address] Rigoberto Ivy Glucose [Mass/Vol] 90 mg/dL Normal 74-106 [facility] Comment on above: Performed By: #### H STROPN #### [facility] [address] [address] [address] Rigoberto Ivy Potassium [Moles/Vol] 4.2 mmol/L Normal 3.5-5.1 [facility] Comment on above: Performed By: #### H STROPN #### [facility] [address] [address] [address] Rigoberto Ivy Protein [Mass/Vol] 7.1 g/dL Normal 6.4-8.2 [facility] Comment on above: Performed By: #### H STROPN #### [facility] [address] [address] [address] Rigoberto Ivy Sodium [Moles/Vol] 140 mmol/L Normal 136-145 [facility] Comment on above: Performed By: #### H STROPN #### [facility] [address] [place] [address] Dr. Rigoberto Ivy Urea nitrogen [Mass/Vol] 11.0 mg/dL Normal 7.0-18.0 [facility] Comment on above: Performed By: #### H STROPN #### [facility] [address] [place] [address] Dr. Rigoberto Ivy Urea nitrogen/Creatinine [Mass ratio] 18.3 mg/mg Normal [facility] Comment on above: Performed By: #### H STROPN #### [facility] [address] [place] [address] Dr. Rigoberto Ivy [facility] SED RATE 10 mm/hr Normal <=30 [facility] Comment on above: Performed By: #### S EDR #### [facility] [address] [place] [address] Dr. Rigoberto Ivy CULTURE URINEon 11-07-2021 CULTURE URINE Culture Observations : GREATER THAN TWO ORGANISMS PRESENT. PLEASE RESUBMIT CLEAN CATCH MID-STREAM URINE IF CLINICALLY INDICATED. Normal [facility] Comment on above: Performed By: #### H STROPN #### [facility] [address] [place] [address] Dr. Rigoberto Ivy BNPon 11-05-2021 Natriuretic peptide B (Bld) [Mass/Vol] 273.0 pg/mL Normal <=1,800.0 [facility] Comment on above: Performed By: #### C MP, BNP, HSTROPN #### [facility] [address] [place] [address] Dr. Rigoberto Ivy CBC AUTO DIFFon 11-05-2021 BASO # 0.1 103/ul Normal 0.0-0.1 [facility] Comment on above: Performed By: #### C BC #### [facility] [address] [place] [address] Dr. Rigoberto Ivy Basophils/100 WBC (Bld) 0.8 % Normal 0.2-2.0 [facility] Comment on above: Performed By: #### C BC #### [facility] [address] [place] [address] Dr. Rigoberto Ivy EO # 0.1 103/ul Normal 0.0-0.7 [facility] Comment on above: Performed By: #### C BC #### [facility] [address] [place] [address] Dr. Rigoberto Ivy Eosinophils/100 WBC (Bld) 0.7 % Critically low 0.9-7.0 [facility] Comment on above: Performed By: #### C BC #### [facility] [address] [place] [address] Dr. Rigoberto Ivy Erythrocyte distribution width (RBC) [Ratio] 15.5 % Critically high 11.0-15.0 [facility] Comment on above: Performed By: #### C BC #### [facility] [address] [place] [address] Dr. Rigoberto Ivy Hematocrit (Bld) [Volume fraction] 41.5 % Normal 36.0-48.0 [facility] Comment on above: Performed By: #### C BC #### [facility] [address] [place] [address] Dr. Rigoberto Ivy Hemoglobin (Bld) [Mass/Vol] 12.8 g/dL Normal 12.0-16.0 [facility] Comment on above: Performed By: #### C BC #### [facility] [address] [place] [address] Dr. Rigoberto Ivy IG # 0.03 10e3/ul Normal 0.00-0.03 [facility] Comment on above: Performed By: #### C BC #### [facility] [address] [place] [address] Dr. Rigoberto vIy IG % 0.4 % Normal 0.0-0.5 [facility] Comment on above: Performed By: #### C BC #### [facility] [address] [place] [address] Dr. Rigoberto Ivy LYMPH # 2.6 103/ul Normal 1.2-3.8 [facility] Comment on above: Performed By: #### C BC #### [facility] [address] [place] [address] Dr. Rigoberto Ivy Lymphocytes/100 WBC (Bld) 34.6 % Normal 20.5-60.0 [facility] Comment on above: Performed By: #### C BC #### [facility] [address] [place] [address] Dr. Rigoberto Ivy MANUAL DIFF REQ NO Normal [facility] Comment on above: Performed By: #### C BC #### [facility] [address] [place] [address] Dr. Rigoberto Ivy MCH (RBC) [Entitic mass] 29.8 pg Normal 26.7-34.0 [facility] Comment on above: Performed By: #### C BC #### [facility] [address] [place] [address] Dr. Rigoberto Ivy MCHC (RBC) [Mass/Vol] 30.8 g/dL Normal 29.9-35.2 [facility] Comment on above: Performed By: #### C BC #### [facility] [address] [place] [address] Dr. Rigoberto Ivy MCV (RBC) [Entitic vol] 96.7 fL Normal 81.0-99.0 [facility] Comment on above: Performed By: #### C BC #### [facility] [address] [place] [address] Dr. Rigoberto Ivy MONO # 0.7 103/ul Normal 0.3-0.8 [facility] Comment on above: Performed By: #### C BC #### [facility] [address] [place] [address] Dr. Rigoberto Ivy Monocytes/100 WBC (Bld) 8.5 % Normal 1.7-12.0 [facility] Comment on above: Performed By: #### C BC #### [facility] [address] [place] [address] Dr. Rigoberto Ivy NEUT # 4.2 103/ul Normal 1.4-6.5 [facility] Comment on above: Performed By: #### C BC #### [facility] [address] [place] [address] Dr. Rigoberto Ivy Neutrophils/100 WBC (Bld) 55.0 % Normal 43.0-75.0 [facility] Comment on above: Performed By: #### C BC #### [facility] [address] [address] [address] Rigoberto Ivy Platelet mean volume (Bld) [Entitic vol] 10.6 fL Normal 9.5-13.5 [facility] Comment on above: Performed By: #### C BC #### [facility] [address] [address] [address] Rigoberto Ivy PLT 234 103/ul Normal 150-450 [facility] Comment on above: Performed By: #### C BC #### [facility] [address] [address] [address] Rigoberto Ivy RBC 4.29 106/ul Normal 4.20-5.40 [facility] Comment on above: Performed By: #### C BC #### [facility] [address] [place] [address] Dr. Rigoberto Ivy WBC 7.6 103/ul Normal 4.0-11.0 [facility] Comment on above: Performed By: #### C BC #### [facility] [address] [place] [address] HEAD WO CONon [...] JAMIE OWEN Date: 2021-11-05 13:08 Normal [facility] Covid-19 PCR (CVDTBH)on SARS-CoV-2 (COVID-19) RNA LATHA+probe Ql (Unsp spec) Not detected Normal NOT DETECTED [facility] Comment on above: Result Comment: When [...] for this test is supported by the [place] of Health and Human Service's declaration that [...] Performed By: #### C RP, CMP #### [facility] [address] [place] [address] Dr. Rigoberto Ivy ER URINE PROFILEon 2 Bilirubin Ql (U) Negative Normal NEGATIVE [facility] Comment on above: Performed By: #### H STROPN #### [facility] [address] [place] [address] Dr. Rigoberto Ivy Clarity (U) CLEAR Normal CLEAR [facility] Comment on above: Performed By: #### H STROPN #### [facility] [address] [place] [address] Dr. Rigoberto Ivy Color (U) LT. YELLOW Normal YELLOW [facility] Comment on above: Performed By: #### H STROPN #### [facility] [address] [place] [address] Dr. Rigoberto CUEVA A micrscopic examination will be performed if indicated. Normal [facility] Comment on above: Performed By: #### H STROPN #### [facility] [address] [place] [address] Dr. Rigoberto Ivy Glucose Ql (U) Negative Normal NEGATIVE [facility] Comment on above: Performed By: #### H STROPN #### [facility] [address] [address] [address] Rigoberto Ivy Hemoglobin Ql (U) Negative Normal NEGATIVE [facility] Comment on above: Performed By: #### H STROPN #### [facility] [address] [address] [address] Rigoberto Ivy Ketones Ql (U) Negative Normal NEGATIVE [facility] Comment on above: Performed By: #### H STROPN #### [facility] [address] [address] [address] Rigoberto Ivy LEUKOCYTES TRACE Abnormal NEGATIVE [facility] Comment on above: Performed By: #### H STROPN #### [facility] [address] [place] [address] Dr. Rigoberto Ivy Nitrite Ql (U) Negative Normal NEGATIVE [facility] Comment on above: Performed By: #### H STROPN #### [facility] [address] [place] [address] Dr. Rigoberto Ivy pH (U) 7.0 [pH] Normal 5-9 [facility] Comment on above: Performed By: #### H STROPN #### [facility] [address] [address] [address] Rigoberto Ivy SPEC GRAVITY 1.015 Normal 1.005-<=1.025 [facility] Comment on above: Performed By: #### H STROPN #### [facility] [address] [address] [address] Rigoberto Ivy UA PROTEIN Negative Normal NEGATIVE/ TRACE [facility] Comment on above: Performed By: #### H STROPN #### [facility] [address] [address] [address] Rigoberto Ivy UR MICRO IND INDICATED Normal [facility] Comment on above: Performed By: #### H STROPN #### [facility] [address] [place] [address] Dr. Rigoberto Ivy Urobilinogen Qn (U) 0.2 {Gideon'U}/dL Normal 0.2 - 1. 0 [facility] Comment on above: Performed By: #### H STROPN #### [facility] [address] [place] [address] Dr. Rigoberto Ivy LAB TESTINGon 11-05-2021 RECV HEADER SEE SCANNED REPORT I N HPF Normal [facility] Comment on above: Performed By: #### M ISC #### [facility] [address] [place] [address] Dr. Rigoberto Ivy REV FROM REF LAB 11/05/2021 [facility] Comment on above: Performed By: #### M ISC #### [facility] [address] [place] [address] Dr. Rigoberto Ivy SENT TO REF LAB 11/05/2020 [facility] Comment on above: Performed By: #### M ISC #### [facility] [address] [place] [address] Dr. Rigoberto Ivy LACTATE/LACTIC ACIDon 2021 Lactate [Moles/Vol] 0.8 mmol/L Normal 0.7-2.0 [facility] Comment on above: Performed By: #### H STROPN #### [facility] [address] [place] [address] Dr. Rigoberto Ivy PROF 14(COMP METB)on 022 Albumin [Mass/Vol] 3.7 g/dL Normal 3.5-5.0 [facility] Comment on above: Performed By: #### C MP, BNP, HSTROPN #### [facility] [address] [place] [address] Dr. Rigoberto Ivy Albumin/Globulin [Mass ratio] 0.9 {ratio} [facility] Comment on above: Performed By: #### C MP, BNP, HSTROPN #### [facility] [address] [place] [address] Dr. Rigoberto Ivy ALP [Catalytic activity/Vol] 105 U/L Normal 38-126 [facility] Comment on above: Performed By: #### C MP, BNP, HSTROPN #### [facility] [address] [address] [address] Rigoberto Ivy ALT [Catalytic activity/Vol] 51 U/L Normal 9-52 [facility] Comment on above: Performed By: #### C MP, BNP, HSTROPN #### [facility] [address] [place] [address] Dr. Rigoberto Ivy Anion gap [Moles/Vol] 11.4 mmol/L Normal [facility] Comment on above: Performed By: #### C MP, BNP, HSTROPN #### [facility] [address] [place] [address] Dr. Rigoberto Ivy AST [Catalytic activity/Vol] 33 U/L Normal 14-36 [facility] Comment on above: Performed By: #### C MP, BNP, HSTROPN #### [facility] [address] [place] [address] Dr. Rigoberto Ivy Bilirubin [Mass/Vol] 0.7 mg/dL Normal 0.2-1.3 [facility] Comment on above: Performed By: #### C MP, BNP, HSTROPN #### [facility] [address] [place] [address] Dr. Rigoberto Ivy Calcium [Mass/Vol] 9.6 mg/dL Normal 8.4-10.2 [facility] Comment on above: Performed By: #### C MP, BNP, HSTROPN #### [facility] [address] [place] [address] Dr. Rigoberto Ivy Chloride [Moles/Vol] 107 mmol/L Normal 98-107 [facility] Comment on above: Performed By: #### C MP, BNP, HSTROPN #### [facility] [address] [place] [address] Dr. Rigoberto Ivy CO2 [Moles/Vol] 30.8 mmol/L Critically high 22.0-30.0 [facility] Comment on above: Performed By: #### C MP, BNP, HSTROPN #### [facility] [address] [place] [address] Dr. Rigoberto Ivy Creatinine [Mass/Vol] 0.65 mg/dL Normal 0.52-1.04 [facility] Comment on above: Performed By: #### C MP, BNP, HSTROPN #### [facility] [address] [place] [address] Dr. Rigoberto Ivy EGFR-AF BOLIVIAN >60 Normal >=60 [facility] Comment on above: Performed By: #### C MP, BNP, HSTROPN #### [facility] [address] [place] [address] Dr. Rigoberto Ivy EGFR-NON AF BOLIVIAN >60 Normal >=60 [facility] [facility] Comment on above: Performed By: #### C MP, BNP, HSTROPN #### [facility] [address] [place] [address] Dr. Rigoberto Ivy Globulin (S) [Mass/Vol] 3.9 g/dL Normal [facility] Comment on above: Performed By: #### C MP, BNP, HSTROPN #### [facility] [address] [place] [address] Dr. Rigoberto Ivy Glucose [Mass/Vol] 98 mg/dL Normal 74-106 [facility] Comment on above: Performed By: #### C MP, BNP, HSTROPN #### [facility] [address] [place] [address] Dr. Rigoberto Ivy Potassium [Moles/Vol] 4.2 mmol/L Normal 3.4-5.0 [facility] Comment on above: Performed By: #### C MP, BNP, HSTROPN #### [facility] [address] [place] [address] Dr. Rigoberto Ivy Protein [Mass/Vol] 7.6 g/dL Normal 6.1-8.2 [facility] Comment on above: Performed By: #### C MP, BNP, HSTROPN #### [facility] [address] [place] [address] Dr. Rigoberto Ivy Sodium [Moles/Vol] 145 mmol/L Normal 137-145 [facility] Comment on above: Performed By: #### C MP, BNP, HSTROPN #### [facility] [address] [address] [address] Rigoberto Ivy Urea nitrogen [Mass/Vol] 12.0 mg/dL Normal 7.0-17.0 [facility] Comment on above: Performed By: #### C MP, BNP, HSTROPN #### [facility] [address] [address] [address] Rigoberto Ivy Urea nitrogen/Creatinine [Mass ratio] 18.5 mg/mg Normal [facility] Comment on above: Performed By: #### C MP, BNP, HSTROPN #### [facility] [address] [address] [address] Rigoberto Ivy TROPONIN, HIGH SENSITIVITYon 11-05-2021 HSTROP 10.3 pg/mL Normal 4.0-35.5 [facility] Comment on above: Result Comment: CUT- OFF POINTS HAVE BEEN ESTABLISHED BASED ON THE FOURTH UNIVERSAL DEFINITIONS OF MYOCARDIAL INFARCTION. THE UPPER REFERENCE LIMIT (URL) OF TROPONIN, DEFINED THE 99TH PERCENTILE OF cTnI DISTRIBUTION IN A REFERENCE POPULATION, HAS BEEN CONFIRMED THE DECISION THRESHOLD FOR MS DIAGNOSIS. Performed By: #### C MP, BNP, HSTROPN #### [facility] [address] [place] [address] Dr. Rigoberto Ivy HSTROP 14.1 pg/mL Normal 4.0-35.5 [facility] Comment on above: Result Comment: CUT- OFF POINTS HAVE BEEN ESTABLISHED BASED ON THE FOURTH UNIVERSAL DEFINITIONS OF MYOCARDIAL INFARCTION. THE UPPER REFERENCE LIMIT (URL) OF TROPONIN, DEFINED THE 99TH PERCENTILE OF cTnI DISTRIBUTION IN A REFERENCE POPULATION, HAS BEEN CONFIRMED THE DECISION THRESHOLD FOR MS DIAGNOSIS. Performed By: #### H STROPN #### [facility] [address] [place] [address] Dr. Rigoberto Ivy URINE MICROSCOPIC ONLYon BACTERIA TRACE Abnormal NONE SEEN [facility] Comment on above: Performed By: #### H STROPN #### [facility] [address] [place] [address] Dr. Rigoberto Ivy Bacteria identified Cx Nom (U) INDICATED Normal [facility] Comment on above: Performed By: #### H STROPN #### [facility] [address] [address] [address] Rigoberto Ivy CAST NONE SEEN Normal NONE SEEN [facility] Comment on above: Performed By: #### H STROPN #### [facility] [address] [address] [address] Rigoberto Ivy Crystals LM Nom (Urine sed) NONE SEEN Normal NONE SEEN [facility] Comment on above: Performed By: #### H STROPN #### [facility] [address] [place] [address] Dr. Rigoberto Ivy Epithelial cells LM Ql (Urine sed) RARE Normal NONE SEEN /RARE [facility] Comment on above: Performed By: #### H STROPN #### [facility] [address] [place] [address] Dr. Rigoberto Ivy MUCOUS TRACE Abnormal NONE SEEN [facility] Comment on above: Performed By: #### H STROPN #### [facility] [address] [place] [address] Dr. Rigoberto Ivy RBC NONE SEEN Abnormal 0-2 [facility] Comment on above: Performed By: #### H STROPN #### [facility] [address] [place] [address] Dr. Rigoberto Ivy WBC 0-2 Abnormal NONE SEEN [facility] Comment on above: Performed By: #### H STROPN #### [facility] [address] [place] [address] Dr. Rigoberto Ivy XR CHEST 1 Von [...] JAMIE OWEN Date: 2021-11-05 13:01 Normal [facility] VIT D 25-OH [facility] 2020 Vitamin D, 25-Hydroxy 44.1 ng/mL Normal 30.0-100.0 [facility] Comment on above: Result Comment: Shabnam min D deficiency has been defined by the [place] of [employer] and an Endocrine Society practice guideline as a level of serum 25-OH vitamin D less than 20 ng/mL (1,2). The Endocrine Society went on to further define vitamin D insufficiency as a level between 21 and 29 ng/mL (2). 1. IOM ([place] of [employer]). 2010. Dietary reference intakes for calcium and D. [place]: The National Academies Press. 2. Chiara MF, Cesilia COLLADO, Evans CALLAHAN, et al. Evaluation, treatment, and prevention of vitamin D deficiency: an Endocrine Society clinical practice guideline. JCEM. 2010; 96(7):1911-30. Performed By: #### C RP, CMP #### [facility] [address] [place] [address] Dr. Rigoberto Ivy CBC AUTO DIFFon 10-29-2021 BASO # 0.1 103/ul Normal 0.0-0.1 [facility] Comment on above: Performed By: #### C BC #### [facility] [address] [place] [address] Dr. Rigoberto Ivy Basophils/100 WBC (Bld) 0.8 % Normal 0.2-2.0 [facility] Comment on above: Performed By: #### C BC #### [facility] [address] [place] [address] Dr. Rigoberto Ivy EO # 0.1 103/ul Normal 0.0-0.7 [facility] Comment on above: Performed By: #### C BC #### [facility] [address] [place] [address] Dr. Rigoberto Ivy Eosinophils/100 WBC (Bld) 1.2 % Normal 0.9-7.0 [facility] Comment on above: Performed By: #### C BC #### [facility] [address] [place] [address] Dr. Rigoberto Ivy Erythrocyte distribution width (RBC) [Ratio] 15.2 % Critically high 11.0-15.0 [facility] Comment on above: Performed By: #### C BC #### [facility] [address] [place] [address] Dr. Rigoberto Ivy Hematocrit (Bld) [Volume fraction] 39.1 % Normal 36.0-48.0 [facility] Comment on above: Performed By: #### C BC #### [facility] [address] [place] [address] Dr. Rigoberto Ivy Hemoglobin (Bld) [Mass/Vol] 12.1 g/dL Normal 12.0-16.0 [facility] Comment on above: Performed By: #### C BC #### [facility] [address] [place] [address] Dr. Rigoberto Ivy IG # 0.03 10e3/ul Normal 0.00-0.03 [facility] Comment on above: Performed By: #### C BC #### [facility] [address] [place] [address] Dr. Rigoberto Ivy IG % 0.4 % Normal 0.0-0.5 [facility] Comment on above: Performed By: #### C BC #### [facility] [address] [place] [address] Dr. Rigoberto Ivy LYMPH # 2.7 103/ul Normal 1.2-3.8 [facility] Comment on above: Performed By: #### C BC #### [facility] [address] [place] [address] Dr. Rigoberto Ivy Lymphocytes/100 WBC (Bld) 35.1 % Normal 20.5-60.0 [facility] Comment on above: Performed By: #### C BC #### [facility] [address] [place] [address] Dr. Rigoberto Ivy MANUAL DIFF REQ NO Normal [facility] Comment on above: Performed By: #### C BC #### [facility] [address] [place] [address] Dr. Rigoberto Ivy MCH (RBC) [Entitic mass] 30.0 pg Normal 26.7-34.0 [facility] Comment on above: Performed By: #### C BC #### [facility] [address] [address] [address] Rigoberto Ivy MCHC (RBC) [Mass/Vol] 30.9 g/dL Normal 29.9-35.2 [facility] Comment on above: Performed By: #### C BC #### [facility] [address] [place] [address] Dr. Rigoberto Ivy MCV (RBC) [Entitic vol] 96.8 fL Normal 81.0-99.0 [facility] Comment on above: Performed By: #### C BC #### [facility] [address] [place] [address] Dr. Rigoberto Ivy MONO # 0.7 103/ul Normal 0.3-0.8 [facility] Comment on above: Performed By: #### C BC #### [facility] [address] [place] [address] Dr. Rigoberto Ivy Monocytes/100 WBC (Bld) 9.8 % Normal 1.7-12.0 [facility] Comment on above: Performed By: #### C BC #### [facility] [address] [place] [address] Dr. Rigoberto Ivy NEUT # 4.0 103/ul Normal 1.4-6.5 [facility] Comment on above: Performed By: #### C BC #### [facility] [address] [place] [address] Dr. Rigoberto Ivy Neutrophils/100 WBC (Bld) 52.7 % Normal 43.0-75.0 [facility] Comment on above: Performed By: #### C BC #### [facility] [address] [place] [address] Dr. Rigoberto Ivy Platelet mean volume (Bld) [Entitic vol] 11.1 fL Normal 9.5-13.5 [facility] Comment on above: Performed By: #### C BC #### [facility] [address] [place] [address] Dr. Rigoberto Ivy PLT 217 103/ul Normal 150-450 [facility] Comment on above: Performed By: #### C BC #### [facility] [address] [place] [address] Dr. Rigoberto Ivy RBC 4.04 106/ul Critically low 4.20-5.40 [facility] Comment on above: Performed By: #### C BC #### [facility] [address] [place] [address] Dr. Rigoberto Ivy WBC 7.6 103/ul Normal 4.0-11.0 [facility] Comment on above: Performed By: #### C BC #### [facility] [address] [place] [address] Dr. Rigoberto Ivy CRPon 10-29-2021 CRP [Mass/Vol] mg/L Normal <=1.0 [facility] Comment on above: Performed By: #### C RP, CMP #### [facility] [address] [place] [address] Dr. Rigoberto Ivy PROF 14(COMP METB)on 021 Albumin [Mass/Vol] 3.3 g/dL Critically low 3.5-5.0 [facility] Comment on above: Performed By: #### C RP, CMP #### [facility] [address] [place] [address] Dr. Rigoberto Ivy Albumin/Globulin [Mass ratio] 1.0 {ratio} Normal [facility] Comment on above: Performed By: #### C RP, CMP #### [facility] [address] [place] [address] Dr. Rigoberto Ivy ALP [Catalytic activity/Vol] 95 U/L Normal 38-126 [facility] Comment on above: Performed By: #### C RP, CMP #### [facility] [address] [place] [address] Dr. Rigoberto Ivy ALT [Catalytic activity/Vol] 31 U/L Normal 9-52 [facility] Comment on above: Performed By: #### C RP, CMP #### [facility] [address] [place] [address] Dr. Rigoberto Ivy Anion gap [Moles/Vol] 8.7 mmol/L Normal [facility] Comment on above: Performed By: #### C RP, CMP #### [facility] [address] [address] [address] Rigoberto Ivy AST [Catalytic activity/Vol] 23 U/L Normal 14-36 [facility] Comment on above: Performed By: #### C RP, CMP #### [facility] [address] [place] [address] Dr. Rigoberto Ivy Bilirubin [Mass/Vol] 0.5 mg/dL Normal 0.2-1.3 [facility] Comment on above: Performed By: #### C RP, CMP #### [facility] [address] [place] [address] Dr. Rigoberto Ivy Calcium [Mass/Vol] 9.5 mg/dL Normal 8.4-10.2 [facility] Comment on above: Performed By: #### C RP, CMP #### [facility] [address] [place] [address] Dr. Rigoberto Ivy Chloride [Moles/Vol] 103 mmol/L Normal 98-107 [facility] Comment on above: Performed By: #### C RP, CMP #### [facility] [address] [place] [address] Dr. Rigoberto Ivy CO2 [Moles/Vol] 33.6 mmol/L Critically high 22.0-30.0 [facility] Comment on above: Performed By: #### C RP, CMP #### [facility] [address] [place] [address] Dr. Rigoberto Ivy Creatinine [Mass/Vol] 0.58 mg/dL Normal 0.52-1.04 [facility] Comment on above: Performed By: #### C RP, CMP #### [facility] [address] [place] [address] Dr. Rigoberto Ivy EGFR-AF BOLIVIAN >60 Normal >=60 [facility] Comment on above: Performed By: #### C RP, CMP #### [facility] [address] [place] [address] Dr. Rigoberto Ivy EGFR-NON AF BOLIVIAN >60 Normal >=60 [facility] Comment on above: Performed By: #### C RP, CMP #### [facility] [address] [place] [address] Dr. Rigoberto Ivy Globulin (S) [Mass/Vol] 3.3 g/dL Normal [facility] Comment on above: Performed By: #### C RP, CMP #### [facility] [address] [place] [address] Dr. Rigoberto Ivy Glucose [Mass/Vol] 98 mg/dL Normal 74-106 [facility] Comment on above: Performed By: #### C RP, CMP #### [facility] [address] [place] [address] Dr. Rigoberto Ivy Potassium [Moles/Vol] 4.3 mmol/L Normal 3.4-5.0 [facility] Comment on above: Performed By: #### C RP, CMP #### [facility] [address] [place] [address] Dr. Rigoberto Ivy Protein [Mass/Vol] 6.6 g/dL Normal 6.1-8.2 [facility] Comment on above: Performed By: #### C RP, CMP #### [facility] [address] [place] [address] Dr. Rigoberto Ivy Sodium [Moles/Vol] 141 mmol/L Normal 137-145 [facility] Comment on above: Performed By: #### C RP, CMP #### [facility] [address] [place] [address] Dr. Rigoberto Ivy Urea nitrogen [Mass/Vol] 10.0 mg/dL Normal 7.0-17.0 [facility] Comment on above: Performed By: #### C RP, CMP #### [facility] [address] [place] [address] Dr. Rigoberto Ivy Urea nitrogen/Creatinine [Mass ratio] 17.2 mg/mg Normal [facility] Comment on above: Performed By: #### C RP, CMP #### [facility] [address] [place] [address] Dr. Rigoberto Ivy SED RATE [facility] 2020 SED RATE 27 mm/hr Normal <=30 [facility] Comment on above: Performed By: #### H STROPN #### [facility] [address] [place], [place] [address] Dr. Rigoberto Ivy Coding Summary.on 04-21-2019 Coding Summary. CODING DATE: 04/21/2019 FINAL [facility] STATUS: Home (Routine DC) PAYOR: [...] CphT Date Saved: 04/21/2019 12:54 pm Normal [facility] [place] Mamm Diag w/CAD if perf [...] very important to your health. The current [employer] and National Comprehensive Cancer [...] Dale Wellington M.D. Transcribed by: SKYLAR Technologist: [facility] Assessment: BI-RADS Category 1-Negative Recommendation: Normal interval follow-up Normal [facility] Coding Summary.on 10-11-2018 Coding Summary. CODING DATE: 10/11/2018 FINAL [facility] STATUS: Home (Routine DC) PAYOR: [...] Ramírez CphT Date Saved: 10/11/2018 10:33 am Normal [facility] Social History Date Type Detail Facility [facility] Start: 1935 Sex Assigned At Female F [facility] Sex Assigned At [place] [employer] Other Vital Signs Date Time Vital Sign Value Performing Clinician Facility 04-28-2024 11:10-0400 Body height 162.56 cm DO Melvin Ball Work Phone: [facility] 04-28-2024 11:10-0400 Body mass index (BMI) [Ratio] 20.4 kg/m2 DO Melvin Ball Work Phone: [facility] 04-28-2024 11:10-0400 Body weight 54 kg DO Melvin Ball Work Phone: [facility] 04-01-2024 [id number] Body height 162.56 cm [facility] 04-01-2024 11:23-0400 Body mass index (BMI) [Ratio] 20.5 kg/m2 [facility] 04-01-2024 [id number] Body weight 54.2 kg [facility] 04-01-2024 11:23-0400 Diastolic blood pressure 80 mm[Hg] [facility] 04-01-2024 11:23-0400 Heart rate 69 /min [facility] 04-01-2024 11:23-0400 Respiratory rate 12 /min [facility] 04-01-2024 11:23-0400 Systolic blood pressure 130 mm[Hg] [facility] 02-04-2024 09:39-0400 Body height 162.56 cm [facility] 02-04-2024 09:39-0400 Body mass index (BMI) [Ratio] 20.7 kg/m2 [facility] 02-04-2024 09:39-0400 Body weight 54.88 kg [facility] 02-04-2024 09:39-0400 Diastolic blood pressure 65 mm[Hg] [facility] 02-04-2024 09:39-0400 Heart rate 73 /min [facility] 02-04-2024 09:39-0400 Respiratory rate 12 /min [facility] 02-04-2024 09:39-0400 Systolic blood pressure 153 mm[Hg] [facility] 10-13-2023 10:30-0500 Body height 162.56 cm Melvin Ball Other [facility] [employer] Other 10-13-2023 10:30-0500 Body mass index (BMI) [Ratio] 21.45 kg/m2 Melvin Ball Other [facility] [employer] Other 10-13-2023 10:30-0500 Body weight 56.7 kg Melvin Ball Other [facility] [employer] Other 10-13-2023 10:30-0500 Diastolic blood pressure 80 mm[Hg] Melvin Ball Other [facility] [employer] Other 10-13-2023 10:30-0500 Respiratory rate 12 /min Melvin Ball Other [facility] [employer] Other 10-13-2023 10:30-0500 Systolic blood pressure 133 mm[Hg] Melvin Ball Other [employer] Other 08-27-2023 13:40-0400 Body height 162.56 cm Melvin Ball Other [employer] Other 08-27-2023 13:40-0400 Diastolic blood pressure 66 mm[Hg] Melvin Ball Other [employer] Other 08-27-2023 13:40-0400 Systolic blood pressure 147 mm[Hg] Melvin Ball Other [employer] Other 06-18-2023 16:20-0400 Diastolic blood pressure 57 mm[Hg] Melvin Ball Other [employer] Other 06-18-2023 16:20-0400 Systolic blood pressure 123 mm[Hg] Melvin Ball Other [employer] Other 06-16-2023 14:24-0400 Diastolic blood pressure 54 mm[Hg] Melvin Ball Other [employer] Other 06-16-2023 14:24-0400 Systolic blood pressure 147 mm[Hg] Melvin Ball Other [employer] Other 06-11-2023 14:25-0400 Systolic blood pressure 130 mm[Hg] Melvin Ball Other [employer] Other 06-11-2023 14:20-0400 Diastolic blood pressure 62 mm[Hg] Melvin Ball Other [employer] Other 06-11-2023 14:20-0400 Systolic blood pressure 125 mm[Hg] Melvin Ball Other [employer] Other 06-08-2023 11:30-0400 Body height 162.56 cm Melvin Ball Other [employer] Other 06-08-2023 11:30-0400 Body mass index (BMI) [Ratio] 22.76 kg/m2 Melvin Ball Other [employer] Other 06-08-2023 11:30-0400 Body weight 60.15 kg Melvin Ball Other [employer] Other 06-08-2023 11:30-0400 Diastolic blood pressure 67 mm[Hg] Melvin Ball Other [employer] Other 06-08-2023 11:30-0400 Respiratory rate 12 /min Melvin Ball Other [employer] Other 06-08-2023 11:30-0400 Systolic blood pressure 155 mm[Hg] Melvin Ball Other [employer] Other 05-06-2023 10:45-0400 Body height 162.56 cm Melvin Ball Other [employer] Other 05-06-2023 10:45-0400 Body mass index (BMI) [Ratio] 22.76 kg/m2 Melvin Ball Other [employer] Other 05-06-2023 10:45-0400 Body weight 60.15 kg Melvin Ball Other [employer] Other 05-06-2023 10:45-0400 Diastolic blood pressure 76 mm[Hg] Melvin Ball Other [employer] Other 05-06-2023 10:45-0400 Respiratory rate 12 /min Melvin Ball Other [employer] Other 05-06-2023 10:45-0400 Systolic blood pressure 160 mm[Hg] Melvin Pereira Other [place] [employer] Other Clinical Notes 05-06-2023 to 04-28-2024 Note Date & Type Note Facility 04-28-2024 Evaluation note Authored April 28, 2024 11:20am 89-year-old female referred to the liver clinic for evaluation of elevated liver enzymes Patient denied jaundice abdominal pain nausea vomiting or other complaints. She used to be on methotrexate for 8 years she stopped it 2 weeks ago. She started atorvastatin 3 weeks ago Will recheck LFTs. Will get laboratory workup for infectious autoimmune or metabolic etiologies of liver disease. Will arrange for ultrasound liver. After getting the results of the workup will determine the need to stop atorvastatin [facility] Work Phone: [phone] 812-420012-12-2023 Evaluation note* Encounter Date Diagnosis Assessment Notes Treatment Notes Treatment Clinical Notes Oct, Primary hypertension (ICD-10 - I10) This patient is instructed to consume a healthy, low-fat, low-salt diet. They are also encouraged to continue exercise to achieve/maintain a normal BMI. Patient is instructed on [...] monitor for pain, distention, melena or hematochezia. [employer] Other 10-09-2023 Evaluation note* Encounter Date Diagnosis Assessment Notes Treatment Notes Treatment Clinical Notes Aug, COVID (ICD-10 - U07.1) [employer] Other 08-10-2023 Evaluation note* Encounter Date Diagnosis Assessment Notes Treatment Notes Treatment Clinical Notes Jun, Primary hypertension (ICD-10 - I10) [employer] Other 08-07-2023 Evaluation note* Encounter Date Diagnosis Assessment Notes Treatment Notes Treatment Clinical Notes Jun, Medicare annual wellness visit, subsequent [...] signed below. Healthy diet and exercise. Reviewed age-appropriate preventive testing recommended. Jun, Primary hypertension (ICD-10 - I10) This patient is instructed to consume a healthy, low-fat, low-salt diet. They are also encouraged to continue exercise to achieve/maintain a normal BMI. Patient is instructed on [...] and Vit D supplements. Weight bearing exercises [employer] Other 07-07-2023 Evaluation note* Encounter Date Diagnosis Assessment Notes Treatment Notes Treatment Clinical Notes May, Primary hypertension (ICD-10 - I10) [employer] Other 07-05-2023 Evaluation note* Encounter Date Diagnosis Assessment Notes Treatment Notes Treatment Clinical Notes May, Elevated BP without diagnosis of hypertension (ICD-10 - R03.0) This patient is instructed to consume a healthy, low-fat, low-salt diet. They are also encouraged to continue exercise to achieve/maintain a normal BMI. Patient is instructed on [...] mammogram for breast cancer (ICD-10 - Z12.31) [employer] Other Evaluation noteNo InformationNort [employer] Other Evaluation note* Diagnosis Onset Date Resolution Status Chronic venous insufficiency of lower extremity acute GERD (gastroesophageal reflux disease) acute Hypertension acute Lumbar spondylosis acute Osteopenia acute Rheumatoid arthritis acute [facility] Work Phone: Evaluation note* Diagnosis Onset Date Resolution Status Aphasia acute Chronic venous insufficiency of lower extremity acute GERD (gastroesophageal reflux disease) acute Hypertension acute Lumbar spondylosis acute Osteopenia acute Rheumatoid arthritis acute TIA (transient ischemic attack) acute Cerebral atherosclerosis acu te Chronic venous insufficiency of lower extremity acute Hypertension acute [facility] Work Phone: History general Narrative - Reported* Type Description Date Medical History Lumbar spondylosis Medical History Elevated blood pressure (not hyp ertension) Medical History Severe anxiety with panic Medical [...] CHOLECYSTECTOMY 2002 Surgical History URETHRAL POLYP EXCISED 2004 Hospitalization History SEE SURGICAL HX [employer] Other Summary Purpose Family History No Family History Records Found Relationship Condition Age at Onset Recorded Date/T kamla father Unknown Not Specified Unknown Relationship Condition Age at Onset Recorded Date/T kamla father Unknown mother Unknown Advance Directives No Advanced Directives Records Found Advance Directive Response Recorded Date/ Time Advance [...] Chronic venous insufficiency of lower extremity Hypertension Chief Complaint 4 month follow up 1 month follow up increased liver function test/dr armando referred R74.8 Reason for Visit Aphasia Chronic venous insufficiency of lower extremity GERD (gastroesophageal reflux disease) Hypertension Lumbar spondylosis Osteopenia Rheumatoid arthritis TIA (transient ischemic attack) Cerebral atherosclerosis Chronic venous insufficiency of lower extremity Hypertension Inflammatory polyarthropathy TIA (transient ischemic attack) Elevated liver enzymes Additional Source Comments INFORMATION SOURCE (unrecogn ized section and content) DATE CREATED AUTHOR 04/21/2019 [facility] [email or web address] [facility] DATE CREATED AUTHOR AUTHOR'S ORGANIZ ATION 07/30/2022 [facility] DATE CREATED AUTHOR AUTHOR'S ORGANIZ ATION 11/17/2023 [facility] EPIC DATE CREATED AUTHOR AUTHOR'S ORGANIZ ATION 04/30/2024 [facility] REASON FOR VISIT (unrecogniz ed section and [...] Active Start: December 16, 2023 Team Status: Active Member Role Status Dates Melvin Pereira DO Primary Care Provider Active Start: April 18, 2024 Noam Armando MD Attending Provider Active St art: April 18, 2024 Team Status: Inactive Member Role Status Dates Melvin Pereira , Primary Care Provider Active Start: April 28, 2024 End: April 28, 2024 Bryan Briggs MD Attending Provider Active Start: April 28, 2024 End: April 28, 2024 Goals (unrecognized section and content) Goals [...] BE BASED ON THE PRIMARY CLINICAL RECORDS. [employer] [facility]. provides no warranty or guarantee of the accuracy or completeness of information in this document.
--- NOTE | 2024-05-02 07:23 | US_ITS ---
The [address] [address] Patient Name: JAYLON CASH MRN: [id number] date: 1935 Sex: F Assigned Patient Location: US Current Patient Location: US Accession/Order Number: [id number] Exam Date: 05/02/2024 07:30 Report Date: 05/02/2024 10:18 At the request of: TWAN MALHOTRA Procedure: US right upper quadrant EXAMINATION: US right upper quadrant HISTORY: Elevated liver enzymes, R74.8 COMPARISON: No relevant comparison available. TECHNIQUE: Transabdominal evaluation of the right upper quadrant. FINDINGS: LIVER: Multiple small hyperechoic areas scattered within the liver are suspected represent slightly dilated and slight wall thickening of intrahepatic bile ducts. Color Doppler demonstrates patent hepatic veins. PORTAL VEIN: Duplex Doppler demonstrates normal hepatopetal flow pattern with flow velocity averaging 39 cm/s. GALLBLADDER: Cholecystectomy. BILIARY: No abnormal dilation or stones. Common bile duct diameter is within normal limits. PANCREAS: No visible mass, abnormal atrophy, or duct dilation. KIDNEY: Cortical thinning, likely age related. No hydronephrosis. No visible mass or stones. Size: 9.9 x 5.4 x 4.4 cm US/US right upper quadrant IMPRESSION: 1. Mild fatty infiltration. 2. Suspect mildly dilated intrahepatic bile ducts post cholecystectomy. No abnormal dilation of the common bile duct or suspicious findings. 3. Right renal cortical atrophy. No appreciable stones or obstructive uropathy. Electronically authenticated by: KEON ROBERTSON Date: 05/02/2024 10:18
== END 2024-05-02 07:15 | disposition home or self-care (01) ==
LOC: US 07:14
PROVIDERS: PCP Internal Medicine; Visit Provider Internal Medicine
DX: R74.8 Abnormal levels of other serum enzymes (principal)
CPT/HCPCS: 76705

== ENCOUNTER 2024-06-14 07:48 | Outpatient (OUT) | payer MEDICARE, OTHER, SELFPAY ==
--- OUTSIDE RECORDS SUMMARY | 2024-06-14 07:53 | XMS_ITS | CCD ---
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 Name Role Phone TR, DR SANTACRUZ Admitting Unavailable ARMANDO, DR SANTACRUZ Attending Unavailable ARMANDO, DR SANTACRUZ Consulting Unavailable BALL, DR ALBERTO Primary Care Unavailable PRISCILLA, CARITO Attending Unavailable PRISCILLA, CARITO Admitting Unavailable ZIEBER, DR JAMIE Cruz Consulting Unavailable BALL, DR ALBERTO Primary Care Unavailable PRISCILLA, CARITO Consulting Unavailable ARMANDO, DR SANTACRUZ Admitting Unavailable ARMANDO, DR SANTACRUZ Attending Unavailable ARMANDO, DR SANTACRUZ Consulting Unavailable RANDALL, DR ALBERTO Primary Care Unavailable RANDALL, DR ALBERTO Attending Unavailable BALL, DR ALBERTO Consulting Unavailable BALL, DR ALBERTO Primary Care Unavailable BALL, DR ALBERTO Admitting Unavailable WEST, DR MARIA E Briceno Consulting Unavailable RANDALL, DR ALBERTO Admitting Unavailable BALL, DR ALBERTO Attending Unavailable BALL, DR ALBERTO Consulting Unavailable RANDALL, DR ALBERTO Primary Care Unavailable AILYN, DR JAMIE Cruz Consulting Unavailable Melvin Pereira Unavailable DO Melvin Pereira Primary Care Provider [phone] MD Bryan Briggs Attending Provider Melvin Pereira Primary Care Unavailable Bryan Briggs Attending Unavailable Chester, Bryan Admitting Unavailable DELROY TENA Attending Unavailable DELROY TENA Attending Unavailable DELROY TENA Attending Unavailable Allergies Allergy Classification Reported Allergen(s) Allergy Type Date of Onset Reaction(s) Facility (20 sources) [facility] Drug Allergy Unknown [facility] Other (1 source) patient allergy list reviewed by nurse or physicia Propensity to adverse reactions 9 Comment:Done [facility] Other (1 source) [facility] Drug Allergy 4 [facility] Repository Medications Current Medications Medication Drug Class(es) Dates Sig (Normalized) Sig (Original) ascorbic acid 113 mg / beta carotene 7160 mg / cuprous oxide 0.4 mg / dl-alpha tocopheryl acetate 100 unt / zinc oxide 17.4 mg oral tablet (5 sources) Vitamin C Start: 02-03-2024 Vitamins A,C,R-Jfnv-Xqqjvg (Preservision Areds) 2,148 mcg-113 mg-45 mg-17.4mg tablet Active TAB PO As Directed February 03, 2024 12:00am Preservision PreserVision ARE DS - as directed Orally Active atorvastatin 80 mg oral tablet (4 sources) HMG-CoA Reductase Inhibitor Start: 05-30-2024 take 1 tablet by mouth once daily Atorvastatin Active 0 .ROUTE .COMPLEX 90 May 30, 2024 10:07am TAKE 1 TABLET BY MOUTH EVERY DAY Start: 02-05-2024 End: 05-30-2024 take 80 mg by mouth once daily Atorvastatin Discontinu ed 80 MG PO Daily 30 February 05, 2024 12:00am May 30, 2024 10:07am calcium carbonate 1500 mg / cholecalciferol 800 unt chewable tablet (4 sources) Vitamin D Start: 02-03-2024 Calcium Carbonate-Vitamin D3 [...] day Active Cyclosporine (Restasis) 0.05 % dropperette (4 sources) Start: 02-03-2024 take 1 drop(s) into the eye(s) every twelve hours Cyclosporine (Restasis) 0.05 % dropperette Active 1 DROPS EYE-BOTH Every 12 hours February 03, 2024 12:00am Dextran 70 / Glycerin / hypromellose (1 source) Plasma Volume Grain Weigher, Non-Standardized Chemical Allergen GenTeal Tears 0.1-0.3 % as directed Ophthalmic Active dextran 70 1 mg/ml / hypromellose 3 mg/ml ophthalmic solution (4 sources) Plasma Volume Grain Weigher Start: 02-03-2024 take 0.1-0.3 drop(s) into the [...] Orally Once a day Active Multivitamin preparation (5 sources) Start: 02-03-2024 take 1 tablet by [...] Sig (Original) amLODIPine 5 mg oral tablet (13 sources) Dihydropyridine Calcium Channel Norm Start: 02-03-2024 [...] history of urinary calculi] Episodic Esophageal disorders (19 sources) Gastro-esophageal reflux disease with esophagitis; Translations: [...] 10-29-2021 Chronic Other and ill-defined cerebrovascular disease (3 sources) Cerebral atherosclerosis; Translations: [Cerebral atherosclerosis] 03-30-2024 Chronic Other and ill-defined cerebrovascular disease (4 sources) Cerebral atherosclerosis; Translations: [Cerebral atherosclerosis] 04-01-2024 Chronic Other bone disease and musculoskeletal deformities (20 sources) Other specified disorders of bone density and structure, other site; 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] Episodic Other bone disease and musculoskeletal deformities (16 sources) Disorder of bone; Translations: [Other specified disorders of bone density and structure, other site] Episodic Other bone disease and musculoskeletal deformities (4 sources) Osteopenia; Translations: [Other specified disorders of bone density and structure, unspecified site] 02-03-2024 Episodic Other bone disease and musculoskeletal deformities (4 sources) Other specified disorders of bone density [...] Episodic Other diseases of veins and lymphatics (10 sources) Venous insufficiency (chronic) (peripheral); Translations: [Venous (peripheral) insufficiency, unspecified] Episodic Other diseases of veins and lymphatics (4 sources) Venous insufficiency of leg; Translations: [Venous insufficiency (chronic) (peripheral)] 02-03-2024 Episodic Other gastrointestinal disorders (5 sources) Slow transit constipation; Translations: [Slow transit constipation] 02-03-2024 Episodic Other gastrointestinal disorders (1 source) Slow transit constipation Episodic Other injuries and conditions due to external causes (16 sources) History of fall; Translations: [History of falling] Episodic Other liver diseases (1 source) Steatosis of liver; Translations: [Fatty (change of) liver, not elsewhere classified] 06-11-2024 Chronic Other liver diseases (1 source) Fatty (change of) liver, not elsewhere classified; Translations: [Other chronic nonalcoholic liver disease] 06-13-2024 Chronic Other liver diseases (2 sources) Elevated liver enzymes level; Translations: [Abnormal levels of other serum enzymes] 04-28-2024 Episodic Other liver diseases (3 sources) Abnormal levels of other serum enzymes; Translations: [Other nonspecific abnormal serum enzyme levels] Onset: 04-28-2024 04-28-2024 Episodic Other nervous system disorders (16 sources) Carpal tunnel syndrome; Translations: [Carpal tunnel syndrome, right upper limb] Chronic Other nervous system disorders (4 sources) Aphasia; Translations: [Aphasia] 02-04-2024 Chronic Other [...] back pain, unspecified] Episodic Transient cerebral ischemia (8 sources) Transient cerebral ischemia; Translations: [Transient cerebral [...] 08-10-2017 Episodic Other aftercare (1 source) Other fpc (current) drug therapy; Translations: [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 THERAPY] Onset: 03-19-2022 Episodic Other aftercare (1 source) 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; Translations: [ASSISTED CURRENT USE OF ASPIRIN] Onset: 11-09-2021 Episodic [...] zymatic activity/volume] in Serum or PlasmaOrdered By: Imad Asaad on 04-28-2024 ALT [Catalytic activity/Vol] 82 U/L High 7-52 [facility] Comment on above: Performed By: #### H EPATIC, DIFF CBC #### [facility] [address] [place] [address] [place] #### CELIAC #### [facility] , Albumin [Mass/volume] in Ser um or Plasma by Bromocresol green (BCG) dye binding methoOrdered By: Imad Asaad on 04-28-2024 Albumin BCG dye [Mass/Vol] 4.0 g/dL 3.5-5.7 [facility] Alkaline phosphatase [Enzyma tic activity/volume] in Serum or PlasmaOrdered By: Imad Asaad on 04-28-2024 ALP [Catalytic activity/Vol] 890 U/L High 34-104 [facility] Comment on above: Result Comment: PERF ORMED BY: [place] [address] FORM SETTER [address] FORMS GARRETT SELLERS M.D. Performed By: #### H EPATIC, DIFF CBC #### [facility] [address] [place] [address] [place] #### CELIAC #### [facility] , Anisocytosis [Presence] in B lood by Light microscopyOrdered By: Imad Asaad on 04-28-2024 Anisocytosis Ql (Bld) Slight [facility] Comment on above: Performed By: #### H EPATIC, DIFF CBC #### [facility] [address] [place] [address] [place] #### CELIAC #### [facility] , Aspartate aminotransferase [ Enzymatic activity/volume] in Serum or PlasmaOrdered By: Imad Asaad on 04-28-2024 AST [Catalytic activity/Vol] 82 U/L High 13-39 [facility] Comment on above: Performed By: #### H EPATIC, DIFF CBC #### [facility] [address] [place] [address] [place] #### CELIAC #### [facility] , Basophils Auto (Bld) [#/Vol] Ordered By: Imad Asaad on 04-28-2024 Basophils (Bld) [#/Vol] N/A [facility] Basophils/100 WBC Auto (Bld) Ordered By: Imad Asaad on 04-28-2024 Basophils/100 WBC (Bld) N/A [facility] Basophils/100 leukocytes in Blood by Manual countOrdered By: Imad Asaad on 04-28-2024 Basophils/100 WBC (Bld) 2 % 0-2 [facility] Comment on above: Performed By: #### H EPATIC, DIFF CBC #### [place] [address] [place] #### CELIAC #### [facility] , Bilirubin.direct [Mass/volum e] in Serum or PlasmaOrdered By: Imad Asaad on 04-28-2024 Bilirubin.direct [Mass/Vol] 0.30 mg/dL High 0.03-0.18 [facility] Bilirubin.total [Mass/volume ] in Serum or PlasmaOrdered By: Imad Asaad on 04-28-2024 Bilirubin [Mass/Vol] 1.1 mg/dL High 0.3-1.0 [facility] Comment on above: Performed By: #### H EPATIC, DIFF CBC #### [facility] [address] [place] [address] [place] #### CELIAC #### [facility] , [place] cells [Presence] in Blo od by Light microscopyOrdered By: Imad Asaad on 04-28-2024 Shyla cells LM Ql (Bld) Slight [facility] [place] Celiacon 04-28-2024 Deamidated Gliadin Abs, IgA 3 Normal 0-19 [facility] Comment on above: Result Comment: Nega tive 0 - 19 Weak Positive 20 - 30 Moderate to Strong Positive >30 Performed By: #### H EPATIC, DIFF CBC #### [place] [address] [place] #### CELIAC #### [facility] , Deamidated Gliadin Abs, IgG 2 Normal 0-19 [facility] Comment on above: Result Comment: Nega tive 0 - 19 Weak Positive 20 - 30 Moderate to Strong Positive >30 Performed By: #### H EPATIC, DIFF CBC #### [address] #### CELIAC #### [facility] , Endomysial Antibody IgA Negative Normal Negative T he [facility] Comment on above: Performed By: #### H EPATIC, DIFF CBC #### [place] [address] [place] #### CELIAC #### [facility] , Immunoglobulin A, Qn, Serum 252 mg/dL Normal 64-422 [facility] Comment on above: Result Comment: Perf ormed at: CB - [facility] [place] [id number] Human Capital Consultant: Jung Cottrell PhD, Phone: [phone] PERFORMED BY: [place] [address] [address]M SET[address] FORMS GARRETT SELLERS M.D. Performed By: #### H EPATIC, DIFF CBC #### [place] [address] [place] #### CELIAC #### [facility] , T-Transglutaminase (tTG) IgA <2 Normal 0-3 [facility] Comment on above: Result Comment: Nega tive 0 - 3 Weak Positive 4 - 10 Positive >10 Tissue Transglutaminase (tTG) has been identified as the endomysial antigen. Studies have demonstr- ated that endomysial IgA antibodies have over 99% specificity for gluten sensitive enteropathy. Performed By: #### H EPATIC, DIFF CBC #### [place] [address] [place] #### CELIAC #### [facility] , T-Transglutaminase (tTG) IgG 4 Normal 0-5 [facility] Comment on above: Result Comment: Nega tive 0 - 5 Weak Positive 6 - 9 Positive >9 Performed By: #### H EPATIC, DIFF CBC #### [place] [address] [place] #### CELIAC #### [facility] , Diff and CBCon 04-28-2024 Crenated RBC Slight Normal [facility] Comment on above: Performed By: #### H EPATIC, DIFF CBC #### [place] [address] [place] #### CELIAC #### [facility] , Giant Platelet Tally 1 /100{WBC} Normal [facility] Comment on above: Performed By: #### H EPATIC, DIFF CBC #### [place] [address] [place] #### CELIAC #### [facility] , Mean Corpuscular HGB Conc 32.7 g/dL Normal 32.0-35.0 [facility] Comment on above: Performed By: #### H EPATIC, DIFF CBC #### [place] [address] [place] #### CELIAC #### [facility] , Ovalocytes Slight Normal [facility] Comment on above: Performed By: #### H EPATIC, DIFF CBC #### [place] [address] [place] #### CELIAC #### [facility] , Platelet Estimate Normal Normal Normal [facility] Comment on above: Performed By: #### H EPATIC, DIFF CBC #### [address] #### CELIAC #### [facility] , Platelet Morphology Normal Normal Normal [facility] Comment on above: Result Comment: PERF ORMED BY: [place] [address] [address]M SET[address] FORMS GARRETT SELLERS M.D. Performed By: #### H EPATIC, DIFF CBC #### [address] #### CELIAC #### [facility] , Poikilocytosis Slight Normal [facility] Comment on above: Performed By: #### H EPATIC, DIFF CBC #### [place] [address] [place] #### CELIAC #### [facility] , Eosinophils Auto (Bld) [#/Vo l]Ordered By: Imad Asaad on 04-28-2024 Eosinophils (Bld) [#/Vol] N/A [facility] Eosinophils/100 WBC Auto (Bl d)Ordered By: Imad Asaad on 04-28-2024 Eosinophils/100 WBC (Bld) N/A [facility] Eosinophils/100 leukocytes i n Blood by Manual countOrdered By: Imad Asaad on 04-28-2024 Eosinophils/100 WBC (Bld) 1 % 1-3 [facility] Comment on above: Performed By: #### H EPATIC, DIFF CBC #### [facility] [address] [place] [address] [place] #### CELIAC #### [facility] , Erythrocyte distribution wid th [Ratio] by Automated countOrdered By: Imad Asaad on 04-28-2024 Erythrocyte distribution width (RBC) [Ratio] 16.0 % High 11.9-15.3 [facility] Comment on above: Performed By: #### H EPATIC, DIFF CBC #### [facility] [address] [place] [address] #### CELIAC #### [facility] , Erythrocytes [#/volume] in B lood by Automated countOrdered By: Imad Asaad on 04-28-2024 RBC (Bld) [#/Vol] 4.25 10*6/uL 3.60-5.00 [facility] Comment on above: Performed By: #### H EPATIC, DIFF CBC #### [facility] [address] [place] [address] [place] #### CELIAC #### [facility] , Giant platelets/100 leukocyt es [Ratio] in Blood by Manual countOrdered By: Imad Asaad on 04-28-2024 Giant platelets/100 WBC Manual cnt (Bld) [Ratio] 1 /100{WBC} [facility] Hematocrit [Volume Fraction] of Blood by Automated countOrdered By: Imad Asaad on 04-28-2024 Hematocrit (Bld) [Volume fraction] 39.1 % 34.0-46.4 [facility] Comment on above: Performed By: #### H EPATIC, DIFF CBC #### [place] [address] [place] #### CELIAC #### [facility] , Hemoglobin [Mass/volume] in BloodOrdered By: Imad Asaad on 04-28-2024 Hemoglobin (Bld) [Mass/Vol] 12.8 g/dL 11.8-15.4 [facility] Comment on above: Performed By: #### H EPATIC, DIFF CBC #### [facility] [address] [place] [address] [place] #### CELIAC #### [facility] , Hepatic Panelon 04-28-2024 Albumin [Mass/Vol] 4.0 g/dL Normal 3.5-5.7 [facility] Comment on above: Performed By: #### H EPATIC, DIFF CBC #### [facility] [address] [place] [address] [place] #### CELIAC #### [facility] , Bilirubin,Indirect 0.8 mg/dL Normal [facility] Comment on above: Performed By: #### H EPATIC, DIFF CBC #### [facility] [address] [place] [address] [place] #### CELIAC #### [facility] , Bilirubin.indirect [Mass/Vol] 0.30 mg/dL High 0.03-0.18 [facility] Comment on above: Performed By: #### H EPATIC, DIFF CBC #### [place] [address] [place] #### CELIAC #### [facility] , IgA [Mass/volume] in Serum o r PlasmaOrdered By: Imad Asaad on 04-28-2024 IgA [Mass/Vol] 252 mg/dL 64-422 [facility] Comment on above: Performed at: - [place] [id number] Director: Jung Cottrell PhD, Phone: [phone] Leukocytes [#/volume] correc shahid for nucleated erythrocytes in Blood by Automated counOrdered By: Imad Asaad on 04-28-2024 WBC corrected for nucl RBC Auto (Bld) [#/Vol] 6.8 10*3/uL 3.8-11.6 [facility] Leukocytes [#/volume] in Blo od by Automated countOrdered By: Imad Asaad on 04-28-2024 WBC (Bld) [#/Vol] 6.8 10*3/uL 3.8-11.6 [facility] Comment on above: Performed By: #### H EPATIC, DIFF CBC #### [facility] [address] [place] [address] [place] #### CELIAC #### [facility] , Lymphocytes Auto (Bld) [#/Vo l]Ordered By: Imad Asaad on 04-28-2024 Lymphocytes (Bld) [#/Vol] N/A [facility] Lymphocytes/100 WBC Auto (Bl d)Ordered By: Imad Asaad on 04-28-2024 Lymphocytes/100 WBC (Bld) N/A [facility] Lymphocytes/100 leukocytes i n Blood by Manual countOrdered By: Imad Asaad on 04-28-2024 Lymphocytes/100 WBC (Bld) 25 % 18-42 [facility] Comment on above: Performed By: #### H EPATIC, DIFF CBC #### [facility] [address] [place] [address] [place] #### CELIAC #### [facility] , MCH [Entitic mass] by Automa shahid countOrdered By: Imad Asaad on 04-28-2024 MCH (RBC) [Entitic mass] 30.1 pg 24.7-34.3 [facility] Comment on above: Performed By: #### H EPATIC, DIFF CBC #### [facility] [address] [place] [address] [place] #### CELIAC #### [facility] , MCHC Auto (RBC) [Mass/Vol]Or dered By: Imad Asaad on 04-28-2024 MCHC (RBC) [Mass/Vol] 32.7 g/dL 32.0-35.0 [facility] MCV [Entitic volume] by Auto mated countOrdered By: Imad Asaad on 04-28-2024 MCV (RBC) [Entitic vol] 92.1 fL 80-100 [facility] Comment on above: Performed By: #### H EPATIC, DIFF CBC #### [facility] [address] [place] [address] [place] #### CELIAC #### [facility] , Manual blood segmented neutr ophils/100 leukocytesOrdered By: Imad Asaad on 04-28-2024 Segmented neutrophils/100 WBC (Bld) 60 % 50-70 [facility] Comment on above: Performed By: #### H EPATIC, DIFF CBC #### [facility] [address] [place] [address] [place] #### CELIAC #### [facility] , Monocytes Auto (Bld) [#/Vol] Ordered By: Imad Asaad on 04-28-2024 Monocytes (Bld) [#/Vol] N/A [facility] Monocytes/100 WBC Auto (Bld) Ordered By: Imad Asaad on 04-28-2024 Monocytes/100 WBC (Bld) N/A [facility] Monocytes/100 leukocytes in Blood by Manual countOrdered By: Imad Asaad on 04-28-2024 Monocytes/100 WBC (Bld) 12 % High 2-11 [facility] Comment on above: Performed By: #### H EPATIC, DIFF CBC #### [facility] [address] [place] [address] [place] #### CELIAC #### [facility] , Neutrophils Auto (Bld) [#/Vo l]Ordered By: Imad Asaad on 04-28-2024 Neutrophils (Bld) [#/Vol] N/A [facility] Neutrophils/100 WBC Auto (Bl d)Ordered By: Imad Asaad on 04-28-2024 Neutrophils/100 WBC (Bld) N/A [facility] No Panel InformationOrdered By: Imad Asaad on 04-28-2024 Endomysial IgA Antibody Negative Negative [facility] Nucleated erythrocytes [Pres ence] in Blood by Automated countOrdered By: Imad Asaad on 04-28-2024 Nucleated RBC Auto Ql (Bld) N/A [facility] Ovalocyte detectionOrdered B y: Imad Asaad on 04-28-2024 Ovalocytes LM Ql (Bld) Slight [facility] [place] Platelet adequacy [Presence] in Blood by Light microscopyOrdered By: Imad Asaad on 04-28-2024 Platelets LM Ql (Bld) Normal Normal [facility] Platelet mean volume [Entiti c volume] in Blood by Automated countOrdered By: Imad Asaad on 04-28-2024 Platelet mean volume (Bld) [Entitic vol] 11.6 fL High 6.3-10.7 [facility] Comment on above: Result Comment: PERF ORMED BY: [place] [address] [address]M SETTER [address] FORMS GARRETT SELLERS M.D. Performed By: #### H EPATIC, DIFF CBC #### [place] [address] [place] #### CELIAC #### [facility] , Platelet morphology finding [Identifier] in BloodOrdered By: Imad Asaad on 04-28-2024 Platelet morphology finding Nom (Bld) Normal Normal [facility] Platelets [#/volume] in Bloo d by Automated countOrdered By: Imad Asaad on 04-28-2024 Platelets (Bld) [#/Vol] 170 10*3/uL 150-450 [facility] Comment on above: Performed By: #### H EPATIC, DIFF CBC #### [address] #### CELIAC #### [facility] , Poikilocytosis [Presence] in Blood by Light microscopyOrdered By: Imad Asaad on 04-28-2024 Poikilocytosis LM Ql (Bld) Slight [facility] Protein [Mass/volume] in Ser um or PlasmaOrdered By: Imad Asaad on 04-28-2024 Protein [Mass/Vol] 6.7 g/dL 6.4-8.9 [facility] Comment on above: Performed By: #### H EPATIC, DIFF CBC #### [facility] [address] [place] [address] [place] #### CELIAC #### [facility] , RBC morphologyOrdered By: Im ad Asaad on 04-28-2024 RBC morphology finding Nom (Bld) N/A [facility] Serum gliadin peptide IgA an tibody assay (units/volume)Ordered By: Imad Asaad on 04-28-2024 Gliadin peptide IgA Qn (S) 3 units 0-19 [facility] Comment on above: Negative 0 - 19 Weak Positive 20 - 30 Moderate to Strong Positive >30 Serum gliadin peptide IgG an tibody assay (units/volume)Ordered By: [facility] on 04-28-2024 Gliadin peptide IgG Qn (S) 2 units 0-19 [facility] Comment on above: Negative 0 - 19 Weak Positive 20 - 30 Moderate to Strong Positive >30 Serum globulin measurement b y calculation (mass/volume)Ordered By: [facility] on 04-28-2024 Globulin (S) [Mass/Vol] 2.7 g/dL [facility] Comment on above: Performed By: #### H EPATIC, DIFF CBC #### [facility] [address] [place] [address] [place] #### CELIAC #### [facility] , Serum or plasma albumin/glob ulin mass ratioOrdered By: [facility] on 04-28-2024 Albumin/Globulin [Mass ratio] 1.5 {ratio} [facility] Comment on above: Performed By: #### H EPATIC, DIFF CBC #### [facility] [address] [place] [address] [place] #### CELIAC #### [facility] , Serum or plasma non-glucuron idated bilirubin measurement (mass/volume)Ordered By: [facility] on 04-28-2024 Bilirubin.indirect [Mass/Vol] 0.8 mg/dL [facility] Serum tissue transglutaminas e (tTG) IgA antibody assay (units/volume)Ordered By: [facility] on 04-28-2024 tTG IgA Qn (S) <2 U/mL 0-3 [facility] Comment on above: Negative 0 - 3 Weak Positive 4 - 10 Positive >10 Tissue Transglutaminase (tTG) has been identified as the endomysial antigen. Studies have demonstr- ated that endomysial IgA antibodies have over 99% specificity for gluten sensitive enteropathy. Serum tissue transglutaminas e (tTG) IgG antibody assay (units/volume)Ordered By: [facility] on 04-28-2024 tTG IgG Qn (S) 4 U/mL 0-5 [facility] Comment on above: Negative 0 - 5 Weak Positive 6 - 9 Positive >9 Basophils Auto (Bld) [#/Vol] on 04-18-2024 Basophils (Bld) [#/Vol] 0.1 10 3/uL 0.0-0.1 [facility] Basophils/100 WBC Auto (Bld) on 04-18-2024 Basophils/100 WBC (Bld) 0.9 % 0.2-2.0 [facility] Eosinophils/100 WBC Auto (Bl d)on 04-18-2024 Eosinophils/100 WBC (Bld) 8.0 % High 0.9-7.0 [facility] Erythrocyte distribution wid th Auto (RBC) [Ratio]on 04-18-2024 Erythrocyte distribution width (RBC) [Ratio] 15.6 % High 11.0-15.0 [facility] Estimated glomerular filtrat ion rate (GFR) non- Americanon 04-18-2024 GFR/1.73 sq M.predicted among non-blacks MDRD (S/P/Bld) [Vol rate/Area] mL/min/{1.73_m2} >=60 [facility] Globulin Calc (S) [Mass/Vol] on 04-18-2024 Globulin (S) [Mass/Vol] 3.9 g/dL [facility] Hematocrit Auto (Bld) [Volum e fraction]on 04-18-2024 Hematocrit (Bld) [Volume fraction] 36.6 % 36.0-48.0 [facility] Hemoglobin [Mass/volume] in Bloodon 04-18-2024 Hemoglobin (Bld) [Mass/Vol] 11.2 g/dL Low 12.0-16.0 [facility] Laboratory - Chemistry and C hemistry - challengeon 04-18-2024 Albumin [Mass/Vol] 3.0 g/dL Low 3.4-5.0 [facility] ALP [Catalytic activity/Vol] 983 U/L High 46-116 [facility] ALT [Catalytic activity/Vol] 174 U/L High 14-59 [facility] AST [Catalytic activity/Vol] 149 U/L High 15-37 [facility] Bilirubin [Mass/Vol] 1.6 mg/dL High 0.2-1.0 [facility] Calcium [Mass/Vol] 9.2 mg/dL 8.5-10.1 [facility] Chloride [Moles/Vol] 105 mmol/L 98-107 [facility] CO2 [Moles/Vol] 31.5 mmol/L 21.0-32.[address] [facility] Creatinine [Mass/Vol] 0.82 mg/dL 0.55-1.02 [facility] GFR/1.73 sq M.predicted MDRD (S/P/Bld) [Vol rate/Area] mL/min/{1.73_m2} >=60 [facility] Glucose [Mass/Vol] 154 mg/dL High 74-106 [facility] Potassium [Moles/Vol] 3.5 mmol/L 3.5-5.1 [facility] Protein [Mass/Vol] 6.9 g/dL 6.4-8.2 [facility] Sodium [Moles/Vol] 143 mmol/L 136-145 [facility] Urea nitrogen [Mass/Vol] 9.0 mg/dL 7.0-18.0 [facility] Urea nitrogen/Creatinine [Mass ratio] 11.0 mg/mg [facility] Laboratory - Hematology and Cell countson 04-18-2024 ESR (Bld) [Velocity] 66 mm/h High <=30 [facility] Immature granulocytes/100 WBC (Bld) 0.1 % 0.0-0.5 [facility] Leukocytes [#/volume] correc shahid for nucleated erythrocytes in Blood by Automated counon 04-18-2024 WBC corrected for nucl RBC Auto (Bld) [#/Vol] 9.0 10 3/uL 4.0-11.0 [facility] Lymphocytes Auto (Bld) [#/Vo l]on 04-18-2024 Lymphocytes (Bld) [#/Vol] 2.3 10 3/uL 1.2-3.8 [facility] Lymphocytes/100 WBC Auto (Bl d)on 04-18-2024 Lymphocytes/100 WBC (Bld) 25.0 % 20.5-60.0 [facility] MCH Auto (RBC) [Entitic mass ]on 04-18-2024 MCH (RBC) [Entitic mass] 29.9 pg 26.7-34.0 [facility] MCHC Auto (RBC) [Mass/Vol]on 04-18-2024 MCHC (RBC) [Mass/Vol] 30.6 g/dL 29.9-35.2 [facility] MCV Auto (RBC) [Entitic vol] on 04-18-2024 MCV (RBC) [Entitic vol] 97.9 fL 81.0-99.0 [facility] Monocytes Auto (Bld) [#/Vol] on 04-18-2024 Monocytes (Bld) [#/Vol] 0.9 10 3/uL High 0.3-0.8 [facility] Monocytes/100 WBC Auto (Bld) on 04-18-2024 Monocytes/100 WBC (Bld) 9.7 % 1.7-12.0 [facility] Neutrophils Auto (Bld) [#/Vo l]on 04-18-2024 Neutrophils (Bld) [#/Vol] 5.1 10 3/uL 1.4-6.5 [facility] Neutrophils/100 WBC Auto (Bl d)on 04-18-2024 Neutrophils/100 WBC (Bld) 56.3 % 43.0-75.0 [facility] No Panel Informationon 04-18 Eosinophils # (Auto) 0.7 10 3/uL 0.0-0.7 [facility] Immature Granulocyte # (Auto) 0.01 10 3/uL 0.00-0.03 [facility] Platelet mean volume Auto (B ld) [Entitic vol]on 04-18-2024 Platelet mean volume (Bld) [Entitic vol] 12.6 fL 9.5-13.5 [facility] Platelets Auto (Bld) [#/Vol] on 04-18-2024 Platelets (Bld) [#/Vol] 165 10 3/uL 150-450 [facility] RBC Auto (Bld) [#/Vol]on RBC (Bld) [#/Vol] 3.74 10 6/uL Low 4.20-5.40 [facility] Serum or plasma albumin/glob ulin mass ratioon 04-18-2024 Albumin/Globulin [Mass ratio] 0.8 {ratio} [facility] Serum or plasma anion gap de terminationon 04-18-2024 Anion gap [Moles/Vol] 10.0 mmol[facility] Automated urine specific gra vity by refractometryon 02-04-2024 Specific gravity Refractometry automated (U) [Rel density] <=1.005 Abnormal 1.005-1.025 [facility] Basophils Auto (Bld) [#/Vol] on 02-04-2024 Basophils (Bld) [#/Vol] 0.1 10 3/uL 0.0-0.1 [facility] Basophils/100 WBC Auto (Bld) on 02-04-2024 Basophils/100 WBC (Bld) 0.7 % 0.2-2.0 [facility] Bilirubin Auto test strip (U ) [Mass/Vol]on 02-04-2024 Bilirubin (U) [Mass/Vol] Negative NEGATIVE [facility] Color Auto (U)on 02-04-2024 Color (U) LT. YELLOW YELLOW [facility] Eosinophils/100 WBC Auto (Bl d)on 02-04-2024 Eosinophils/100 WBC (Bld) 0.7 % Low 0.9-7.0 [facility] Erythrocyte distribution wid th Auto (RBC) [Ratio]on 02-04-2024 Erythrocyte distribution width (RBC) [Ratio] 15.4 % High 11.0-15.0 [facility] Estimated glomerular filtrat ion rate (GFR) non- Americanon 02-04-2024 GFR/1.73 sq M.predicted among non-blacks MDRD (S/P/Bld) [Vol rate/Area] mL/min/{1.73_m2} >=60 [facility] Globulin Calc (S) [Mass/Vol] on 02-04-2024 Globulin (S) [Mass/Vol] 3.4 g/dL [facility] Glucose [Mass/volume] in Uri ne by Test stripon 02-04-2024 Glucose Test strip (U) [Mass/Vol] Negative NEGATIVE [facility] Hematocrit Auto (Bld) [Volum e fraction]on 02-04-2024 Hematocrit (Bld) [Volume fraction] 39.6 % 36.0-48.0 [facility] Hemoglobin [Mass/volume] in Bloodon 02-04-2024 Hemoglobin (Bld) [Mass/Vol] 12.2 g/dL 12.0-16.0 [facility] Ketones Auto test strip (U) [Mass/Vol]on 02-04-2024 Ketones (U) [Mass/Vol] Negative NEGATIVE [facility] - Chemistry and C hemistry - challengeon 02-04-2024 Albumin [Mass/Vol] 3.7 g/dL 3.4-5.0 [facility] ALP [Catalytic activity/Vol] 103 U/L 46-116 [facility] ALT [Catalytic activity/Vol] 27 U/L 14-59 [facility] AST [Catalytic activity/Vol] 24 U/L 15-37 [facility] Bilirubin [Mass/Vol] 0.5 mg/dL 0.2-1.0 [facility] Calcium [Mass/Vol] 9.5 mg/dL 8.5-10.1 [facility] Chloride [Moles/Vol] 105 mmol/L 98-107 [facility] CO2 [Moles/Vol] 30.4 mmol/L 21.0-32.[address] [facility] Creatinine [Mass/Vol] 0.64 mg/dL 0.55-1.02 [facility] Free T4 [Mass/Vol] 1.07 ng/dL 0.76-1.46 [facility] GFR/1.73 sq M.predicted MDRD (S/P/Bld) [Vol rate/Area] mL/min/{1.73_m2} >=60 [facility] Glucose [Mass/Vol] 96 mg/dL 74-106 [facility] Lactate [Moles/Vol] 0.9 mmol/L 0.4-2.0 [facility] Natriuretic peptide B (Bld) [Mass/Vol] 374.0 pg/mL <=1800.0 [facility] Potassium [Moles/Vol] 3.8 mmol/L 3.5-5.1 [facility] Protein [Mass/Vol] 7.1 g/dL 6.4-8.2 [facility] Sodium [Moles/Vol] 142 mmol/L 136-145 [facility] TSH Qn 4.178 m[IU]/L High 0.358-3.740 [facility] Urea nitrogen [Mass/Vol] 14.0 mg/dL 7.0-18.0 [facility] Urea nitrogen/Creatinine [Mass ratio] 21.9 mg/mg [facility] Laboratory - Hematology and Cell countson 02-04-2024 Immature granulocytes/100 WBC (Bld) 0.4 % 0.0-0.5 [facility] Leukocytes [#/volume] correc shahid for nucleated erythrocytes in Blood by Automated counon 02-04-2024 WBC corrected for nucl RBC Auto (Bld) [#/Vol] 8.2 10 3/uL 4.0-11.0 [facility] Lymphocytes Auto (Bld) [#/Vo l]on 02-04-2024 Lymphocytes (Bld) [#/Vol] 2.9 10 3/uL 1.2-3.8 [facility] Lymphocytes/100 WBC Auto (Bl d)on 02-04-2024 Lymphocytes/100 WBC (Bld) 35.7 % 20.5-60.0 [facility] MCH Auto (RBC) [Entitic mass ]on 02-04-2024 MCH (RBC) [Entitic mass] 29.8 pg 26.7-34.0 [facility] MCHC Auto (RBC) [Mass/Vol]on 02-04-2024 MCHC (RBC) [Mass/Vol] 30.8 g/dL 29.9-35.2 [facility] MCV Auto (RBC) [Entitic vol] on 02-04-2024 MCV (RBC) [Entitic vol] 96.6 fL 81.0-99.0 [facility] Monocytes Auto (Bld) [#/Vol] on 02-04-2024 Monocytes (Bld) [#/Vol] 0.6 10 3/uL 0.3-0.8 [facility] Monocytes/100 WBC Auto (Bld) on 02-04-2024 Monocytes/100 WBC (Bld) 7.2 % 1.7-12.0 [facility] Neutrophils Auto (Bld) [#/Vo l]on 02-04-2024 Neutrophils (Bld) [#/Vol] 4.5 10 3/uL 1.4-6.5 [facility] Neutrophils/100 WBC Auto (Bl d)on 02-04-2024 Neutrophils/100 WBC (Bld) 55.3 % 43.0-75.0 [facility] No Panel Informationon 02-03 Urine Microscopic Review NO [facility] Eosinophils # (Auto) 0.1 10 3/uL 0.0-0.7 [facility] Free Triiodothyronine 2.35 pg/mL 2.18-3.98 [facility] Immature Granulocyte # (Auto) 0.03 10 3/uL 0.00-0.03 [facility] Troponin I High Sensitivity 8.1 pg/mL 4.0-51.3 [facility] Comment on above: CUT-OFF POINTS HAVE BEEN [...] Partial Pressure CO2 55.9 mm[Hg] High 40.0-52.0 [facility] Venous Blood pH 7.369 7.330-7.[address] [facility] Platelet mean volume Auto (B ld) [Entitic vol]on 02-04-2024 Platelet mean volume (Bld) [Entitic vol] 11.5 fL 9.5-13.5 [facility] Platelets Auto (Bld) [#/Vol] on 02-04-2024 Platelets (Bld) [#/Vol] 202 10 3/uL 150-450 [facility] Protein Auto test strip (U) [Mass/Vol]on 02-04-2024 Protein (U) [Mass/Vol] Negative NEG/TRACE Fi [facility] RBC Auto (Bld) [#/Vol]on RBC (Bld) [#/Vol] 4.10 10 6/uL Low 4.20-5.40 [facility] Serum or plasma albumin/glob ulin mass ratioon 02-04-2024 Albumin/Globulin [Mass ratio] 1.1 {ratio} [facility] Serum or plasma anion gap de terminationon 02-04-2024 Anion gap [Moles/Vol] 10.4 mmol/L [facility] Specific gravity Auto test s trip (U) [Rel density]on 02-04-2024 Specific gravity (U) [Rel density] CLEAR CLEAR [facility] Urine hemoglobin detection b y automated test stripon 02-04-2024 Hemoglobin Auto test strip Ql (U) Negative NEGATIVE [facility] Urine nitrite detection by a utomated test stripon 02-04-2024 Nitrite Auto test strip Ql (U) Negative NEGATIVE [facility] Urobilinogen Auto test strip (U) [Mass/Vol]on 02-04-2024 Urobilinogen Qn (U) 0.2 {Gideon'U}/dL 0.2-1.0 [facility] pH Auto test strip (U)on pH (U) 6.5 [pH] 5.0-9.0 [facility] Basophils Auto (Bld) [#/Vol] on 12-16-2023 Basophils (Bld) [#/Vol] 0.1 10 3/uL 0.0-0.1 [facility] Basophils/100 WBC Auto (Bld) on 12-16-2023 Basophils/100 WBC (Bld) 0.9 % 0.2-2.0 [facility] Eosinophils/100 WBC Auto (Bl d)on 12-16-2023 Eosinophils/100 WBC (Bld) 1.0 % 0.9-7.0 [facility] Erythrocyte distribution wid th Auto (RBC) [Ratio]on 12-16-2023 Erythrocyte distribution width (RBC) [Ratio] 14.8 % 11.0-15.0 [facility] Estimated glomerular filtrat ion rate (GFR) non- Americanon 12-16-2023 GFR/1.73 sq M.predicted among non-blacks MDRD (S/P/Bld) [Vol rate/Area] mL/min/{1.73_m2} >=60 [facility] Globulin Calc (S) [Mass/Vol] on 12-16-2023 Globulin (S) [Mass/Vol] 3.4 g/dL [facility] Hematocrit Auto (Bld) [Volum e fraction]on 12-16-2023 Hematocrit (Bld) [Volume fraction] 39.1 % 36.0-48.0 [facility] Hemoglobin [Mass/volume] in Bloodon 12-16-2023 Hemoglobin (Bld) [Mass/Vol] 11.9 g/dL 12.0-16.0 [facility] Laboratory - Chemistry and C hemistry - challengeon 12-16-2023 Albumin [Mass/Vol] 3.2 g/dL 3.4-5.0 [facility] ALP [Catalytic activity/Vol] 91 U/L 46-116 [facility] ALT [Catalytic activity/Vol] 30 U/L 14-59 [facility] AST [Catalytic activity/Vol] 22 U/L 15-37 [facility] Bilirubin [Mass/Vol] 0.5 mg/dL 0.2-1.0 [facility] Calcium [Mass/Vol] 9.2 mg/dL 8.5-10.1 [facility] Chloride [Moles/Vol] 104 mmol/L 98-107 [facility] CO2 [Moles/Vol] 33.3 mmol/L 21.0-32.[address] [facility] Creatinine [Mass/Vol] 0.66 mg/dL 0.55-1.02 [facility] GFR/1.73 sq M.predicted MDRD (S/P/Bld) [Vol rate/Area] mL/min/{1.73_m2} >=60 [facility] Glucose [Mass/Vol] 141 mg/dL 74-106 [facility] Potassium [Moles/Vol] 3.8 mmol/L 3.5-5.1 [facility] Protein [Mass/Vol] 6.6 g/dL 6.4-8.2 [facility] Sodium [Moles/Vol] 142 mmol/L 136-145 [facility] Urea nitrogen [Mass/Vol] 11.0 mg/dL 7.0-18.0 [facility] Urea nitrogen/Creatinine [Mass ratio] 16.7 mg/mg [facility] Laboratory - Hematology and Cell countson 12-16-2023 ESR (Bld) [Velocity] 22 mm/h <=30 [facility] Immature granulocytes/100 WBC (Bld) 0.1 % 0.0-0.5 [facility] Leukocytes [#/volume] correc shahid for nucleated erythrocytes in Blood by Automated counon 12-16-2023 WBC corrected for nucl RBC Auto (Bld) [#/Vol] 6.9 10 3/uL 4.0-11.0 [facility] Lymphocytes Auto (Bld) [#/Vo l]on 12-16-2023 Lymphocytes (Bld) [#/Vol] 2.5 10 3/uL 1.2-3.8 [facility] Lymphocytes/100 WBC Auto (Bl d)on 12-16-2023 Lymphocytes/100 WBC (Bld) 35.6 % 20.5-60.0 [facility] MCH Auto (RBC) [Entitic mass ]on 12-16-2023 MCH (RBC) [Entitic mass] 29.5 pg 26.7-34.0 [facility] MCHC Auto (RBC) [Mass/Vol]on 12-16-2023 MCHC (RBC) [Mass/Vol] 30.4 g/dL 29.9-35.2 [facility] MCV Auto (RBC) [Entitic vol] on 12-16-2023 MCV (RBC) [Entitic vol] 96.8 fL 81.0-99.0 [facility] Monocytes Auto (Bld) [#/Vol] on 12-16-2023 Monocytes (Bld) [#/Vol] 0.6 10 3/uL 0.3-0.8 [facility] Monocytes/100 WBC Auto (Bld) on 12-16-2023 Monocytes/100 WBC (Bld) 8.0 % 1.7-12.0 [facility] Neutrophils Auto (Bld) [#/Vo l]on 12-16-2023 Neutrophils (Bld) [#/Vol] 3.8 10 3/uL 1.4-6.5 [facility] Neutrophils/100 WBC Auto (Bl d)on 12-16-2023 Neutrophils/100 WBC (Bld) 54.4 % 43.0-75.0 [facility] No Panel Informationon 12-16 Eosinophils # (Auto) 0.1 10 3/uL 0.0-0.7 [facility] Immature Granulocyte # (Auto) 0.01 10 3/uL 0.00-0.03 [facility] Platelet mean volume Auto (B ld) [Entitic vol]on 12-16-2023 Platelet mean volume (Bld) [Entitic vol] 11.6 fL 9.5-13.5 [facility] Platelets Auto (Bld) [#/Vol] on 12-16-2023 Platelets (Bld) [#/Vol] 212 10 3/uL 150-450 [facility] RBC Auto (Bld) [#/Vol]on RBC (Bld) [#/Vol] 4.04 10 6/uL 4.20-5.40 [facility] Serum or plasma albumin/glob ulin mass ratioon 12-16-2023 Albumin/Globulin [Mass ratio] 0.9 {ratio} [facility] Serum or plasma anion gap de terminationon 12-16-2023 Anion gap [Moles/Vol] 8.5 mmol/L [facility] MG MAMM RT DIAG FUon 022 MG MAMM RT DIAG FU Patient: RUBIA CASH Exam Date: 07/16/2022 : 1935 Gender:F Ordering : DR MELVIN PEREIRA D.O. Admission #: [id number] Family : Order #: [id number] CLICK HERE TO VIEW EXAM RADIOLOGY REPORT [...] bladder cancer at age 78. LOCATION: [facility] BREAST COMPOSITION: Heterogeneously dense,which may obscure [...] M.D. on 07/16/2022 at 13:45 Normal [facility] US BREAST RIGHT LIMITEDon US BREAST RIGHT LIMITED Patient: RUBIA CASH Exam Date: 07/16/2022 : 1935 Gender:F Ordering : DR MELVIN PEREIRA D.O. Admission #: [id number] Family : Order #: [id number] CLICK HERE TO VIEW EXAM RADIOLOGY REPORT [...] bladder cancer at age 78. LOCATION: [facility] BREAST COMPOSITION: Heterogeneously dense,which may obscure [...] Owen M.D. on 07/16/2022 at 13:45 Normal [facility] MG MAMM SCREEN 3D KATERINA CADon 07-04-2022 MG MAMM SCREEN 3D KATERINA CAD Patient: RUBIA CASH Exam Date: 07/04/2022 : 1935 Gender:F Ordering : DR MELVIN PEREIRA D.O. Admission #: [id number] Family : Order #: [id number] CLICK HERE TO VIEW EXAM RADIOLOGY REPORT [...] bladder cancer at age 78. LOCATION: [facility] BREAST COMPOSITION: Heterogeneously dense,which may obscure [...] Cantu MD on 07/04/2022 at 13:49 Normal [facility] XR LSPINE 2_3 VIEWSon 2021 [...] MARIA E CANTU Date: 2022-07-04 17:35 Normal [facility] CBC AUTO DIFFon 03-14-2022 BASO # 0.1 103/ul Normal 0.0-0.1 [facility] Comment on above: Performed By: #### H STROPN #### [facility] [address] [address] [address] Rigoberto Ivy Basophils/100 WBC (Bld) 1.1 % Normal 0.2-2.0 [facility] Comment on above: Performed By: #### H STROPN #### [facility] [address] [address] [address] Rigoberto Ivy EO # 0.1 103/ul Normal 0.0-0.7 [facility] Comment on above: Performed By: #### H STROPN #### [facility] [address] [address] [address] Rigoberto Ivy Eosinophils/100 WBC (Bld) 1.7 % Normal 0.9-7.0 [facility] Comment on above: Performed By: #### H STROPN #### [facility] [address] [address] [address] Rigoberto Ivy Erythrocyte distribution width (RBC) [Ratio] 15.8 % Critically high 11.0-15.0 [facility] Comment on above: Performed By: #### H STROPN #### [facility] [address] [address] [address] Rigoberto Ivy Hematocrit (Bld) [Volume fraction] 39.7 % Normal 36.0-48.0 [facility] Comment on above: Performed By: #### H STROPN #### [facility] [address] [address] [address] Rigoberto Ivy Hemoglobin (Bld) [Mass/Vol] 12.3 g/dL Normal 12.0-16.0 [facility] Comment on above: Performed By: #### H STROPN #### [facility] [address] [place] [address] Dr. Rigoberto Ivy IG # 0.03 10e3/ul Normal 0.00-0.03 [facility] Comment on above: Performed By: #### H STROPN #### [facility] [address] [place] [address] Dr. Rigoberto Ivy IG % 0.4 % Normal 0.0-0.5 [facility] Comment on above: Performed By: #### H STROPN #### [facility] [address] [place] [address] Dr. Rigoberto Ivy LYMPH # 2.5 103/ul Normal 1.2-3.8 [facility] Comment on above: Performed By: #### H STROPN #### [facility] [address] [place] [address] Dr. Rigoberto Ivy Lymphocytes/100 WBC (Bld) 35.0 % Normal 20.5-60.0 [facility] Comment on above: Performed By: #### H STROPN #### [facility] [address] [place] [address] Dr. Rigoberto Ivy MANUAL DIFF REQ NO Normal [facility] Comment on above: Performed By: #### H STROPN #### [facility] [address] [place] [address] Dr. Rigoberto Ivy MCH (RBC) [Entitic mass] 29.9 pg Normal 26.7-34.0 [facility] Comment on above: Performed By: #### H STROPN #### [facility] [address] [place] [address] Dr. Rigoberto Ivy MCHC (RBC) [Mass/Vol] 31.0 g/dL Normal 29.9-35.2 [facility] Comment on above: Performed By: #### H STROPN #### [facility] [address] [place] [address] Dr. Rigoberto Ivy MCV (RBC) [Entitic vol] 96.6 fL Normal 81.0-99.0 [facility] Comment on above: Performed By: #### H STROPN #### [facility] [address] [address] [address] Rigoberto Ivy MONO # 0.7 103/ul Normal 0.3-0.8 [facility] Comment on above: Performed By: #### H STROPN #### [facility] [address] [address] [address] Rigoberto Ivy Monocytes/100 WBC (Bld) 9.4 % Normal 1.7-12.0 [facility] Comment on above: Performed By: #### H STROPN #### [facility] [address] [place] [address] Dr. Rigoberto Ivy NEUT # 3.8 103/ul Normal 1.4-6.5 [facility] Comment on above: Performed By: #### H STROPN #### [facility] [address] [place] [address] Dr. Rigoberto Ivy Neutrophils/100 WBC (Bld) 52.4 % Normal 43.0-75.0 [facility] Comment on above: Performed By: #### H STROPN #### [facility] [address] [place] [address] Dr. Rigoberto Ivy Platelet mean volume (Bld) [Entitic vol] 10.9 fL Normal 9.5-13.5 [facility] Comment on above: Performed By: #### H STROPN #### [facility] [address] [place] [address] Dr. Rigoberto Ivy PLT 225 103/ul Normal 150-450 [facility] Comment on above: Performed By: #### H STROPN #### [facility] [address] [address] [address] Rigoberto Ivy RBC 4.11 106/ul Critically low 4.20-5.40 [facility] Comment on above: Performed By: #### H STROPN #### [facility] [address] [place] [address] Dr. Rigoberto Ivy WBC 7.2 103/ul Normal 4.0-11.0 [facility] Comment on above: Performed By: #### H STROPN #### [facility] [address] [address] [address] Rigoberto Ivy PROF 14(COMP METB)on 022 Albumin [Mass/Vol] 3.6 g/dL Normal 3.4-5.0 [facility] Comment on above: Performed By: #### H STROPN #### [facility] [address] [address] [address] Rigoberto Ivy Albumin/Globulin [Mass ratio] 1.0 {ratio} Normal [facility] Comment on above: Performed By: #### H STROPN #### [facility] [address] [address] [address] Rigoberto Ivy ALP [Catalytic activity/Vol] 89 U/L Normal 46-116 [facility] Comment on above: Performed By: #### H STROPN #### [facility] [address] [address] [address] Rigoberto Ivy ALT [Catalytic activity/Vol] 29 U/L Normal 14-59 [facility] Comment on above: Performed By: #### H STROPN #### [facility] [address] [address] [address] Rigoberto Ivy Anion gap [Moles/Vol] 7.7 mmol/L Normal [facility] Comment on above: Performed By: #### H STROPN #### [facility] [address] [address] [address] Rigoberto Ivy AST [Catalytic activity/Vol] 22 U/L Normal 15-37 [facility] Comment on above: Performed By: #### H STROPN #### [facility] [address] [address] [address] Rigoberto Ivy Bilirubin [Mass/Vol] 0.5 mg/dL Normal 0.2-1.0 [facility] Comment on above: Performed By: #### H STROPN #### [facility] [address] [place] [address] Dr. Rigoberto Ivy Calcium [Mass/Vol] 9.5 mg/dL Normal 8.5-10.1 [facility] Comment on above: Performed By: #### H STROPN #### [facility] [address] [address] [address] Rigoberto Ivy Chloride [Moles/Vol] 103 mmol/L Normal 98-107 [facility] Comment on above: Performed By: #### H STROPN #### [facility] [address] [address] [address] Rigoberto Ivy CO2 [Moles/Vol] 33.5 mmol/L Critically high 21.0-32.0 [facility] Comment on above: Performed By: #### H STROPN #### [facility] [address] [address] [address] Rigoberto Ivy Creatinine [Mass/Vol] 0.60 mg/dL Normal 0.55-1.02 [facility] Comment on above: Performed By: #### H STROPN #### [facility] [address] [address] [address] Rigoberto Ivy EGFR-AF IRAQI >60 Normal >=60 [facility] Comment on above: Performed By: #### H STROPN #### [facility] [address] [address] [address] Rigoberto Ivy EGFR-NON AF IRAQI >60 Normal >=60 [facility] Comment on above: Performed By: #### H STROPN #### [facility] [address] [address] [address] Rigoberto Ivy Globulin (S) [Mass/Vol] 3.5 g/dL Normal T [facility] Comment on above: Performed By: #### H STROPN #### [facility] [address] [address] [address] Rigoberto Ivy Glucose [Mass/Vol] 90 mg/dL Normal 74-106 [facility] Comment on above: Performed By: #### H STROPN #### [facility] [address] [address] [address] Rigoberto Ivy Potassium [Moles/Vol] 4.2 mmol/L Normal 3.5-5.1 [facility] Comment on above: Performed By: #### H STROPN #### [facility] [address] [place] [address] Dr. Rigoberto Ivy Protein [Mass/Vol] 7.1 g/dL Normal 6.4-8.2 [facility] Comment on above: Performed By: #### H STROPN #### [facility] [address] [place] [address] Dr. Rigoberto Ivy Sodium [Moles/Vol] 140 mmol/L Normal 136-145 [facility] Comment on above: Performed By: #### H STROPN #### [facility] [address] [place] [address] Dr. Rigoberto Ivy Urea nitrogen [Mass/Vol] 11.0 mg/dL Normal 7.0-18.0 [facility] Comment on above: Performed By: #### H STROPN #### [facility] [address] [place] [address] Dr. Rigoberto Ivy Urea nitrogen/Creatinine [Mass ratio] 18.3 mg/mg Normal [facility] Comment on above: Performed By: #### H STROPN #### [facility] [address] [place] [address] Dr. Rigoberto [facility] 10 mm/hr Normal <=30 [facility] Comment on above: Performed By: #### S EDR #### [facility] [address] [place] [address] Dr. Rigoberto Ivy CULTURE URINEon 11-07-2021 CULTURE URINE Culture Observations: GREATER THAN TWO ORGANISMS PRESENT. PLEASE RESUBMIT CLEAN CATCH MID-STREAM URINE IF CLINICALLY INDICATED. Normal [facility] Comment on above: Performed By: #### H STROPN #### [facility] [address] [place] [address] Dr. Rigoberto Ivy BNPon 11-05-2021 Natriuretic peptide B (Bld) [Mass/Vol] 273.0 pg/mL Normal <=1,800.0 [facility] Comment on above: Performed By: #### C MP, BNP, HSTROPN #### [facility] [address] [place] [address] Dr. Rigoberto Ivy CBC AUTO DIFFon 11-05-2021 BASO # 0.1 103/ul Normal 0.0-0.1 [facility] Comment on above: Performed By: #### C BC #### [facility] [address] [address] [address] Rigoberto Ivy Basophils/100 WBC (Bld) 0.8 % Normal 0.2-2.0 [facility] Comment on above: Performed By: #### C BC #### [facility] [address] [place] [address] Dr. Rigoberto Ivy EO # 0.1 103/ul Normal 0.0-0.7 [facility] Comment on above: Performed By: #### C BC #### [facility] [address] [place] [address] Dr. Rigoberto Ivy Eosinophils/100 WBC (Bld) 0.7 % Critically low 0.9-7.0 [facility] Comment on above: Performed By: #### C BC #### [facility] [address] [place] [address] Dr. Rigoberto Ivy Erythrocyte distribution width (RBC) [Ratio] 15.5 % Critically high 11.0-15.0 [facility] Comment on above: Performed By: #### C BC #### [facility] [address] [place] [address] Dr. Rigoberto Ivy Hematocrit (Bld) [Volume fraction] 41.5 % Normal 36.0-48.0 [facility] Comment on above: Performed By: #### C BC #### [facility] [address] [place] [address] Dr. Rigoberto Ivy Hemoglobin (Bld) [Mass/Vol] 12.8 g/dL Normal 12.0-16.0 [facility] Comment on above: Performed By: #### C BC #### [facility] [address] [place] [address] Dr. Rigoberto Ivy IG # 0.03 10e3/ul Normal 0.00-0.03 [facility] Comment on above: Performed By: #### C BC #### [facility] [address] [place] [address] Dr. Rigoberto Ivy IG % 0.4 % Normal 0.0-0.5 [facility] Comment on above: Performed By: #### C BC #### [facility] [address] [place] [address] Dr. Rigoberto Ivy LYMPH # 2.6 103/ul Normal 1.2-3.8 [facility] Comment on above: Performed By: #### C BC #### [facility] [address] [place] [address] Dr. Rigoberto Ivy Lymphocytes/100 WBC (Bld) 34.6 % Normal 20.5-60.0 [facility] Comment on above: Performed By: #### C BC #### [facility] [address] [place] [address] Dr. Rigoberto Ivy MANUAL DIFF REQ NO Normal [facility] Comment on above: Performed By: #### C BC #### [facility] [address] [place] [address] Dr. Rigoberto Ivy MCH (RBC) [Entitic mass] 29.8 pg Normal 26.7-34.0 [facility] Comment on above: Performed By: #### C BC #### [facility] [address] [place] [address] Dr. Rigoberto Ivy MCHC (RBC) [Mass/Vol] 30.8 g/dL Normal 29.9-35.2 [facility] Comment on above: Performed By: #### C BC #### [facility] [address] [place] [address] Dr. Rigoberto Ivy MCV (RBC) [Entitic vol] 96.7 fL Normal 81.0-99.0 [facility] Comment on above: Performed By: #### C BC #### [facility] [address] [place] [address] Dr. Rigoberto Ivy MONO # 0.7 103/ul Normal 0.3-0.8 [facility] Comment on above: Performed By: #### C BC #### [facility] [address] [place] [address] Dr. Rigoberto Ivy Monocytes/100 WBC (Bld) 8.5 % Normal 1.7-12.0 [facility] Comment on above: Performed By: #### C BC #### [facility] [address] [place] [address] Dr. Rigoberto Ivy NEUT # 4.2 103/ul Normal 1.4-6.5 [facility] Comment on above: Performed By: #### C BC #### [facility] [address] [place] [address] Dr. Rigoberto Ivy Neutrophils/100 WBC (Bld) 55.0 % Normal 43.0-75.0 [facility] Comment on above: Performed By: #### C BC #### [facility] [address] [place] [address] Dr. Rigoberto Ivy Platelet mean volume (Bld) [Entitic vol] 10.6 fL Normal 9.5-13.5 [facility] Comment on above: Performed By: #### C BC #### [facility] [address] [place] [address] Dr. Rigoberto Ivy PLT 234 103/ul Normal 150-450 [facility] Comment on above: Performed By: #### C BC #### [facility] [address] [place] [address] Dr. Rigoberto Ivy RBC 4.29 106/ul Normal 4.20-5.40 [facility] Comment on above: Performed By: #### C BC #### [facility] [address] [place] [address] Dr. Rigoberto Ivy WBC 7.6 103/ul Normal 4.0-11.0 [facility] Comment on above: Performed By: #### C BC #### [facility] [address] [place] [address] HEAD WO CONon [...] JAMIE OWEN Date: 2021-11-05 13:08 Normal [facility]on SARS-CoV-2 (COVID-19) RNA LATHA+probe Ql (Unsp spec) Not detected Normal NOT DETECTED [facility] Comment on above: Result Comment: When [...] for this test is supported by the [place] of Health and Human Service's declaration that [...] Performed By: #### C RP, CMP #### [facility] [address] [place] [address] Dr. Rigoberto Ivy ER URINE PROFILEon 2 Bilirubin Ql (U) Negative Normal NEGATIVE [facility] Comment on above: Performed By: #### H STROPN #### [facility] [address] [place], [place] [address] Dr. Rigoberto Ivy Clarity (U) CLEAR Normal CLEAR [facility] Comment on above: Performed By: #### H STROPN #### [facility] [address] [address] [address] Rigoberto Ivy Color (U) LT. YELLOW Normal YELLOW [facility] Comment on above: Performed By: #### H STROPN #### [facility] [address] [place] [address] Dr. Rigoberto CUEVA A micrscopic examination will be performed if indicated. Normal [facility] Comment on above: Performed By: #### H STROPN #### [facility] [address] [address] [address] Rigoberto Ivy Glucose Ql (U) Negative Normal NEGATIVE [facility] Comment on above: Performed By: #### H STROPN #### [facility] [address] [place] [address] Dr. Rigoberto Ivy Hemoglobin Ql (U) Negative Normal NEGATIVE [facility] Comment on above: Performed By: #### H STROPN #### [facility] [address] [place] [address] Dr. Rigoberto Ivy Ketones Ql (U) Negative Normal NEGATIVE [facility] Comment on above: Performed By: #### H STROPN #### [facility] [address] [place] [address] Dr. Rigoberto Ivy LEUKOCYTES TRACE Abnormal NEGATIVE [facility] Comment on above: Performed By: #### H STROPN #### [facility] [address] [place] [address] Dr. Rigoberto Ivy Nitrite Ql (U) Negative Normal NEGATIVE [facility] Comment on above: Performed By: #### H STROPN #### [facility] [address] [place] [address] Dr. Rigoberto Ivy pH (U) 7.0 [pH] Normal 5-9 [facility] Comment on above: Performed By: #### H STROPN #### [facility] [address] [place] [address] Dr. Rigoberto Ivy SPEC GRAVITY 1.015 Normal 1.005-<=1.025 [facility] Comment on above: Performed By: #### H STROPN #### [facility] [address] [place] [address] Dr. Rigoberto Ivy UA PROTEIN Negative Normal NEGATIVE/ TRACE [facility] Comment on above: Performed By: #### H STROPN #### [facility] [address] [place] [address] Dr. Rigoberto Ivy UR MICRO IND INDICATED Normal [facility] Comment on above: Performed By: #### H STROPN #### [facility] [address] [place] [address] Dr. Rigoberto Ivy Urobilinogen Qn (U) 0.2 {Gideon'U}/dL Normal 0.2 - 1. 0 [facility] Comment on above: Performed By: #### H STROPN #### [facility] [address] [place] [address] Dr. Rigoberto Ivy LAB TESTINGon 11-05-2021 RECV HEADER SEE SCANNED REPORT IN HPF [facility] Comment on above: Performed By: #### M ISC #### [facility] [address] [place] [address] Dr. Rigoberto Ivy REV FROM REF LAB 11/05/2021 [facility] Comment on above: Performed By: #### M ISC #### [facility] [address] [place] [address] Dr. Rigoberto Ivy SENT TO REF LAB 11/05/2020 [facility] Comment on above: Performed By: #### M ISC #### [facility] [address] [place] [address] Dr. Rigoberto Ivy LACTATE/LACTIC ACIDon 2021 Lactate [Moles/Vol] 0.8 mmol/L Normal 0.7-2.0 [facility] Comment on above: Performed By: #### H STROPN #### [facility] [address] [place] [address] Dr. Rigoberto Ivy PROF 14(COMP METB)on 022 Albumin [Mass/Vol] 3.7 g/dL Normal 3.5-5.0 [facility] Comment on above: Performed By: #### C MP, BNP, HSTROPN #### [facility] [address] [place] [address] Dr. Rigoberto Ivy Albumin/Globulin [Mass ratio] 0.9 {ratio} Normal [facility] Comment on above: Performed By: #### C MP, BNP, HSTROPN #### [facility] [address] [place] [address] Dr. Rigoberto Ivy ALP [Catalytic activity/Vol] 105 U/L Normal 38-126 [facility] Comment on above: Performed By: #### C MP, BNP, HSTROPN #### [facility] [address] [place] [address] Dr. Rigoberto Ivy ALT [Catalytic activity/Vol] 51 U/L Normal 9-52 [facility] Comment on above: Performed By: #### C MP, BNP, HSTROPN #### [facility] [address] [place] [address] Dr. Rigoberto Ivy Anion gap [Moles/Vol] 11.4 mmol/L Normal [facility] Comment on above: Performed By: #### C MP, BNP, HSTROPN #### [facility] [address] [place] [address] Dr. Rigoberto Ivy AST [Catalytic activity/Vol] 33 U/L Normal 14-36 [facility] Comment on above: Performed By: #### C MP, BNP, HSTROPN #### [facility] [address] [place] [address] Dr. Rigoberto Ivy Bilirubin [Mass/Vol] 0.7 mg/dL Normal 0.2-1.3 [facility] Comment on above: Performed By: #### C MP, BNP, HSTROPN #### [facility] [address] [place] [address] Dr. Rigoberto Ivy Calcium [Mass/Vol] 9.6 mg/dL Normal 8.4-10.2 [facility] Comment on above: Performed By: #### C MP, BNP, HSTROPN #### [facility] [address] [place] [address] Dr. Rigoberto Ivy Chloride [Moles/Vol] 107 mmol/L Normal 98-107 [facility] Comment on above: Performed By: #### C MP, BNP, HSTROPN #### [facility] [address] [address] [address] Rigoberto Ivy CO2 [Moles/Vol] 30.8 mmol/L Critically high 22.0-30.0 [facility] Comment on above: Performed By: #### C MP, BNP, HSTROPN #### [facility] [address] [place] [address] Dr. Rigoberto Ivy Creatinine [Mass/Vol] 0.65 mg/dL Normal 0.52-1.04 [facility] Comment on above: Performed By: #### C MP, BNP, HSTROPN #### [facility] [address] [place] [address] Dr. Rigoberto Ivy EGFR-AF IRAQI >60 Normal >=60 [facility] Comment on above: Performed By: #### C MP, BNP, HSTROPN #### [facility] [address] [place] [address] Dr. Rigoberto Ivy EGFR-NON AF IRAQI >60 Normal >=60 [facility] Comment on above: Performed By: #### C MP, BNP, HSTROPN #### [facility] [address] [place] [address] Dr. Rigoberto Ivy Globulin (S) [Mass/Vol] 3.9 g/dL Normal T [facility] Comment on above: Performed By: #### C MP, BNP, HSTROPN #### [facility] [address] [address] [address] Rigoberto Ivy Glucose [Mass/Vol] 98 mg/dL Normal 74-106 [facility] Comment on above: Performed By: #### C MP, BNP, HSTROPN #### [facility] [address] [place] [address] Dr. Rigoberto Ivy Potassium [Moles/Vol] 4.2 mmol/L Normal 3.4-5.0 [facility] Comment on above: Performed By: #### C MP, BNP, HSTROPN #### [facility] [address] [address] [address] Rigoberto Ivy Protein [Mass/Vol] 7.6 g/dL Normal 6.1-8.2 [facility] Comment on above: Performed By: #### C MP, BNP, HSTROPN #### [facility] [address] [place] [address] Dr. Rigoberto Ivy Sodium [Moles/Vol] 145 mmol/L Normal 137-145 [facility] Comment on above: Performed By: #### C MP, BNP, HSTROPN #### [facility] [address] [place] [address] Dr. Rigoberto Ivy Urea nitrogen [Mass/Vol] 12.0 mg/dL Normal 7.0-17.0 [facility] Comment on above: Performed By: #### C MP, BNP, HSTROPN #### [facility] [address] [place] [address] Dr. Rigoberto Ivy Urea nitrogen/Creatinine [Mass ratio] 18.5 mg/mg Normal [facility] Comment on above: Performed By: #### C MP, BNP, HSTROPN #### [facility] [address] [place] [address] Dr. Rigoberto Ivy TROPONIN, HIGH SENSITIVITYon 11-05-2021 HSTROP 14.1 pg/mL Normal 4.0-35.5 [facility] Comment on above: Result Comment: CUT- OFF POINTS HAVE BEEN ESTABLISHED BASED ON THE FOURTH UNIVERSAL DEFINITIONS OF MYOCARDIAL INFARCTION. THE UPPER REFERENCE LIMIT (URL) OF TROPONIN, DEFINED THE 99TH PERCENTILE OF cTnI DISTRIBUTION IN A REFERENCE POPULATION, HAS BEEN CONFIRMED THE DECISION THRESHOLD FOR AK DIAGNOSIS. Performed By: #### H STROPN #### [facility] [address] [place] [address] Dr. Rigoberto Ivy HSTROP 10.3 pg/mL Normal 4.0-35.5 [facility] Comment on above: Result Comment: CUT- OFF POINTS HAVE BEEN ESTABLISHED BASED ON THE FOURTH UNIVERSAL DEFINITIONS OF MYOCARDIAL INFARCTION. THE UPPER REFERENCE LIMIT (URL) OF TROPONIN, DEFINED THE 99TH PERCENTILE OF cTnI DISTRIBUTION IN A REFERENCE POPULATION, HAS BEEN CONFIRMED THE DECISION THRESHOLD FOR AK DIAGNOSIS. Performed By: #### C MP, BNP, HSTROPN #### [facility] [address] [address] [address] Rigoberto Ivy URINE MICROSCOPIC ONLYon BACTERIA TRACE Abnormal NONE SEEN [facility] Comment on above: Performed By: #### H STROPN #### [facility] [address] [place] [address] Dr. Rigoberto Ivy Bacteria identified Cx Nom (U) INDICATED Normal [facility] Comment on above: Performed By: #### H STROPN #### [facility] [address] [place] [address] Dr. Rigoberto Ivy CAST NONE SEEN Normal NONE SEEN [facility] Comment on above: Performed By: #### H STROPN #### [facility] [address] [place] [address] Dr. Rigoberto Ivy Crystals LM Nom (Urine sed) NONE SEEN Normal NONE SEEN [facility] Comment on above: Performed By: #### H STROPN #### [facility] [address] [place] [address] Dr. Rigoberto Ivy Epithelial cells LM Ql (Urine sed) RARE Normal NONE SEEN /RARE [facility] Comment on above: Performed By: #### H STROPN #### [facility] [address] [place] [address] Dr. Rigoberto Ivy MUCOUS TRACE Abnormal NONE SEEN [facility] Comment on above: Performed By: #### H STROPN #### [facility] [address] [place] [address] Dr. Rigoberto Ivy RBC NONE SEEN Abnormal 0-2 [facility] Comment on above: Performed By: #### H STROPN #### [facility] [address] [place] [address] Dr. Rigoberto Ivy WBC 0-2 Abnormal NONE SEEN [facility] Comment on above: Performed By: #### H STROPN #### [facility] [address] [place] [address] Dr. Rigoberto Ivy XR CHEST 1 Von 11-05-2021 XR CHEST 1 V EXAMINATION: XR CHEST 1 V HISTORY: Dizziness , tingling in [...] acute cardiopulmonary process. Electronically authenticated by: JAMIE CONSTANCELEEANN Date: 2021-11-05 13:01 Normal [facility] VIT D 25-OH [facility]on 2020 Vitamin D, 25-Hydroxy 44.1 ng/mL Normal 30.0-100.0 [facility] Comment on above: Result Comment: Shabnam min D deficiency has been defined by the [place] of [employer] and an Endocrine Society practice guideline as a level of serum 25-OH vitamin D less than 20 ng/mL (1,2). The Endocrine Society went on to further define vitamin D insufficiency as a level between 21 and 29 ng/mL (2). 1. IOM ([place] of Medicine). 2010. Dietary reference intakes for calcium and D. [place]: The National Academies Press. 2. Chiara MF, Cesilia [place], Evans CALLAHAN, et al. Evaluation, treatment, and prevention of vitamin D deficiency: an Endocrine Society clinical practice guideline. JCEM. 2010; 96(7):1911-30. Performed By: #### C RP, CMP #### [facility] [address] [place] [address] Dr. Rigoberto Ivy CBC AUTO DIFFon 10-29-2021 BASO # 0.1 103/ul Normal 0.0-0.1 [facility] Comment on above: Performed By: #### C BC #### [facility] [address] [address] [address] Rigoberto Ivy Basophils/100 WBC (Bld) 0.8 % Normal 0.2-2.0 T [facility] Comment on above: Performed By: #### C BC #### [facility] [address] [address] [address] Rigoberto Ivy EO # 0.1 103/ul Normal 0.0-0.7 [facility] Comment on above: Performed By: #### C BC #### [facility] [address] [place] [address] Dr. Rigoberto Ivy Eosinophils/100 WBC (Bld) 1.2 % Normal 0.9-7.0 [facility] Comment on above: Performed By: #### C BC #### [facility] [address] [place] [address] Dr. Rigoberto Ivy Erythrocyte distribution width (RBC) [Ratio] 15.2 % Critically high 11.0-15.0 [facility] Comment on above: Performed By: #### C BC #### [facility] [address] [place] [address] Dr. Rigoberto Ivy Hematocrit (Bld) [Volume fraction] 39.1 % Normal 36.0-48.0 [facility] Comment on above: Performed By: #### C BC #### [facility] [address] [place] [address] Dr. Rigoberto Ivy Hemoglobin (Bld) [Mass/Vol] 12.1 g/dL Normal 12.0-16.0 [facility] Comment on above: Performed By: #### C BC #### [facility] [address] [place] [address] Dr. Rigoberto Ivy IG # 0.03 10e3/ul Normal 0.00-0.03 [facility] Comment on above: Performed By: #### C BC #### [facility] [address] [place] [address] Dr. Rigoberto Ivy IG % 0.4 % Normal 0.0-0.5 [facility] Comment on above: Performed By: #### C BC #### [facility] [address] [place] [address] Dr. Rigoberto Ivy LYMPH # 2.7 103/ul Normal 1.2-3.8 [facility] Comment on above: Performed By: #### C BC #### [facility] [address] [place] [address] Dr. Rigoberto Ivy Lymphocytes/100 WBC (Bld) 35.1 % Normal 20.5-60.0 [facility] Comment on above: Performed By: #### C BC #### [facility] [address] [place] [address] Dr. Rigoberto Ivy MANUAL DIFF REQ NO Normal [facility] Comment on above: Performed By: #### C BC #### [facility] [address] [place] [address] Dr. Rigoberto Ivy MCH (RBC) [Entitic mass] 30.0 pg Normal 26.7-34.0 [facility] Comment on above: Performed By: #### C BC #### [facility] [address] [place] [address] Dr. Rigoberto Ivy MCHC (RBC) [Mass/Vol] 30.9 g/dL Normal 29.9-35.2 [facility] Comment on above: Performed By: #### C BC #### [facility] [address] [place] [address] Dr. Rigoberto Ivy MCV (RBC) [Entitic vol] 96.8 fL Normal 81.0-99.0 [facility] Comment on above: Performed By: #### C BC #### [facility] [address] [place] [address] Dr. Rigoberto Ivy MONO # 0.7 103/ul Normal 0.3-0.8 [facility] Comment on above: Performed By: #### C BC #### [facility] [address] [place] [address] Dr. Rigoberto Ivy Monocytes/100 WBC (Bld) 9.8 % Normal 1.7-12.0 [facility] Comment on above: Performed By: #### C BC #### [facility] [address] [place] [address] Dr. Rigoberto Ivy NEUT # 4.0 103/ul Normal 1.4-6.5 [facility] Comment on above: Performed By: #### C BC #### [facility] [address] [place] [address] Dr. Rigoberto Ivy Neutrophils/100 WBC (Bld) 52.7 % Normal 43.0-75.0 [facility] Comment on above: Performed By: #### C BC #### [facility] [address] [address] [address] Rigoberto Ivy Platelet mean volume (Bld) [Entitic vol] 11.1 fL Normal 9.5-13.5 [facility] Comment on above: Performed By: #### C BC #### [facility] [address] [address] [address] Rigoberto Ivy PLT 217 103/ul Normal 150-450 [facility] Comment on above: Performed By: #### C BC #### [facility] [address] [address] [address] Rigoberto Ivy RBC 4.04 106/ul Critically low 4.20-5.40 [facility] Comment on above: Performed By: #### C BC #### [facility] [address] [place] [address] Dr. Rigoberto Ivy WBC 7.6 103/ul Normal 4.0-11.0 [facility] Comment on above: Performed By: #### C BC #### [facility] [address] [place] [address] Dr. Rigoberto Ivy CRPon 10-29-2021 CRP [Mass/Vol] mg/L Normal <=1.0 [facility] Comment on above: Performed By: #### C RP, CMP #### [facility] [address] [place] [address] Dr. Rigoberto Ivy PROF 14(COMP METB)on 021 Albumin [Mass/Vol] 3.3 g/dL Critically low 3.5-5.0 [facility] Comment on above: Performed By: #### C RP, CMP #### [facility] [address] [place] [address] Dr. Rigoberto Ivy Albumin/Globulin [Mass ratio] 1.0 {ratio} Normal [facility] Comment on above: Performed By: #### C RP, CMP #### [facility] [address] [place] [address] Dr. Rigoberto Ivy ALP [Catalytic activity/Vol] 95 U/L Normal 38-126 [facility] Comment on above: Performed By: #### C RP, CMP #### [facility] [address] [address] [address] Rigoberto Ivy ALT [Catalytic activity/Vol] 31 U/L Normal 9-52 [facility] Comment on above: Performed By: #### C RP, CMP #### [facility] [address] [address] [address] Rigoberto Ivy Anion gap [Moles/Vol] 8.7 mmol/L Normal [facility] Comment on above: Performed By: #### C RP, CMP #### [facility] [address] [address] [address] Rigoberto Ivy AST [Catalytic activity/Vol] 23 U/L Normal 14-36 [facility] Comment on above: Performed By: #### C RP, CMP #### [facility] [address] [place] [address] Dr. Rigoberto Ivy Bilirubin [Mass/Vol] 0.5 mg/dL Normal 0.2-1.3 [facility] Comment on above: Performed By: #### C RP, CMP #### [facility] [address] [place] [address] Dr. Rigoberto Ivy Calcium [Mass/Vol] 9.5 mg/dL Normal 8.4-10.2 [facility] Comment on above: Performed By: #### C RP, CMP #### [facility] [address] [place] [address] Dr. Rigoberto Ivy Chloride [Moles/Vol] 103 mmol/L Normal 98-107 [facility] Comment on above: Performed By: #### C RP, CMP #### [facility] [address] [place] [address] Dr. Rigoberto Ivy CO2 [Moles/Vol] 33.6 mmol/L Critically high 22.0-30.0 [facility] Comment on above: Performed By: #### C RP, CMP #### [facility] [address] [address] [address] Rigoberto Ivy Creatinine [Mass/Vol] 0.58 mg/dL Normal 0.52-1.04 [facility] Comment on above: Performed By: #### C RP, CMP #### [facility] [address] [place] [address] Dr. Rigoberto Ivy EGFR-AF IRAQI >60 Normal >=60 [facility] Comment on above: Performed By: #### C RP, CMP #### [facility] [address] [address] [address] Rigoberto Ivy EGFR-NON AF IRAQI >60 Normal >=60 [facility] Comment on above: Performed By: #### C RP, CMP #### [facility] [address] [place] [address] Dr. Rigoberto Ivy Globulin (S) [Mass/Vol] 3.3 g/dL Normal T [facility] Comment on above: Performed By: #### C RP, CMP #### [facility] [address] [place] [address] Dr. Rigoberto Ivy Glucose [Mass/Vol] 98 mg/dL Normal 74-106 [facility] Comment on above: Performed By: #### C RP, CMP #### [facility] [address] [place] [address] Dr. Rigoberto Ivy Potassium [Moles/Vol] 4.3 mmol/L Normal 3.4-5.0 [facility] Comment on above: Performed By: #### C RP, CMP #### [facility] [address] [place] [address] Dr. Rigoberto Ivy Protein [Mass/Vol] 6.6 g/dL Normal 6.1-8.2 [facility] Comment on above: Performed By: #### C RP, CMP #### [facility] [address] [place] [address] Dr. Rigoberto Ivy Sodium [Moles/Vol] 141 mmol/L Normal 137-145 [facility] Comment on above: Performed By: #### C RP, CMP #### [facility] [address] [place] [address] Dr. Rigoberto Ivy Urea nitrogen [Mass/Vol] 10.0 mg/dL Normal 7.0-17.0 [facility] Comment on above: Performed By: #### C RP, CMP #### [facility] [address] [place], [place] [address] Dr. Rigoberto Ivy Urea nitrogen/Creatinine [Mass ratio] 17.2 mg/mg Normal [facility] Comment on above: Performed By: #### C RP, CMP #### [facility] [address] [place], [place] [address] Dr. Rigoberto Ivy SED RATE [facility] 2020 SED RATE 27 mm/hr Normal <=30 [facility] Comment on above: Performed By: #### H STROPN #### [facility] [address] [place], [place] [address] Dr. Rigoberto Ivy Coding Summary.on 04-21-2019 Coding Summary. CODING DATE: 04/21/2019 FINAL [facility] STATUS: Home (Routine DC) PAYOR: Medicare [...] CphT Date Saved: 04/21/2019 12:54 pm Normal [facility] [place] Mamm Diag w/CAD if perf [...] very important to your health. The current [employer] and National Comprehensive Cancer [...] Category 1-Negative Recommendation: Normal interval follow-up Normal [facility] Coding Summary.on 10-11-2018 Coding Summary. CODING DATE: 10/11/2018 FINAL [facility] STATUS: Home (Routine DC) PAYOR: Medicare [...] CphT Date Saved: 10/11/2018 10:33 am Normal [facility] Vital Signs Date Time Vital Sign Value Performing Clinician Facility 06-13-2024 10:30-0400 Body height 162.56 cm DO [employer] Work Phone: [facility] 06-13-2024 10:30-0400 Body mass index (BMI) [Ratio] 20 kg/m2 DO Melvin [employer] Work Phone: [facility] 06-13-2024 10:30-0400 Body weight 52.84 kg DO Melvin Ball Work Phone: [facility] 06-13-2024 10:30-0400 Diastolic blood pressure 55 mm[Hg] DO [employer] Work Phone: [facility] 06-13-2024 10:30-0400 Heart rate 76 /min DO Melvin Ball Work Phone: [facility] 06-13-2024 10:30-0400 Respiratory rate 12 /min DO Melvin Ball Work Phone: [facility] 06-13-2024 10:30-0400 Systolic blood pressure 135 mm[Hg] DO Melvin Ball Work Phone: [facility] 04-28-2024 11:10-0400 Body height 162.56 cm DO Melvin Ball Work Phone: [facility] 04-28-2024 11:10-0400 Body mass index (BMI) [Ratio] 20.4 kg/m2 DO Melvin Ball Work Phone: [facility] 04-28-2024 11:10-0400 Body weight 54 kg DO Melvin Ball Work Phone: [facility] 04-01-2024 11:23-0400 Body height 162.56 cm [facility] 04-01-2024 11:23-0400 Body mass index (BMI) [Ratio] 20.5 kg/m2 [facility] 04-01-2024 11:23-0400 Body weight 54.2 kg [facility] 04-01-2024 11:23-0400 Diastolic blood pressure 80 mm[Hg] [facility] 04-01-2024 11:23-0400 Heart rate 69 /min [facility] 04-01-2024 11:23-0400 Respiratory rate 12 /min [facility] 04-01-2024 11:23-0400 Systolic blood pressure 130 mm[Hg] [facility] 02-04-2024 09:39-0400 Body height 162.56 cm [facility] 02-04-2024 09:39-0400 Body mass index (BMI) [Ratio] 20.7 kg/m2 [facility] 02-04-2024 09:39-0400 Body weight 54.88 kg [facility] 02-04-2024 09:39-0400 Diastolic blood pressure 65 mm[Hg] [facility] 02-04-2024 09:39-0400 Heart rate 73 /min [facility] 02-04-2024 09:39-0400 Respiratory rate 12 /min [facility] 02-04-2024 09:39-0400 Systolic blood pressure 153 mm[Hg] [facility] 10-13-2023 10:30-0500 Body height 162.56 cm Melvin Ball Other [facility] [employer] Other 10-13-2023 10:30-0500 Body mass index (BMI) [Ratio] 21.45 kg/m2 Melvin Ball Other [facility] Other 10-13-2023 10:30-0500 Body weight 56.7 kg Melvin Ball Other [facility] Other 10-13-2023 10:30-0500 Diastolic blood pressure 80 mm[Hg] Melvin Ball Other [employer] Other 10-13-2023 10:30-0500 Respiratory rate 12 /min Melvin Ball Other [facility] Other 10-13-2023 10:30-0500 Systolic blood pressure 133 mm[Hg] Melvin Ball Other [facility] Other 08-27-2023 13:40-0400 Body height 162.56 cm Melvin Ball Other [facility] Other 08-27-2023 13:40-0400 Diastolic blood pressure 66 mm[Hg] Melvin Ball Other [facility] Other 08-27-2023 13:40-0400 Systolic blood pressure 147 mm[Hg] Melvin Ball Other [facility] Other 06-18-2023 16:20-0400 Diastolic blood pressure 57 mm[Hg] Melvin Ball Other [facility] Other 06-18-2023 16:20-0400 Systolic blood pressure 123 mm[Hg] Melvin Ball Other [facility] Other 06-16-2023 14:24-0400 Diastolic blood pressure 54 mm[Hg] Melvin Ball Other [facility] Other 06-16-2023 14:24-0400 Systolic blood pressure 147 mm[Hg] Melvin Ball Other [facility] Other 06-11-2023 14:25-0400 Diastolic blood pressure 62 mm[Hg] Melvin Ball Other [facility] Other 06-11-2023 14:25-0400 Systolic blood pressure 130 mm[Hg] Melvin Ball Other [facility] Other 06-11-2023 14:20-0400 Diastolic blood pressure 62 mm[Hg] Melvin Ball Other [facility] Other 06-11-2023 14:20-0400 Systolic blood pressure 125 mm[Hg] Melvin Ball Other [facility] Other 06-08-2023 11:30-0400 Body height 162.56 cm Melvin Ball Other [facility] Other 06-08-2023 11:30-0400 Body mass index (BMI) [Ratio] 22.76 kg/m2 Melvin Ball Other [facility] Other 06-08-2023 11:30-0400 Body weight 60.15 kg Melvin Ball Other [facility] Other 06-08-2023 11:30-0400 Diastolic blood pressure 67 mm[Hg] Melvin Ball Other [facility] Other 06-08-2023 11:30-0400 Respiratory rate 12 /min Melvin Ball Other [facility] Other 06-08-2023 11:30-0400 Systolic blood pressure 155 mm[Hg] Melvin Ball Other [facility] Other 05-06-2023 10:45-0400 Body height 162.56 cm Melvin Ball Other [facility] Other 05-06-2023 10:45-0400 Body mass index (BMI) [Ratio] 22.76 kg/m2 Melvin Ball Other [facility] Other 05-06-2023 10:45-0400 Body weight 60.15 kg Melvin Ball Other [facility] Other 05-06-2023 10:45-0400 Diastolic blood pressure 76 mm[Hg] Melvin Ball Other [facility] Other 05-06-2023 10:45-0400 Respiratory rate 12 /min Melvin Ball Other [facility] Other 05-06-2023 10:45-0400 Systolic blood pressure 160 mm[Hg] Melvin Ball Other [facility] Other Encounters Encounter Date Encounter Type Care Provider Facility Start: 06-13-2024 End: 06-13-2024 ambulatory DO Melvin Ball Work Phone: [facility] Work Phone: Start: 06-13-2024 End: 06-13-2024 Patient encounter procedure DO Melvin Ball Work Phone: [facility] Work Phone: Start: 06-07-2024 End: 06-07-2024 ambulatory DELROY TENA Not Available Start: 04-28-2024 End: 04-28-2024 ambulatory DO Melvin Pereira Work Phone: [facility] Work Phone: Start: 04-28-2024 End: 04-28-2024 Patient encounter procedure DO Melvin Pereira Work Phone: [facility] [place] Work Phone: Start: 04-18-2024 Non-patient / Non-visit DO Tom Pereira Work Phone: [facility] Physician [facility] Work Phone: Start: 04-01-2024 End: 04-01-2024 ambulatory [facility] Work Phone: Start: 04-01-2024 End: 04-01-2024 Patient encounter procedure [facility] Physician [facility] Work Phone: Start: 02-04-2024 End: 02-04-2024 ambulatory [facility] Work Phone: Start: 02-04-2024 End: 02-04-2024 Patient encounter procedure [facility] Physician [facility] Work Phone: Start: 12-16-2023 Non-patient / Non-visit [facility] Physician [facility] Work Phone: Start: 11-16-2023 End: 11-16-2023 ambulatory DELRO[employer] TENA Not Available Start: 10-13-2023 End: 10-13-2023 ambulatory Melvin Pereira Other [facility] [employer] Other Start: 10-13-2023 Office outpatient vi sit 25 minutes Melvin Pereira [facility] Start: 09-29-2023 End: 09-29-2023 ambulatory DELROY TENA Not Available Start: 08-27-2023 End: 08-27-2023 ambulatory Melvni Ball Other [facility] Other Start: 08-27-2023 Telephone encounter Melvin Ball [facility] Start: 08-21-2023 End: 08-21-2023 ambulatory Melvin Ball Other [facility] Other Start: 08-21-2023 Telephone encounter Melvin Ball [facility] Start: 08-14-2023 End: 08-14-2023 ambulatory Melvin Ball Other [facility] Other Start: 08-14-2023 Telephone encounter Melvin Ball [facility] Start: 08-10-2023 End: 08-10-2023 ambulatory Melvin Ball Other [facility] Other Start: 08-10-2023 Telephone encounter Melvin Ball [facility] Start: 07-24-2023 End: 07-24-2023 ambulatory Melvin Ball Other [facility] Other Start: 07-24-2023 Telephone encounter Melvin Ball [facility] Start: 07-23-2023 End: 07-23-2023 ambulatory Melvin Ball Other [facility] Other Start: 07-23-2023 Nursing evaluation o f patient and report Melvin Ball [facility] Start: 07-17-2023 End: 07-17-2023 ambulatory Melvin Ball Other [facility] Other Start: 07-17-2023 Telephone encounter Melvin Ball [facility] Start: 06-29-2023 End: 06-29-2023 ambulatory Melvin Ball Other [facility] Other Start: 06-29-2023 Telephone encounter Melvin Ball [facility] Start: 06-18-2023 End: 06-18-2023 ambulatory Melvin Ball Other [facility] Other Start: 06-18-2023 Telephone encounter Melvin Ball [facility] Start: 06-16-2023 End: 06-16-2023 ambulatory Melvin Ball Other [facility] Other Start: 06-16-2023 Telephone encounter Melvin Ball [facility] Start: 06-11-2023 End: 06-11-2023 ambulatory Melvin Ball Other [facility] Other Start: 06-11-2023 Telephone encounter Melvin Ball [facility] Start: 06-08-2023 End: 06-08-2023 ambulatory Melvin Ball Other [facility] Other Start: 06-08-2023 Patient encounter procedure Melvin Ball [facility] Start: 06-05-2023 End: 06-05-2023 ambulatory Melvin Ball Other [facility] Other Start: 06-05-2023 Telephone encounter Melvin Ball [facility] Start: 05-29-2023 End: 05-29-2023 ambulatory Melvin Ball Other [facility] Other Start: 05-29-2023 Telephone encounter Melvin Ball [facility] Start: 05-18-2023 End: 05-18-2023 ambulatory Melvin Ball Other [facility] Other Start: 05-18-2023 Telephone encounter Melvin Ball [facility] Start: 05-14-2023 End: 05-14-2023 ambulatory Melvin Ball Other [facility] Other Start: 05-14-2023 Telephone encounter Melvin Ball [facility] Start: 05-11-2023 End: 05-11-2023 ambulatory Melvin Ball Other [facility] Other Start: 05-11-2023 Telephone encounter Melvin Pereira [facility] Start: 05-08-2023 End: 05-08-2023 ambulatory Melvin Pereira Other [facility] Other Start: 05-08-2023 Telephone encounter Melvin JACOBSON [facility] Start: 05-06-2023 End: 05-06-2023 ambulatory Melvin Pereira Other [facility] Other Start: 05-06-2023 Office outpatient vi sit 25 minutes Melvin Pereira [facility] Start: 07-16-2022 End: 07-17-[address] MELVIN PEREIRA Facility:[facility] Start: 07-04-2022 End: 07-05-[address] MELVIN PEREIRA Facility:[facility] Start: 06-30-2022 Adult health examination Melvin Pereira Other [employer] Other Start: 03-14-2022 End: 03-15-[address] [...] ant neoplasm of breast Melvin Pereira Other Plan of Treatment Date Care Activity Detail Author Start: 04-28-2024 [facility] Comprehensive metabo lic 2000 panel - Serum or Plasma [facility] Endomysial antibody IgA level [facility] Gliadin peptide IgA Ab [Units/volume] in Serum [facility] Gliadin peptide IgG Ab [Units/volume] in Serum [facility] IgA [Mass/volume] in Serum or Plasma [facility] MRA Head vessels WO contrast [facility] Tissue transglutamin ase IgA Ab [Units/volume] in Serum [facility] Tissue transglutamin ase IgG Ab [Units/volume] in Serum [facility] US.doppler Carotid a rteries - bilateral [facility] Immunizations Immunization Date Immunization Notes Care Provider Fa cility 07-23-2023 influenza virus vaccine, unspecified formulation [facility] 07-23-2023 influenza, high dose seasonal, preservative-free Melvin Pereira Other [facility] Other 07-18-2022 influenza virus vaccine, split virus (incl. purified surface antigen) Melvin Pereira Other [facility] Other 07-18-2022 influenza virus vaccine, unspecified formulation [facility] 07-18-2022 influenza, high dose seasonal, preservative-free Melvin Pereira Other [facility] Other 07-18-2021 influenza virus vaccine, split virus (incl. purified surface antigen) Melvin Pereira Other [facility] Other 07-18-2021 influenza virus vaccine, unspecified formulation [facility] 04-08-2021 diphtheria, tetanus toxoids and acellular pertussis vaccine, unspecified formulation Melvin Pereira Other [facility] 07-27-2020 influenza virus vaccine, split virus (incl. purified surface antigen) Melvin Pereira Other [facility] Other 07-27-2020 influenza virus vaccine, unspecified formulation [facility] 07-26-2019 influenza virus vaccine, split virus (incl. purified surface antigen) Melvin Pereira Other [facility] Other 07-26-2019 influenza virus vaccine, unspecified formulation [facility] 09-07-2018 pneumococcal polysaccharide vaccine, 23 valent Melvin Pereira Other [facility] 08-16-2018 influenza virus vaccine, split virus (incl. purified surface antigen) Melvin Pereira Other [facility] Other 08-16-2018 influenza virus vaccine, unspecified formulation [facility] 08-10-2017 pneumococcal conjuga te vaccine, 13 valent Melvin Pereira Other [facility] 07-21-2017 influenza virus vaccine, split virus (incl. purified surface antigen) Melvin Pereira Other [facility] Other 07-21-2017 influenza virus vaccine, unspecified formulation [facility] Payers Date Payer Category Payer Self-pay [id number] 1959 Medicare [id number] 1959 Unknown [id number] 1935 Unknown [id number] 2.16.84 [id number] 1935 Unknown [id number] 2.16.84 [id number] 1935 Unknown [id number] 2.16.84 [id number] 1935 Unknown [id number] 2.16.84 [id number] 1935 Unknown [id number] 2.16.84 [id number] 1935 Unknown [id number] 2.16.84 [id number] 1935 Unknown [id number] 2.16.84 [id number] 1935 Unknown [id number] Unknown Other1 (STD) [id number] Unknown [id number] 2.16.8 [id number] Social History Date Type Detail Facility Sex Assigned At [facility] [employer] Other Start: 1935 Sex Assigned At Female F [facility] Start: 04-28-2024 [facility] Clinical Notes 05-06-2023 to 04-28-2024 Note Date [...] will determine the need to stop atorvastatin [facility] Work Phone: [phone] 547-461512-12-2023 Evaluation note* Encounter Date Diagnosis Assessment Notes [...] monitor for pain, distention, melena or hematochezia. [facility] Other 10-09-2023 Evaluation note* Encounter Date Diagnosis Assessment Notes Treatment Notes Treatment Clinical Notes Aug, COVID (ICD-10 - U07.1) [facility] Other 08-10-2023 Evaluation note* Encounter Date Diagnosis Assessment Notes Treatment Notes Treatment Clinical Notes Jun, Primary hypertension (ICD-10 - I10) [facility] Other 08-07-2023 Evaluation note* Encounter Date Diagnosis [...] and Vit D supplements. Weight bearing exercises [facility] Other 07-07-2023 Evaluation note* Encounter Date Diagnosis Assessment Notes Treatment Notes Treatment Clinical Notes May, Primary hypertension (ICD-10 - I10) [facility] Other 07-05-2023 Evaluation note* Encounter Date Diagnosis [...] mammogram for breast cancer (ICD-10 - Z12.31) [facility] Other Evaluation noteNo [employer] Other Evaluation note* Diagnosis Onset Date Resolution Status Chronic venous insufficiency of lower extremity acute GERD (gastroesophageal reflux disease) acute Hypertension acute Lumbar spondylosis acute Osteopenia acute Rheumatoid arthritis acute [facility] Work Phone: Evaluation note* Diagnosis Onset Date Resolution Status Aphasia acute Chronic venous insufficiency of lower extremity acute GERD (gastroesophageal reflux disease) acute Hypertension acute Lumbar spondylosis acute Osteopenia acute Rheumatoid arthritis acute TIA (transient ischemic attack) acute Cerebral atherosclerosis acu te Chronic venous insufficiency of lower extremity acute Hypertension acute [facility] Work Phone: History general Narrative - Reported* [...] EXCISED 2004 Hospitalization History SEE SURGICAL HX [facility] Other Summary Purpose Family History Relationship Condition Age at Onset Recorded Date/T kamla father Unknown Not Specified Unknown Relationship Condition Age at Onset Recorded Date/T kamla father Unknown mother Unknown Advance Directives Advance Directive Response Recorded [...] TIA (transient ischemic attack) Elevated liver enzymes Chief Complaint 1 month follow up increased liver function test/dr armando referred R74.8 wellness Reason for Visit Cerebral atheroscler osis Chronic venous insufficiency of lower extremity Hypertension Inflammatory polyarthropathy TIA (transient ischemic attack) Elevated liver enzymes Cerebral atherosclerosis Chronic venous insufficiency of lower extremity GERD (gastroesophageal reflux disease) Hypertension Metabolic dysfunction-associated steatotic liver disease (MASLD) Osteopenia Rheumatoid arthritis Medicare annual wellness visit, subsequent Additional Source Comments INFORMATION SOURCE (unrecogn ized section and content) DATE CREATED AUTHOR 04/21/2019 [facility] DATE CREATED AUTHOR AUTHOR'S ORGANIZ ATION 07/30/2022 [facility] DATE CREATED AUTHOR AUTHOR'S ORGANIZ ATION 04/30/2024 [facility] DATE CREATED AUTHOR AUTHOR'S ORGANIZ ATION 06/09/2024 [facility] EPIC REASON FOR VISIT (unrecogniz [...] DO Primary Care Provider Active Start: April 28, 2024 End: April 28, 2024 Bryan Briggs MD Attending Provider Active Start: April 28, 2024 End: April 28, 2024 Team Status: Inactive Member Role Status Dates Melvin Pereira DO Primary Care Provide r, Attending Provider Active Start: June 13, 2024 End: June 13, 2024 Goals (unrecognized section and content) Goals [...] BE BASED ON THE PRIMARY CLINICAL RECORDS. [facility] [facility]. provides no warranty or guarantee of the accuracy or completeness of information in this document.
[2024-06-14 08:35] LABS: Basophils Absolute Auto 0.1 10^3/uL (0.0-0.1); Basophils Percent Auto 0.8 % (0.2-2.0); Eosinophils Absolute Auto 0.1 10^3/uL (0.0-0.7); Eosinophils Percent Auto 1.6 % (0.9-7.0); Hematocrit 41.3 % (36.0-48.0); Hemoglobin 12.7 g/dL (12.0-16.0); Immature Granulocytes Abs Auto 0.01 10^3/uL (0.00-0.03); Immature Granulocytes Pct Auto 0.1 % (0.0-0.5); Lymphocytes Absolute Auto 3.9 10^3/uL (1.2-3.8); Lymphocytes Percent Auto 46.2 % (20.5-60.0); Mean Corpuscular HGB Conc 30.8 g/dL (29.9-35.2); Mean Corpuscular Hemoglobin 29.7 pg (26.7-34.0); Mean Corpuscular Volume 96.7 fL (81.0-99.0); Mean Platelet Volume 12.9 fL (9.5-13.5); Monocytes Absolute Auto 0.7 10^3/uL (0.3-0.8); Monocytes Percent Auto 8.3 % (1.7-12.0); Neutrophils Absolute Auto 3.7 10^3/uL (1.4-6.5); Platelet Count 164 10^3/uL (150-450); Red Blood Count 4.27 10^6/uL (4.20-5.40); Red Cell Distribution Width 14.9 % (11.0-15.0); White Blood Count 8.5 10^3/uL (4.0-11.0)
[2024-06-14 09:38] LABS: Alanine Aminotransferase 58 U/L (14-59); Albumin Globulin Ratio 1.1; Albumin Level 3.6 g/dL (3.4-5.0); Alkaline Phosphatase 220 U/L (46-116); Anion Gap 8.7; Aspartate Amino Transferase 40 U/L (15-37); BUN Creatinine Ratio 11.1; Calcium 9.7 mg/dL (8.5-10.1); Carbon Dioxide 33.3 mmol/L (21.0-32.0); Chloride 105 mmol/L (98-107); Chol HDL Ratio 1.2; Cholesterol 136 mg/dL (<=200); Estimated GFR (African America >60 (>=60); Estimated GFR (Non-African Ame >60 (>=60); Gamma Glutamyl Transpeptidase 139 U/L (8-55); Globulin 3.3 g/dL; Glucose 98 mg/dL (74-106); HDL Cholesterol 110 mg/dL (40-60); Sodium 143 mmol/L (136-145); Thyroid Stimulating Hormone 6.086 uIU/mL (0.358-3.740); Total Protein 6.9 g/dL (6.4-8.2); Triglycerides 33 mg/dL (<=150); VLDL CHOLESTEROL 6.6 mg/dL
[2024-06-15 12:32] LABS: Free T4 1.07 ng/dL (0.76-1.46)
[2024-06-16 12:09] LABS: Triiodothyronine (T3) 127 ng/dL (71-180)
== END 2024-06-14 07:49 | disposition home or self-care (01) ==
LOC: LAB 07:50
PROVIDERS: PCP Internal Medicine; Visit Provider Internal Medicine
DX: K76.0 Fatty (change of) liver, not elsewhere classified (principal); R74.8 Abnormal levels of other serum enzymes; I10 Essential (primary) hypertension; M06.9 Rheumatoid arthritis, unspecified; M85.80 Other specified disorders of bone density and structure, unspecified site; R79.89 Other specified abnormal findings of blood chemistry
CPT/HCPCS: 36415; 80053; 80061; 82977; 84439; 84443; 84480; 85025

== ENCOUNTER 2024-09-02 11:21 | Outpatient (OUT) | payer MEDICARE, OTHER, SELFPAY ==
--- NOTE | 2024-09-02 11:25 | MM_ITS ---
Patient Name: JAYLON CASH MR#: [id number] : 1935 Exam Date: 09/02/2024 Ordering Doctor: DR Melvin Pereira D.O. RADIOLOGY REPORT PROCEDURE: MM TOMOSYNTHESIS SCREENING BI COMPARISON: MM TOMOSYNTHESIS SCREENING BI, 07/23/2023. MG MAMM RT DIAG FU, 07/16/2022. INDICATIONS: Screening Calculator Name NCI Breast Cancer Risk Assessment Tool 5 Year Breast Cancer Risk Not Applicable. Lifetime Breast Cancer Risk Not Applicable. Personal Breast Cancer No Personal Ovarian Cancer No Treatments None Family Cancers Aunt-maternal with breast cancer at age 60; Sister with bladder cancer at age 78. LOCATION: [facility] BREAST COMPOSITION: The breasts are heterogeneously dense,which may obscure small masses. FINDINGS: DIAGNOSTIC CATEGORY 2--BENIGN FINDING. NO CHANGE FROM COMPARISON. Scattered benign-appearing nodules are present. Scattered benign-appearing calcifications are present. Scattered benign-appearing lymph nodes are present. RIGHT BREAST: No significant suspicious finding. LEFT BREAST: No significant suspicious finding. RECOMMENDATIONS: ROUTINE MAMMOGRAM AND CLINICAL EVALUATION IN 12 MONTHS. PLEASE NOTE: A NORMAL MAMMOGRAM DOES NOT EXCLUDE THE POSSIBILITY OF BREAST CANCER. A CLINICALLY SUSPICIOUS PALPABLE LUMP SHOULD BE BIOPSIED. Dictated by: Chris Casas MD on 09/02/2024 at 13:33 Approved by: Chris Casas MD on 09/02/2024 at 13:34
--- OUTSIDE RECORDS SUMMARY | 2024-09-02 11:39 | XMS_ITS | CCD ---
Author Organization [facility] Care Team Providers Care Leadership Recruiter Name Role Phone TR, DR SANTACRUZ Admitting [...] Unavailable ZIEBER, DR JAMIE Cruz Consulting Unavailable Melvin Pereira Unavailable DO Melvin Pereira Primary Care Provider MD Bryan Briggs Attending Provider DELROY TENA Attending Unavailable DELROY TENA Attending Unavailable DELROY TENA Attending Unavailable Melvin Pereira Primary Care Unavailable Asaad, Imad Admitting Unavailable Asaad, Bryan Attending Unavailable Melvin Pereira Primary Care Unavailable Asaad, Imad Admitting Unavailable Asaad, Imad Attending Unavailable Allergies Allergy Classification Reported Allergen(s) Allergy Type Date of Onset Reaction(s) Facility (20 sources) [facility] Allergy Unknown [email or web address] Other (1 source) patient allergy list reviewed by nurse or physicia Propensity to adverse reactions 9 Comment:Done [email or web address] Other (1 source) [facility] Drug Allergy [facility] Repository Medications Current Medications Medication Drug Class(es) Dates Sig (Normalized) Sig (Original) ascorbic acid 113 mg / beta carotene 7160 mg / cuprous oxide 0.4 mg / dl-alpha tocopheryl acetate 100 unt / zinc oxide 17.4 mg oral tablet (7 sources) Vitamin C Start: 02-03-2024 Vitamins A,C,T-Xgwa-Ynwbvt (Preservision Areds) 2,148 mcg-113 mg-45 mg-17.4mg tablet Active TAB PO As Directed February 03, 2024 12:00am Preservision PreserVision ARE DS - as directed Orally Active calcium carbonate 1500 mg / cholecalciferol 800 unt chewable tablet (6 sources) Vitamin D Start: 02-03-2024 Calcium Carbonate-Vitamin [...] day Active Cyclosporine (Restasis) 0.05 % dropperette (6 sources) Start: 02-03-2024 take 1 drop(s) into the eye(s) every twelve hours Cyclosporine (Restasis) 0.05 % dropperette Active 1 DROPS EYE-BOTH Every 12 hours February 03, 2024 12:00am Dextran 70 / Glycerin / hypromellose (1 source) Plasma Volume Customer Strategy Manager, Non-Standardized Chemical Allergen GenTeal Tears 0.1-0.3 % as directed Ophthalmic Active dextran 70 1 mg/ml / hypromellose 3 mg/ml ophthalmic solution (6 sources) Plasma Volume Customer Strategy Manager Start: 02-03-2024 take 0.1-0.3 drop(s) into the [...] Orally Once a day Active Multivitamin preparation (7 sources) Start: 02-03-2024 take 1 tablet by mouth once daily Multivitamin Active 1 TAB PO Daily February 03, 2024 12:00am take 1 tablet by mouth once joanie y Multivitamin - 1 tablet Orally Once a day Active olmesartan medoxomil 5 mg oral tablet (20 sources) Angiotensin 2 Receptor Norm Start: 07-10-2024 take 1 tablet by mouth twice daily Olmesartan Active 0 .ROUTE .COMPLEX 180 July 10, 2024 8:38am TAKE 1 TABLET BY MOUTH TWICE A DAY FOR 30 DAYS Start: 04-01-2024 End: 07-10-2024 Olmesartan Discontinued 5 MG PO Twice daily 60 April 06, 2024 6:21pm July 10, 2024 8:38am 5mg q am and extra 5mg at [...] Sig (Original) amLODIPine 5 mg oral tablet (15 sources) Dihydropyridine Calcium Channel Norm Start: 02-03-2024 End: 02-04-2024 take 5 mg by mouth once daily Amlodipine Discontinued 5 MG PO Daily February 03, 2024 12:00am February 04, 2024 9:56am Start: 05-08-2023 take 1 tablet by fernanda th every twenty-four hours amLODIPine Besylate 5 MG 1 tablet Orally Once a day for 30 days May, Active atorvastatin 80 mg oral tablet (8 sources) HMG-CoA Reductase Inhibitor Start: 05-30-2024 End: 07-05-2024 take 1 tablet by mouth once daily Atorvastatin Discontinued 0 .ROUTE .COMPLEX 90 May 30, 2024 10:07am July 05, 2024 1:09pm TAKE 1 TABLET BY MOUTH EVERY DAY Start: 02-05-2024 End: 05-30-2024 take 80 mg by mouth once daily Atorvastatin Discontinu ed 80 MG PO Daily February 05, 2024 12:00am May 30, 2024 10:07am diclofenac sodium 75 mg delayed release oral [...] history of urinary calculi] Episodic Esophageal disorders (20 sources) Gastro-esophageal reflux disease with esophagitis; Translations: [...] 10-29-2021 Chronic Other and ill-defined cerebrovascular disease (5 sources) Cerebral atherosclerosis; Translations: [Cerebral atherosclerosis] 03-30-2024 Chronic Other and ill-defined cerebrovascular disease (6 sources) Cerebral atherosclerosis; Translations: [Cerebral atherosclerosis] 04-01-2024 Chronic Other bone disease and musculoskeletal deformities (20 sources) Other specified disorders of bone density and structure, other site; 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] Episodic Other bone disease and musculoskeletal deformities (16 sources) Disorder of bone; Translations: [Other specified disorders of bone density and structure, other site] Episodic Other bone disease and musculoskeletal deformities (6 sources) Osteopenia; Translations: [Other specified disorders of bone density and structure, unspecified site] 02-03-2024 Episodic Other bone disease and musculoskeletal deformities (6 sources) Other specified disorders of bone density [...] Episodic Other diseases of veins and lymphatics (12 sources) Venous insufficiency (chronic) (peripheral); Translations: [Venous (peripheral) insufficiency, unspecified] Episodic Other diseases of veins and lymphatics (6 sources) Venous insufficiency of leg; Translations: [Venous insufficiency (chronic) (peripheral)] 02-03-2024 Episodic Other gastrointestinal disorders (7 sources) Slow transit constipation; Translations: [Slow transit constipation] 02-03-2024 Episodic Other gastrointestinal disorders (1 source) Slow transit constipation Episodic Other injuries and conditions due to external causes (16 sources) History of fall; Translations: [History of falling] Episodic Other liver diseases (3 sources) Steatosis of liver; Translations: [Fatty (change of) liver, not elsewhere classified] 06-11-2024 Chronic Other liver diseases (3 sources) Fatty (change of) liver, not elsewhere classified; Translations: [Other chronic nonalcoholic liver disease] 06-13-2024 Chronic Other liver diseases (4 sources) Elevated liver enzymes level; Translations: [Abnormal levels of other serum enzymes] 04-28-2024 Episodic Other liver diseases (7 sources) Abnormal levels of other serum enzymes; Translations: [Other nonspecific abnormal serum enzyme levels] Onset: 07-19-2024 04-28-2024 Episodic Other nervous system disorders (16 sources) Carpal tunnel syndrome; Translations: [Carpal tunnel syndrome, right upper limb] Chronic Other nervous system disorders (6 sources) Aphasia; Translations: [Aphasia] 02-04-2024 Chronic Other [...] back pain, unspecified] Episodic Transient cerebral ischemia (10 sources) Transient cerebral ischemia; Translations: [Transient cerebral [...] Episodic Other aftercare (1 source) Other intermediate (current) drug therapy; Translations: [OTH PORCELAIN FINISHER CURRENT DRUG THERAPY] Onset: 03-19-2022 Episodic Other aftercare (1 source) group home (current) use of aspirin; Translations: [SHELTER CURRENT [...] Test Name Value Interpretation Reference Range Facility Hep C RT-PCR, Qnt (Non-Graph )on 07-19-2024 Hepatitis C Quantitation Not detected Normal . [facility] Comment on above: Performed By: #### H BCAB, HCV RNAQNT, HBSAG, HBSAB #### [facility] , #### HEPATIC #### [address] Test Information: Comment Normal . [facility] Comment on above: Result Comment: The quantitative range of this assay is 15 IU/mL to 100 million IU/mL. Performed at: [facility] [id number] Deck Lid Fitter: Sana Paula MD, Phone: [phone] PERFORMED BY: [place] [address] PATHOLOGIST SCOW CAPTAIN GARRETT SELLERS M.D. Performed By: #### H BCAB, HCV RNAQNT, HBSAG, HBSAB #### [facility] , #### HEPATIC #### [address] Hepatic Panelon 07-19-2024 Albumin [Mass/Vol] 4.2 g/dL Normal 3.5-5.7 [facility] Comment on above: Performed By: #### H BCAB, HCV RNAQNT, HBSAG, HBSAB #### [facility] , #### HEPATIC #### [address] Albumin/Globulin [Mass ratio] 1.8 {ratio} Normal [facility] Comment on above: Performed By: #### H BCAB, HCV RNAQNT, HBSAG, HBSAB #### [facility] , #### HEPATIC #### [address] ALP [Catalytic activity/Vol] 112 U/L High 34-104 [facility] Comment on above: Result Comment: PERF ORMED BY: [place] [address] PATHOLOGIST SCOW CAPTAIN GARRETT SELLERS M.D. Performed By: #### H BCAB, HCV RNAQNT, HBSAG, HBSAB #### [facility] , #### HEPATIC #### [address] ALT [Catalytic activity/Vol] 26 U/L Normal 7-52 [facility] Comment on above: Performed By: #### H BCAB, HCV RNAQNT, HBSAG, HBSAB #### [facility] , #### HEPATIC #### [address] AST [Catalytic activity/Vol] 26 U/L Normal 13-39 [facility] Comment on above: Performed By: #### H BCAB, HCV RNAQNT, HBSAG, HBSAB #### [facility] , #### HEPATIC #### [address] Bilirubin [Mass/Vol] 0.6 mg/dL Normal 0.3-1.0 [facility] Comment on above: Performed By: #### H BCAB, HCV RNAQNT, HBSAG, HBSAB #### [facility] , #### HEPATIC #### [address] Bilirubin,Indirect 0.5 mg/dL Normal [facility] Comment on above: Performed By: #### H BCAB, HCV RNAQNT, HBSAG, HBSAB #### [facility] , #### HEPATIC #### [address] Bilirubin.indirect [Mass/Vol] 0.10 mg/dL Normal 0.03-0.18 [facility] Comment on above: Performed By: #### H BCAB, HCV RNAQNT, HBSAG, HBSAB #### [facility] , #### HEPATIC #### [address] Globulin (S) [Mass/Vol] 2.4 g/dL Normal [facility] Comment on above: Performed By: #### H BCAB, HCV RNAQNT, HBSAG, HBSAB #### [facility] , #### HEPATIC #### [address] Protein [Mass/Vol] 6.6 g/dL Normal 6.4-8.9 [facility] Comment on above: Performed By: #### H BCAB, HCV RNAQNT, HBSAG, HBSAB #### [facility] , #### HEPATIC #### [address] Hepatitis B Core Antibodyon 07-19-2024 Hepatitis B Core Antibody Negative Normal Negative [facility] Comment on above: Result Comment: Perf ormed at: - [facility] [address] [id number] Deck Lid Fitter: Jung Cottrell PhD, Phone: [phone] Performed By: #### H BCAB, HCV RNAQNT, HBSAG, HBSAB #### [facility] , #### HEPATIC #### [facility] [address] [place] [address] Hepatitis B Surface Antibody on 07-19-2024 Hepatitis B Surface Antibody Non-Reactive Normal . [facility] Comment on above: Result Comment: Non Reactive: Not immune to HBV infection. Equivocal: Unable to determine if anti-HBs is present at levels consistent with immunity. Reactive: Anti-HBs concentration detected at greater than 10 mIU/mL. Individual is considered to be immune to infection with HBV. Performed By: #### H BCAB, HCV RNAQNT, HBSAG, HBSAB #### [facility] , #### HEPATIC #### [address] Hepatitis B Surface Antigeno n 07-19-2024 HBsAg Screen Negative Normal Negative [facility] Comment on above: Result Comment: PERF ORMED BY: [place] [address] PATHOLOGIST SCOW CAPTAIN GARRETT SELLERS M.D. Performed By: #### H BCAB, HCV RNAQNT, HBSAG, HBSAB #### [facility] , #### HEPATIC #### [address] Basophils Auto (Bld) [#/Vol] on 06-14-2024 Basophils (Bld) [#/Vol] 0.1 10 3/uL 0.0-0.1 [facility] Basophils/100 WBC Auto (Bld) on 06-14-2024 Basophils/100 WBC (Bld) 0.8 % 0.2-2.0 [facility] Cholesterol in LDL Calc [Mas s/Vol]on 06-14-2024 Cholesterol in LDL [Mass/Vol] 20.0 mg/dL [facility] Comment on above: <100 mg/dl [id number] 0-129 mg/dl NEAR OR ABOVE [id number] mg/dl BORDERLINE [id number] mg/dl HIGH>190 mg/dl VERY HIGH Cholesterol in VLDL Calc [Ma ss/Vol]on 06-14-2024 Cholesterol in VLDL [Mass/Vol] 6.6 mg/dL [facility] Eosinophils/100 WBC Auto (Bl d)on 06-14-2024 Eosinophils/100 WBC (Bld) 1.6 % 0.9-7.0 [facility] Erythrocyte distribution wid th Auto (RBC) [Ratio]on 06-14-2024 Erythrocyte distribution width (RBC) [Ratio] 14.9 % 11.0-15.0 [facility] Estimated glomerular filtrat ion rate (GFR) non- Americanon 06-14-2024 GFR/1.73 sq M.predicted among non-blacks MDRD (S/P/Bld) [Vol rate/Area] mL/min/{1.73_m2} >=60 [facility] Globulin Calc (S) [Mass/Vol] on 06-14-2024 Globulin (S) [Mass/Vol] 3.3 g/dL [facility] Hematocrit Auto (Bld) [Volum e fraction]on 06-14-2024 Hematocrit (Bld) [Volume fraction] 41.3 % 36.0-48.0 [facility] Hemoglobin [Mass/volume] in Bloodon 06-14-2024 Hemoglobin (Bld) [Mass/Vol] 12.7 g/dL 12.0-16.0 [facility] - Chemistry and C hemistry - challengeon 06-14-2024 Albumin [Mass/Vol] 3.6 g/dL 3.4-5.0 [facility] ALP [Catalytic activity/Vol] 220 U/L High 46-116 [facility] ALT [Catalytic activity/Vol] 58 U/L 14-59 [facility] Amylase [Catalytic activity/Vol] 139 U/L High 8-55 [facility] AST [Catalytic activity/Vol] 40 U/L High 15-37 [facility] Bilirubin [Mass/Vol] 1.0 mg/dL 0.2-1.0 [facility] Calcium [Mass/Vol] 9.7 mg/dL 8.5-10.1 [facility] Chloride [Moles/Vol] 105 mmol/L 98-107 [facility] Cholesterol [Mass/Vol] 136 mg/dL <=200 [facility] Cholesterol in HDL [Mass/Vol] 110 mg/dL High 40-60 [facility] Comment on above: > or =60 mg/dl - LOW CARDIOVASCULAR RISK<40 mg/dl - HIGH CARDIOVASCULAR RISK CO2 [Moles/Vol] 33.3 mmol/L High 21.0-32.0 [facility] Creatinine [Mass/Vol] 0.72 mg/dL 0.55-1.02 [facility] Free T4 [Mass/Vol] 1.07 ng/dL 0.76-1.46 [facility] GFR/1.73 sq M.predicted MDRD (S/P/Bld) [Vol rate/Area] mL/min/{1.73_m2} >=60 [facility] Glucose [Mass/Vol] 98 mg/dL 74-106 [facility] Potassium [Moles/Vol] 4.0 mmol/L 3.5-5.1 [facility] Protein [Mass/Vol] 6.9 g/dL 6.4-8.2 [facility] Sodium [Moles/Vol] 143 mmol/L 136-145 [facility] Triglyceride [Mass/Vol] 33 mg/dL <=150 [facility] TSH Qn 6.086 m[IU]/L High 0.358-3.740 [facility] Urea nitrogen [Mass/Vol] 8.0 mg/dL 7.0-18.0 [facility] Urea nitrogen/Creatinine [Mass ratio] 11.1 mg/mg [facility] - Hematology and Cell countson 06-14-2024 Immature granulocytes/100 WBC (Bld) 0.1 % 0.0-0.5 [facility] Leukocytes [#/volume] correc shahid for nucleated erythrocytes in Blood by Automated counon 06-14-2024 WBC corrected for nucl RBC Auto (Bld) [#/Vol] 8.5 10 3/uL 4.0-11.0 [facility] Lymphocytes Auto (Bld) [#/Vo l]on 06-14-2024 Lymphocytes (Bld) [#/Vol] 3.9 10 3/uL High 1.2-3.8 [facility] Lymphocytes/100 WBC Auto (Bl d)on 06-14-2024 Lymphocytes/100 WBC (Bld) 46.2 % 20.5-60.0 [facility] MCH Auto (RBC) [Entitic mass ]on 06-14-2024 MCH (RBC) [Entitic mass] 29.7 pg 26.7-34.0 [facility] MCHC Auto (RBC) [Mass/Vol]on 06-14-2024 MCHC (RBC) [Mass/Vol] 30.8 g/dL 29.9-35.2 [facility] MCV Auto (RBC) [Entitic vol] on 06-14-2024 MCV (RBC) [Entitic vol] 96.7 fL 81.0-99.0 [facility] Monocytes Auto (Bld) [#/Vol] on 06-14-2024 Monocytes (Bld) [#/Vol] 0.7 10 3/uL 0.3-0.8 [facility] Monocytes/100 WBC Auto (Bld) on 06-14-2024 Monocytes/100 WBC (Bld) 8.3 % 1.7-12.0 [facility] Neutrophils Auto (Bld) [#/Vo l]on 06-14-2024 Neutrophils (Bld) [#/Vol] 3.7 10 3/uL 1.4-6.5 [facility] Neutrophils/100 WBC Auto (Bl d)on 06-14-2024 Neutrophils/100 WBC (Bld) 43.0 % 43.0-75.0 [facility] No Panel Informationon 06-14 Eosinophils # (Auto) 0.1 10 3/uL 0.0-0.7 [facility] Immature Granulocyte # (Auto) 0.01 10 3/uL 0.00-0.03 [facility] Total Triiodothyronine 127 ng/dL 71-[address] [facility] Comment on above: Performed at: - [address] [id number] Director: Jung Cottrell PhD, Phone: [phone] Platelet mean volume Auto (B ld) [Entitic vol]on 06-14-2024 Platelet mean volume (Bld) [Entitic vol] 12.9 fL 9.5-13.5 [facility] Platelets Auto (Bld) [#/Vol] on 06-14-2024 Platelets (Bld) [#/Vol] 164 10 3/uL 150-450 [facility] RBC Auto (Bld) [#/Vol]on RBC (Bld) [#/Vol] 4.27 10 6/uL 4.20-5.40 [facility] Serum or plasma albumin/glob ulin mass ratioon 06-14-2024 Albumin/Globulin [Mass ratio] 1.1 {ratio} [facility] Serum or plasma anion gap de terminationon 06-14-2024 Anion gap [Moles/Vol] 8.7 mmol/L [facility] Serum or plasma total choles terol/high density lipoprotein (HDL) cholesterol mass john 06-14-2024 Cholesterol.total/Helen sterol in HDL [Mass ratio] 1.2 {ratio} [facility] Comment on above: 3.3 - 4.4 LOW RISK4. 4 - 7.1 AVERAGE RISK7.1 - 11.0 MODERATE RISK>11.0 HIGH RISK Alanine aminotransferase [En zymatic activity/volume] in Serum or PlasmaOrdered By: Imad Asaad on 04-28-2024 ALT [Catalytic activity/Vol] 82 U/L High 7-52 [facility] Comment on above: Performed By: #### C ELIAC #### [facility] , #### HEPATIC, DIFF CBC #### [facility] [address] Albumin [Mass/volume] in Ser um or Plasma by Bromocresol green (BCG) dye binding methoOrdered By: Imad Asaad on 04-28-2024 Albumin BCG dye [Mass/Vol] 4.0 g/dL 3.5-5.7 [facility] Alkaline phosphatase [Enzyma tic activity/volume] in Serum or PlasmaOrdered By: Imad Asaad on 04-28-2024 ALP [Catalytic activity/Vol] 890 U/L High 34-104 [facility] Comment on above: Result Comment: PERF ORMED BY: [place] [address] PATHOLOGIST SCOW CAPTAIN GARRETT SELLERS M.D. Performed By: #### C ELIAC #### [facility] , #### HEPATIC, DIFF CBC #### [address] Anisocytosis [Presence] in B lood by Light microscopyOrdered By: Imad Asaad on 04-28-2024 Anisocytosis Ql (Bld) Slight Normal [facility] Comment on above: Performed By: #### C ELIAC #### [facility] , #### HEPATIC, DIFF CBC #### [address] Aspartate aminotransferase [ Enzymatic activity/volume] in Serum or PlasmaOrdered By: Imad Asaad on 04-28-2024 AST [Catalytic activity/Vol] 82 U/L High 13-39 [facility] Comment on above: Performed By: #### C ELIAC #### [facility] , #### HEPATIC, DIFF CBC #### [place] [address] [place] Basophils Auto (Bld) [#/Vol] Ordered By: Imad Asaad on 04-28-2024 Basophils (Bld) [#/Vol] N/A [facility] Basophils/100 WBC Auto (Bld) Ordered By: Imad Asaad on 04-28-2024 Basophils/100 WBC (Bld) N/A [facility] Basophils/100 leukocytes in Blood by Manual countOrdered By: Imad Asaad on 04-28-2024 Basophils/100 WBC (Bld) 2 % Normal 0-2 [facility] Comment on above: Performed By: #### C ELIAC #### [facility] , #### HEPATIC, DIFF CBC #### [address] Bilirubin.direct [Mass/volum e] in Serum or PlasmaOrdered By: Imad Asaad on 04-28-2024 Bilirubin.direct [Mass/Vol] 0.30 mg/dL High 0.03-0.18 [facility] Bilirubin.total [Mass/volume ] in Serum or PlasmaOrdered By: Imad Asaad on 04-28-2024 Bilirubin [Mass/Vol] 1.1 mg/dL High 0.3-1.0 [facility] Comment on above: Performed By: #### C ELIAC #### [facility] , #### HEPATIC, DIFF CBC #### [facility] [address] [place] [address] [place] Moss cells [Presence] in Blo od by Light microscopyOrdered By: Imad Asaad on 04-28-2024 Shyla cells LM Ql (Bld) Slight Fi [facility] Celiacon 04-28-2024 Deamidated Gliadin Abs, IgA 3 Normal 0-19 [facility] Comment on above: Result Comment: Nega tive 0 - 19 Weak Positive 20 - 30 Moderate to Strong Positive >30 Performed By: #### C ELIAC #### [facility] , #### HEPATIC, DIFF CBC #### [facility] [address] [place] [address] [place] Deamidated Gliadin Abs, IgG 2 Normal 0-19 [facility] Comment on above: Result Comment: Nega tive 0 - 19 Weak Positive 20 - 30 Moderate to Strong Positive >30 Performed By: #### C ELIAC #### [facility] , #### HEPATIC, DIFF CBC #### [facility] [address] [place] [address] [place] Endomysial Antibody IgA Negative Normal Negative [facility] Comment on above: Performed By: #### C ELIAC #### [facility] , #### HEPATIC, DIFF CBC #### [facility] [address] [place] [address] [place] Immunoglobulin A, Qn, Serum 252 mg/dL Normal 64-422 [facility] Comment on above: Result Comment: Perf ormed at: - [facility] [address] [place], [place] [id number] Deck Lid Fitter: Jung Cottrell PhD, Phone: [phone] PERFORMED BY: [place] [address] PATHOLOGIST SCOW CAPTAIN GARRETT SELLERS M.D. Performed By: #### C ELIAC #### [facility] , #### HEPATIC, DIFF CBC #### [address] T-Transglutaminase (tTG) IgA <2 Normal 0-3 [facility] Comment on above: Result Comment: Nega tive 0 - 3 Weak Positive 4 - 10 Positive >10 Tissue Transglutaminase (tTG) has been identified as the endomysial antigen. Studies have demonstr- ated that endomysial IgA antibodies have over 99% specificity for gluten sensitive enteropathy. Performed By: #### C ELIAC #### [facility] , #### HEPATIC, DIFF CBC #### [address] T-Transglutaminase (tTG) IgG 4 Normal 0-5 [facility] Comment on above: Result Comment: Nega tive 0 - 5 Weak Positive 6 - 9 Positive >9 Performed By: #### C ELIAC #### [facility] , #### HEPATIC, DIFF CBC #### [address] Diff and CBCon 04-28-2024 Crenated RBC Slight Normal [facility] Comment on above: Performed By: #### C ELIAC #### [facility] , #### HEPATIC, DIFF CBC #### [address] Giant Platelet Tally 1 /100{WBC} Normal [facility] Comment on above: Performed By: #### C ELIAC #### [facility] , #### HEPATIC, DIFF CBC #### [address] Mean Corpuscular HGB Conc 32.7 g/dL Normal 32.0-35.0 [facility] Comment on above: Performed By: #### C ELIAC #### [facility] , #### HEPATIC, DIFF CBC #### [facility] [address] Ovalocytes Slight Normal [facility] Comment on above: Performed By: #### C ELIAC #### [facility] , #### HEPATIC, DIFF CBC #### [facility] [address] Platelet Estimate Normal Normal Normal [facility] Comment on above: Performed By: #### C ELIAC #### [facility] , #### HEPATIC, DIFF CBC #### [address] Platelet Morphology Normal Normal Normal [facility] Comment on above: Result Comment: PERF ORMED BY: [place] [address] PATHOLOGIST SCOW CAPTAIN GARRETT SELLERS M.D. Performed By: #### C ELIAC #### [facility] , #### HEPATIC, DIFF CBC #### [facility] [address] [place] [address] [place] Poikilocytosis Slight Normal [facility] Comment on above: Performed By: #### C ELIAC #### [facility] , #### HEPATIC, DIFF CBC #### [facility] [address] [place] [address] [place] Eosinophils Auto (Bld) [#/Vo l]Ordered By: Imad Asaad on 04-28-2024 Eosinophils (Bld) [#/Vol] N/A [facility] Eosinophils/100 WBC Auto (Bl d)Ordered By: Imad Asaad on 04-28-2024 Eosinophils/100 WBC (Bld) N/A [facility] Eosinophils/100 leukocytes i n Blood by Manual countOrdered By: Imad Asaad on 04-28-2024 Eosinophils/100 WBC (Bld) 1 % Normal 1-3 [facility] Comment on above: Performed By: #### C ELIAC #### [facility] , #### HEPATIC, DIFF CBC #### [address] Erythrocyte distribution wid th [Ratio] by Automated countOrdered By: Imad Asaad on 04-28-2024 Erythrocyte distribution width (RBC) [Ratio] 16.0 % High 11.9-15.3 [facility] Comment on above: Performed By: #### C ELIAC #### [facility] , #### HEPATIC, DIFF CBC #### [address] Erythrocytes [#/volume] in B lood by Automated countOrdered By: Imad Asaad on 04-28-2024 RBC (Bld) [#/Vol] 4.25 10*6/uL Normal 3.60-5.00 [facility] Comment on above: Performed By: #### C ELIAC #### [facility] , #### HEPATIC, DIFF CBC #### [place] [address] [place] Giant platelets/100 leukocyt es [Ratio] in Blood by Manual countOrdered By: Imad Asaad on 04-28-2024 Giant platelets/100 WBC Manual cnt (Bld) [Ratio] 1 /100{WBC} [facility] Hematocrit [Volume Fraction] of Blood by Automated countOrdered By: Imad Asaad on 04-28-2024 Hematocrit (Bld) [Volume fraction] 39.1 % Normal 34.0-46.4 [facility] Comment on above: Performed By: #### C ELIAC #### [facility] , #### HEPATIC, DIFF CBC #### [place] [address] [place] Hemoglobin [Mass/volume] in BloodOrdered By: Imad Asaad on 04-28-2024 Hemoglobin (Bld) [Mass/Vol] 12.8 g/dL Normal 11.8-15.4 [facility] Comment on above: Performed By: #### C ELIAC #### [facility] , #### HEPATIC, DIFF CBC #### [address] Hepatic Panelon 04-28-2024 Albumin [Mass/Vol] 4.0 g/dL Normal 3.5-5.7 [facility] Comment on above: Performed By: #### C ELIAC #### [facility] , #### HEPATIC, DIFF CBC #### [address] Bilirubin,Indirect 0.8 mg/dL Normal [facility] Comment on above: Performed By: #### C ELIAC #### [facility] , #### HEPATIC, DIFF CBC #### [address] Bilirubin.indirect [Mass/Vol] 0.30 mg/dL High 0.03-0.18 [facility] Comment on above: Performed By: #### C ELIAC #### [facility] , #### HEPATIC, DIFF CBC #### [address] IgA [Mass/volume] in Serum o r PlasmaOrdered By: Imad Asaad on 04-28-2024 IgA [Mass/Vol] 252 mg/dL 64-422 [facility] Comment on above: Performed at: [facility] [place] [id number] Director: Jung Cottrell PhD, Phone: [phone] Leukocytes [#/volume] correc shahid for nucleated erythrocytes in Blood by Automated counOrdered By: Imad Asaad on 04-28-2024 WBC corrected for nucl RBC Auto (Bld) [#/Vol] 6.8 10*3/uL 3.8-11.6 [facility] Leukocytes [#/volume] in Blo od by Automated countOrdered By: Imad Asaad on 04-28-2024 WBC (Bld) [#/Vol] 6.8 10*3/uL Normal 3.8-11.6 [facility] Comment on above: Performed By: #### C ELIAC #### [facility] , #### HEPATIC, DIFF CBC #### [facility] [address] Lymphocytes Auto (Bld) [#/Vo l]Ordered By: Imad Asaad on 04-28-2024 Lymphocytes (Bld) [#/Vol] N/A [facility] Lymphocytes/100 WBC Auto (Bl d)Ordered By: Imad Asaad on 04-28-2024 Lymphocytes/100 WBC (Bld) N/A [facility] Lymphocytes/100 leukocytes i n Blood by Manual countOrdered By: Imad Asaad on 04-28-2024 Lymphocytes/100 WBC (Bld) 25 % Normal 18-42 [facility] Comment on above: Performed By: #### C ELIAC #### [facility] , #### HEPATIC, DIFF CBC #### [facility] [address] MCH [Entitic mass] by Automa shahid countOrdered By: Imad Asaad on 04-28-2024 MCH (RBC) [Entitic mass] 30.1 pg Normal 24.7-34.3 [facility] Comment on above: Performed By: #### C ELIAC #### [facility] , #### HEPATIC, DIFF CBC #### [facility] [address] MCHC Auto (RBC) [Mass/Vol]Or dered By: Imad Asaad on 04-28-2024 MCHC (RBC) [Mass/Vol] 32.7 g/dL 32.0-35.0 [facility] MCV [Entitic volume] by Auto mated countOrdered By: Imad Asaad on 04-28-2024 MCV (RBC) [Entitic vol] 92.1 fL Normal 80-100 [facility] Comment on above: Performed By: #### C ELIAC #### [facility] , #### HEPATIC, DIFF CBC #### [facility] [address] Manual blood segmented neutr ophils/100 leukocytesOrdered By: Imad Asaad on 04-28-2024 Segmented neutrophils/100 WBC (Bld) 60 % Normal 50-70 [facility] Comment on above: Performed By: #### C ELIAC #### [facility] , #### HEPATIC, DIFF CBC #### [facility] [address] Monocytes Auto (Bld) [#/Vol] Ordered By: Imad Asaad on 04-28-2024 Monocytes (Bld) [#/Vol] N/A [facility] Monocytes/100 WBC Auto (Bld) Ordered By: Imad Asaad on 04-28-2024 Monocytes/100 WBC (Bld) N/A [facility] Monocytes/100 leukocytes in Blood by Manual countOrdered By: Imad Asaad on 04-28-2024 Monocytes/100 WBC (Bld) 12 % High 2-11 [facility] Comment on above: Performed By: #### C ELIAC #### [facility] , #### HEPATIC, DIFF CBC #### [facility] [address] Neutrophils Auto (Bld) [#/Vo l]Ordered By: Imad Asaad on 04-28-2024 Neutrophils (Bld) [#/Vol] N/A [facility] Neutrophils/100 WBC Auto (Bl d)Ordered By: Imad Asaad on 04-28-2024 Neutrophils/100 WBC (Bld) N/A [facility] No Panel InformationOrdered By: Imad Asaad on 04-28-2024 Endomysial IgA Antibody Negative Negative [facility] Nucleated erythrocytes [Pres ence] in Blood by Automated countOrdered By: Imad Asaad on 04-28-2024 Nucleated RBC Auto Ql (Bld) N/A [facility] Ovalocyte detectionOrdered B y: Imad Asaad on 04-28-2024 Ovalocytes LM Ql (Bld) Slight Fi [facility] Platelet adequacy [Presence] in Blood by Light microscopyOrdered By: Imad Asaad on 04-28-2024 Platelets LM Ql (Bld) Normal Normal [facility] Platelet mean volume [Entiti c volume] in Blood by Automated countOrdered By: Imad Asaad on 04-28-2024 Platelet mean volume (Bld) [Entitic vol] 11.6 fL High 6.3-10.7 [facility] Comment on above: Result Comment: PERF ORMED BY: [place] [address] PATHOLOGIST SCOW CAPTAIN GARRETT SELLERS M.D. Performed By: #### C ELIAC #### [facility] , #### HEPATIC, DIFF CBC #### [facility] [address] [place] [address] Platelet morphology finding [Identifier] in BloodOrdered By: Imad Asaad on 04-28-2024 Platelet morphology finding Nom (Bld) Normal Normal [facility] Platelets [#/volume] in Bloo d by Automated countOrdered By: Imad Asaad on 04-28-2024 Platelets (Bld) [#/Vol] 170 10*3/uL Normal 150-450 [facility] Comment on above: Performed By: #### C ELIAC #### [facility] , #### HEPATIC, DIFF CBC #### [facility] [address] [place] [address] [place] Poikilocytosis [Presence] in Blood by Light microscopyOrdered By: Imad Asaad on 04-28-2024 Poikilocytosis LM Ql (Bld) Slight [facility] Protein [Mass/volume] in Ser um or PlasmaOrdered By: Imad Asaad on 04-28-2024 Protein [Mass/Vol] 6.7 g/dL Normal 6.4-8.9 [facility] Comment on above: Performed By: #### C ELIAC #### [facility] , #### HEPATIC, DIFF CBC #### [facility] [address] RBC morphologyOrdered By: Im ad Asajesús on 04-28-2024 RBC morphology finding Nom (Bld) N/A [facility] Serum gliadin peptide IgA an tibody assay (units/volume)Ordered By: Imad Asaad on 04-28-2024 Gliadin peptide IgA Qn (S) 3 units 0-19 [facility] Comment on above: Negative 0 - 19 Weak Positive 20 - 30 Moderate to Strong Positive >30 Serum gliadin peptide IgG an tibody assay (units/volume)Ordered By: Imad Asaad on 04-28-2024 Gliadin peptide IgG Qn (S) 2 units 0-19 [facility] Comment on above: Negative 0 - 19 Weak Positive 20 - 30 Moderate to Strong Positive >30 Serum globulin measurement b y calculation (mass/volume)Ordered By: Imad Asaad on 04-28-2024 Globulin (S) [Mass/Vol] 2.7 g/dL Normal [facility] Comment on above: Performed By: #### C ELIAC #### [facility] , #### HEPATIC, DIFF CBC #### [facility] [address] [place] [address] Serum or plasma albumin/glob ulin mass ratioOrdered By: Imad Asaad on 04-28-2024 Albumin/Globulin [Mass ratio] 1.5 {ratio} Normal [facility] Comment on above: Performed By: #### C ELIAC #### [facility] , #### HEPATIC, DIFF CBC #### [facility] [address] [place] [address] Serum or plasma non-glucuron idated bilirubin measurement (mass/volume)Ordered By: Imad Asaad on 04-28-2024 Bilirubin.indirect [Mass/Vol] 0.8 mg/dL [facility] Serum tissue transglutaminas e (tTG) IgA antibody assay (units/volume)Ordered By: Imad Asaad on 04-28-2024 tTG IgA Qn (S) <2 U/mL 0-3 [facility] Comment on above: Negative 0 - 3 Weak Positive 4 - 10 Positive >10 Tissue Transglutaminase (tTG) has been identified as the endomysial antigen. Studies have demonstr- ated that endomysial IgA antibodies have over 99% specificity for gluten sensitive enteropathy. Serum tissue transglutaminas e (tTG) IgG antibody assay (units/volume)Ordered By: Bryan Briggs on 04-28-2024 tTG IgG Qn (S) 4 U/mL 0-5 [facility] Comment on above: Negative 0 - 5 Weak Positive 6 - 9 Positive >9 Basophils Auto (Bld) [#/Vol] on 04-18-2024 Basophils (Bld) [#/Vol] 0.1 10 3/uL 0.0-0.1 [facility] Basophils/100 WBC Auto (Bld) on 04-18-2024 Basophils/100 WBC (Bld) 0.9 % 0.2-2.0 [facility] Eosinophils/100 WBC Auto (Bl d)on 04-18-2024 Eosinophils/100 WBC (Bld) 8.0 % High 0.9-7.0 [facility] Erythrocyte distribution wid th Auto (RBC) [Ratio]on 04-18-2024 Erythrocyte distribution width (RBC) [Ratio] 15.6 % High 11.0-15.0 [facility] Estimated glomerular filtrat ion rate (GFR) non- Americanon 04-18-2024 GFR/1.73 sq M.predicted among non-blacks MDRD (S/P/Bld) [Vol rate/Area] mL/min/{1.73_m2} >=60 [facility] Globulin Calc (S) [Mass/Vol] on 04-18-2024 Globulin (S) [Mass/Vol] 3.9 g/dL [facility] Hematocrit Auto (Bld) [Volum e fraction]on 04-18-2024 Hematocrit (Bld) [Volume fraction] 36.6 % 36.0-48.0 [facility] Hemoglobin [Mass/volume] in Bloodon 04-18-2024 Hemoglobin (Bld) [Mass/Vol] 11.2 g/dL Low 12.0-16.0 [facility] Laboratory - Chemistry and C hemistry - challengeon 04-18-2024 Albumin [Mass/Vol] 3.0 g/dL Low 3.4-5.0 [facility] ALP [Catalytic activity/Vol] 983 U/L High 46-116 [facility] ALT [Catalytic activity/Vol] 174 U/L High 14-59 [facility] AST [Catalytic activity/Vol] 149 U/L High 15-37 [facility] Bilirubin [Mass/Vol] 1.6 mg/dL High 0.2-1.0 [facility] Calcium [Mass/Vol] 9.2 mg/dL 8.5-10.1 [facility] Chloride [Moles/Vol] 105 mmol/L 98-107 [facility] CO2 [Moles/Vol] 31.5 mmol/L 21.0-32.0 [facility] Creatinine [Mass/Vol] 0.82 mg/dL 0.55-1.02 [facility] GFR/1.73 sq M.predicted MDRD (S/P/Bld) [Vol rate/Area] mL/min/{1.73_m2} >=60 [facility] Glucose [Mass/Vol] 154 mg/dL High 74-106 [facility] Potassium [Moles/Vol] 3.5 mmol/L 3.5-5.1 [facility] Protein [Mass/Vol] 6.9 g/dL 6.4-8.2 [facility] Sodium [Moles/Vol] 143 mmol/L 136-145 [facility] Urea nitrogen [Mass/Vol] 9.0 mg/dL 7.0-18.0 [facility] Urea nitrogen/Creatinine [Mass ratio] 11.0 mg/mg [facility] Laboratory - Hematology and Cell countson 04-18-2024 ESR (Bld) [Velocity] 66 mm/h High <=30 [facility] Immature granulocytes/100 WBC (Bld) 0.1 % 0.0-0.5 [facility] Leukocytes [#/volume] correc shahid for nucleated erythrocytes in Blood by Automated counon 04-18-2024 WBC corrected for nucl RBC Auto (Bld) [#/Vol] 9.0 10 3/uL 4.0-11.0 [facility] Lymphocytes Auto (Bld) [#/Vo l]on 04-18-2024 Lymphocytes (Bld) [#/Vol] 2.3 10 3/uL 1.2-3.8 [facility] Lymphocytes/100 WBC Auto (Bl d)on 04-18-2024 Lymphocytes/100 WBC (Bld) 25.0 % 20.5-60.0 [facility] MCH Auto (RBC) [Entitic mass ]on 04-18-2024 MCH (RBC) [Entitic mass] 29.9 pg 26.7-34.0 [facility] MCHC Auto (RBC) [Mass/Vol]on 04-18-2024 MCHC (RBC) [Mass/Vol] 30.6 g/dL 29.9-35.2 [facility] MCV Auto (RBC) [Entitic vol] on 04-18-2024 MCV (RBC) [Entitic vol] 97.9 fL 81.0-99.0 [facility] Monocytes Auto (Bld) [#/Vol] on 04-18-2024 Monocytes (Bld) [#/Vol] 0.9 10 3/uL High 0.3-0.8 [facility] Monocytes/100 WBC Auto (Bld) on 04-18-2024 Monocytes/100 WBC (Bld) 9.7 % 1.7-12.0 [facility] Neutrophils Auto (Bld) [#/Vo l]on 04-18-2024 Neutrophils (Bld) [#/Vol] 5.1 10 3/uL 1.4-6.5 [facility] Neutrophils/100 WBC Auto (Bl d)on 04-18-2024 Neutrophils/100 WBC (Bld) 56.3 % 43.0-75.0 [facility] No Panel Informationon 04-18 Eosinophils # (Auto) 0.7 10 3/uL 0.0-0.7 [facility] Immature Granulocyte # (Auto) 0.01 10 3/uL 0.00-0.03 [facility] Platelet mean volume Auto (B ld) [Entitic vol]on 04-18-2024 Platelet mean volume (Bld) [Entitic vol] 12.6 fL 9.5-13.5 [facility] Platelets Auto (Bld) [#/Vol] on 04-18-2024 Platelets (Bld) [#/Vol] 165 10 3/uL 150-450 [facility] RBC Auto (Bld) [#/Vol]on RBC (Bld) [#/Vol] 3.74 10 6/uL Low 4.20-5.40 [facility] Serum or plasma albumin/glob ulin mass ratioon 04-18-2024 Albumin/Globulin [Mass ratio] 0.8 {ratio} [facility] Serum or plasma anion gap de terminationon 04-18-2024 Anion gap [Moles/Vol] 10.0 mmol/L Fi [facility] Automated urine specific gra vity by refractometryon 02-04-2024 Specific gravity Refractometry automated (U) [Rel density] <=1.005 Abnormal 1.005-1.025 [facility] Basophils Auto (Bld) [#/Vol] on 02-04-2024 Basophils (Bld) [#/Vol] 0.1 10 3/uL 0.0-0.1 [facility] Basophils/100 WBC Auto (Bld) on 02-04-2024 Basophils/100 WBC (Bld) 0.7 % 0.2-2.0 [facility] Bilirubin Auto test strip (U ) [Mass/Vol]on 02-04-2024 Bilirubin (U) [Mass/Vol] Negative NEGATIVE [facility] Color Auto (U)on 02-04-2024 Color (U) LT. YELLOW YELLOW [facility] Eosinophils/100 WBC Auto (Bl d)on 02-04-2024 Eosinophils/100 WBC (Bld) 0.7 % Low 0.9-7.0 [facility] Erythrocyte distribution wid th Auto (RBC) [Ratio]on 02-04-2024 Erythrocyte distribution width (RBC) [Ratio] 15.4 % High 11.0-15.0 [facility] Estimated glomerular filtrat ion rate (GFR) non- Americanon 02-04-2024 GFR/1.73 sq M.predicted among non-blacks MDRD (S/P/Bld) [Vol rate/Area] mL/min/{1.73_m2} >=60 [facility] Globulin Calc (S) [Mass/Vol] on 02-04-2024 Globulin (S) [Mass/Vol] 3.4 g/dL [facility] Glucose [Mass/volume] in Uri ne by Test stripon 02-04-2024 Glucose Test strip (U) [Mass/Vol] Negative NEGATIVE [facility] Hematocrit Auto (Bld) [Volum e fraction]on 02-04-2024 Hematocrit (Bld) [Volume fraction] 39.6 % 36.0-48.0 [facility] Hemoglobin [Mass/volume] in Bloodon 02-04-2024 Hemoglobin (Bld) [Mass/Vol] 12.2 g/dL 12.0-16.0 [facility] Ketones Auto test strip (U) [Mass/Vol]on 02-04-2024 Ketones (U) [Mass/Vol] Negative NEGATIVE [facility] - Chemistry and C hemistry - challengeon 02-04-2024 Albumin [Mass/Vol] 3.7 g/dL 3.4-5.0 [facility] ALP [Catalytic activity/Vol] 103 U/L 46-116 [facility] ALT [Catalytic activity/Vol] 27 U/L 14-59 [facility] AST [Catalytic activity/Vol] 24 U/L 15-37 [facility] Bilirubin [Mass/Vol] 0.5 mg/dL 0.2-1.0 [facility] Calcium [Mass/Vol] 9.5 mg/dL 8.5-10.1 [facility] Chloride [Moles/Vol] 105 mmol/L 98-107 [facility] CO2 [Moles/Vol] 30.4 mmol/L 21.0-32.0 [facility] Creatinine [Mass/Vol] 0.64 mg/dL 0.55-1.02 [facility] Free T4 [Mass/Vol] 1.07 ng/dL 0.76-1.46 [facility] GFR/1.73 sq M.predicted MDRD (S/P/Bld) [Vol rate/Area] mL/min/{1.73_m2} >=60 [facility] Glucose [Mass/Vol] 96 mg/dL 74-106 [facility] Lactate [Moles/Vol] 0.9 mmol/L 0.4-2.0 [facility] Natriuretic peptide B (Bld) [Mass/Vol] 374.0 pg/mL <=1800.0 [facility] Potassium [Moles/Vol] 3.8 mmol/L 3.5-5.1 [facility] Protein [Mass/Vol] 7.1 g/dL 6.4-8.2 [facility] Sodium [Moles/Vol] 142 mmol/L 136-145 [facility] TSH Qn 4.178 m[IU]/L High 0.358-3.740 [facility] Urea nitrogen [Mass/Vol] 14.0 mg/dL 7.0-18.0 [facility] Urea nitrogen/Creatinine [Mass ratio] 21.9 mg/mg [facility] Laboratory - Hematology and Cell countson 02-04-2024 Immature granulocytes/100 WBC (Bld) 0.4 % 0.0-0.5 [facility] Leukocytes [#/volume] correc shahid for nucleated erythrocytes in Blood by Automated counon 02-04-2024 WBC corrected for nucl RBC Auto (Bld) [#/Vol] 8.2 10 3/uL 4.0-11.0 [facility] Lymphocytes Auto (Bld) [#/Vo l]on 02-04-2024 Lymphocytes (Bld) [#/Vol] 2.9 10 3/uL 1.2-3.8 [facility] Lymphocytes/100 WBC Auto (Bl d)on 02-04-2024 Lymphocytes/100 WBC (Bld) 35.7 % 20.5-60.0 [facility] MCH Auto (RBC) [Entitic mass ]on 02-04-2024 MCH (RBC) [Entitic mass] 29.8 pg 26.7-34.0 [facility] MCHC Auto (RBC) [Mass/Vol]on 02-04-2024 MCHC (RBC) [Mass/Vol] 30.8 g/dL 29.9-35.2 [facility] MCV Auto (RBC) [Entitic vol] on 02-04-2024 MCV (RBC) [Entitic vol] 96.6 fL 81.0-99.0 [facility] Monocytes Auto (Bld) [#/Vol] on 02-04-2024 Monocytes (Bld) [#/Vol] 0.6 10 3/uL 0.3-0.8 [facility] Monocytes/100 WBC Auto (Bld) on 02-04-2024 Monocytes/100 WBC (Bld) 7.2 % 1.7-12.0 [facility] Neutrophils Auto (Bld) [#/Vo l]on 02-04-2024 Neutrophils (Bld) [#/Vol] 4.5 10 3/uL 1.4-6.5 [facility] Neutrophils/100 WBC Auto (Bl d)on 02-04-2024 Neutrophils/100 WBC (Bld) 55.3 % 43.0-75.0 [facility] No Panel Informationon 02-03 Urine Microscopic Review NO [facility] Eosinophils # (Auto) 0.1 10 3/uL 0.0-0.7 [facility] Free Triiodothyronine 2.35 pg/mL 2.18-3.98 [facility] Immature Granulocyte # (Auto) 0.03 10 3/uL 0.00-0.03 [facility] Troponin I High Sensitivity 8.1 pg/mL 4.0-51.3 [facility] Comment on above: CUT-OFF POINTS HAVE [...] Partial Pressure CO2 55.9 mm[Hg] High 40.0-52.0 [facility] Venous Blood pH 7.369 7.330-7.430 [facility] Platelet mean volume Auto (B ld) [Entitic vol]on 02-04-2024 Platelet mean volume (Bld) [Entitic vol] 11.5 fL 9.5-13.5 [facility] Platelets Auto (Bld) [#/Vol] on 02-04-2024 Platelets (Bld) [#/Vol] 202 10 3/uL 150-450 [facility] Protein Auto test strip (U) [Mass/Vol]on 02-04-2024 Protein (U) [Mass/Vol] Negative NEG/TRACE Fi [facility] RBC Auto (Bld) [#/Vol]on RBC (Bld) [#/Vol] 4.10 10 6/uL Low 4.20-5.40 [facility] Serum or plasma albumin/glob ulin mass ratioon 02-04-2024 Albumin/Globulin [Mass ratio] 1.1 {ratio} [facility] Serum or plasma anion gap de terminationon 02-04-2024 Anion gap [Moles/Vol] 10.4 mmol/L Fi [facility] Specific gravity Auto test s trip (U) [Rel density]on 02-04-2024 Specific gravity (U) [Rel density] CLEAR CLEAR [facility] Urine hemoglobin detection b y automated test stripon 02-04-2024 Hemoglobin Auto test strip Ql (U) Negative NEGATIVE [facility] Urine nitrite detection by a utomated test stripon 02-04-2024 Nitrite Auto test strip Ql (U) Negative NEGATIVE [facility] Urobilinogen Auto test strip (U) [Mass/Vol]on 02-04-2024 Urobilinogen Qn (U) 0.2 {Gideon'U}/dL 0.2-1.0 [facility] pH Auto test strip (U)on pH (U) 6.5 [pH] 5.0-9.0 [facility] Basophils Auto (Bld) [#/Vol] on 12-16-2023 Basophils (Bld) [#/Vol] 0.1 10 3/uL 0.0-0.1 [facility] Basophils/100 WBC Auto (Bld) on 12-16-2023 Basophils/100 WBC (Bld) 0.9 % 0.2-2.0 [facility] Eosinophils/100 WBC Auto (Bl d)on 12-16-2023 Eosinophils/100 WBC (Bld) 1.0 % 0.9-7.0 [facility] Erythrocyte distribution wid th Auto (RBC) [Ratio]on 12-16-2023 Erythrocyte distribution width (RBC) [Ratio] 14.8 % 11.0-15.0 [facility] Estimated glomerular filtrat ion rate (GFR) non- Americanon 12-16-2023 GFR/1.73 sq M.predicted among non-blacks MDRD (S/P/Bld) [Vol rate/Area] mL/min/{1.73_m2} >=60 [facility] Globulin Calc (S) [Mass/Vol] on 12-16-2023 Globulin (S) [Mass/Vol] 3.4 g/dL [facility] Hematocrit Auto (Bld) [Volum e fraction]on 12-16-2023 Hematocrit (Bld) [Volume fraction] 39.1 % 36.0-48.0 [facility] Hemoglobin [Mass/volume] in Bloodon 12-16-2023 Hemoglobin (Bld) [Mass/Vol] 11.9 g/dL 12.0-16.0 [facility] Laboratory - Chemistry and C hemistry - challengeon 12-16-2023 Albumin [Mass/Vol] 3.2 g/dL 3.4-5.0 [facility] ALP [Catalytic activity/Vol] 91 U/L 46-116 [facility] ALT [Catalytic activity/Vol] 30 U/L 14-59 [facility] AST [Catalytic activity/Vol] 22 U/L 15-37 [facility] Bilirubin [Mass/Vol] 0.5 mg/dL 0.2-1.0 [facility] Calcium [Mass/Vol] 9.2 mg/dL 8.5-10.1 [facility] Chloride [Moles/Vol] 104 mmol/L 98-107 [facility] CO2 [Moles/Vol] 33.3 mmol/L 21.0-32.0 [facility] Creatinine [Mass/Vol] 0.66 mg/dL 0.55-1.02 [facility] GFR/1.73 sq M.predicted MDRD (S/P/Bld) [Vol rate/Area] mL/min/{1.73_m2} >=60 [facility] Glucose [Mass/Vol] 141 mg/dL 74-106 [facility] Potassium [Moles/Vol] 3.8 mmol/L 3.5-5.1 [facility] Protein [Mass/Vol] 6.6 g/dL 6.4-8.2 [facility] Sodium [Moles/Vol] 142 mmol/L 136-145 [facility] Urea nitrogen [Mass/Vol] 11.0 mg/dL 7.0-18.0 [facility] Urea nitrogen/Creatinine [Mass ratio] 16.7 mg/mg [facility] Laboratory - Hematology and Cell countson 12-16-2023 ESR (Bld) [Velocity] 22 mm/h <=30 [facility] Immature granulocytes/100 WBC (Bld) 0.1 % 0.0-0.5 [facility] Leukocytes [#/volume] correc shahid for nucleated erythrocytes in Blood by Automated counon 12-16-2023 WBC corrected for nucl RBC Auto (Bld) [#/Vol] 6.9 10 3/uL 4.0-11.0 [facility] Lymphocytes Auto (Bld) [#/Vo l]on 12-16-2023 Lymphocytes (Bld) [#/Vol] 2.5 10 3/uL 1.2-3.8 [facility] Lymphocytes/100 WBC Auto (Bl d)on 12-16-2023 Lymphocytes/100 WBC (Bld) 35.6 % 20.5-60.0 [facility] MCH Auto (RBC) [Entitic mass ]on 12-16-2023 MCH (RBC) [Entitic mass] 29.5 pg 26.7-34.0 [facility] MCHC Auto (RBC) [Mass/Vol]on 12-16-2023 MCHC (RBC) [Mass/Vol] 30.4 g/dL 29.9-35.2 [facility] MCV Auto (RBC) [Entitic vol] on 12-16-2023 MCV (RBC) [Entitic vol] 96.8 fL 81.0-99.0 [facility] Monocytes Auto (Bld) [#/Vol] on 12-16-2023 Monocytes (Bld) [#/Vol] 0.6 10 3/uL 0.3-0.8 [facility] Monocytes/100 WBC Auto (Bld) on 12-16-2023 Monocytes/100 WBC (Bld) 8.0 % 1.7-12.0 [facility] Neutrophils Auto (Bld) [#/Vo l]on 12-16-2023 Neutrophils (Bld) [#/Vol] 3.8 10 3/uL 1.4-6.5 [facility] Neutrophils/100 WBC Auto (Bl d)on 12-16-2023 Neutrophils/100 WBC (Bld) 54.4 % 43.0-75.0 [facility] No Panel Informationon 12-16 Eosinophils # (Auto) 0.1 10 3/uL 0.0-0.7 [facility] Immature Granulocyte # (Auto) 0.01 10 3/uL 0.00-0.03 [facility] Platelet mean volume Auto (B ld) [Entitic vol]on 12-16-2023 Platelet mean volume (Bld) [Entitic vol] 11.6 fL 9.5-13.5 [facility] Platelets Auto (Bld) [#/Vol] on 12-16-2023 Platelets (Bld) [#/Vol] 212 10 3/uL 150-450 [facility] RBC Auto (Bld) [#/Vol]on RBC (Bld) [#/Vol] 4.04 10 6/uL 4.20-5.40 [facility] Serum or plasma albumin/glob ulin mass ratioon 12-16-2023 Albumin/Globulin [Mass ratio] 0.9 {ratio} [facility] Serum or plasma anion gap de terminationon 12-16-2023 Anion gap [Moles/Vol] 8.5 mmol/L [facility] MG MAMM RT DIAG FUon 09-14-2 022 MG MAMM RT DIAG FU Patient: RUBIA CASH Exam Date: 07/16/2022 : 1935 Gender:F Ordering : DR MELVIN PEREIRA D.O. Admission #: [id number] Family : Order #: [id number] CLICK HERE TO VIEW EXAM RADIOLOGY REPORT [...] bladder cancer at age 78. LOCATION: [facility] BREAST COMPOSITION: Heterogeneously dense,which may obscure small [...] M.D. on 07/16/2022 at 13:45 Normal [facility] US BREAST RIGHT LIMITEDon US BREAST RIGHT LIMITED Patient: RUBIA CASH Exam Date: 07/16/2022 : 1935 Gender:F Ordering : DR MELVIN PEREIRA D.O. Admission #: [id number] Family : Order #: [id number] CLICK HERE TO VIEW EXAM RADIOLOGY REPORT [...] bladder cancer at age 78. LOCATION: [facility] BREAST COMPOSITION: Heterogeneously dense,which may obscure small [...] M.D. on 07/16/2022 at 13:45 Normal The [facility] MAMM SCREEN 3D KATERINA CADon 07-04-2022 MG MAMM SCREEN 3D KATERINA CAD Patient: RUBIA CASH Exam Date: 07/04/2022 : 1935 Gender:F Ordering : DR MELVIN PEREIRA D.O. Admission #: [id number] Family : Order #: [id number] CLICK HERE TO VIEW EXAM RADIOLOGY REPORT [...] bladder cancer at age 78. LOCATION: [facility] BREAST COMPOSITION: Heterogeneously dense,which may obscure small [...] Cantu MD on 07/04/2022 at 13:49 Normal [facility] XR LSPINE 2_3 VIEWSon 2021 XR LSPINE [...] E CANTU Date: 2022-07-04 17:35 Normal [facility] CBC AUTO DIFFon 03-14-2022 BASO # 0.1 103/ul Normal 0.0-0.1 [facility] Comment on above: Performed By: #### H STROPN #### [facility] [address] [place] [address] Dr. Rigoberto Ivy Basophils/100 WBC (Bld) 1.1 % Normal 0.2-2.0 [facility] Comment on above: Performed By: #### H STROPN #### [facility] [address] [address] [address] Rigoberto Ivy EO # 0.1 103/ul Normal 0.0-0.7 [facility] Comment on above: Performed By: #### H STROPN #### [facility] [address] [address] [address] Rigoberto Ivy Eosinophils/100 WBC (Bld) 1.7 % Normal 0.9-7.0 [facility] Comment on above: Performed By: #### H STROPN #### [facility] [address] [place] [address] Dr. Rigoberto Ivy Erythrocyte distribution width (RBC) [Ratio] 15.8 % Critically high 11.0-15.0 [facility] Comment on above: Performed By: #### H STROPN #### [facility] [address] [place] [address] Dr. Rigoberto Ivy Hematocrit (Bld) [Volume fraction] 39.7 % Normal 36.0-48.0 [facility] Comment on above: Performed By: #### H STROPN #### [facility] [address] [place] [address] Dr. Rigoberto Ivy Hemoglobin (Bld) [Mass/Vol] 12.3 g/dL Normal 12.0-16.0 [facility] Comment on above: Performed By: #### H STROPN #### [facility] [address] [place] [address] Dr. Rigoberto Ivy IG # 0.03 10e3/ul Normal 0.00-0.03 [facility] Comment on above: Performed By: #### H STROPN #### [facility] [address] [place] [address] Dr. Rigoberto Ivy IG % 0.4 % Normal 0.0-0.5 [facility] Comment on above: Performed By: #### H STROPN #### [facility] [address] [place] [address] Dr. Rigoberto Ivy LYMPH # 2.5 103/ul Normal 1.2-3.8 [facility] Comment on above: Performed By: #### H STROPN #### [facility] [address] [place] [address] Dr. Rigoberto Ivy Lymphocytes/100 WBC (Bld) 35.0 % Normal 20.5-60.0 [facility] Comment on above: Performed By: #### H STROPN #### [facility] [address] [place] [address] Dr. Rigoberto Ivy MANUAL DIFF REQ NO Normal [facility] Comment on above: Performed By: #### H STROPN #### [facility] [address] [place] [address] Dr. Rigoberto Ivy MCH (RBC) [Entitic mass] 29.9 pg Normal 26.7-34.0 [facility] Comment on above: Performed By: #### H STROPN #### [facility] [address] [place] [address] Dr. Rigoberto Ivy MCHC (RBC) [Mass/Vol] 31.0 g/dL Normal 29.9-35.2 [facility] Comment on above: Performed By: #### H STROPN #### [facility] [address] [place] [address] Dr. Rigoberto Ivy MCV (RBC) [Entitic vol] 96.6 fL Normal 81.0-99.0 [facility] Comment on above: Performed By: #### H STROPN #### [facility] [address] [place] [address] Dr. Rigoberto Ivy MONO # 0.7 103/ul Normal 0.3-0.8 [facility] Comment on above: Performed By: #### H STROPN #### [facility] [address] [place] [address] Dr. Rigoberto Ivy Monocytes/100 WBC (Bld) 9.4 % Normal 1.7-12.0 [facility] Comment on above: Performed By: #### H STROPN #### [facility] [address] [place] [address] Dr. Rigoberto Ivy NEUT # 3.8 103/ul Normal 1.4-6.5 [facility] Comment on above: Performed By: #### H STROPN #### [facility] [address] [place] [address] Dr. Rigoberto Ivy Neutrophils/100 WBC (Bld) 52.4 % Normal 43.0-75.0 [facility] Comment on above: Performed By: #### H STROPN #### [facility] [address] [place] [address] Dr. Rigoberto Ivy Platelet mean volume (Bld) [Entitic vol] 10.9 fL Normal 9.5-13.5 [facility] Comment on above: Performed By: #### H STROPN #### [facility] [address] [address] [address] Rigoberto Ivy PLT 225 103/ul Normal 150-450 [facility] Comment on above: Performed By: #### H STROPN #### [facility] [address] [address] [address] Rigoberto Ivy RBC 4.11 106/ul Critically low 4.20-5.40 [facility] Comment on above: Performed By: #### H STROPN #### [facility] [address] [address] [address] Rigoberto Ivy WBC 7.2 103/ul Normal 4.0-11.0 [facility] Comment on above: Performed By: #### H STROPN #### [facility] [address] [place] [address] Dr. Rigoberto Ivy PROF 14(COMP METB)on 022 Albumin [Mass/Vol] 3.6 g/dL Normal 3.4-5.0 [facility] Comment on above: Performed By: #### H STROPN #### [facility] [address] [place] [address] Dr. Rigoberto Ivy Albumin/Globulin [Mass ratio] 1.0 {ratio} Normal [facility] Comment on above: Performed By: #### H STROPN #### [facility] [address] [place] [address] Dr. Rigoberto Ivy ALP [Catalytic activity/Vol] 89 U/L Normal 46-116 [facility] Comment on above: Performed By: #### H STROPN #### [facility] [address] [place] [address] Dr. Rigoberto Ivy ALT [Catalytic activity/Vol] 29 U/L Normal 14-59 [facility] Comment on above: Performed By: #### H STROPN #### [facility] [address] [place] [address] Dr. Rigoberto Ivy Anion gap [Moles/Vol] 7.7 mmol/L Normal [facility] Comment on above: Performed By: #### H STROPN #### [facility] [address] [place] [address] Dr. Rigoberto Ivy AST [Catalytic activity/Vol] 22 U/L Normal 15-37 [facility] Comment on above: Performed By: #### H STROPN #### [facility] [address] [place] [address] Dr. Rigoberto Ivy Bilirubin [Mass/Vol] 0.5 mg/dL Normal 0.2-1.0 [facility] Comment on above: Performed By: #### H STROPN #### [facility] [address] [place] [address] Dr. Rigoberto Ivy Calcium [Mass/Vol] 9.5 mg/dL Normal 8.5-10.1 [facility] Comment on above: Performed By: #### H STROPN #### [facility] [address] [place] [address] Dr. Rigoberto Ivy Chloride [Moles/Vol] 103 mmol/L Normal 98-107 [facility] Comment on above: Performed By: #### H STROPN #### [facility] [address] [place] [address] Dr. Rigoberto Ivy CO2 [Moles/Vol] 33.5 mmol/L Critically high 21.0-32.0 [facility] Comment on above: Performed By: #### H STROPN #### [facility] [address] [place] [address] Dr. Rigoberto Ivy Creatinine [Mass/Vol] 0.60 mg/dL Normal 0.55-1.02 [facility] Comment on above: Performed By: #### H STROPN #### [facility] [address] [place] [address] Dr. Rigoberto Ivy EGFR-AF FAROESE >60 Normal >=60 [facility] Comment on above: Performed By: #### H STROPN #### [facility] [address] [place] [address] Dr. Rigoberto Ivy EGFR-NON AF FAROESE >60 Normal >=60 [facility] Comment on above: Performed By: #### H STROPN #### [facility] [address] [place] [address] Dr. Rigoberto Ivy Globulin (S) [Mass/Vol] 3.5 g/dL Normal [facility] Comment on above: Performed By: #### H STROPN #### [facility] [address] [place] [address] Dr. Rigoberto Ivy Glucose [Mass/Vol] 90 mg/dL Normal 74-106 [facility] Comment on above: Performed By: #### H STROPN #### [facility] [address] [place] [address] Dr. Rigoberto Ivy Potassium [Moles/Vol] 4.2 mmol/L Normal 3.5-5.1 [facility] Comment on above: Performed By: #### H STROPN #### [facility] [address] [place] [address] Dr. Rigoberto Ivy Protein [Mass/Vol] 7.1 g/dL Normal 6.4-8.2 [facility] Comment on above: Performed By: #### H STROPN #### [facility] [address] [place] [address] Dr. Rigoberto Ivy Sodium [Moles/Vol] 140 mmol/L Normal 136-145 [facility] Comment on above: Performed By: #### H STROPN #### [facility] [address] [place] [address] Dr. Rigoberto Ivy Urea nitrogen [Mass/Vol] 11.0 mg/dL Normal 7.0-18.0 [facility] Comment on above: Performed By: #### H STROPN #### [facility] [address] [place] [address] Dr. Rigoberto Ivy Urea nitrogen/Creatinine [Mass ratio] 18.3 mg/mg Normal [facility] Comment on above: Performed By: #### H STROPN #### [facility] [address] [place] [address] Dr. Rigoberto Ivy SED RATE WESTERGRENon 2021 SED RATE 10 mm/hr Normal <=30 [facility] Comment on above: Performed By: #### S EDR #### [facility] [address] [place] [address] Dr. Rigoberto Ivy CULTURE URINEon 11-07-2021 CULTURE URINE Culture Observations: GREATER THAN TWO ORGANISMS PRESENT. PLEASE RESUBMIT CLEAN CATCH MID-STREAM URINE IF CLINICALLY INDICATED. Normal [facility] Comment on above: Performed By: #### H STROPN #### [facility] [address] [place] [address] Dr. Rigoberto Ivy BNPon 11-05-2021 Natriuretic peptide B (Bld) [Mass/Vol] 273.0 pg/mL Normal <=1,800.0 [facility] Comment on above: Performed By: #### C MP, BNP, HSTROPN #### [facility] [address] [place] [address] Dr. Rigoberto Ivy CBC AUTO DIFFon 11-05-2021 BASO # 0.1 103/ul Normal 0.0-0.1 [facility] Comment on above: Performed By: #### C BC #### [facility] [address] [place] [address] Dr. Rigoberto Ivy Basophils/100 WBC (Bld) 0.8 % Normal 0.2-2.0 [facility] Comment on above: Performed By: #### C BC #### [facility] [address] [place] [address] Dr. Rigoberto Ivy EO # 0.1 103/ul Normal 0.0-0.7 [facility] Comment on above: Performed By: #### C BC #### [facility] [address] [place] [address] Dr. Rigoberto Ivy Eosinophils/100 WBC (Bld) 0.7 % Critically low 0.9-7.0 [facility] Comment on above: Performed By: #### C BC #### [facility] [address] [place] [address] Dr. Rigoberto Ivy Erythrocyte distribution width (RBC) [Ratio] 15.5 % Critically high 11.0-15.0 [facility] Comment on above: Performed By: #### C BC #### [facility] [address] [place] [address] Dr. Rigoberto Ivy Hematocrit (Bld) [Volume fraction] 41.5 % Normal 36.0-48.0 [facility] Comment on above: Performed By: #### C BC #### [facility] [address] [address] [address] Rigoberto Ivy Hemoglobin (Bld) [Mass/Vol] 12.8 g/dL Normal 12.0-16.0 [facility] Comment on above: Performed By: #### C BC #### [facility] [address] [address] [address] Rigoberto Ivy IG # 0.03 10e3/ul Normal 0.00-0.03 [facility] Comment on above: Performed By: #### C BC #### [facility] [address] [place] [address] Dr. Rigoberto Ivy IG % 0.4 % Normal 0.0-0.5 [facility] Comment on above: Performed By: #### C BC #### [facility] [address] [place] [address] Dr. Rigoberto Ivy LYMPH # 2.6 103/ul Normal 1.2-3.8 [facility] Comment on above: Performed By: #### C BC #### [facility] [address] [place] [address] Dr. Rigoberto Ivy Lymphocytes/100 WBC (Bld) 34.6 % Normal 20.5-60.0 [facility] Comment on above: Performed By: #### C BC #### [facility] [address] [place] [address] Dr. Rigoberto Ivy MANUAL DIFF REQ NO Normal [facility] Comment on above: Performed By: #### C BC #### [facility] [address] [place] [address] Dr. Rigoberto Ivy MCH (RBC) [Entitic mass] 29.8 pg Normal 26.7-34.0 [facility] Comment on above: Performed By: #### C BC #### [facility] [address] [place] [address] Dr. Rigoberto Ivy MCHC (RBC) [Mass/Vol] 30.8 g/dL Normal 29.9-35.2 [facility] Comment on above: Performed By: #### C BC #### [facility] [address] [address] [address] Rigoberto Ivy MCV (RBC) [Entitic vol] 96.7 fL Normal 81.0-99.0 [facility] Comment on above: Performed By: #### C BC #### [facility] [address] [address] [address] Rigoberto Ivy MONO # 0.7 103/ul Normal 0.3-0.8 [facility] Comment on above: Performed By: #### C BC #### [facility] [address] [place] [address] Dr. Rigoberto Ivy Monocytes/100 WBC (Bld) 8.5 % Normal 1.7-12.0 [facility] Comment on above: Performed By: #### C BC #### [facility] [address] [place] [address] Dr. Rigoberto Ivy NEUT # 4.2 103/ul Normal 1.4-6.5 [facility] Comment on above: Performed By: #### C BC #### [facility] [address] [place] [address] Dr. Rigoberto Ivy Neutrophils/100 WBC (Bld) 55.0 % Normal 43.0-75.0 [facility] Comment on above: Performed By: #### C BC #### [facility] [address] [place] [address] Dr. Rigoberto Ivy Platelet mean volume (Bld) [Entitic vol] 10.6 fL Normal 9.5-13.5 [facility] Comment on above: Performed By: #### C BC #### [facility] [address] [place] [address] Dr. Rigoberto Ivy PLT 234 103/ul Normal 150-450 [facility] Comment on above: Performed By: #### C BC #### [facility] [address] [place] [address] Dr. Rigoberto Ivy RBC 4.29 106/ul Normal 4.20-5.40 [facility] Comment on above: Performed By: #### C BC #### [facility] [address] [place], [place] [address] Dr. Rigoberto Ivy WBC 7.6 103/ul Normal 4.0-11.0 [facility] Comment on above: Performed By: #### C BC #### [facility] [address] [place], [place] [address] HEAD WO CONon [...] JAMIE OWEN Date: 2021-11-05 13:08 Normal [facility]on SARS-CoV-2 (COVID-19) RNA LATHA+probe Ql (Unsp spec) Not detected Normal NOT DETECTED [facility] Comment on above: Result Comment: When diagnostic [...] for this test is supported by the [place] of Health and Human Service's declaration that [...] Performed By: #### C RP, CMP #### [facility] [address] [address] [address] Rigoberto Ivy ER URINE PROFILEon 2 Bilirubin Ql (U) Negative Normal NEGATIVE [facility] Comment on above: Performed By: #### H STROPN #### [facility] [address] [place] [address] Dr. Rigoberto Ivy Clarity (U) CLEAR Normal CLEAR [facility] Comment on above: Performed By: #### H STROPN #### [facility] [address] [place] [address] Dr. Rigoberto Ivy Color (U) LT. YELLOW Normal YELLOW [facility] Comment on above: Performed By: #### H STROPN #### [facility] [address] [place] [address] Dr. Rigoberto HELMSAHDanya A micrscopic examination will be performed if indicated. Normal [facility] Comment on above: Performed By: #### H STROPN #### [facility] [address] [address] [address] Rigoberto Ivy Glucose Ql (U) Negative Normal NEGATIVE [facility] Comment on above: Performed By: #### H STROPN #### [facility] [address] [place] [address] Dr. Rigoberto Ivy Hemoglobin Ql (U) Negative Normal NEGATIVE [facility] Comment on above: Performed By: #### H STROPN #### [facility] [address] [place] [address] Dr. Rigoberto Ivy Ketones Ql (U) Negative Normal NEGATIVE [facility] Comment on above: Performed By: #### H STROPN #### [facility] [address] [place] [address] Dr. Rigoberto Ivy LEUKOCYTES TRACE Abnormal NEGATIVE [facility] Comment on above: Performed By: #### H STROPN #### [facility] [address] [place] [address] Dr. Rigoberto Ivy Nitrite Ql (U) Negative Normal NEGATIVE [facility] Comment on above: Performed By: #### H STROPN #### [facility] [address] [place] [address] Dr. Rigoberto Ivy pH (U) 7.0 [pH] Normal 5-9 [facility] Comment on above: Performed By: #### H STROPN #### [facility] [address] [place] [address] Dr. Rigoberto Ivy SPEC GRAVITY 1.015 Normal 1.005-<=1.025 [facility] Comment on above: Performed By: #### H STROPN #### [facility] [address] [place] [address] Dr. Rigoberto Ivy UA PROTEIN Negative Normal NEGATIVE/ TRACE [facility] Comment on above: Performed By: #### H STROPN #### [facility] [address] [place] [address] Dr. Rigoberto Ivy UR MICRO IND INDICATED Normal [facility] Comment on above: Performed By: #### H STROPN #### [facility] [address] [place] [address] Dr. Rigoberto Ivy Urobilinogen Qn (U) 0.2 {Gideon'U}/dL Normal 0.2 - 1. 0 [facility] Comment on above: Performed By: #### H STROPN #### [facility] [address] [place] [address] Dr. Rigoberto Ivy LAB TESTINGon 11-05-2021 RECV HEADER SEE SCANNED REPORT IN [facility] Comment on above: Performed By: #### M ISC #### [facility] [address] [place] [address] Dr. Rigoberto Ivy REV FROM REF LAB 11/05/2021 [facility] Comment on above: Performed By: #### M ISC #### [facility] [address] [place] [address] Dr. Rigoberto Ivy SENT TO REF LAB 11/05/2020 [facility] Comment on above: Performed By: #### M ISC #### [facility] [address] [place] [address] Dr. Rigoberto Ivy LACTATE/LACTIC ACIDon 2021 Lactate [Moles/Vol] 0.8 mmol/L Normal 0.7-2.0 [facility] Comment on above: Performed By: #### H STROPN #### [facility] [address] [place] [address] Dr. Rigoberto Ivy PROF 14(COMP METB)on 022 Albumin [Mass/Vol] 3.7 g/dL Normal 3.5-5.0 [facility] Comment on above: Performed By: #### C MP, BNP, HSTROPN #### [facility] [address] [address] [address] Rigoberto Ivy Albumin/Globulin [Mass ratio] 0.9 {ratio} Normal [facility] Comment on above: Performed By: #### C MP, BNP, HSTROPN #### [facility] [address] [place] [address] Dr. Rigoberto Ivy ALP [Catalytic activity/Vol] 105 U/L Normal 38-126 [facility] Comment on above: Performed By: #### C MP, BNP, HSTROPN #### [facility] [address] [place] [address] Dr. Rigoberto Ivy ALT [Catalytic activity/Vol] 51 U/L Normal 9-52 [facility] Comment on above: Performed By: #### C MP, BNP, HSTROPN #### [facility] [address] [place] [address] Dr. Rigoberto Ivy Anion gap [Moles/Vol] 11.4 mmol/L Normal [facility] Comment on above: Performed By: #### C MP, BNP, HSTROPN #### [facility] [address] [place] [address] Dr. Rigoberto Ivy AST [Catalytic activity/Vol] 33 U/L Normal 14-36 [facility] Comment on above: Performed By: #### C MP, BNP, HSTROPN #### [facility] [address] [place] [address] Dr. Rigoberto Ivy Bilirubin [Mass/Vol] 0.7 mg/dL Normal 0.2-1.3 [facility] Comment on above: Performed By: #### C MP, BNP, HSTROPN #### [facility] [address] [place] [address] Dr. Rigoberto Ivy Calcium [Mass/Vol] 9.6 mg/dL Normal 8.4-10.2 [facility] Comment on above: Performed By: #### C MP, BNP, HSTROPN #### [facility] [address] [place] [address] Dr. Rigoberto Ivy Chloride [Moles/Vol] 107 mmol/L Normal 98-107 [facility] Comment on above: Performed By: #### C MP, BNP, HSTROPN #### [facility] [address] [place] [address] Dr. Rigoberto Ivy CO2 [Moles/Vol] 30.8 mmol/L Critically high 22.0-30.0 [facility] Comment on above: Performed By: #### C MP, BNP, HSTROPN #### [facility] [address] [place] [address] Dr. Rigoberto Ivy Creatinine [Mass/Vol] 0.65 mg/dL Normal 0.52-1.04 [facility] Comment on above: Performed By: #### C MP, BNP, HSTROPN #### [facility] [address] [place] [address] Dr. Rigoberto Ivy EGFR-AF FAROESE >60 Normal >=60 [facility] [place] Comment on above: Performed By: #### C MP, BNP, HSTROPN #### [facility] [address] [place] [address] Dr. Rigoberto Ivy EGFR-NON AF FAROESE >60 Normal >=60 [facility] Comment on above: Performed By: #### C MP, BNP, HSTROPN #### [facility] [address] [place] [address] Dr. Rigoberto Ivy Globulin (S) [Mass/Vol] 3.9 g/dL Normal T [facility] Comment on above: Performed By: #### C MP, BNP, HSTROPN #### [facility] [address] [place] [address] Dr. Rigoberto Ivy Glucose [Mass/Vol] 98 mg/dL Normal 74-106 [facility] Comment on above: Performed By: #### C MP, BNP, HSTROPN #### [facility] [address] [place] [address] Dr. Rigoberto Ivy Potassium [Moles/Vol] 4.2 mmol/L Normal 3.4-5.0 [facility] Comment on above: Performed By: #### C MP, BNP, HSTROPN #### [facility] [address] [place] [address] Dr. Rigoberto Ivy Protein [Mass/Vol] 7.6 g/dL Normal 6.1-8.2 [facility] Comment on above: Performed By: #### C MP, BNP, HSTROPN #### [facility] [address] [place] [address] Dr. Rigoberto Ivy Sodium [Moles/Vol] 145 mmol/L Normal 137-145 [facility] Comment on above: Performed By: #### C MP, BNP, HSTROPN #### [facility] [address] [place] [address] Dr. Rigoberto Ivy Urea nitrogen [Mass/Vol] 12.0 mg/dL Normal 7.0-17.0 [facility] Comment on above: Performed By: #### C MP, BNP, HSTROPN #### [facility] [address] [place] [address] Dr. Rigoberto Ivy Urea nitrogen/Creatinine [Mass ratio] 18.5 mg/mg Normal [facility] Comment on above: Performed By: #### C MP, BNP, HSTROPN #### [facility] [address] [place] [address] Dr. Rigoberto Ivy TROPONIN, HIGH SENSITIVITYon 11-05-2021 HSTROP 14.1 pg/mL Normal 4.0-35.5 [facility] Comment on above: Result Comment: CUT- OFF POINTS HAVE BEEN ESTABLISHED BASED ON THE FOURTH UNIVERSAL DEFINITIONS OF MYOCARDIAL INFARCTION. THE UPPER REFERENCE LIMIT (URL) OF TROPONIN, DEFINED THE 99TH PERCENTILE OF cTnI DISTRIBUTION IN A REFERENCE POPULATION, HAS BEEN CONFIRMED THE DECISION THRESHOLD FOR GA DIAGNOSIS. Performed By: #### H STROPN #### [facility] [address] [place] [address] Dr. Rigoberto Ivy HSTROP 10.3 pg/mL Normal 4.0-35.5 [facility] Comment on above: Result Comment: CUT- OFF POINTS HAVE BEEN ESTABLISHED BASED ON THE FOURTH UNIVERSAL DEFINITIONS OF MYOCARDIAL INFARCTION. THE UPPER REFERENCE LIMIT (URL) OF TROPONIN, DEFINED THE 99TH PERCENTILE OF cTnI DISTRIBUTION IN A REFERENCE POPULATION, HAS BEEN CONFIRMED THE DECISION THRESHOLD FOR GA DIAGNOSIS. Performed By: #### C MP, BNP, HSTROPN #### [facility] [address] [place] [address] Dr. Rigoberto Ivy URINE MICROSCOPIC ONLYon BACTERIA TRACE Abnormal NONE SEEN [facility] Comment on above: Performed By: #### H STROPN #### [facility] [address] [place] [address] Dr. Rigoberto Ivy Bacteria identified Cx Nom (U) INDICATED Normal [facility] Comment on above: Performed By: #### H STROPN #### [facility] [address] [place] [address] Dr. Rigoberto Ivy CAST NONE SEEN Normal NONE SEEN [facility] Comment on above: Performed By: #### H STROPN #### [facility] [address] [place] [address] Dr. Rigoberto Ivy Crystals LM Nom (Urine sed) NONE SEEN Normal NONE SEEN [facility] Comment on above: Performed By: #### H STROPN #### [facility] [address] [place] [address] Dr. Rigoberto Ivy Epithelial cells LM Ql (Urine sed) RARE Normal NONE SEEN /RARE [facility] Comment on above: Performed By: #### H STROPN #### [facility] [address] [place] [address] Dr. Rigoberto Ivy MUCOUS TRACE Abnormal NONE SEEN [facility] Comment on above: Performed By: #### H STROPN #### [facility] [address] [address] [address] Rigoberto Ivy RBC NONE SEEN Abnormal 0-2 [facility] Comment on above: Performed By: #### H STROPN #### [facility] [address] [address] [address] Rigoberto Ivy WBC 0-2 Abnormal NONE SEEN [facility] Comment on above: Performed By: #### H STROPN #### [facility] [address] [address] [address] Rigoberto Ivy XR CHEST 1 Von [...] JAMIE OWEN Date: 2021-11-05 13:01 Normal [facility] VIT D 25-OH LABCORPon 2020 Vitamin D, 25-Hydroxy 44.1 ng/mL Normal 30.0-100.0 [facility] Comment on above: Result Comment: Shabnam min D deficiency has been defined by the [place] of [employer] and an Endocrine Society practice guideline as a level of serum 25-OH vitamin D less than 20 ng/mL (1,2). The Endocrine Society went on to further define vitamin D insufficiency as a level between 21 and 29 ng/mL (2). 1. IOM ([place] of Medicine). 2010. Dietary reference intakes for calcium and D. [place]: The National Academies Press. 2. Chiara MF, Cesilia [place], Evans CALLAHAN, et al. Evaluation, treatment, and prevention of vitamin D deficiency: an Endocrine Society clinical practice guideline. JCEM. 2010; 96(7):1911-30. Performed By: #### C RP, CMP #### [facility] [address] [address] [address] Rigoberto Ivy CBC AUTO DIFFon 10-29-2021 BASO # 0.1 103/ul Normal 0.0-0.1 [facility] Comment on above: Performed By: #### C BC #### [facility] [address] [place] [address] Dr. Rigoberto Ivy Basophils/100 WBC (Bld) 0.8 % Normal 0.2-2.0 [facility] Comment on above: Performed By: #### C BC #### [facility] [address] [place] [address] Dr. Rigoberto Ivy EO # 0.1 103/ul Normal 0.0-0.7 [facility] Comment on above: Performed By: #### C BC #### [facility] [address] [place] [address] Dr. Rigoberto Ivy Eosinophils/100 WBC (Bld) 1.2 % Normal 0.9-7.0 [facility] Comment on above: Performed By: #### C BC #### [facility] [address] [place] [address] Dr. Rigoberto Ivy Erythrocyte distribution width (RBC) [Ratio] 15.2 % Critically high 11.0-15.0 [facility] Comment on above: Performed By: #### C BC #### [facility] [address] [place] [address] Dr. Rigoberto Ivy Hematocrit (Bld) [Volume fraction] 39.1 % Normal 36.0-48.0 [facility] Comment on above: Performed By: #### C BC #### [facility] [address] [place] [address] Dr. Rigoberto Ivy Hemoglobin (Bld) [Mass/Vol] 12.1 g/dL Normal 12.0-16.0 [facility] Comment on above: Performed By: #### C BC #### [facility] [address] [place] [address] Dr. Rigoberto Ivy IG # 0.03 10e3/ul Normal 0.00-0.03 [facility] Comment on above: Performed By: #### C BC #### [facility] [address] [place] [address] Dr. Rigoberto Ivy IG % 0.4 % Normal 0.0-0.5 [facility] Comment on above: Performed By: #### C BC #### [facility] [address] [place] [address] Dr. Rigoberto Ivy LYMPH # 2.7 103/ul Normal 1.2-3.8 [facility] Comment on above: Performed By: #### C BC #### [facility] [address] [place] [address] Dr. Rigoberto Ivy Lymphocytes/100 WBC (Bld) 35.1 % Normal 20.5-60.0 [facility] Comment on above: Performed By: #### C BC #### [facility] [address] [place] [address] Dr. Rigoberto Ivy MANUAL DIFF REQ NO Normal [facility] Comment on above: Performed By: #### C BC #### [facility] [address] [place] [address] Dr. Rigoberto Ivy MCH (RBC) [Entitic mass] 30.0 pg Normal 26.7-34.0 [facility] Comment on above: Performed By: #### C BC #### [facility] [address] [place] [address] Dr. Rigoberto Ivy MCHC (RBC) [Mass/Vol] 30.9 g/dL Normal 29.9-35.2 [facility] Comment on above: Performed By: #### C BC #### [facility] [address] [place] [address] Dr. Rigoberto Ivy MCV (RBC) [Entitic vol] 96.8 fL Normal 81.0-99.0 [facility] Comment on above: Performed By: #### C BC #### [facility] [address] [place] [address] Dr. Rigoberto Ivy MONO # 0.7 103/ul Normal 0.3-0.8 [facility] Comment on above: Performed By: #### C BC #### [facility] [address] [place] [address] Dr. Rigoberto Ivy Monocytes/100 WBC (Bld) 9.8 % Normal 1.7-12.0 [facility] Comment on above: Performed By: #### C BC #### [facility] [address] [place] [address] Dr. Rigoberto Ivy NEUT # 4.0 103/ul Normal 1.4-6.5 [facility] Comment on above: Performed By: #### C BC #### [facility] [address] [place] [address] Dr. Rigoberto Ivy Neutrophils/100 WBC (Bld) 52.7 % Normal 43.0-75.0 [facility] Comment on above: Performed By: #### C BC #### [facility] [address] [place] [address] Dr. Rigoberto Ivy Platelet mean volume (Bld) [Entitic vol] 11.1 fL Normal 9.5-13.5 [facility] Comment on above: Performed By: #### C BC #### [facility] [address] [place] [address] Dr. Rigoberto Ivy PLT 217 103/ul Normal 150-450 [facility] Comment on above: Performed By: #### C BC #### [facility] [address] [place] [address] Dr. Rigoberto Ivy RBC 4.04 106/ul Critically low 4.20-5.40 [facility] Comment on above: Performed By: #### C BC #### [facility] [address] [place] [address] Dr. Rigoberto Ivy WBC 7.6 103/ul Normal 4.0-11.0 [facility] Comment on above: Performed By: #### C BC #### [facility] [address] [place] [address] Dr. Rigoberto Ivy CRPon 10-29-2021 CRP [Mass/Vol] mg/L Normal <=1.0 [facility] Comment on above: Performed By: #### C RP, CMP #### [facility] [address] [place] [address] Dr. Rigoberto Ivy PROF 14(COMP METB)on 12-28-2 021 Albumin [Mass/Vol] 3.3 g/dL Critically low 3.5-5.0 [facility] Comment on above: Performed By: #### C RP, CMP #### [facility] [address] [place] [address] Dr. Rigoberto Ivy Albumin/Globulin [Mass ratio] 1.0 {ratio} Normal [facility] Comment on above: Performed By: #### C RP, CMP #### [facility] [address] [place] [address] Dr. Rigoberto Ivy ALP [Catalytic activity/Vol] 95 U/L Normal 38-126 [facility] Comment on above: Performed By: #### C RP, CMP #### [facility] [address] [place] [address] Dr. Rigoberto Ivy ALT [Catalytic activity/Vol] 31 U/L Normal 9-52 [facility] Comment on above: Performed By: #### C RP, CMP #### [facility] [address] [place] [address] Dr. Rigoberto Ivy Anion gap [Moles/Vol] 8.7 mmol/L Normal [facility] Comment on above: Performed By: #### C RP, CMP #### [facility] [address] [place] [address] Dr. Rigoberto Ivy AST [Catalytic activity/Vol] 23 U/L Normal 14-36 [facility] Comment on above: Performed By: #### C RP, CMP #### [facility] [address] [place] [address] Dr. Rigoberto Ivy Bilirubin [Mass/Vol] 0.5 mg/dL Normal 0.2-1.3 [facility] Comment on above: Performed By: #### C RP, CMP #### [facility] [address] [place] [address] Dr. Rigoberto Ivy Calcium [Mass/Vol] 9.5 mg/dL Normal 8.4-10.2 [facility] Comment on above: Performed By: #### C RP, CMP #### [facility] [address] [place] [address] Dr. Rigoberto Ivy Chloride [Moles/Vol] 103 mmol/L Normal 98-107 [facility] Comment on above: Performed By: #### C RP, CMP #### [facility] [address] [place] [address] Dr. Rigoberto Ivy CO2 [Moles/Vol] 33.6 mmol/L Critically high 22.0-30.0 [facility] Comment on above: Performed By: #### C RP, CMP #### [facility] [address] [place] [address] Dr. Rigoberto Ivy Creatinine [Mass/Vol] 0.58 mg/dL Normal 0.52-1.04 [facility] Comment on above: Performed By: #### C RP, CMP #### [facility] [address] [place] [address] Dr. Rigoberto Ivy EGFR-AF FAROESE >60 Normal >=60 [facility] Comment on above: Performed By: #### C RP, CMP #### [facility] [address] [place] [address] Dr. Rigoberto Ivy EGFR-NON AF FAROESE >60 Normal >=60 [facility] Comment on above: Performed By: #### C RP, CMP #### [facility] [address] [place] [address] Dr. Rigoberto Ivy Globulin (S) [Mass/Vol] 3.3 g/dL Normal T [facility] Comment on above: Performed By: #### C RP, CMP #### [facility] [address] [place] [address] Dr. Rigoberto Ivy Glucose [Mass/Vol] 98 mg/dL Normal 74-106 [facility] Comment on above: Performed By: #### C RP, CMP #### [facility] [address] [place] [address] Dr. Rigoberto Ivy Potassium [Moles/Vol] 4.3 mmol/L Normal 3.4-5.0 [facility] Comment on above: Performed By: #### C RP, CMP #### [facility] [address] [place] [address] Dr. Rigoberto Ivy Protein [Mass/Vol] 6.6 g/dL Normal 6.1-8.2 [facility] Comment on above: Performed By: #### C RP, CMP #### [facility] [address] [address] [address] Rigoberto Ivy Sodium [Moles/Vol] 141 mmol/L Normal 137-145 [facility] Comment on above: Performed By: #### C RP, CMP #### [facility] [address] [place] [address] Dr. Rigoberto Ivy Urea nitrogen [Mass/Vol] 10.0 mg/dL Normal 7.0-17.0 [facility] Comment on above: Performed By: #### C RP, CMP #### [facility] [address] [place] [address] Dr. Rigoberto Ivy Urea nitrogen/Creatinine [Mass ratio] 17.2 mg/mg Normal [facility] Comment on above: Performed By: #### C RP, CMP #### [facility] [address] [place] [address] Dr. Rigoberto Ivy SED RATE [facility] 2020 SED RATE 27 mm/hr Normal <=30 [facility] Comment on above: Performed By: #### H STROPN #### [facility] [address] [place] [address] Dr. Rigoberto Ivy Coding Summary.on 04-21-2019 Coding Summary. CODING DATE: 04/21/2019 [facility] STATUS: Home (Routine DC) PAYOR: Medicare ADMIT [...] CphT Date Saved: 04/21/2019 12:54 pm Normal [facility] [place] Mamm Diag w/CAD if perf [...] very important to your health. The current [place] [employer] and National Comprehensive Cancer [...] Category 1-Negative Recommendation: Normal interval follow-up Normal [facility] Coding Summary.on 10-11-2018 Coding Summary. CODING DATE: 10/11/2018 FINAL [facility] STATUS: Home (Routine DC) PAYOR: Medicare ADMIT [...] CphT Date Saved: 10/11/2018 10:33 am Normal [facility] Vital Signs Date Time Vital Sign Value Performing Clinician Facility 07-05-2024 13:070400 Body height 162.56 cm DO Melvin Ball Work Phone: [facility] 07-05-2024 [id number] Body mass index (BMI) [Ratio] 19.6 kg/m2 DO Melvin Ball Work Phone: [facility] 07-05-2024 [id number] Body weight 52 kg DO Melvin Ball Work Phone: [facility] 06-13-2024 10:30-0400 Body height 162.56 cm DO Melvin Ball Work Phone: [facility] 06-13-2024 10:30-0400 Body mass index (BMI) [Ratio] 20 kg/m2 DO Melvin Ball Work Phone: [facility] 06-13-2024 10:30-0400 Body weight 52.84 kg DO Melvin Ball Work Phone: [facility] 06-13-2024 10:30-0400 Diastolic blood pressure 55 mm[Hg] DO Melvin Ball Work Phone: [facility] 06-13-2024 10:30-0400 Heart rate 76 /min DO Melvin Ball Work Phone: [facility] 06-13-2024 10:30-0400 Respiratory rate 12 /min DO Melvin Ball Work Phone: [facility] 06-13-2024 10:30-0400 Systolic blood pressure 135 mm[Hg] DO Melvin Ball Work Phone: [facility] 04-28-2024 11:10-0400 Body height 162.56 cm DO Melvin Ball Work Phone: [facility] 04-28-2024 11:10-0400 Body mass index (BMI) [Ratio] 20.4 kg/m2 DO Melvin Ball Work Phone: [facility] 04-28-2024 11:10-0400 Body weight 54 kg DO Melvin Ball Work Phone: [facility] 04-01-2024 11:23-0400 Body height 162.56 cm [facility] 04-01-2024 11:23-0400 Body mass index (BMI) [Ratio] 20.5 kg/m2 [facility] 04-01-2024 11:23-0400 Body weight 54.2 kg [facility] 04-01-2024 11:23-0400 Diastolic blood pressure 80 mm[Hg] [facility] 04-01-2024 11:23-0400 Heart rate 69 /min [facility] 04-01-2024 11:23-0400 Respiratory rate 12 /min [facility] 04-01-2024 11:23-0400 Systolic blood pressure 130 mm[Hg] [facility] 02-04-2024 09:39-0400 Body height 162.56 cm [facility] 02-04-2024 09:39-0400 Body mass index (BMI) [Ratio] 20.7 kg/m2 [facility] 02-04-2024 09:39-0400 Body weight 54.88 kg [facility] 02-04-2024 09:39-0400 Diastolic blood pressure 65 mm[Hg] [facility] 02-04-2024 09:39-0400 Heart rate 73 /min [facility] 02-04-2024 09:39-0400 Respiratory rate 12 /min [facility] 02-04-2024 09:39-0400 Systolic blood pressure 153 mm[Hg] [facility] 10-13-2023 10:30-0500 Body height 162.56 cm Melvin Ball Other [employer] [facility] [employer] Other 10-13-2023 10:30-0500 Body mass index (BMI) [Ratio] 21.45 kg/m2 Melvin Ball Other [email or web address] Other 10-13-2023 10:30-0500 Body weight 56.7 kg Melvin Ball Other [employer] [facility] [employer] Other 10-13-2023 10:30-0500 Diastolic blood pressure 80 mm[Hg] Melvin Ball Other [email or web address] Other 10-13-2023 10:30-0500 Respiratory rate 12 /min Melvin Ball Other [email or web address] Other 10-13-2023 10:30-0500 Systolic blood pressure 133 mm[Hg] Melvin Ball Other [email or web address] Other 08-27-2023 13:40-0400 Body height 162.56 cm Melvin Ball Other [email or web address] Other 08-27-2023 13:40-0400 Diastolic blood pressure 66 mm[Hg] Melvin Ball Other [email or web address] Other 08-27-2023 13:40-0400 Systolic blood pressure 147 mm[Hg] Melvin Ball Other [email or web address] Other 06-18-2023 16:20-0400 Diastolic blood pressure 57 mm[Hg] Melvin Ball Other [email or web address] Other 06-18-2023 16:20-0400 Systolic blood pressure 123 mm[Hg] Melvin Ball Other [email or web address] Other 06-16-2023 14:24-0400 Diastolic blood pressure 54 mm[Hg] Melvin Ball Other [email or web address] Other 06-16-2023 14:24-0400 Systolic blood pressure 147 mm[Hg] Melvin Ball Other [email or web address] Other 06-11-2023 14:25-0400 Diastolic blood pressure 62 mm[Hg] Melvin Ball Other [email or web address] Other 06-11-2023 14:25-0400 Systolic blood pressure 130 mm[Hg] Melvin Ball Other [email or web address] Other 06-11-2023 14:20-0400 Diastolic blood pressure 62 mm[Hg] Melvin Ball Other [email or web address] Other 06-11-2023 14:20-0400 Systolic blood pressure 125 mm[Hg] Melvin Ball Other [email or web address] Other 06-08-2023 11:30-0400 Body height 162.56 cm Melvin Ball Other [email or web address] Other 06-08-2023 11:30-0400 Body mass index (BMI) [Ratio] 22.76 kg/m2 Melvin Ball Other [email or web address] Other 06-08-2023 11:30-0400 Body weight 60.15 kg Melvin Ball Other [email or web address] Other 06-08-2023 11:30-0400 Diastolic blood pressure 67 mm[Hg] Melvin Ball Other [email or web address] Other 06-08-2023 11:30-0400 Respiratory rate 12 /min Melvin Ball Other [email or web address] Other 06-08-2023 11:30-0400 Systolic blood pressure 155 mm[Hg] Melvin Ball Other [email or web address] Other 05-06-2023 10:45-0400 Body height 162.56 cm Melvin Ball Other [email or web address] Other 05-06-2023 10:45-0400 Body mass index (BMI) [Ratio] 22.76 kg/m2 Melvin Ball Other [email or web address] Other 05-06-2023 10:45-0400 Body weight 60.15 kg Melvin Ball Other [facility] [employer] Other 05-06-2023 10:45-0400 Diastolic blood pressure 76 mm[Hg] Melvin Ball Other [facility] [employer] Other 05-06-2023 10:45-0400 Respiratory rate 12 /min Melvin Ball Other [facility] [employer] Other 05-06-2023 10:45-0400 Systolic blood pressure 160 mm[Hg] Melvin Ball Other [facility] [employer] Other Encounters Encounter Date Encounter Type Care Provider Facility Start: 07-19-2024 End: 07-19-2024 Patient encounter procedure DO Melvin Ball Work Phone: [facility] Work Phone: Start: 07-19-2024 End: 07-19-2024 ambulatory DO Melvin Ball Work Phone: [facility] Work Phone: Start: 07-05-2024 End: 07-05-2024 ambulatory DO Melvin Ball Work Phone: [facility] Work Phone: Start: 07-05-2024 End: 07-05-2024 Patient encounter procedure DO Melvin Ball Work Phone: [facility] Work Phone: Start: 06-14-2024 Non-patient / Non-visit DO Melvin Ball Work Phone: [facility] Work Phone: Start: 06-13-2024 End: 06-13-2024 ambulatory DO Melvin Ball Work Phone: [facility] Work Phone: Start: 06-13-2024 End: 06-13-2024 Patient encounter procedure DO Melvin Ball Work Phone: [facility] Work Phone: Start: 06-07-2024 End: 06-07-2024 ambulatory DELROY TENA Not Available Start: 04-28-2024 End: 04-28-2024 ambulatory DO Melvin Ball Work Phone: [facility] Work Phone: Start: 04-28-2024 End: 04-28-2024 Patient encounter procedure DO Melvin Ball Work Phone: [facility] [place] Work Phone: Start: 04-18-2024 Non-patient / Non-visit DO Melvin Pereira Work Phone: [facility] Work Phone: Start: 04-01-2024 End: 04-01-2024 ambulatory [facility] Work Phone: Start: 04-01-2024 End: 04-01-2024 Patient encounter procedure [facility] Work Phone: Start: 02-04-2024 End: 02-04-2024 ambulatory [facility] Work Phone: Start: 02-04-2024 End: 02-04-2024 Patient encounter procedure [facility] Work Phone: Start: 12-16-2023 Non-patient / Non-visit [facility] Work Phone: Start: 11-16-2023 End: 11-16-2023 ambulatory DELROY TENA Not Available Start: 10-13-2023 End: 10-13-2023 ambulatory Melvin Pereira Other [facility] [employer] Other Start: 10-13-2023 Office outpatient visit 25 minutes Melvin Randall [facility] Start: 09-29-2023 End: 09-29-2023 ambulatory DELROY Danya TENA Not Available Start: 08-27-2023 End: 08-27-2023 ambulatory Melvin Pereira Other [email or web address] Other Start: 08-27-2023 Telephone encounter Melvin Ball [facility] Start: 08-21-2023 End: 08-21-2023 ambulatory Melvin Pereira Other [email or web address] Other Start: 08-21-2023 Telephone encounter Melvin Ball FP [facility] Start: 08-14-2023 End: 08-14-2023 ambulatory Melvin Pereira Other [email or web address] Other Start: 08-14-2023 Telephone encounter Melvin Ball FP [facility] Start: 08-10-2023 End: 08-10-2023 ambulatory Melvin Pereira Other [email or web address] Other Start: 08-10-2023 Telephone encounter Melvin Ball FP [facility] Start: 07-24-2023 End: 07-24-2023 ambulatory Melvin Pereira Other [email or web address] Other Start: 07-24-2023 Telephone encounter Melvin Ball [facility] Start: 07-23-2023 End: 07-23-2023 ambulatory Melvin Ball Other [email or web address] Other Start: 07-23-2023 Nursing evaluation o f patient and report Melvin Pereira [facility] Start: 07-17-2023 End: 07-17-2023 ambulatory Melvin Ball Other [email or web address] Other Start: 07-17-2023 Telephone encounter Melvin Ball [facility] Start: 06-29-2023 End: 06-29-2023 ambulatory Melvin Ball Other [email or web address] Other Start: 06-29-2023 Telephone encounter Melvin Ball [facility] Start: 06-18-2023 End: 06-18-2023 ambulatory Melvin Pereira Other [email or web address] Other Start: 06-18-2023 Telephone encounter Melvin Pereira [facility] Start: 06-16-2023 End: 06-16-2023 ambulatory Melvin Pereira Other [email or web address] Other Start: 06-16-2023 Telephone encounter Melvin Pereira [facility] Start: 06-11-2023 End: 06-11-2023 ambulatory Melvin Pereira Other [email or web address] Other Start: 06-11-2023 Telephone encounter Melvin Pereira [facility] Start: 06-08-2023 End: 06-08-2023 ambulatory Melvin Pereira Other [email or web address] Other Start: 06-08-2023 Patient encounter procedure Melvin JOSE [facility] Start: 06-05-2023 End: 06-05-2023 ambulatory Melvin Pereira Other [email or web address] Other Start: 06-05-2023 Telephone encounter Melvin Pereira [facility] Start: 05-29-2023 End: 05-29-2023 ambulatory Melvin Pereira Other [email or web address] Other Start: 05-29-2023 Telephone encounter Melvin Pereira [facility] Start: 05-18-2023 End: 05-18-2023 ambulatory Melvin Pereira Other [email or web address] Other Start: 05-18-2023 Telephone encounter Melvin Pereira [facility] Start: 05-14-2023 End: 05-14-2023 ambulatory Melvin Pereira Other [email or web address] Other Start: 05-14-2023 Telephone encounter Melvin Pereira [facility] Start: 05-11-2023 End: 05-11-2023 ambulatory Melvin Pereira Other [email or web address] Other Start: 05-11-2023 Telephone encounter Melvin [facility] Start: 05-08-2023 End: 05-08-2023 ambulatory Melvin Pereira Other [email or web address] Other Start: 05-08-2023 Telephone encounter Melvin JACOBSON [facility] Start: 05-06-2023 End: 05-06-2023 ambulatory Melvin Pereira Other [email or web address] Other Start: 05-06-2023 Office outpatient visit 25 minutes Melvin Randall [facility] Start: 07-16-2022 End: 07-17-[address] MELVIN PEREIRA Facility:[facility] Start: 07-04-2022 End: 07-05-[address] MELVIN PEREIRA Facility:[facility] Start: 06-30-2022 Adult health examination Melvin Randall Other [email or web address] Other Start: 03-14-2022 End: 03-15-[address] NOAM ARMANDO Facility:[facility] Start: 11-05-2021 End: 11-05-2021 ambulatory CARITO WELLS Facility:[facility] Start: 10-29-2021 End: 10-30-[address] NOAM ARMANDO Facility:[facility] Procedures Date Procedure Procedure Detail Performing Clinician Start: 07-19-2024 Ultrasound elastogra phy of liver DO Melvin Pereira Work Phone: Start: 08-10-2017 Diabetes mellitus screening Melvin Pereira Other Start: 09-07-2015 Screening for malign ant neoplasm of colon Melvin Pereira Other Depression screening Valerie hernandez [facility] Other Screening for malign ant neoplasm of breast Melvin Pereira Other Plan of Treatment Date Care Activity Detail Author Start: 07-19-2024 End: 07-19-2024 [facility] Start: 07-19-2024 Hepatic function panel [facility] Start: 07-19-2024 Hepatitis B core ant ibody measurement [facility] Start: 07-19-2024 Hepatitis B virus banda rface Ab [Presence] in Serum [facility] Start: 04-28-2024 [facility] Albumin/Globulin ratio [facility] Bilirubin.indirect [ Mass/volume] in Serum or Plasma [facility] Comprehensive metabo lic 2000 panel - Serum or Plasma [facility] Endomysial antibody IgA level [facility] Gliadin peptide IgA Ab [Units/volume] in Serum [facility] Gliadin peptide IgG Ab [Units/volume] in Serum [facility] Globulin [Mass/volume] in Serum [facility] Hepatic function panel [facility] Hepatitis B core ant ibody measurement [facility] Hepatitis B virus banda rface Ab [Presence] in Serum [facility] Hepatitis B virus banda rface Ag [Presence] in Serum or Plasma by Immunoassay [facility] Hepatitis C virus RN A [log units/volume] (viral load) in Serum or Plasma by LATHA with probe detection [facility] IgA [Mass/volume] in Serum or Plasma [facility] MRA Head vessels WO contrast [facility] Tissue transglutamin ase IgA Ab [Units/volume] in Serum [facility] Tissue transglutamin ase IgG Ab [Units/volume] in Serum [facility] US Heart Transthoracic [facility] US Liver [facility] US.doppler Carotid a rteries - bilateral [facility] Immunizations Immunization Date Immunization Notes Care Provider Fa cility 07-23-2023 influenza virus vaccine, unspecified formulation [facility] 07-23-2023 influenza, high dose seasonal, preservative-free Melvin Pereira Other [email or web address] Other 07-18-2022 influenza virus vaccine, split virus (incl. purified surface antigen) Melvin Pereira Other [email or web address] Other 07-18-2022 influenza virus vaccine, unspecified formulation [facility] 07-18-2022 influenza, high dose seasonal, preservative-free Melvin Pereira Other [employer] Other 07-18-2021 influenza virus vaccine, split virus (incl. purified surface antigen) Melvin Pereira Other [employer] Other 07-18-2021 influenza virus vaccine, unspecified formulation [facility] 04-08-2021 diphtheria, tetanus toxoids and acellular pertussis vaccine, unspecified formulation Melvin Pereira Other [facility] 07-27-2020 influenza virus vaccine, split virus (incl. purified surface antigen) Melvin Pereira Other [facility] [employer] Other 07-27-2020 influenza virus vaccine, unspecified formulation [facility] 07-26-2019 influenza virus vaccine, split virus (incl. purified surface antigen) Melvin Pereira Other [facility] [employer] Other 07-26-2019 influenza virus vaccine, unspecified formulation [facility] 09-07-2018 pneumococcal polysaccharide vaccine, 23 valent Melvin Pereira Other [facility] 08-16-2018 influenza virus vaccine, split virus (incl. purified surface antigen) Melvin Pereira Other [facility] [employer] Other 08-16-2018 influenza virus vaccine, unspecified formulation [facility] 08-10-2017 pneumococcal conjuga te vaccine, 13 valent Melvin Pereira Other [facility] 07-21-2017 influenza virus vaccine, split virus (incl. purified surface antigen) Melvin Pereira Other [facility] [employer] Other 07-21-2017 influenza virus vaccine, unspecified formulation [facility] Payers Date Payer Category Payer Self-pay [id number] 1959 Medicare [id number] 1959 Unknown [id number] 1935 Unknown [id number] 2.16.84 [id number] 1935 Unknown [id number] 2.16.84 [id number] 1935 Unknown [id number] 2.16.84 [id number] 1935 Unknown [id number] 2.16.84 [id number] 1935 Unknown [id number] 2.16.84 [id number] 1935 Unknown [id number] 2.16.84 [id number] 1935 Unknown [id number] 2.16.84 [id number] 1935 Unknown [id number] [id number] Unknown [id number] (STD) [id number] Unknown [id number] 2.16.8 [id number] Unknown [id number] 2.16.8 [id number] Social History Date Type Detail Facility Sex Assigned At [email or web address] Other Start: 1935 Sex Assigned At Female F [facility] Start: 04-28-2024 Tobacco smoking stat us NHIS Never smoked tobacco (finding) [facility] Goals Date Patient Goal Desired Activity /State Clinical Notes 05-06-2023 to 07-05-2024 Note Date & Type Note Facility 07-05-2024 Evaluation note Authored July 05, 2024 1:36pm 89-year-old female referred to the liver clinic for evaluation of elevated liver enzymes Patient denied jaundice abdominal pain nausea vomiting or other complaints. She used to be on methotrexate for 8 years she stopped it 2 weeks ago. She patient stopped atorvastatin few weeks ago LFTs improved significantly spontaneously Ultrasound showed fatty liver otherwise it was unremarkable Will arrange for FibroScan. Will check viral hepatitis serologies. I recommended the patient to discuss with PCP alternative treatments of hyperlipidemia other than the statins Author [facility] Authored April 28, 2024 11:2 0am 89-year-old female referred to the liver clinic [...] will determine the need to stop atorvastatin [facility] Work Phone: 1(803) 935-271508-20-2024 Evaluation note* Author [facility] Authored July 05, 2024 1:36pm 89-year-old female referred to the liver clinic for evaluation of elevated liver enzymes Patient denied jaundice abdominal pain nausea vomiting or other complaints. She used to be on methotrexate for 8 years she stopped it 2 weeks ago. She patient stopped atorvastatin few weeks ago LFTs improved significantly spontaneously Ultrasound showed fatty liver otherwise it was unremarkable Will arrange for FibroScan. Will check viral hepatitis serologies. I recommended the patient to discuss with PCP alternative treatments of hyperlipidemia other than the statins Author [facility] Authored April 28, 2024 11:2 0am 89-year-old female referred to the liver clinic [...] will determine the need to stop atorvastatin [facility] Work Phone: 1(679) 585-985606-27-2024 Evaluation note* Author [facility] Authored April 28, 2024 11:2 0am 89-year-old female referred to the liver clinic [...] will determine the need to stop atorvastatin [facility] Work Phone: [phone] 561-162612-12-2023 Evaluation note* Encounter Date Diagnosis Assessment Notes [...] monitor for pain, distention, melena or hematochezia. [email or web address] Other 10-09-2023 Evaluation note* Encounter Date Diagnosis Assessment Notes Treatment Notes Treatment Clinical Notes Aug, COVID (ICD-10 - U07.1) [email or web address] Other 08-10-2023 Evaluation note* Encounter Date Diagnosis Assessment Notes Treatment Notes Treatment Clinical Notes Jun, Primary hypertension (ICD-10 - I10) [email or web address] Other 08-07-2023 Evaluation note* Encounter Date Diagnosis [...] and Vit D supplements. Weight bearing exercises [email or web address] Other 07-07-2023 Evaluation note* Encounter Date Diagnosis Assessment Notes Treatment Notes Treatment Clinical Notes May, Primary hypertension (ICD-10 - I10) [email or web address] Other 07-05-2023 Evaluation note* Encounter Date Diagnosis [...] mammogram for breast cancer (ICD-10 - Z12.31) [email or web address] Other Evaluation [employer] [employer] Other Evaluation note* Diagnosis Onset Date Resolution Status Chronic venous insufficiency of lower extremity acute GERD (gastroesophageal reflux disease) acute Hypertension acute Lumbar spondylosis acute Osteopenia acute Rheumatoid arthritis acute [facility] Work Phone: Evaluation note* Diagnosis Onset Date Resolution Status Aphasia acute Chronic venous insufficiency of lower extremity acute GERD (gastroesophageal reflux disease) acute Hypertension acute Lumbar spondylosis acute Osteopenia acute Rheumatoid arthritis acute TIA (transient ischemic attack) acute Cerebral atherosclerosis acu te Chronic venous insufficiency of lower extremity acute Hypertension acute [facility] Work Phone: History general Narrative - Reported* [...] EXCISED 2004 Hospitalization History SEE SURGICAL HX [email or web address] Other Summary Purpose Family History No Family [...] Rheumatoid arthritis Medicare annual wellness visit, subsequent Chief Complaint increased liver func tion test/dr armando referred R74.8 wellness Follow up testing Reason for Visit Elevated liver enzym es Cerebral atherosclerosis Chronic venous insufficiency of lower extremity GERD (gastroesophageal reflux disease) Hypertension Metabolic dysfunction-associated steatotic liver disease (MASLD) Osteopenia Rheumatoid arthritis Medicare annual wellness visit, subsequent Elevated liver enzymes Chief Complaint increased liver func tion test/dr armando referred R74.8 wellness Follow up testing elevated liver enzymes Reason for Visit Elevated liver enzym es Cerebral atherosclerosis Chronic venous insufficiency of lower extremity GERD (gastroesophageal reflux disease) Hypertension Metabolic dysfunction-associated steatotic liver disease (MASLD) Osteopenia Rheumatoid arthritis Medicare annual wellness visit, subsequent Elevated liver enzymes Additional Source Comments INFORMATION SOURCE (unrecogn ized section and content) DATE CREATED AUTHOR 04/21/2019 [facility] DATE CREATED AUTHOR AUTHOR'S ORGANIZ ATION 07/30/2022 [facility] DATE CREATED AUTHOR AUTHOR'S ORGANIZ ATION 06/09/2024 [facility] EPIC DATE CREATED AUTHOR AUTHOR'S ORGANIZ ATION 07/21/2024 [facility] REASON FOR VISIT (unrecogniz ed [...] 2024 Team Status: Inactive Member Role Status Mack Pereira DO Primary Care Provide r, Attending Provider Active Start: June 13, 2024 End: June 13, 2024 Team Status: Active Member Role Status Mack Pereira DO Primary Care Provide r, Attending Provider Active Start: June 14, 2024 Team Status: Inactive Member Role Status Mack Pereira DO Primary Care Provider Active Start: July 05, 2024 End: July 05, 2024 Bryan Briggs MD Attending Provider Active Start: July 05, 2024 End: July 05, 2024 Team Status: Inactive Member Role Status Dates Melvin Pereira DO Primary Care Provider Active Start: July 19, 2024 End: July 19, 2024 Bryan Briggs MD Attending Provider Active Start: July 19, 2024 End: July 19, 2024 Team Status: Active Member Role Status Dates Melvin Pereira DO Primary Care Provider Active Start: April 18, 2024 Noam Armando MD Attending Provider Active St art: April 18, 2024 Team Status: Inactive Member Role Status Dates Melvin Pereira , Primary Care Provide r, Attending Provider Active Start: February 04, 2024 End: February 04, 2024 Team Status: Inactive Member Role Status Dates Melvin Pereira , DO Primary Care Provide r, Attending Provider Active Start: April 01, 2024 End: April 01, 2024 Team Status: Active Member Role Status Dates Melvin Pereira , Primary Care Provide r, Attending Provider Active Start: December 16, 2023 Goals (unrecognized section and content) Goals may [...] BE BASED ON THE PRIMARY CLINICAL RECORDS. [employer] [facility]. provides no warranty or guarantee of the accuracy or completeness of information in this document.
== END 2024-09-02 11:22 | disposition home or self-care (01) ==
LOC: MAMMO 11:21
PROVIDERS: PCP Internal Medicine; Visit Provider Internal Medicine
DX: Z12.31 Encounter for screening mammogram for malignant neoplasm of breast (principal); Z80.3 Family history of malignant neoplasm of breast; Z80.52 Family history of malignant neoplasm of bladder
CPT/HCPCS: 77063; 77067